=== PATIENT | female | born 1940 | race Caucasian/White ===

== ENCOUNTER 2021-12-22 15:17 | Outpatient (CLI) | payer MEDICARE, SELFPAY ==
[2021-12-22 09:57] LABS: Chloride* 101 mmol/L (96-114); Potassium* 4.7 mmol/L (3.6-5.1); Sodium* 132 mmol/L (135-149)
[2021-12-22 09:59] LABS: Creatinine* 0.8 mg/dL (0.5-1.5); Estimated Glomerular Filt Rate 73 ml/min
[2021-12-22 10:00] LABS: Blood Urea Nitrogen* 16 mg/dL (7-30); Calcium* 8.9 mg/dL (8.4-10.6); Carbon Dioxide* 24 mmol/L (20-32); Glucose* 106 mg/dL (60-115)
== END 2021-12-22 15:18 | disposition home or self-care (01) ==
PROVIDERS: Visit Provider Family Medicine
DX: I10 Essential (primary) hypertension (principal)
CPT/HCPCS: 80048

== ENCOUNTER 2022-01-28 11:35 | Emergency (ER) | payer MEDICARE, SELFPAY ==
[2022-01-28 12:22] VITALS: BP 197/92; PULSE 56; RESP 18; TEMP 36.8; O2SAT 98; BMI 23.2
[2022-01-28 13:18] LABS: SARS Antigen* positive (Negative)
[2022-01-28 13:25] VITALS: BP 187/82; PULSE 58; RESP 20; TEMP 37.4; O2SAT 97
[2022-01-28 13:34] LABS: PCR FLU A Negative PCR FLU A (Negative); PCR FLU B Negative PCR FLU B (Negative); PCR RSV Negative PCR RSV (Negative)
[2022-01-28 13:40] LABS: SARS PCR* POSITIVE SARS-CoV-2 (Negative)
[2022-01-28 14:06] VITALS: BP 187/82; PULSE 58; RESP 20; TEMP 37.4
--- NOTE | 2022-01-28 14:06 | ED.GENADULT ---
HPI - General Adult General Date Seen: 01/28/22 Chief complaint: Sore Throat Stated complaint: Covid+ Time Seen by Provider: 01/28/22 12:37 Source: patient History of Present Illness HPI narrative: Patient is an 81-year-old woman who presents having had a positive COVID test at home. She tells me that she did have COVID 6 weeks ago and was treated with Paxlovid, and says that it was like a miracle drug for her. She felt better the very next day. A couple of days ago, she went her garden club, and then yesterday she had some clear rhinorrhea. Today, she took a COVID test at home and it was again positive. She reports that her is medically frail, and she would like to take Paxlovid again. She says today she actually feels kind of better, but that rhinorrhea yesterday really concerned her. She does not have any fevers, denies cough or shortness of breath. She reports that her general health is good. Related Data Home Medications Medication Instructions Recorded Confirmed alclometasone 0.05 % topical 1 applic topical BID 12/14/21 12/26/21 ointment atorvastatin 20 mg tablet 20 mg PO QHS 12/14/21 12/26/21 calcium carbonate 600 mg calcium 600 mg PO QDAY 12/14/21 12/26/21 (1,500 mg) tablet (Calcium) carvedilol 25 mg tablet 25 mg PO BID 12/14/21 12/26/21 cholecalciferol (vitamin D3) 50 50 mcg PO QDAY 12/14/21 12/26/21 mcg (2,000 unit) capsule esomeprazole magnesium 40 mg 40 mg PO QDAY 12/14/21 12/26/21 capsule,delayed release lisinopril 20 mg tablet 20 mg PO BID 12/14/21 12/26/21 naproxen 250 mg tablet 250 mg PO BID PRN 12/14/21 12/26/21 aspirin 81 mg tablet,delayed 81 mg PO .Every other day 12/26/21 12/26/21 release (Adult Low Dose Aspirin) Previous Rx's Medication Instructions Recorded oxybutynin chloride 5 mg 5 mg PO DAILY #90 tabs 12/26/21 tablet,extended release 24 hr nirmatrelvir 300 mg (150 mg See Rx Instructions PO .COMPLEX 01/28/22 x2)-ritonavir 100 mg tablet,dose #30 ea pack(EUA) (Paxlovid) Allergies Allergy/AdvReac Type Severity Reaction Status Date / Time latex Allergy Mild Rash Verified 12/26/21 15:01 hydrochlorothiazide Allergy Unknown Verified 12/26/21 15:01 Review of Systems Status of ROS: Reports: 10 or more systems reviewed and unremarkable except as noted in History and below PFSH PFS Medical History Dyslipidemia Gastroesophageal reflux disease Hearing loss (01/08/17) History of herpes zoster (2016) Hypertension Increased frequency of urination Polyp of colon (1999) Under observation for suspected coronary artery disease (2006) Surgical History H/O esophagogastroduodenoscopy (03/22/20) History of bilateral cataract extraction (04/2020) History of colonoscopy with polypectomy (02/08/16) History of tubal ligation (1969) Family History Maternal Grandfather Stroke Son FH: early coronary artery disease, Onset Age: 42 Brother FH: early coronary artery disease Brother FH: early coronary artery disease Sister FH: early coronary artery disease Father Lung cancer Mother Colon cancer, Onset Age: 86 Other Skin cancer 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 In general, an alert, well-appearing patient. Head: Normocephalic, atraumatic. Eyes: Pupils are equal reactive. Extraocular movements are full. Conjunctivae are normal. ENT: Mucous membranes are moist. Throat is normal. Neck: Supple without lymphadenopathy. Heart: Regular rate and rhythm. No murmur or rub. Lungs: Clear bilaterally. No increased work of breathing, crackles or wheezes. Abdomen: Soft and nontender. No organomegaly. Extremities: Well perfused. No edema. No calf tenderness. Pulses intact. Neurologic: Patient is alert and oriented to person and place. Speech is fluent. Face is symmetric. Moves all extremities equally. Affect: Normal. Skin: Warm and dry. Well perfused. Const: Vital Signs, click to edit/add: Vital Signs - 24 hr 01/28/22 12:22 01/28/22 13:25 01/28/22 14:06 Temperature 98.3 F 99.3 F 99.3 F Pulse Rate [Pulse Oximeter] 56 L 58 L 58 L Respiratory Rate 18 20 20 Blood Pressure [Ri ght Upper Arm] 197/92 H 187/82 H 187/82 H Pulse Oximetry 98 97 Oxygen Delivery Me thod Room Air Room Air Course Course Hospital Course: I checked influenza and RSV test here which are negative. An antigen COVID test is positive. It seems very fast for her to have a repeat COVID infection, but given that her antigen test is positive and I do not have an alternate explanation for a viral respiratory infection, I am erring on the side of conservative and will restart Paxlovid for her. Will need to hold her statin. Return for worsening symptoms. Vital Signs Vital signs: Initial Vital Signs Temperature 98.3 F 01/28/22 12:22 Temperature Source Temporal Artery Scan 01/28/22 12:22 Pulse Rate 56 L 01/28/22 12:22 Respiratory Rate 18 01/28/22 12:22 Blood Pressure 197/92 H 01/28/22 12:22 Blood Pressure Mean 127 01/28/22 12:22 Blood Pressure Position Semi-Fowlers 01/28/22 12:22 Pulse Oximetry 98 01/28/22 12:22 Oxygen Delivery Method 01/28/22 12:22 Vital Signs Temperature 98.3 F 01/28/22 12:22 Pulse Rate 56 L 01/28/22 12:22 Respiratory Rate 18 01/28/22 12:22 Blood Pressure 197/92 H 01/28/22 12:22 Pulse Oximetry 98 01/28/22 12:22 Oxygen Delivery Method 01/28/22 12:22 Temperature 99.3 F 01/28/22 14:06 Pulse Rate 58 L 01/28/22 14:06 Respiratory Rate 20 01/28/22 14:06 Blood Pressure 187/82 H 01/28/22 14:06 Pulse Oximetry 97 01/28/22 13:25 Oxygen Delivery Method 01/28/22 13:25 Medical Decision Making Lab Data Labs: Lab Results 01/28/22 01/28/22 Range/Units 12:41 12:45 SARS-CoV-2 (PCR) POSITIVE SARS-CoV-2 A (Negative) Influenza Type A (PCR) Negative PCR FLU A (Negative) Influenza Type B (PCR) Negative PCR FLU B (Negative) RSV (PCR) Negative PCR RSV (Negative) SARS-CoV-2 Ag (Rapid) positive (Negative) Discharge Plan Discharge Clinical Impression: COVID-19 Patient Disposition: Home, Self-Care Condition: Stable Instructions: COVID-19 and Chronic Health Conditions (ED) Additional Instructions: Paxlovid as prescribed. Return for worsening. Prescriptions: New Paxlovid (EUA) 300 mg (150 mg x 2)-100 mg tablets,dose pack See Rx Instructions .ROUTE .COMPLEX Qty: 30 0RF Rx Instructions: take TWO 150 mg tablets of nirmatrelvir with ONE 100 mg tablet of ritonavir twice daily for 5 days No Action oxybutynin chloride 5 mg tablet extended release 24hr 5 mg PO DAILY Qty: 90 4RF Rx Instructions: did see Dr Warren atorvastatin 20 mg tablet 20 mg PO QHS calcium carbonate [Calcium 600] 600 mg calcium (1,500 mg) tablet 600 mg PO QDAY carvedilol 25 mg tablet 25 mg PO BID Rx Instructions: must administer with a meal/food esomeprazole magnesium 40 mg capsule,delayed release(DR/EC) 40 mg PO QDAY cholecalciferol (vitamin D3) 50 mcg (2,000 unit) capsule 50 mcg PO QDAY alclometasone 0.05 % ointment 1 applic topical BID naproxen 250 mg tablet 250 mg PO BID PRN lisinopril 20 mg tablet 20 mg PO BID aspirin [Adult Low Dose Aspirin] 81 mg tablet,delayed release (DR/EC) 81 mg PO .Every other day Follow Up/Referrals: Cyndy Ventura MD [Primary Care Provider] - Stand Alone Forms: [employer] Info Instructions
--- NOTE | 2022-01-28 14:55 | ED.NURSE ---
Pt's spouse called and stated that their pharmacy is closed. Would like called to [facility]. Rx called in
== END 2022-01-28 14:06 | disposition home or self-care (01) ==
PROVIDERS: Emergency Provider Emergency Medicine; PCP Family Medicine
DX: U07.1 COVID-19 (principal)
CPT/HCPCS: 87426; 87502; 87634; 87635; 99283; 99284

== ENCOUNTER 2022-03-08 12:51 | Outpatient (CLI) | payer MEDICARE, SELFPAY ==
--- NOTE | 2022-03-08 13:40 | CRLHL7_ITS ---
For Patients: As a result of the Cures Act, medical imaging exams and procedure reports are released immediately into your electronic medical record. You may view this report before your referring provider. If you have questions, please contact your health care provider. BILATERAL SCREENING MAMMOGRAM WITH COMPUTER-AIDED DETECTION AND TOMOSYNTHESIS TECHNIQUE: CC and MLO views were obtained. These mammographic images have been obtained using full-field digital technique. These mammographic images were interpreted with the benefit of computer-aided detection. Breast tomosynthesis was used in this interpretation. COMPARISON FILM: 01/25/21, 09/22/19, 07/31/17. FINDINGS: The breasts are heterogeneously dense, which may obscure small masses. IMPRESSION: There is no radiographic evidence for malignancy. ASSESSMENT: BI-RADS Category 2: Benign RECOMMENDATION: Routine screening mammogram in 1 year. A lay language report of this examination will be provided to the patient. BETSY NELSON M.D. Diagnostic/Nuclear Medicine Radiologist [email or web address] COLEEN:[email or web address] Transcribed: 03/09/2022, 4:[address]/Dictated by: Betsy Nelson MD @ 03/09/2022 9:07:00 AM (Electronically Signed)
== END 2022-03-08 12:52 | disposition home or self-care (01) ==
LOC: MAMMO 12:52
PROVIDERS: PCP Family Medicine; Visit Provider Family Medicine
DX: Z12.31 Encounter for screening mammogram for malignant neoplasm of breast (principal); R92.2 Inconclusive mammogram
CPT/HCPCS: 77063; 77067

== ENCOUNTER 2022-05-03 08:19 | Outpatient (CLI) | payer MEDICARE, SELFPAY | END 2022-05-03 08:20 | disposition home or self-care (01) | PROVIDERS: PCP Family Medicine; Visit Provider Family Medicine | DX: Z00.00 Encounter for general adult medical examination without abnormal findings (principal); E55.9 Vitamin D deficiency, unspecified; E78.5 Hyperlipidemia, unspecified; I10 Essential (primary) hypertension | CPT/HCPCS: 80053; 80061; 82306 ==

== ENCOUNTER 2023-05-07 11:37 | Outpatient (CLI) | payer MEDICARE, SELFPAY | END 2023-05-07 11:38 | disposition home or self-care (01) | PROVIDERS: PCP Family Medicine; Visit Provider Family Medicine | DX: E55.9 Vitamin D deficiency, unspecified (principal); I10 Essential (primary) hypertension; E78.5 Hyperlipidemia, unspecified; M85.80 Other specified disorders of bone density and structure, unspecified site | CPT/HCPCS: 80053; 80061; 82306 ==

== ENCOUNTER 2023-07-17 11:15 | Outpatient (RCR) | payer MEDICARE, SELFPAY ==
--- NOTE | 2023-05-29 17:14 | PT.OPEX ---
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 Ventura Subjective Subjective Patient is a 82 year old female who presents to physical therapy with signs and symptoms consistent with right knee pain secondary to OA. She reports that she was gardening at her [employer] last summer and she heard a pop in her knee. She did have an xray which showed a significant amount of arthritis. She reports that since July the pain has not improved. She states that bad knees run her in her family. No complaints of numbness and tingling. The pain in her right knee is intermittent. She states that she has more pain with bad weather. She reports that she is very busy with activities every day and is very active. 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 Aggravating factors include: gardening, sleeping. Alleviating factors include: 650 Tylenol, glass of wine. Significant past medical history includes high blood pressure and arthritis. Patient would like to have less pain and regain full use of her right knee through physical therapy sessions. 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 Objective Other/Pertinent Objective GAIT/FUNCTIONAL MOBILITY Single leg stance: no increase in pain Squat: no increase in pain KNEE ROM Left: Grossly tested WNL Right: Extension/Flexion: -3-120 HIP ROM Flexion: Grossly tested WNL LLE MMT: Hip flexion: R 4/5 L 4/5 Hip abduction: R 4/5 L 4/5 Hip extension: R 4+/5 L 4+/5 Knee flexion: R 5/5 L 5/5 Knee extension: R 5/5 L 5/5 SPECIAL TEST -Anterior drawer: negative -Posterior Drawer: negative -Valgus Test: negative -Varus Test: negative -Mamie test: negative -Armando Compression: negative -Hip quadrant test: negative -ANAM test: negative -FADIR test: negative -Trochanteric Bursitis Test: negative JOINT MOBILITY/PALPATION Tenderness with palpation of medial and lateral joint lines , tenderness to inferior aspect of quad tendon TX: Access Code: [email or web address] URL: [email or web address] Date: 05/29/2023 Prepared by: Shani Perez Exercises - Supine Quadricep Sets - 1 x daily - 7 x weekly - 3 sets - 10 reps - Active Straight Leg Raise with Quad Set - 1 x daily - 7 x weekly - 3 sets - 10 reps - Supine Heel Slide - 1 x daily - 7 x weekly - 3 sets - 10 reps - Supine Bridge - 1 x daily - 7 x weekly - 3 sets - 10 reps Functional Test Performed & Score 40/80 A score increase of 6 points shows a significant improvement in lower extremity function. Assessment Assessment/Impression Pt is a 82 year old female who presents with concerns of right knee pain. Patient also has notable objective findings including tenderness to palpation and decreased strength which are also likely contributing to the problem. Patient is a good candidate for skilled therapy to target deficits described above. Skilled PT intervention is necessary for use of therapeutic exercise manual therapy, neuromuscular re- education, and therapeutic activity. Functional impairments include difficulty with: gardening, stairs, ADLs sleeping. See appropriate sections of PT eval for complete list of goals and POC . D/C plan and criteria is for pt to achieve the goals as listed below or until max rehab potential is met. Pt was agreeable with plan of care and goals established. Primary Functional Limitations ADLs sleeping gardening stairs Plan of Care Rehabilitation Potential Good Physical Therapy Goals Within 10-12 weeks: 1.Pt will demonstrate independence in performance of home exercise program with the use of video and/or handouts in order to optimize functional mobility and reduce risk for re-injury. 2.Pt will demonstrate consistent HEP compliance to ensure progress in reaching established goals during course of care. 3.Patient will be able to garden for 1 hour without pain . 4.Patient will report pain levels <2/10 with all activities in order to improve functional mobility at home, work and during functional leisure activities. 5.Patient is able to sleep without waking more than one time due to pain in a 6-8 hour time frame. 6.Patient will be able to walk up to 4 blocks without pain. 7.Pt will be able to ascend/ descend 1 flight of stairs in order to perform ADLs pain free. 8.Pt will exhibit 5 pt improvement in Lower extremity functional scale to demonstrate functional improvement and progress towards goals Coordination/Communication With Referral Source Treatment Plan/Direct Interventions Manual Therapy,Neuromuscular Re-ed,Therapeutic Activities, Therapeutic Exercises, Ultrasound Patient Will Be Discharged From Therapy Independently Progressing Evaluation Billing Untimed Code Treatment Minutes 45 Complexity Low Certification Information Physician Comment/Change : Physician NPI Number #
== END 2023-08-13 09:49 | disposition home or self-care (01) ==
PROVIDERS: PCP Family Medicine; Visit Provider Family Medicine
DX: M17.11 Unilateral primary osteoarthritis, right knee (principal); Z51.89 Encounter for other specified aftercare
CPT/HCPCS: 97110; 97161

== ENCOUNTER 2023-08-11 13:04 | Observation (INO) | payer MEDICARE, SELFPAY ==
[2023-08-11] VITALS (23 sets, daily range): BP systolic 93–186; BP diastolic 46–87; PULSE 48–65; RESP 16–18; TEMP 36.4–36.9; O2SAT 96–100; BMI 22.3; BMI 22.4
[2023-08-11 13:16] LABS: Lactate* 1.2 mmol/L (0.5-1.9)
[2023-08-11 13:18] LABS: Basophils Absolute Auto 0.02 K/uL (0.00-0.30); Basophils Percent Auto 0.4 % (0.0-3.0); Eosinophils Absolute Auto 0.07 K/uL (0.00-0.50); Eosinophils Percent Auto 1.3 % (0.0-7.0); Hematocrit 35.7 % (33.0-51.0); Hemoglobin* 11.9 gm/dL (12.0-16.0); Lymphocytes Absolute Auto 1.64 K/uL (0.90-2.90); Mean Corpuscular HGB Conc 33 gm/dL (32-36); Mean Corpuscular Hemoglobin 30 pg (26-34); Mean Corpuscular Volume 90 fL (80-100); Monocytes Percent Auto 8.2 % (0.0-11.0); Neutrophils Absolute Auto 3.29 K/uL (1.7-7.0); Neutrophils Percent Auto 60.1 % (42.0-72.0); Platelet Count* 203 K/uL (140-440); Red Blood Count 3.95 m/uL (4.00-5.20); White Blood Count* 5.47 K/uL (4.50-11.00)
[2023-08-11 13:24] LABS: Slide Review Reflex No
[2023-08-11 13:32] LABS: Troponin, Point-of-Care* 0.01 ng/ml (0.01-0.04)
[2023-08-11 13:37] LABS: Chloride* 106 mmol/L (96-114); Potassium* 4.2 mmol/L (3.6-5.1); Sodium* 136 mmol/L (135-149)
[2023-08-11 13:40] LABS: Anion Gap 9 mEq/L (7-15); Blood Urea Nitrogen* 21 mg/dL (7-30); Calcium* 8.7 mg/dL (8.4-10.6); Carbon Dioxide* 21 mmol/L (20-32); Est. Creatinine Clearance* 35.52; Estimated Glomerular Filt Rate 55 ml/min; Glucose* 101 mg/dL (60-115)
--- NOTE | 2023-08-11 13:41 | ED_ITS ---
HPI - General Adult General Date Seen: 08/11/23 Chief complaint: Dizziness/Vertigo Stated complaint: blood pressure up and down Time Seen by Provider: 08/11/23 13:14 History of Present Illness HPI narrative: This is an 83-year-old female accompanied to the ER today by her for evaluation of a near syncopal event that happened this morning after islam. Patient reports that she has been having a lot of trouble keeping her blood pressure managed for the past several months. It sounds like she has labile blood pressures sometimes with measurements over 200/100 and other times with low blood pressure and presyncopal spells. She also recalls that she has had at least 2 previous episodes of syncope that happened related to dehydration (it sounds like these at fainting spells happened many years ago). This week her primary doctor added and a new blood pressure medications so she is now on3 blood pressure medications. She has been having trouble with dizzy spells and lightheadedness typically in the late morning after 10:00 a.m. and late aftern oon. Blood pressures have been labile this week apparently some measurements over 200 systolic and some measurements much lower. She has not had any recent chest pain. No fever or chills or infection symptoms. Normal appetite. No vomiting or diarrhea. She reports normal activity yesterday, normal sleep last night, and a normal morning this morning. She did have breakfast and then lunch and then actually part of a 2nd lunch. She attended to islam services because her is a crane hooker. She was chatting with an old friend (who is a retired antique [employer] museum maintenance worker) after the 2nd islam service. She apparently tried to stand up and got very lightheaded. She was dizzy and fell to the ground but did not quite black out. Her friend (the antique auto museum maintenance worker) was very alarmed and told her to come here to the ER. She did not have any chest pain. No palpitations. No headache. She did get very nauseous during this episode. No abdominal pain. No vomiting. Not she is here in the ER, she says she feels back to normal. History is somewhat difficult because the patient is really fixated on how difficult it has been to manage her blood pressure over the long-term. The patient believes that her near syncopal event was a side effect of her blood pressure meds and it is difficult to get her to answer questions that might help confirm or exclude any other diagnosis for the episode. Medical record shows that her last primary care visit was about 6 weeks ago on June [address] Her cardona. Med list at that time included carvedilol 25 mg b.i.d., lisinopril 40 mg q.h.s.. Problem list includes hypertension, dyslipidemia, hearing loss, GERD, overactive bladder, osteopenia, vitamin-D deficiency. According to the medical record , they actually added her 3rd blood pressure medication (amlodipine 5 mg daily in April (not 1 week ago as I was initially led to believe). She had stopped the amlodipine her prior to her visit in June. They restarted amlodipine 2.5 mg q.h.s. and had her continue on her carvedilol and hydrochlorothiazide. Related Data Home Medications ?Medication ?Instructions ?Recorded ?Confirmed calcium carbonate (Calcium 600) 600 mg PO QDAY 12/14/21 06/28/23 alclometasone 0.05 % topical 1 applic topical BID PRN 05/07/23 06/28/23 ointment cholecalciferol (vitamin D3) 25 25 mcg PO QDAY 05/08/23 08/11/23 mcg (1,000 unit) tablet Previous Rx's ?Medication ?Instructions ?Recorded atorvastatin 20 mg tablet 20 mg PO QHS #90 tabs 05/07/23 carvedilol 25 mg tablet 25 mg PO BID #180 tabs 05/07/23 esomeprazole magnesium 20 mg 20 mg PO QDAY #90 caps 05/07/23 capsule,delayed release (Nexium) lisinopril 40 mg tablet 40 mg PO QHS #90 tabs 05/07/23 oxybutynin chloride 5 mg 5 mg PO DAILY #90 tabs 05/07/23 tablet,extended release 24 hr amlodipine 2.5 mg tablet 2.5 mg PO QHS #90 tabs 06/28/23 Allergies Allergy/AdvReac Type Severity Reaction Status Date / Time hydrochlorothiazide Allergy Intermediate Verified 06/28/23 13:16 latex Allergy Mild Rash Verified 06/28/23 13:16 [facility] Medical History (Updated 06/28/23 @ 14:05 by Cyndy Ventura MD) COVID-19 ?U07.1 - COVID-19 (ICD-10) Overactive bladder ?N32.81 - Overactive bladder (ICD-10) Under observation for suspected coronary artery disease (2006) ?Z03.89 - Encounter for observation for other suspected diseases and conditions ruled out (ICD-10) Vitamin D deficiency (01/16/18) ?E55.9 - Vitamin D deficiency, unspecified (ICD-10) Polyp of colon (1999) ?K63.5 - Polyp of colon (ICD-10) Hypertension ?I10 - Essential (primary) hypertension (ICD-10) History of herpes zoster (2016) ?Z86.19 - Personal history of other infectious and parasitic diseases (ICD- 10) Hearing loss (01/08/17) ?H91.90 - Unspecified hearing loss, unspecified ear (ICD-10) Gastroesophageal reflux disease ?K21.9 - Gastro-esophageal reflux disease without esophagitis (ICD-10) Dyslipidemia ?E78.5 - Hyperlipidemia, unspecified (ICD-10) Surgical History H/O esophagogastroduodenoscopy (03/22/20) ?Z98.890 - Other specified postprocedural states (ICD-10) History of tubal ligation (1969) ?Z98.51 - Tubal ligation status (ICD-10) History of colonoscopy with polypectomy (02/08/16) ?Z98.890 - Other specified postprocedural states (ICD-10) ?Z86.010 - Personal history of colonic polyps (ICD-10) History of bilateral cataract extraction (04/2020) ?Z98.41 - Cataract extraction status, right eye (ICD-10) ?Z98.42 - Cataract extraction status, left eye (ICD-10) Family History (Updated 02/21/22 @ 07:11 by Cyndy Ventura MD) Maternal Grandfather Stroke Son FH: early coronary artery disease, Onset Age: 42 Brother FH: early coronary artery disease Brother FH: early coronary artery disease Sister FH: early coronary artery disease Father Lung cancer Mother Colon cancer, Onset Age: 86 Other Skin cancer Social History (Updated 05/07/23 @ 14:40 by Madelyn Avendaño ~ CTA) 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: , 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, 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 Exercises regularly, house work winter, gardening summer, always active Non-smoker Social drinker, 1/day wine What is your current living situation?: I presently have a place to live Problems where you live: no known problems In the past 12 months, utilities in danger of being shut off: no In past 12 months, lack of transportation kept you from medical appts, meetings, work, or getting things needed for daily living: no In the past 12 mos, have been you worried that your food would run out before you had money to buy more?: never true In the past 12 mos, the food you bought just didn't last and you didn't have money to buy more?: never true Smoking Status: Never smoker Do you use any of these nicotine containing products: None How often do you have a drink containing alcohol: 4 or more times a week How many standard drinks containing alcohol do you have on a typical day: 1 or 2 How often do you have six or more drinks on one occasion: Never AUDIT-C Alcohol total score: 4 Non-prescribed substance use: denies use How often does anyone, including family, friends and others, physically hurt you : never How often does anyone, including family, friends and others, insult or talk down to you: never How often does anyone, including family, friends and others, threaten you with harm: never How often does anyone, including family, friends and others, scream or curse at you: never Little interest or pleasure in doing things: not at all Feeling down, depressed, or hopeless: not at all service: No Exam Narrative: Exam Narrative: Constitutional: Appears well-developed and well-nourished. Alert. Conversant but a somewhat tangential historian. Non toxic. She is able to go from lying in bed to sitting up without symptoms and has clear posterior lungs and no heart murmurs. HENT: Head: Atraumatic. Nose: Nose normal. Mouth/Throat: Oral mucosa is clear and moist. no trismus. Pharynx normal. Tonsils symmetric. No tonsillar enlargement, erythema, or exudate. Eyes: Conjunctivae normal. EOM normal. Pupils equal, round, and reactive to light. No scleral icterus. Neck: Normal range of motion. Neck supple. No tracheal deviation present. No JVD Cardiovascular: Normal rate, regular rhythm. No gallop. No friction rub. No murmur heard. Symmetric radial and PT artery pulses Pulmonary/Chest: Effort normal. No stridor. No respiratory distress. No wheezes. No rales. No rhonchi . No tenderness. Abdominal: Soft. Bowel sounds normal. No distension. No mass. No tenderness. No rebound. No guarding. Musculoskeletal: RUE: Normal range of motion. No tenderness. No deformity LUE: Normal range of motion. No tenderness. No deformity RLE: Normal range of motion. No edema. No tenderness. No deformity LLE: Normal range of motion. No edema. No tenderness. No deformity Neurological: Alert and oriented to person, place, and time. Normal strength. CN II-VII intact. No sensory deficit. GCS eye subscore is 4. GCS verbal subscore is 5. GCS motor subscore is 6. Normal coordination . Memory seems intact but she often times does not asked direct questions. 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 Skin: Skin is warm and dry. No rash noted. No pallor. Normal capillary refill. Psychiatric: Normal mood. Normal affect. Const: Vital Signs, click to edit/add: Vital Signs - 24 hr 08/11/23 13:08 Temperature 97.7 F Pulse Rate [Left P ulse Oximeter] 48 L Respiratory Rate 18 Blood Pressure [Le ft Upper Arm] 140/71 H Pulse Oximetry 99 Course Course ED Course: Recheck-patient feeling better. Preparing to go to CT. Reevaluation(s) Reevaluation #1: Recheck-patient back from CT. We hooked her back to the monitors. Continues to have sinus bradycardia with a rate around 50. Blood pressure still 130s/70s. Says she feels back to normal. No ongoing nausea. Still has not had any chest pain. Discussed plan of care with and son. Reevaluation #2: Recheck-labs back. Discussed plan of care with patient her . They are both in full agreement with admission for obvious for blood pressure monitoring cardiac monitoring. Vital Signs Vital signs: Initial Vital Signs Temperature 97.7 F 08/11/23 13:08 Temperature Source Temporal Artery Scan 08/11/23 13:08 Pulse Rate 48 L 08/11/23 13:08 Pulse Rhythm Regular 08/11/23 13:08 Pulse Strength 3+ Normal 08/11/23 13:08 Respiratory Rate 18 08/11/23 13:08 Blood Pressure 140/71 H 08/11/23 13:08 Blood Pressure Mean 94 08/11/23 13:08 Blood Pressure Position Sitting 08/11/23 13:08 Pulse Oximetry 99 08/11/23 13:08 Vital Signs Temperature 97.7 F 08/11/23 13:08 Pulse Rate 48 L 08/11/23 13:08 Respiratory Rate 18 08/11/23 13:08 Blood Pressure 140/71 H 08/11/23 13:08 Pulse Oximetry 99 08/11/23 13:08 Temperature 97.7 F 08/11/23 13:08 Pulse Rate 48 L 08/11/23 13:08 Respiratory Rate 18 08/11/23 13:08 Blood Pressure 140/71 H 08/11/23 13:08 Pulse Oximetry 99 08/11/23 13:08 Medical Decision Making MDM Narrative Medical decision making narrative: This patient presents for evaluation of a syncopal event that occurred this morning after islam.. A broad differential was considered. History provided does not reveal any red flags for a malignant cause of syncope. No headache or other neurologic symptoms to suggest subarachnoid , stroke . No reported seizure-like activity or postictal phase. No murmurs . Initial ECG shows sinus bradycardia. Patient and her confirmed that she typically has a low resting heart rate in the 50s and 60s. Suspect this might be caused by her carvedilol. Other than sinus bradycardia, no dysrhythmogenic abnormality such as WPW, prolonged QT, Brugada syndrome, and no ischemia. She did not have any chest pain with this event but did get very nauseous. Consider an atypical presentation of angina. EKG nonischemic and troponin negative. I have ordered a 2nd troponin to screen for ACS. She did not have any chest pain but with the nausea associated with this presyncopal event, that could potentially be a and atypical anginal equivalent. 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 A broad differential diagnosis was considered including SVT, Atrial fibrillation, ventricular arrhythmia, thyroid disease, acute electrolyte abnormality, drugs/medications, medication side effect, anemia, heart disease, PE (no chest pain, shortness of breath, hypoxia, tachycardia, leg swelling, recent travel or immobilization, so overall very low risk), among others. At this point cause of her pre-existing of what is unclear. Could be related to excess blood pressure medications or excess beta blockade. However cannot completely rule out other more sinister causes such as a heart block or tachyarrhythmia that occurred after islam this morning. We will admit her for obsess for further cardiac workup. Discussed with hospitalist, Dr. Johnston. She will follow up on the outstanding results of the urinalysis and the 2nd troponin test. Patient and her are both in full agreement. They would also like some clarity about how best to manage her blood pressure medications to keep her blood pressure down without causing side effects such as dizziness or hypotension. Lab Data Labs: Lab Results 08/11/23 08/11/23 08/11/23 Range/Units 13:09 13:10 13:40 WBC 5.47 (4.50-11.00) K/uL RBC 3.95 L (4.00-5.20) m/uL Hgb 11.9 L (12.0-16.0) gm/dL Hct 35.7 (33.0-51.0) % MCV 90 (80-100) fL MCH 30 (26-34) pg MCHC 33 (32-36) gm/dL RDW Coeff of Horace 13.0 (11.5-15.5) % Plt Count 203 (140-440) K/uL Neut % (Auto) 60.1 (42.0-72.0) % Lymph % (Auto) 30.0 (20-44) % [place] % (Auto) 8.2 (0.0-11.0) % Eos % (Auto) 1.3 (0.0-7.0) % Baso % (Auto) 0.4 (0.0-3.0) % Neut # (Auto) 3.29 (1.7-7.0) K/uL Lymph # (Auto) 1.64 (0.90-2.90) K/uL [place] # (Auto) 0.40 (0.00-0.90) K/UL Eos # (Auto) 0.07 (0.00-0.50) K/uL Baso # (Auto) 0.02 (0.00-0.30) K/uL Abs Immat Gran (auto) 0.00 (0.00-0.30) K/uL Imm/Tot Granulo (auto) 0.0 % Sodium 136 (135-149) mmol/L Potassium 4.2 (3.6-5.1) mmol/L Chloride 106 (96-114) mmol/L Carbon Dioxide 21 (20-32) mmol/L Anion Gap 9 (7-15) mEq/L BUN 21 (7-30) mg/dL Creatinine 1.0 (0.5-1.5) mg/dL Estimated Creat Clear 35.52 Estimated GFR 55 ml/min Glucose 101 (60-115) mg/dL Lactate 1.2 (0.5-1.9) mmol/L Calcium 8.7 (8.4-10.6) mg/dL Urine Color Yellow (Yellow) Urine Appearance Clear (Clear) Urine pH 7.0 (5.0-8.5) Ur Specific [place] 1.015 (1.000-1.030) Urine Protein Trace A (Negative) Urine Glucose (UA) Negative (Negative) Urine Ketones Negative (Negative) Urine Blood Negative (Negative) Urine Nitrite Negative (Negative) Urine Bilirubin Negative (Negative) Urine Urobilinogen 0.2 (0.2-1.0) Ur Leukocyte Esterase Negative (Negative) POC Troponin I 0.01 (0.01-0.04) ng/ml Imaging Data CT scan - head: Attestation: I have reviewed the pertinent imaging results. Radiologist's impression: Impression: 1. Age-related changes of the brain without acute intracranial abnormality. Discharge Plan Discharge Prescriptions: No Action amlodipine 2.5 mg tablet 2.5 mg PO QHS Qty: 90 3RF lisinopril 40 mg tablet 40 mg PO QHS Qty: 90 3RF carvedilol 25 mg tablet 25 mg PO BID Qty: 180 3RF esomeprazole magnesium [Nexium] 20 mg capsule,delayed release(DR/EC) 20 mg PO QDAY Qty: 90 3RF oxybutynin chloride 5 mg tablet extended release 24hr 5 mg PO DAILY Qty: 90 3RF atorvastatin 20 mg tablet 20 mg PO QHS Qty: 90 3RF calcium carbonate [Calcium 600] 600 mg calcium (1,500 mg) tablet 600 mg PO QDAY alclometasone 0.05 % ointment 1 applic topical BID PRN cholecalciferol (vitamin D3) 25 mcg (1,000 unit) tablet 25 mcg PO QDAY Follow Up/Referrals: Cyndy Ventura MD [Primary Care Provider] -
--- NOTE | 2023-08-11 13:41 | CRLHL7_ITS ---
For Patients: As a result of the Century Cures Act, medical imaging exams and procedure reports are released immediately into your electronic medical record. You may view this report before your referring provider. If you have questions, please contact your health care provider. Indication: Feeling faint nausea and confusion Technique: Volumetric multidetector CT images of the head were obtained without the administration of low osmolar intravenous contrast. Comparison: None available Findings: There is no intra-axial or extra-axial fluid collection. There is no mass effect or midline shift. There is age-related cortical atrophy with mild sulcal widening and ex vacuo dilatation of the lateral ventricles. There are chronic small vessel disease changes in the subcortical and periventricular white matter without lost hamlin-white differentiation. The orbits and their contents are grossly within normal limits. The bony calvarium is grossly intact. The paranasal sinuses are clear. The mastoid air cells are well aerated. Impression: 1. Age-related changes of the brain without acute intracranial abnormality. Please note that all CT scans at this facility use dose modulation, iterative reconstruction, and/or weight-based dosing when appropriate to reduce radiation dose to as low as reasonably achievable. Dictated by Benedicto Gregory MD @ 08/11/2023 2:36:52 PM (Electronically Signed)
[2023-08-11 15:31] LABS: Appearance Urine Clear (Clear); Bilirubin Urine Negative (Negative); Blood Urine Negative (Negative); Color Urine Yellow (Yellow); Glucose Urine Negative (Negative); Ketones Urine Negative (Negative); Leukocyte Esterase Urine Negative (Negative); Nitrite Urine Negative (Negative); Protein Urine Trace (Negative); Specific Gravity Urine 1.015 (1.000-1.030); Urobilinogen Urine 0.2 (0.2-1.0)
[2023-08-11 15:50] LABS: RBC Urine 0-2 (0-2); WBC Urine 0-2 (0-5)
--- NOTE | 2023-08-11 16:48 | P.IMHP_ITS ---
Hospitalist- H&P: HPI History of Present Illness Date Seen: 08/11/23 Chief complaint: blood pressure up and down Narrative: ADMISSION HISTORY AND PHYSICAL - HOSPITALIST Chief Complaint: Near-syncope after congregation HPI: 83-year-old with longstanding hypertension, hyperlipidemia and GERD but otherwise quite healthy and active presents with her after an incident departing congregation. This morning she was in her usual state of health. She went to 2 different congregation services. She was visiting with friends after the 2nd congregation service and felt a sense of weakness and a wave of nausea, over her. She felt her legs go weak and she was helped to a chair. This sensation did not pass quickly. It also is reminiscent of other episodes that she has had over the years but this was more severe. Her was quite worried. They brought her to the emergency room for further evaluation. No chest pain, no asymmetrical weakness, no slurring of her words, no headache, positive nausea, positive diaphoresis, positive mild confusion, positive generalized weakness. ER COURSE: Head CT, vitals, labs. CODE STATUS: Full code EMERGENCY CONTACT PLAN: Jan Madsen Rel To Pat Work Phone (Patient) [phone] I've updated the PFSH, medications and allergies in the Expanse tabs. INVESTIGATIONS: LABS/MICRO/ECG/IMAGING Blood pressure has been labile even since arrival. 93/46 to 151/82 Pulse consistently in the 50s Pulse ox 98% on room air. No respiratory distress. With a normal respiratory rate. CBC is unremarkable. There is a mild anemia noted. Today her hemoglobin is 11.9 in previously she has been about 13. Normal troponin, normal TSH. Normal electrolytes. Normal urine Head CT shows age-related changes without acute intracranial abnormality. EKG shows sinus bradycardia. May 2018 Procedure: Stress Echo, Color Doppler and Limited Spectral Doppler. Keyur stress echo. ? Indication for study: HUTCHISON Cardiac Rhythm: Regular.Study quality: Good. ? Final Impressions: 1. Fair exercise duration and workload. 2. See separate report for EKG interpretation. 3. Maximum stress test with 86.4% of age predicted maximum heart rate achieved. 4. During stress exam the patient developed no significant symptoms. 5. Post stress, normal left ventricular size, increased global systolic functi on with an estimated EF of >75%. 6. Negative stress echo for ischemia. 7. The aortic valve is trileaflet, no stenosis and mild regurgitation. ? Echo Findings:This is a negative stress echo test for ischemia. Post stress, normal left ventricular size, increased global systolic function with an estimated EF of >75%. No definite regional wall motion abnormality seen post exercise. REVIEW OF SYSTEMS: 12-point ROS completed with patient and negative unless otherwise stated in HPI or below. PHYSICAL EXAM: CONSTITUTIONAL: Conversive, good historian. A/O. Knows setting and context. VITAL SIGNS: see record. HEENT: Normocephalic, atraumatic. PERRL, EOMI, conjunctivae pink, no scleral icterus. Ears and nose externally normal. Pharynx normal. NECK: No JVD. No carotid bruit, no thyromegaly, no adenopathy. CHEST: Clear to auscultation bilaterally HEART: S1 and S2 normal. BABAK. No harsh murmurs. Edema minimal MUSCULOSKELETAL: No gross joint deformity or swelling. NEURO: Cranial nerves intact. Grossly intact. No asymmetric findings. SKIN: No rashes, petechiae, concerning changes PSYCHIATRIC: Euthymic. ADMIT TO MEDSURG: FLOOR CARE DVT: Lovenox GI: PO intake Time spent: Today I spent 75 minutes seeing the patient, discussing the patient with ER staff, reviewing Expanse and EPIC notes/diagnostics, discussing the care plan with our care time that includes social work, PT/OT, pharmacy, RT, nursing home and documenting my impressions and plan in the medical record. [facility] Medical History (Updated 08/11/23 @ 18:05 by Ana Johnston MD) COVID-19 ?U07.1 - COVID-19 (ICD-10) Overactive bladder ?N32.81 - Overactive bladder (ICD-10) Under observation for suspected coronary artery disease (2006) ?Z03.89 - Encounter for observation for other suspected diseases and conditions ruled out (ICD-10) Vitamin D deficiency (01/16/18) ?E55.9 - Vitamin D deficiency, unspecified (ICD-10) Polyp of colon (1999) ?K63.5 - Polyp of colon (ICD-10) History of herpes zoster (2016) ?Z86.19 - Personal history of other infectious and parasitic diseases (ICD- 10) Hearing loss (01/08/17) ?H91.90 - Unspecified hearing loss, unspecified ear (ICD-10) Gastroesophageal reflux disease ?K21.9 - Gastro-esophageal reflux disease without esophagitis (ICD-10) Dyslipidemia ?E78.5 - Hyperlipidemia, unspecified (ICD-10) Surgical History H/O esophagogastroduodenoscopy (03/22/20) ?Z98.890 - Other specified postprocedural states (ICD-10) History of tubal ligation (1969) ?Z98.51 - Tubal ligation status (ICD-10) History of colonoscopy with polypectomy (02/08/16) ?Z98.890 - Other specified postprocedural states (ICD-10) ?Z86.010 - Personal history of colonic polyps (ICD-10) History of bilateral cataract extraction (04/2020) ?Z98.41 - Cataract extraction status, right eye (ICD-10) ?Z98.42 - Cataract extraction status, left eye (ICD-10) Family History (Updated 02/21/22 @ 07:11 by Cyndy Ventura MD) Maternal Grandfather Stroke Son FH: early coronary artery disease, Onset Age: 42 Brother FH: early coronary artery disease Brother FH: early coronary artery disease Sister FH: early coronary artery disease Father Lung cancer Mother Colon cancer, Onset Age: 86 Other Skin cancer Social History (Updated 05/07/23 @ 14:40 by Madelyn Avendaño ~ CTA) 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: , 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, 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 Exercises regularly, house work winter, gardening summer, always active Non-smoker Social drinker, 1/day wine What is your current living situation?: I presently have a place to live Problems where you live: no known problems In the past 12 months, utilities in danger of being shut off: no In past 12 months, lack of transportation kept you from medical appts, meetings, work, or getting things needed for daily living: no In the past 12 mos, have been you worried that your food would run out before you had money to buy more?: never true In the past 12 mos, the food you bought just didn't last and you didn't have money to buy more?: never true Smoking Status: Never smoker Do you use any of these nicotine containing products: None How often do you have a drink containing alcohol: 4 or more times a week How many standard drinks containing alcohol do you have on a typical day: 1 or 2 How often do you have six or more drinks on one occasion: Never AUDIT-C Alcohol total score: 4 Non-prescribed substance use: denies use How often does anyone, including family, friends and others, physically hurt you : never How often does anyone, including family, friends and others, insult or talk down to you: never How often does anyone, including family, friends and others, threaten you with harm: never How often does anyone, including family, friends and others, scream or curse at you: never Little interest or pleasure in doing things: not at all Feeling down, depressed, or hopeless: not at all service: No Meds Home Medications and Allergies Home Medications ?Medication ?Instructions ?Recorded ?Confirmed ?Type calcium carbonate (Calcium 600) 600 mg PO DAILY 12/14/21 08/11/23 History alclometasone 0.05 % topical 1 applic topical BID PRN 05/07/23 06/28/23 History ointment cholecalciferol (vitamin D3) 25 25 mcg PO DAILY 05/08/23 08/11/23 History mcg (1,000 unit) tablet amlodipine 2.5 mg tablet 2.5 mg PO HS 08/11/23 08/11/23 History atorvastatin 20 mg tablet 20 mg PO HS 08/11/23 08/11/23 History esomeprazole magnesium 20 mg 20 mg PO DAILY 08/11/23 08/11/23 History capsule,delayed release (Nexium) lisinopril 40 mg tablet 40 mg PO HS 08/11/23 08/11/23 History Allergies Allergy/AdvReac Type Severity Reaction Status Date / Time hydrochlorothiazide Allergy Intermediate Verified 06/28/23 13:16 latex Allergy Mild Rash Verified 06/28/23 13:16 Exam Const: Vital Signs, click to edit/add: Vital Signs - 24 hr 08/11/23 13:08 08/11/23 13:15 08/11/23 13:30 Temperature 97.7 F Pulse Rate 51 L 52 L Pulse Rate [Left P ulse Oximeter] 48 L Respiratory Rate 18 Blood Pressure Blood Pressure [Le ft Upper Arm] 140/71 H Pulse Oximetry 99 98 99 08/11/23 13:45 08/11/23 14:04 08/11/23 14:06 Temperature Pulse Rate 48 L 51 L Pulse Rate [Left P ulse Oximeter] Respiratory Rate Blood Pressure 93/46 L Blood Pressure [Le ft Upper Arm] Pulse Oximetry 98 100 08/11/23 14:15 08/11/23 14:30 08/11/23 14:45 Temperature Pulse Rate 52 L 54 L 52 L Pulse Rate [Left P ulse Oximeter] Respiratory Rate Blood Pressure Blood Pressure [Le ft Upper Arm] Pulse Oximetry 96 98 98 08/11/23 15:00 08/11/23 15:15 08/11/23 15:23 Temperature Pulse Rate 52 L 53 L Pulse Rate [Left P ulse Oximeter] Respiratory Rate Blood Pressure 136/62 Blood Pressure [Le ft Upper Arm] Pulse Oximetry 97 97 08/11/23 15:59 08/11/23 16:00 08/11/23 16:02 Temperature Pulse Rate 55 L 59 L 56 L Pulse Rate [Left P ulse Oximeter] Respiratory Rate Blood Pressure 151/82 H Blood Pressure [Le ft Upper Arm] Pulse Oximetry 97 97 97 08/11/23 16:15 Temperature Pulse Rate 54 L Pulse Rate [Left P ulse Oximeter] Respiratory Rate Blood Pressure Blood Pressure [Le ft Upper Arm] Pulse Oximetry 98 Hospitalist - H&P: Result Labs Labs: Short CBC 08/11/23 Range/Units 13:10 WBC 5.47 (4.50-11.00) K/uL Hgb 11.9 L (12.0-16.0) gm/dL Hct 35.7 (33.0-51.0) % Plt Count 203 (140-440) K/uL BMP 08/11/23 13:10 Sodium 136 Potassium 4.2 Chloride 106 Carbon Dioxide 21 BUN 21 Creatinine 1.0 Glucose 101 Calcium 8.7 Urine 08/11/23 Range/Units 13:40 Urine Color Yellow (Yellow) Urine Appearance Clear (Clear) Urine pH 7.0 (5.0-8.5) Ur Specific [place] 1.015 (1.000-1.030) Urine Protein Trace A (Negative) Urine Glucose (UA) Negative (Negative) Assessment and Plan Assessment and plan (1) Near syncope: Problem comment: -ddx: vasovagal, labile htn with rebound, bradycardia (either from bblocker or sick sinus syndrome), side effect of medication, TIA -telemetry -echo -orthostatic bp measurements -medication adjustments (AT ADMISSION I'M LOWERING COREG FROM 25 BID TO 12.5MG BID) Status: Acute (2) Labile hypertension: Problem comment: home device ACCURATE 06/28/2023 home regimen: coreg 25 BID (8am/8pm) lisinopril 40mg (8pm) amlodipine 2.5mg (just before sleep) -SBP ranges 96-204 -echocardiogram -telemetry -consider outpatient cardiology consult (ambulatory bp monitoring, Zio patch) Status: Acute
[2023-08-11 16:56] LABS: Troponin I* < 0.01 ng/mL (0.01-0.04)
[2023-08-11] MEDS: carvediloL 25 MG TABLET 12.5 MG PO (20:51)
[2023-08-11] MEDS: ATORVASTATIN 10 MG TABLET 20 MG PO (20:52)
[2023-08-11] MEDS: ENOXAPARIN 40 MG/0.4 ML INJ SUBCUT (20:54)
[2023-08-11] MEDS: SODIUM CHLORIDE 0.9 % (FLUSH) 10 ML SYRINGE 5 ML IVF (20:54)
[2023-08-11] MEDS: AMLODIPINE 5 MG TABLET 2.5 MG PO (20:54)
[2023-08-12 03:00] VITALS: BP 131/53; PULSE 62; RESP 16; TEMP 36.9; O2SAT 99
--- NOTE | 2023-08-12 04:05 | PC.NURSE ---
Pt rested well this night. Reporting zero pain. Claims no episode of Dizziness. Orthostatics unremarkable. Pt stable on feet and oriented x3.
[2023-08-12 08:00] VITALS: BP 139/60; PULSE 60; PULSE 67; RESP 16; TEMP 37; O2SAT 96
[2023-08-12] MEDS: SODIUM CHLORIDE 0.9 % (FLUSH) 10 ML SYRINGE 5 ML IVF (08:36)
[2023-08-12] MEDS: carvediloL 25 MG TABLET 12.5 MG PO (08:36)
[2023-08-12 11:24] VITALS: BP 128/57; PULSE 56; RESP 16; TEMP 37.2; O2SAT 96
--- NOTE | 2023-08-12 12:11 | P.DS_ITS ---
DS: Providers Provider Date Seen: 08/12/23 Date of admission: 08/11/23 16:23 Primary care physician: Cyndy Ventura MD Admitting Clinician: Ana Johnston MD Attending Physician on discharge: Ana Johnston MD Date of Discharge: 08/12/23 DS: Diagnosis Discharge Diagnosis (1) Labile hypertension: Status: Acute Problem details: home device ACCURATE 06/28/2023 home regimen: coreg 25 BID (8am/8pm) --> CHANGE TO 12.5MG BID ON 08/12/23 DISCHARGE lisinopril 40mg (8pm) amlodipine 2.5mg (just before sleep) -SBP ranges 96-204 -echocardiogram without concern finding -telemetry NSR - no arrhythmia -consider outpatient cardiology consult (ambulatory bp monitoring, Zio patch) (2) Near syncope: Status: Acute Problem details: -ddx: vasovagal, labile htn with rebound, bradycardia (either from bblocker or sick sinus syndrome), side effect of medication, TIA -telemetry -echo -orthostatic bp measurements -medication adjustments (AT ADMISSION I'M LOWERING COREG FROM 25 BID TO 12.5MG BID) DS: Summary Hospital Course Hospital Course: FINAL DIAGNOSIS/FOLLOW UP ISSUES: 1. Labile hypertension. She does seem to have wide swings in her systolic blood pressures. However it is unclear at this point how acute this is and truly how symptomatic she is. I have asked her to keep a journal with a daily blood pressure (varying the time) with any associated symptoms. I would like for her to see Cardiology for consideration of a Zio patch and or ambulatory blood pressure monitoring. I have decreased her carvedilol from 20/5 b.i.d. to 12.5 b.i.d.. BRIEF HOSPITAL COURSE: Patient was admitted overnight. Synopsis of acute inpatient issues are outlined above. Chronic medical conditions with notable findings outlined above. Echo 08/12/23 Final Impressions: 1. Normal left ventricular size, borderline wall thickness, normal global systolic function, calculated EF of 62 %. 2. Right ventricular cavity size is normal, global systolic RV function is normal. 3. The aortic valve is trileaflet and normal, no stenosis and mild regurgitation. 4. The mitral valve is normal, mild mitral regurgitation. DISCHARGE MEDICATIONS: See Reconciled list - SIGNIFICANT CHANGES: A change in the carvedilol dose (25 BID to 12.5 BID) Specific instructions to the patient and follow-up are outlined below. REVIEW OF SYSTEMS No new chest pain or dyspnea Pain controlled No voiding difficulties Tolerating diet challenge PHYSICAL EXAM: CONSTITUTIONAL: Alert, independent. Insightful. VITAL SIGNS: see record. HEENT: Normocephalic, atraumatic. PERRL, EOMI, conjunctivae pink, no scleral icterus. Ears and nose externally normal. Pharynx normal. NECK: No JVD. No carotid bruit, no thyromegaly, no adenopathy. CHEST: Clear to auscultation bilaterally. HEART: S1 and S2 normal. Edema minimal ABDOMEN: Soft, nontender. Normal bowel sounds. MUSCULOSKELETAL: No gross joint deformity or swelling. NEURO: Cranial nerves intact. Grossly intact. No asymmetric findings. SKIN: No rashes, petechiae, concerning changes PSYCHIATRIC: Mood euthymic. DISPOSITION: Home with spouse Time spent on discharge 37 minutes. Status at Discharge Functional status at discharge: independent ambulation Overall status at discharge: patient is not back to baseline Time Spent with Patient Time attestation: Total time spent providing and/or coordinating discharge services: Time spent: Greater than 30 minutes Exam Const: Vital Signs, click to edit/add: Vital Signs - 24 hr 08/11/23 13:08 08/11/23 13:15 08/11/23 13:30 Temperature 97.7 F Pulse Rate 51 L 52 L Pulse Rate [Left P ulse Oximeter] 48 L Pulse Rate [Right Radial] Pulse Rate [orthos tatic lying Left] Pulse Rate [orthos tatic sitting Left Radial] Pulse Rate [orthos tatic standing Lef t Radial] Respiratory Rate 18 Blood Pressure Blood Pressure [Le ft Arm] Blood Pressure [Le ft Upper Arm] 140/71 H Blood Pressure [or thostatic lying] Blood Pressure [or thostatic sitting Right Arm] Blood Pressure [or thostatic standing ] Pulse Oximetry 99 98 99 Oxygen Delivery Wi thod 08/11/23 13:45 08/11/23 14:04 08/11/23 14:06 Temperature Pulse Rate 48 L 51 L Pulse Rate [Left P ulse Oximeter] Pulse Rate [Right Radial] Pulse Rate [orthos tatic lying Left] Pulse Rate [orthos tatic sitting Left Radial] Pulse Rate [orthos tatic standing Lef t Radial] Respiratory Rate Blood Pressure 93/46 L Blood Pressure [Le ft Arm] Blood Pressure [Le ft Upper Arm] Blood Pressure [or thostatic lying] Blood Pressure [or thostatic sitting Right Arm] Blood Pressure [or thostatic standing ] Pulse Oximetry 98 100 Oxygen Delivery Me thod 08/11/23 14:15 08/11/23 14:30 08/11/23 14:45 Temperature Pulse Rate 52 L 54 L 52 L Pulse Rate [Left P ulse Oximeter] Pulse Rate [Right Radial] Pulse Rate [orthos tatic lying Left] Pulse Rate [orthos tatic sitting Left Radial] Pulse Rate [orthos tatic standing Lef t Radial] Respiratory Rate Blood Pressure Blood Pressure [Le ft Arm] Blood Pressure [Le ft Upper Arm] Blood Pressure [or thostatic lying] Blood Pressure [or thostatic sitting Right Arm] Blood Pressure [or thostatic standing ] Pulse Oximetry 96 98 98 Oxygen Delivery Wi thod 08/11/23 15:00 08/11/23 15:15 08/11/23 15:23 Temperature Pulse Rate 52 L 53 L Pulse Rate [Left P ulse Oximeter] Pulse Rate [Right Radial] Pulse Rate [orthos tatic lying Left] Pulse Rate [orthos tatic sitting Left Radial] Pulse Rate [orthos tatic standing Lef t Radial] Respiratory Rate Blood Pressure 136/62 Blood Pressure [Le ft Arm] Blood Pressure [Le ft Upper Arm] Blood Pressure [or thostatic lying] Blood Pressure [or thostatic sitting Right Arm] Blood Pressure [or thostatic standing ] Pulse Oximetry 97 97 Oxygen Delivery Wi thod 08/11/23 15:59 08/11/23 16:00 08/11/23 16:02 Temperature Pulse Rate 55 L 59 L 56 L Pulse Rate [Left P ulse Oximeter] Pulse Rate [Right Radial] Pulse Rate [orthos tatic lying Left] Pulse Rate [orthos tatic sitting Left Radial] Pulse Rate [orthos tatic standing Lef t Radial] Respiratory Rate Blood Pressure 151/82 H Blood Pressure [Le ft Arm] Blood Pressure [Le ft Upper Arm] Blood Pressure [or thostatic lying] Blood Pressure [or thostatic sitting Right Arm] Blood Pressure [or thostatic standing ] Pulse Oximetry 97 97 97 Oxygen Delivery Wi thod 08/11/23 16:15 08/11/23 16:52 08/11/23 16:52 Temperature Pulse Rate 54 L 65 Pulse Rate [Left P ulse Oximeter] Pulse Rate [Right Radial] Pulse Rate [orthos tatic lying Left] Pulse Rate [orthos tatic sitting Left Radial] Pulse Rate [orthos tatic standing Lef t Radial] Respiratory Rate 18 Blood Pressure Blood Pressure [Le ft Arm] Blood Pressure [Le ft Upper Arm] Blood Pressure [or thostatic lying] Blood Pressure [or thostatic sitting Right Arm] Blood Pressure [or thostatic standing ] Pulse Oximetry 98 98 Oxygen Delivery Me thod 08/11/23 18:40 08/11/23 18:40 08/11/23 19:50 Temperature 97.6 F 97.9 F Pulse Rate Pulse Rate [Left P ulse Oximeter] Pulse Rate [Right Radial] 57 L Pulse Rate [orthos tatic lying Left] Pulse Rate [orthos tatic sitting Left Radial] Pulse Rate [orthos tatic standing Lef t Radial] Respiratory Rate 18 18 16 Blood Pressure Blood Pressure [Le ft Arm] 186/87 H 134/56 L Blood Pressure [Le ft Upper Arm] Blood Pressure [or thostatic lying] Blood Pressure [or thostatic sitting Right Arm] Blood Pressure [or thostatic standing ] Pulse Oximetry 98 98 98 Oxygen Delivery Me thod Room Air Room Air 08/11/23 19:52 08/11/23 20:06 08/11/23 22:08 Temperature 98.4 F Pulse Rate 60 Pulse Rate [Left P ulse Oximeter] Pulse Rate [Right Radial] 60 Pulse Rate [orthos tatic lying Left] 57 L Pulse Rate [orthos tatic sitting Left Radial] 58 L Pulse Rate [orthos tatic standing Lef t Radial] 62 Respiratory Rate 16 Blood Pressure Blood Pressure [Le ft Arm] 116/52 L Blood Pressure [Le ft Upper Arm] Blood Pressure [or thostatic lying] 134/56 L Blood Pressure [or thostatic sitting Right Arm] 150/63 H Blood Pressure [or thostatic standing ] 148/74 H Pulse Oximetry 99 Oxygen Delivery Me thod Room Air 08/11/23 22:12 08/12/23 03:00 08/12/23 08:00 Temperature 98.4 F 98.6 F Pulse Rate Pulse Rate [Left P ulse Oximeter] Pulse Rate [Right Radial] 62 60 Pulse Rate [orthos tatic lying Left] Pulse Rate [orthos tatic sitting Left Radial] Pulse Rate [orthos tatic standing Lef t Radial] Respiratory Rate 16 16 16 Blood Pressure Blood Pressure [Le ft Arm] 131/53 L 139/60 Blood Pressure [Le ft Upper Arm] Blood Pressure [or thostatic lying] Blood Pressure [or thostatic sitting Right Arm] Blood Pressure [or thostatic standing ] Pulse Oximetry 99 96 Oxygen Delivery Me thod Room Air Room Air 08/12/23 08:00 08/12/23 11:24 Temperature 99 F Pulse Rate 67 Pulse Rate [Left P ulse Oximeter] Pulse Rate [Right Radial] 56 L Pulse Rate [orthos tatic lying Left] Pulse Rate [orthos tatic sitting Left Radial] Pulse Rate [orthos tatic standing Lef t Radial] Respiratory Rate 16 Blood Pressure Blood Pressure [Le ft Arm] 128/57 L Blood Pressure [Le ft Upper Arm] Blood Pressure [or thostatic lying] Blood Pressure [or thostatic sitting Right Arm] Blood Pressure [or thostatic standing ] Pulse Oximetry 96 Oxygen Delivery Me thod Room Air DS: Data Data Completed and Pending Labs on day of discharge: Labs from last 24 hours 08/11/23 08/11/23 08/11/23 16:52 16:02 13:40 WBC RBC Hgb Hct MCV MCH MCHC RDW Coeff of Horace Plt Count Neut % (Auto) Lymph % (Auto) [place] % (Auto) Eos % (Auto) Baso % (Auto) Neut # (Auto) Lymph # (Auto) [place] # (Auto) Eos # (Auto) Baso # (Auto) Abs Immat Gran (auto) Imm/Tot Granulo (auto) Sodium Potassium Chloride Carbon Dioxide Anion Gap BUN Creatinine Estimated Creat Clear Estimated GFR Glucose Lactate Calcium Troponin I < 0.01 L TSH Urine Color Yellow Urine Appearance Clear Urine pH 7.0 Ur Specific Pierre 1.015 Urine Protein Trace A Urine Glucose (UA) Negative Urine Ketones Negative Urine Blood Negative Urine Nitrite Negative Urine Bilirubin Negative Urine Urobilinogen 0.2 Ur Leukocyte Esterase Negative Urine RBC 0-2 Urine WBC 0-2 Ur Squamous Epith Cells None Urine Bacteria None Lab Acknowledgement Test Added POC Troponin I 08/11/23 08/11/23 13:10 13:09 WBC 5.47 RBC 3.95 L Hgb 11.9 L Hct 35.7 MCV 90 MCH 30 MCHC 33 RDW Coeff of Horace 13.0 Plt Count 203 Neut % (Auto) 60.1 Lymph % (Auto) 30.0 [place] % (Auto) 8.2 Eos % (Auto) 1.3 Baso % (Auto) 0.4 Neut # (Auto) 3.29 Lymph # (Auto) 1.64 [place] # (Auto) 0.40 Eos # (Auto) 0.07 Baso # (Auto) 0.02 Abs Immat Gran (auto) 0.00 Imm/Tot Granulo (auto) 0.0 Sodium 136 Potassium 4.2 Chloride 106 Carbon Dioxide 21 Anion Gap 9 BUN 21 Creatinine 1.0 Estimated Creat Clear 35.52 Estimated GFR 55 Glucose 101 Lactate 1.2 Calcium 8.7 Troponin I TSH 1.400 Urine Color Urine Appearance Urine pH Ur Specific Pierre Urine Protein Urine Glucose (UA) Urine Ketones Urine Blood Urine Nitrite Urine Bilirubin Urine Urobilinogen Ur Leukocyte Esterase Urine RBC Urine WBC Ur Squamous Epith Cells Urine Bacteria Lab Acknowledgement POC Troponin I 0.01 Discharge Plan Discharge Disposition: Home, Self-Care Date of Admission: 08/11/23 16:23 Primary Care Provider: Cyndy Ventura Condition: Improved Anticipated Discharge Date/Time: 08/12/23 12:05 Discharge Medications: New carvedilol 25 mg Tablet 12.5 mg PO BID Qty: 30 0RF Continued oxybutynin chloride 5 mg tablet extended release 24hr 5 mg PO DAILY Qty: 90 3RF atorvastatin 20 mg tablet 20 mg PO HS amlodipine 2.5 mg tablet 2.5 mg PO HS lisinopril 40 mg tablet 40 mg PO HS esomeprazole magnesium [Nexium] 20 mg capsule,delayed release(DR/EC) 20 mg PO DAILY calcium carbonate [Calcium 600] 600 mg calcium (1,500 mg) tablet 600 mg PO DAILY alclometasone 0.05 % ointment 1 applic topical BID PRN cholecalciferol (vitamin D3) 25 mcg (1,000 unit) tablet 25 mcg PO DAILY Discontinued carvedilol 25 mg tablet 25 mg PO BID Qty: 180 3RF Discharge Orders: Discharge Order (Routine); Ordered 08/12/23 Ordered By: Ana Johnston Patient Education: Carvedilol (By mouth), Near Syncope (GEN) Additional Instructions: Only medication change is the carvedilol dosing. Starting taking 12.5 mg ([facility]) twicea day. Take your blood pressure daily, vary the timing and circumstance. consider starting a journal with date/blood pressure/notes on how you are feeling. As we discussed stopping the Nexium and or the oxybutynin is safe. I will send you to cardiology to discuss labile hypertension. Activity Level: No Restrictions Discharge Diet: Regular Follow Up Appointments: [facility] [Provider Group] - 09/05/23 11:00 am (Dr. Chen at [facility]) Cyndy Ventura MD [Primary Care Provider] - 08/20/23 8:30 am ([facility] for Hospital follow-up) Forms: [employer] Info Instructions
--- NOTE | 2023-08-12 14:19 | PC.NURSE ---
Addendum entered by Allison Adams RN 08/12/23 14:21: Discharged @ 1300. Original Note: Discharge: Patient pleasant and cooperative. Up independently in room, tolerating regular diet, denies pain or SOB. Vitals stable. IV removed, discharge instructions given, follow up and medication changes discussed. Discharged from floor @ 1346.
== END 2023-08-12 13:00 | disposition home or self-care (01) ==
LOC: ED 14:17 → MEDSURG 16:23
PROVIDERS: Admitting Provider Family Medicine; Emergency Provider Emergency Medicine; PCP Family Medicine; Visit Provider Family Medicine
DX: R55 Syncope and collapse (principal); R09.89 Other specified symptoms and signs involving the circulatory and respiratory systems; R00.1 Bradycardia, unspecified; D64.9 Anemia, unspecified; R11.0 Nausea; R53.1 Weakness; I10 Essential (primary) hypertension; I08.0 Rheumatic disorders of both mitral and aortic valves; E78.5 Hyperlipidemia, unspecified; H91.90 Unspecified hearing loss, unspecified ear; K21.9 Gastro-esophageal reflux disease without esophagitis; N32.81 Overactive bladder; M85.80 Other specified disorders of bone density and structure, unspecified site; I49.5 Sick sinus syndrome; Z86.16 Personal history of COVID-19; Z86.19 Personal history of other infectious and parasitic diseases; Z98.51 Tubal ligation status; Z98.41 Cataract extraction status, right eye; Z98.42 Cataract extraction status, left eye; Z98.890 Other specified postprocedural states; Z86.010 Personal history of colon polyps
CPT/HCPCS: 36415; 70450; 80048; 81001; 83605; 84443; 84484; 85025; 93005; 93306; 96372; 99284; 99285; G0378; A9270; J1650

== ENCOUNTER 2023-10-29 08:42 | Outpatient (CLI) | payer MEDICARE, SELFPAY ==
--- OUTSIDE RECORDS SUMMARY | 2023-10-31 10:32 | XMS_ITS | Clinical Summary ---
Author Organization [facility] Address [place], [place] [address] Care Team Providers Care Central Services Tech Name Role Phone Pcp, No Primary Care Provider Unavailabl e Allergies Active Allergy Reactions Criticality Noted Date Comments Hydrochlorothiazide Syncope 11/25/2020 Latex Rash Low 11/25/2020 Medications Medication Sig Dispensed Refills Start Date End Date Status aspirin (ECOTRIN) 81 mg enteric coated tablet Daily Active atorvastatin (LIPITOR) 20 mg tablet 11/03/2020 Active carvediloL (COREG) 25 mg tablet 12/22/2020 Active Vitamin D-3 50 mcg (2,000 unit) tablet 03/10/2020 Activ e esomeprazole (NEXIUM) 40 mg capsule 12/22/2020 Active PreviDent 5000 Booster Plus 1.1 % pste USE TO BRUSH TEETH TWICE DAILY 11/10/2020 Active lisinopriL (PRINIVIL; ZESTRIL) 10 mg tablet 12/06/2020 Act yasmine oxybutynin XL (DITROPAN XL) 5 mg CR tabletIndications:Uri nary frequency Take 1 Tablet (5 mg) by mouth once daily. 30 Tablet 11 01/23/2021 Active Encounters Date Type Department Care Team Description 09/05/2023 11:00 AM CDT Office Visit [facility] [address] [place] [address] Cesario Conrad MD CV General Cardiology New 08/12/2023 11:00 AM CDT Ancillary Procedure [facility] [address] [place] [address] from Last 3 Months Immunizations Name Administration Dates Next Due Influenza, Inactivated AIIV4 (Age 65+ Years) Preserv Free 11/03/2019 Social History Tobacco Use Types Packs/Day Years Used Date Smoking Tobacco: Never Smokeless Tobacco: Never Tobacco Cessation:Counseling Given: Yes Alcohol Use Standard Drinks/Week Comments Yes 0 (1 standard drink = 0.6 oz pur e alcohol) Social Connections Answer Date Recorded Frequency of Communication with Friends and Fami ly Not on file 09/05/2023 Sex and Gender Information Value Date Recorded Sex Assigned at Not on file Gender Identity Not on file Sexual Orientation Not on file Obstetrics History Last Filed Vital Signs Vital Sign Reading Time Taken Comments Blood Pressure 183/81 04/10/2021 10:17 AM [employer] Pulse 52 04/10/2021 10:17 AM [employer] Temperature - - Respiratory Rate 18 01/23/2021 9:53 AM [employer] Oxygen Saturation 98% 04/10/2021 10:17 AM [employer] Inhaled Oxygen Concentration - - Weight 64 kg (141 lb 1.6 oz) 04/10/2021 10:17 AM [employer] Height - - Body Mass Index - - Plan of Treatment Health Maintenance Due Date Last Done Comments Tdap 1949 Depression screening for age 12+ 1950 BMI (ht and wt on same day) for age 18+ 1956 Tetanus booster 1958 Zoster (shingles) series for age 50+ (1 of 2) 1988 RSV vaccine for adults or (1 - 1-dose 60+ series) 1998 DEXA/DXA scan for age 65+ 05/31/2003 Medicare Wellness for age 65+ 05/31/2003 Pneumococcal series for age 65+ (1 of 1 - PCV) 05/31/2003 Influenza for age 65+ 10/13/2023 11/03/2019 COVID-19 vaccine series Completed 05/27/19 24, 11/13/2022, 11/09/2020, Additional history exists Procedures Procedure Name Priority Date/Time Associated Diagnosis Comments ECHO TTE COMPLETE WO CONTRAST Routine 08/12/2023 11:30 AM CDT Syncope from Last 3 Months Results * ECHO TTE COMPLETE WO CONTRAST (08/12/2023 11:30 AM CDT) AORTIC VALVE MEAN PG 6 mmHg EJECTION FRACTION 62 % PEAK TR VELOCITY 2.4 m/s LVEDD 4.1 cm Anatomical Region Laterality Modality Ultrasound 08/12/2023 11:0 2 AM CDT Narrative 08/12/2023 12:16 PM CDT ECHOCARDIOGRAM ROSEANNE FLOWERS ? Accession#: ?? [id number] : ?1940 83 years Study Date: ?? 08/12/2023 11:02:21 AM Gender: F ?BP: ? 139/60 mmHg Height: 163.00 cm ?BSA: ?1.63 m? ? ? Weight: 59.00 kg ? Tech: ? MJS ? Referring MD: CHAD VALLE Site: ? [facility] Reading Location: [facility] Patient Location: Inpatient. Procedure: 2D, Color Doppler and Spectral Doppler. Indication for study: Syncope Cardiac Rhythm: Normal sinus.Study quality: Good. Final Impressions: 1. Normal left ventricular size, borderline wall thickness, normal global systolic function, calculated EF of 62 %. 2. Right ventricular cavity size is normal, global systolic RV function is normal. 3. The aortic valve is trileaflet and normal, no stenosis and mild regurgitation. 4. The mitral valve is normal, mild mitral regurgitation. Comparison There are no prior studies on this patient for comparison purposes. Chamber Sizes and Function Normal left ventricular size, borderline wall thickness, normal global systolic function, calculated EF of 62 %. Left atrial size is normal. Right ventricular cavity size is normal, global systolic RV function is normal. The right atrium is normal. Right atrial area is 16 cm? ? ?. The pulmonary artery is of normal size and origin. The sinus of Valsalva is normal sized. The ascending aorta is normal sized. Valves, RV Pressures and Diastolic Function The aortic valve is trileaflet and normal in structure, no stenosis and mild regurgitation. The mitral valve is normal in structure, mild mitral regurgitation. Indeterminate pattern of LV diastolic filling. The tricuspid valve is normal in structure. Tricuspid regurgitation is trace regurgitation. The tricuspid regurgitant velocity is 2.4 m/s, the estimated right ventricular systolic pressure is 23 mmHg plus right atrial pressure. The pulmonic valve is normal. No pulmonary regurgitation. TTE images do not appear adequate for transcather intervention with patient supine. Masses, Effusion, Shunts There is no pericardial effusion. The inferior vena cava is dilated, respiratory size variation greater than 50%. No left to right shunting was detected by limited color flow Doppler interrogation of the interatrial septum. MEASUREMENTS AND CALCULATIONS 2-D Measurements and LV Function: LVID (d) 4.1 cm Planimetered EF 62 % LVID (s) 2.4 cm LV FS% (2D) ? 40 % IVS (d) ??1.2 cm LVOT diameter ?? 2.0 cm LVPW (d) 1.2 cm HR ?58 bpm Ao Sinus 3.1 cm LA Vol index ?35 ml/m2 Asc Ao ?? 3.2 cm RA area ? 16 cm?RV Max 4C (d) ?? 3.5 cm Aortic Valve: Vmax ? 1.7 m/s ??OZZIE (V) ?? 2.17 cm? ? ? VTI ?0.44 m ?? OZZIE (I) ?? 2.18 cm? ? ? LVOT V max 1.1 m/s ??Max PG ?12 mmHg LVOT VTI ?? 0.29 m ?? Mean PG ?? 6 mmHg SV ? 96 ml ?Dim Index 0.67 SV index ?? 59 ml/m? ? ? CO ?5.6 l/min ?CI ?3.4 l/min/m? ? ? Tricuspid Valve and estimated PA pressures: TR Vmax 2.4 m/s TAPSE 3.0 cm TR maxG 23 mmHg . This study was interpreted by an [facility] accredited facility. CC: HIM (med records) [facility], Med/Surg - IP [facility]. ??Final ?? Procedure Note Mikael Holder MD - 08/12/2023 ECHOCARDIOGRAM ROSEANNE FLOWERS : 1940 83 years Study Date: 08/12/2023 11:02:21 AM Gender: F BP: 139/60 mmHg Height: 163.00 cm BSA: 1.63 m? ? ? Weight: 59.00 kg [place]: [facility] Referring MD: CHAD VALLE Site: [facility] Reading Location: [facility] Patient Location: Inpatient. Procedure: 2D, Color Doppler and Spectral Doppler. Indication for study: Syncope Cardiac Rhythm: Normal sinus.Study quality: Good. Final Impressions: 1. Normal left ventricular size, borderline wall thickness, normal globalsystolic function, calculated EF of 62 %. 2. Right ventricular cavity size is normal, global systolic RV functionis normal. 3. The aortic valve is trileaflet and normal, no stenosis and mildregurgitation. 4. The mitral valve is normal, mild mitral regurgitation. Comparison There are no prior studies on this patient for comparison purposes. Chamber Sizes and Function Normal left ventricular size, borderline wall thickness, normal globalsystolic function, calculated EF of 62 %. Left atrial size is normal.Right ventricular cavity size is normal, global systolic RV function isnormal. The right atrium is normal. Right atrial area is 16 cm? ? ?. Thepulmonary artery is of normal size and origin. The sinus of Valsalva isnormal sized. The ascending aorta is normal sized. Valves, RV Pressures and Diastolic Function The aortic valve is trileaflet and normal in structure, no stenosis andmild regurgitation. The mitral valve is normal in structure, mild mitralregurgitation. Indeterminate pattern of LV diastolic filling. Thetricuspid valve is normal in structure. Tricuspid regurgitation is traceregurgitation. The tricuspid regurgitant velocity is 2.4 m/s, theestimated right ventricular systolic pressure is 23 mmHg plus right atrialpressure. The pulmonic valve is normal. No pulmonary regurgitation. TTEimages do not appear adequate for transcather intervention with patientsupine. Masses, Effusion, Shunts There is no pericardial effusion. The inferior vena cava is dilated,respiratory size variation greater than 50%. No left to right shunting wasdetected by limited color flow Doppler interrogation of the interatrialseptum. MEASUREMENTS AND CALCULATIONS 2-D Measurements and LV Function: LVID (d) 4.1 cm Planimetered EF 62 % LVID (s) 2.4 cm LV FS% (2D) 40 % IVS (d) 1.2 cm LVOT diameter 2.0 cm LVPW (d) 1.2 cm HR 58 bpm Ao Sinus 3.1 cm LA Vol index 35 ml/m2 Asc Ao 3.2 cm RA area 16 cm? ? ? RV Max 4C (d) 3.5 cm Aortic Valve: Vmax 1.7 m/s OZZIE (V) 2.17 cm? ? ? VTI 0.44 m OZZIE (I) 2.18 cm? ? ? LVOT V max 1.1 m/s Max PG 12 mmHg LVOT VTI 0.29 m Mean PG 6 mmHg SV 96 ml Dim Index 0.67 SV index 59 ml/m? ? ? CO 5.6 l/min CI 3.4 l/min/m? ? ? Tricuspid Valve and estimated PA pressures: TR Vmax 2.4 m/s TAPSE 3.0 cm TR maxG 23 mmHg . This study was interpreted by an [facility] accredited facility. CC: HIM (med records) [facility], Med/Surg - IP [facility]. Final Chad Valle MD ECHO ORD from Last 3 Months Care Teams Central Services Tech Relationship Specialty Start Date End Date Pcp, No . PCP - General 11/02/19
== END 2023-10-29 08:43 | disposition home or self-care (01) ==
LOC: NFLDREF 10-31 10:30
PROVIDERS: PCP Family Medicine; Referring Provider Family Medicine; Visit Provider Family Medicine
DX: M81.0 Age-related osteoporosis without current pathological fracture (principal); I10 Essential (primary) hypertension; R73.01 Impaired fasting glucose
CPT/HCPCS: 80053; 82306

== ENCOUNTER 2024-02-04 21:19 | Emergency (ER) | payer MEDICARE, SELFPAY ==
[2024-02-04 21:32] VITALS: BP 174/74; PULSE 62; RESP 18; TEMP 36.8; O2SAT 99; BMI 20.6
--- NOTE | 2024-02-04 21:36 | ED_ITS ---
HPI - General Adult General Chief complaint: Hip Injury/Pain Stated complaint: L side/thigh pain Time Seen by Provider: 02/04/24 21:31 History of Present Illness HPI narrative: CC: Left Sciatica Pain pt. with pain for last 2 weeks. did see provider and had xray done. was given oxycodone for pain, but she is running out. denies injury , n/v, diarrhea , fevers 83-year-old woman presenting to the emergency department with concern of left leg pain. Seen 2 weeks ago and diagnosed with left-sided sciatic pain. Lumbar x-ray was done at that time showing facet degeneration in grade 1 degenerative spondylolisthesis Of L4 on L5 Completed prednisone course yesterday; looks to have been somewhat of a taper. Has been taking oxycodone as prescribed 3 times a day to uncertain affect. Saved 3 tablets though and has not taken any today as she is trying to get through the holiday. Has been having trouble with sleep. Pain is flared now going down her buttock and posterior left thigh intensifying around her knee and then somewhat the inner lower leg on the left to when when gets really bad, under her foot as well. Related Data Home Medications ?Medication ?Instructions ?Recorded ?Confirmed atorvastatin 20 mg tablet 20 mg PO HS 08/11/23 02/04/24 Previous Rx's ?Medication ?Instructions ?Recorded carvedilol 12.5 mg tablet (Coreg) 12.5 mg PO BID #90 tabs 08/20/23 amlodipine 2.5 mg tablet 2.5 mg PO HS #90 tabs 01/10/24 ibuprofen 600 mg tablet 600 mg PO TID #30 tabs 01/28/24 oxycodone 5 mg tablet 5 mg PO TID PRN pain (scale score 01/28/24 7-10) #25 tabs oxycodone-acetaminophen 5 mg-325 1 - 2 tab PO TID PRN pain #15 tabs 02/05/24 mg tablet (Percocet) Allergies Allergy/AdvReac Type Severity Reaction Status Date / Time hydrochlorothiazide Allergy Intermediate Verified 02/04/24 21:35 latex Allergy Mild Rash Verified 02/04/24 21:35 Review of Systems Status of ROS: Reports: 6 or more systems reviewed and unremarkable except as noted in History and below [facility] Medical History Hypertension ?I10 - Essential (primary) hypertension (ICD-10) COVID-19 ?U07.1 - COVID-19 (ICD-10) Overactive bladder ?N32.81 - Overactive bladder (ICD-10) Under observation for suspected coronary artery disease (2006) ?Z03.89 - Encounter for observation for other suspected diseases and conditions ruled out (ICD-10) Vitamin D deficiency (01/16/18) ?E55.9 - Vitamin D deficiency, unspecified (ICD-10) Polyp of colon (1999) ?K63.5 - Polyp of colon (ICD-10) History of herpes zoster (2016) ?Z86.19 - Personal history of other infectious and parasitic diseases (ICD- 10) Hearing loss (01/08/17) ?H91.90 - Unspecified hearing loss, unspecified ear (ICD-10) Gastroesophageal reflux disease ?K21.9 - Gastro-esophageal reflux disease without esophagitis (ICD-10) Dyslipidemia ?E78.5 - Hyperlipidemia, unspecified (ICD-10) Surgical History H/O esophagogastroduodenoscopy (03/22/20) ?Z98.890 - Other specified postprocedural states (ICD-10) History of tubal ligation (1969) ?Z98.51 - Tubal ligation status (ICD-10) History of colonoscopy with polypectomy (02/08/16) ?Z98.890 - Other specified postprocedural states (ICD-10) ?Z86.010 - Personal history of colonic polyps (ICD-10) History of bilateral cataract extraction (04/2020) ?Z98.41 - Cataract extraction status, right eye (ICD-10) ?Z98.42 - Cataract extraction status, left eye (ICD-10) Family History Maternal Grandfather Stroke Son FH: early coronary artery disease, Onset Age: 42 Brother FH: early coronary artery disease Brother FH: early coronary artery disease Sister FH: early coronary artery disease Father Lung cancer Mother Colon cancer, Onset Age: 86 Other Skin cancer 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: , 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, 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 Exercises regularly, house work winter, gardening summer, always active Non-smoker Social drinker, 1/day wine What is your current living situation?: I presently have a place to live Problems where you live: no known problems Problems where you live details: n/a In the past 12 months, utilities in danger of being shut off: no In past 12 months, lack of transportation kept you from medical appts, meetings, work, or getting things needed for daily living: no In the past 12 mos, have been you worried that your food would run out before you had money to buy more?: never true In the past 12 mos, the food you bought just didn't last and you didn't have money to buy more?: never true Smoking Status: Never smoker Do you use any of these nicotine containing products: None How often do you have a drink containing alcohol: 4 or more times a week How many standard drinks containing alcohol do you have on a typical day: 1 or 2 How often do you have six or more drinks on one occasion: Never AUDIT-C Alcohol total score: 4 Non-prescribed substance use: denies use How often does anyone, including family, friends and others, physically hurt you : never How often does anyone, including family, friends and others, insult or talk down to you: never How often does anyone, including family, friends and others, threaten you with h arm: never How often does anyone, including family, friends and others, scream or curse at you: never service: No Exam Narrative: Exam Narrative: Flexed somewhat at the hips resting on her right side. Quite tender just left of midline sacrum and extending to the buttock. Some left SI joint tenderness as well. Pressing here actually causes pain in her knee more she says. I think with good strength in her legs just limited due to pain. Is breathing easily. No indication of trauma on her skin. Const: Vital Signs, click to edit/add: Vital Signs - 24 hr 02/04/24 21:32 02/04/24 21:56 02/05/24 00:01 Temperature 98.2 F 98.2 F 98.2 F Pulse Rate [Right Pulse Oximeter] 62 Respiratory Rate 18 Blood Pressure [Ri ght Upper Arm] 174/74 H Pulse Oximetry 99 Oxygen Delivery Me thod Room Air 02/05/24 00:34 02/05/24 00:36 02/05/24 00:38 Temperature 98.2 F 98.2 F Pulse Rate [Right Pulse Oximeter] 68 68 Respiratory Rate 18 18 Blood Pressure [Ri ght Upper Arm] 155/84 H 155/84 H Pulse Oximetry 99 99 Oxygen Delivery Me thod Room Air Documenting provider has reviewed patient's vital signs: yes Course Vital Signs Vital signs: Initial Vital Signs Temperature 98.2 F 02/04/24 21:32 Temperature Source Temporal Artery Scan 02/04/24 21:32 Pulse Rate 62 02/04/24 21:32 Respiratory Rate 18 02/04/24 21:32 Blood Pressure 174/74 H 02/04/24 21:32 Blood Pressure Mean 107 H 02/04/24 21:32 Blood Pressure Position Sitting 02/04/24 21:32 Pulse Oximetry 99 02/04/24 21:32 Oxygen Delivery Method Room Air 02/04/24 21:32 Vital Signs Temperature 98.2 F 02/04/24 21:32 Pulse Rate 62 02/04/24 21:32 Respiratory Rate 18 02/04/24 21:32 Blood Pressure 174/74 H 02/04/24 21:32 Pulse Oximetry 99 02/04/24 21:32 Oxygen Delivery Method Room Air 02/04/24 21:32 Temperature 98.2 F 02/05/24 00:38 Pulse Rate 68 02/05/24 00:38 Respiratory Rate 18 02/05/24 00:38 Blood Pressure 155/84 H 02/05/24 00:38 Pulse Oximetry 99 02/05/24 00:36 Oxygen Delivery Method Room Air 02/05/24 00:36 Medications Administered Medications: Generic Name Dose Route Start Last Admin Trade Name Freq PRN Reason Stop Dose Admin Oxycodone/Acetaminophen 1 - 2 tab 02/05/24 00:57 02/05/24 01:25 Oxycodone/Apap 5-325 Tablet PO 1 tab Q4H PRN Administration Pain Discontinued Medications Generic Name Dose Route Start Last Admin Trade Name Freq PRN Reason Stop Dose Admin Ibuprofen 600 mg 02/04/24 21:49 02/04/24 21:56 Ibuprofen 200 Mg Tablet PO 02/04/24 21:50 600 mg ONCE ONE Administration Oxycodone/Acetaminophen 2 tab 02/04/24 21:49 02/04/24 21:56 Oxycodone/Apap 5-325 Tablet PO 02/04/24 21:50 2 tab ONCE ONE Administration Prednisone 60 mg 02/04/24 21:49 02/04/24 21:56 Prednisone 20 Mg Tablet PO 02/04/24 21:50 60 mg ONCE ONE Administration Medical Decision Making MDM Narrative Medical decision making narrative: I did inquire as to whether or not we would be able to do lumbar MRI here today. This unfortunately will not be possible. This does appear to be a lumbar radiculopathy possibly with some secondary muscle spasming as well. Will try to treat pain. It sounds like she has gotten behind in pain management. Will try to treat with oral management to verify whether not can be comfortable at home. Given ibuprofen and prednisone here in the emergency department along with 2 t abs of Percocet. On reassessment is clearly more comfortable. Actually now able to lie on her back. Does not appear excessive fatigue/sedated. I do not think will be continuing course of prednisone as should have been effective already at this point. Will be able to discharge to outpatient follow-up. See patient discharge plan for further discussion Will be prescribing more oxycodone though in the form of Percocet. This contains 5 mg of oxycodone and 325 mg of acetaminophen per dose. Can take up to 600 mg of ibuprofen or up to 1000 mg of acetaminophen per dose. The ibuprofen can be combined with the Percocet or the acetaminophen. On the days that you are taking the Percocet, please consider taking senna 1-2 tabs daily for your bowels. Generally stay well-hydrated and be sure to supplement fiber. Remember opiates can make you tired/sleepy and prone to falls. Follow-up with your doctor as planned. (unfortunately unable to connect with [facility]. Will need to give you some pills to go and will send some more into your pharmacy) Medical Records Medical records reviewed: Yes I reviewed the patient's medical records Discharge Plan Discharge Clinical Impression: Radicular leg pain Patient Disposition: Home w/ Parent or Adult Condition: Improved Additional Instructions: Will be prescribing more oxycodone though in the form of Percocet. This contains 5 mg of oxycodone and 325 mg of acetaminophen per dose. Can take up to 600 mg of ibuprofen or up to 1000 mg of acetaminophen per dose. The ibuprofen can be combined with the Percocet or the acetaminophen. On the days that you are taking the Percocet, please consider taking senna 1-2 tabs daily for your bowels. Generally stay well-hydrated and be sure to supplement fiber. Remember opiates can make you tired/sleepy and prone to falls. Follow-up with your doctor as planned. (unfortunately unable to connect with [facility]. Will need to give you some pills to go and will send some more into your pharmacy) Prescriptions: New oxycodone-acetaminophen [Percocet] 5-325 mg tablet 1 - 2 tab PO TID PRN (Reason: pain) Qty: 15 0RF No Action carvedilol [Coreg] 12.5 mg tablet 12.5 mg PO BID Qty: 90 3RF ibuprofen 600 mg tablet 600 mg PO TID Qty: 30 0RF Rx Instructions: 1 tablet 3 times a day with food for acute back pain for 5-10 days, start after prednisone finished atorvastatin 20 mg tablet 20 mg PO HS amlodipine 2.5 mg tablet 2.5 mg PO HS Qty: 90 3RF oxycodone 5 mg tablet 5 mg PO TID PRN (Reason: pain (scale score 7-10)) Qty: 25 0RF Follow Up/Referrals: Cyndy Ventura MD [Primary Care Provider] - Stand Alone Forms: [employer] Info Instructions
[2024-02-04 21:56] VITALS: TEMP 36.8
[2024-02-04] MEDS: OxyCODONE/APAP 5-325 TABLET 2 TAB PO (21:56)
[2024-02-04] MEDS: IBUPROFEN 200 MG TABLET 600 MG PO (21:56)
[2024-02-04] MEDS: predniSONE 20 MG TABLET 60 MG PO (21:56)
[2024-02-05 00:01] VITALS: TEMP 36.8
[2024-02-05 00:34] VITALS: O2SAT 99
[2024-02-05 00:36] VITALS: BP 155/84; PULSE 68; RESP 18; TEMP 36.8; O2SAT 99
[2024-02-05 00:38] VITALS: BP 155/84; PULSE 68; RESP 18; TEMP 36.8
[2024-02-05] MEDS: OxyCODONE/APAP 5-325 TABLET PO (01:25)
== END 2024-02-05 00:38 | disposition home or self-care (01) ==
PROVIDERS: Emergency Provider Family Medicine; PCP Family Medicine
DX: M54.16 Radiculopathy, lumbar region (principal)
CPT/HCPCS: 94761; 99283; 99284; A9270; J7512

== ENCOUNTER 2024-02-06 16:07 | Outpatient (CLI) | payer MEDICARE, SELFPAY ==
--- NOTE | 2024-02-06 16:30 | CRLHL7_ITS ---
For Patients: As a result of the Century Cures Act, medical imaging exams and procedure reports are released immediately into your electronic medical record. You may view this report before your referring provider. If you have questions, please contact your health care provider. INDICATION: Low back pain. Left-sided sciatica. TECHNIQUE: Sagittal and axial T1, sagittal and axial T2 and sagittal STIR images. COMPARISON: Lumbar spine radiographs on 01/28/2024. FINDINGS: Chronic compression fracture deformity of the L1 inferior endplate with approximately 40 percent loss of height. No evidence of acute lumbar compression fracture. Grade 1 degenerative spondylolisthesis at L4-5 with multilevel spondylosis. There is advanced facet arthropathy at L4-5. Distal spinal cord and conus medullaris appear normal. The conus terminates normally at the L1-2 interspace. Disc desiccation with minor annular bulging at T11-12 and T12-L1 without stenosis. At L1-2 but the degenerative disc desiccation. Mild annular bulge mild facet enlargement no stenosis of the spinal canal or neural foramen. At L2-3 degenerative disc desiccation no disc herniation mild facet arthropathy. Spinal canal and neural foramen are adequately patent. At L3-4 degenerative disc desiccation no disc herniation. Mild facet arthropathy no stenosis of the spinal canal or neural foramen. At L4-5 grade 1 degenerative spondylolisthesis at severe facet arthropathy that is worse on the left than the right. There is facet spur formation greater left than right and thickening of ligamentum flavum synovial cyst present in the dorsal midline spinal canal measures approximately 12 mm in diameter. Associated thickening of ligamentum flavum and facet spurs along with the and grade 1 spondylolisthesis results in severe central spinal canal stenosis. The there is also lateral recess stenosis with impingement of traversing bilateral L5 nerve roots. Mild to moderate bilateral foraminal narrowing. Facet bone edema greater left than right. There is a additional posteriorly positioned synovial cyst approximately 15 mm diameter that involves the dorsal paraspinal tissues. At L5-S1 degenerative disc desiccation. Moderate right and mild left facet arthropathy. No disc herniation or stenosis of the spinal canal or neural foramen. Incidental perineural cysts within the upper sacral spinal canal. Impression : 1. At L4-5 there is severe central spinal canal stenosis, L5 lateral recess stenosis with impingement of traversing bilateral L5 nerve roots. Associated advanced facet arthropathy (greater left than right), dorsal midline synovial cyst and grade 1 degenerative spondylolisthesis contribute to central spinal canal stenosis. 2. Multilevel spondylosis. 3. Chronic compression fracture at L1. No acute compression fracture. Dictated by Lawrence Tanner MD @ 02/07/2024 12:03:47 PM (Electronically Signed)
== END 2024-02-06 16:08 | disposition home or self-care (01) ==
PROVIDERS: PCP Family Medicine; Visit Provider Family Medicine
DX: M54.42 Lumbago with sciatica, left side (principal); M48.061 Spinal stenosis, lumbar region without neurogenic claudication; M47.896 Other spondylosis, lumbar region; M48.56XS Collapsed vertebra, not elsewhere classified, lumbar region, sequela of fracture
CPT/HCPCS: 72148

== ENCOUNTER 2024-02-11 14:45 | Inpatient (IN) | payer MEDICARE, SELFPAY ==
[2024-02-11] VITALS (22 sets, daily range): BP systolic 127–158; BP diastolic 65–84; PULSE 63–92; RESP 16–20; TEMP 37.1–38.7; O2SAT 94–98; BMI 22.0; BMI 23.7
--- OUTSIDE RECORDS SUMMARY | 2024-02-11 14:47 | XMS_ITS | Clinical Summary ---
Author Organization [facility] Address [place], [place] [address] Care Team Providers Care Applications Architect Name Role Phone Pcp, No Primary Care Provider Unavailabl e Allergies Active Allergy Reactions Criticality Noted Date Comments Hydrochlorothiazide Syncope 11/25/2020 Latex Rash Low 11/25/2020 Medications aspirin (ECOTRIN) 81 mg enteric coated tablet Daily Active atorvastatin (LIPITOR) 20 mg tablet 11/03/2020 Active carvediloL (COREG) 25 mg tablet 12/22/2020 Active Vitamin D-3 50 mcg (2,000 unit) tablet 03/10/2020 Active esomeprazole (NEXIUM) 40 mg capsule 12/22/2020 Active PreviDent 5000 Booster Plus 1.1 % pste USE TO BRUSH TEETH TWICE DAILY 11/10/2020 Active lisinopriL (PRINIVIL; ZESTRIL) 10 mg tablet 12/06/2020 Active oxybutynin XL (DITROPAN XL) 5 mg CR tabletIndication s:Urinary frequency Take 1 Tablet (5 mg) by mouth once daily. 30 Tablet 11 01/23/2021 Active Encounters Date Type Department Care Team Description 02/10/2024 2:30 PM NAIL ARTIST Ancillary Procedure [facility] [place] [address] [place] [address] Arrived 02/10/2024 Orders Only [facility] [address] [place] [address] Layla Nagy PA <No scans attached> from Last 3 Months Immunizations Name Administration [...] and Fami ly Not on file 09/05/2023 Comments No Sex and Gender Information Value Date Recorded Sex Assigned at Not on file Legal Sex Female 7:58 PM CDT Gender Identity Not on file Sexual Orientation Not on file Obstetrics History Last Filed Vital Signs Vital Sign Reading Time Taken Comments Blood Pressure 183/81 04/10/2021 10:17 AM NAIL ARTIST Pulse 52 04/10/2021 10:17 AM NAIL ARTIST Temperature - - Respiratory Rate 18 01/23/2021 9:53 AM NAIL ARTIST Oxygen Saturation 98% 04/10/2021 10:17 AM NAIL ARTIST Inhaled Oxygen Concentration - - Weight 64 kg (141 lb 1.6 oz) 04/10/2021 10:17 AM NAIL ARTIST Height - - Body Mass Index - - Plan of Treatment Health Maintenance Due Date Last Done Comments Tdap 1949 Depression screening for age 12+ 1950 BMI (ht and wt on same day) for age 18+ 1956 Tetanus booster 1958 Pneumococcal series for age 50+ (1 of 1 - PCV) 1988 Zoster (shingles) series for age 50+ (1 of 2) 1988 DEXA/DXA scan for age 65+ 05/31/2003 Medicare Wellness for age 65+ 05/31/2003 RSV vaccine for adults or (1 - 1-dose 75+ series) 2013 Influenza for age 65+ 10/13/2023 11/03/2019 COVID-19 vaccine series Completed 10/30/19 24, 05/27/2023, 11/13/2022, Additional history exists Procedures Procedure Name Priority Date/Time Associated Diagnosis Comments XR SPINE LUMBAR 2 VIEWS Routine 02/10/2024 2:38 PM NAIL ARTIST Spondylolisthesis of lumbar region from Last 3 Months Results * XR SPINE LUMBAR 2 VIEWS (02/10/2024 2:38 PM NAIL ARTIST) Anatomical Region Laterality Modality LUMBAR SPINE Digital Radiogra phy 02/11/2024 12:2 6 PM NAIL ARTIST Narrative 02/11/2024 12:26 PM NAIL ARTIST For Patients: As a result of the Cures Act, medical imaging exams and procedure reports are released immediately into your electronic medical record. You may view this report before your referring provider. If you have questions, please contact your health care provider. INDICATION: Spondylolisthesis of lumbar region. TECHNIQUE: Lateral flexion-extension views of the lumbar spine. FINDINGS: Demineralization. L1 compression fracture, likely chronic. Mild compression superior endplates L2 and possibly L4. Mild disc space narrowing and grade 1 anterolisthesis at L4-5. No instability on flexion or extension. Dictated by Donnie Nguyen MD @ 02/11/2024 12:26:45 PM (Electronically Signed) Procedure Note Donnie Nguyen MD - 02/11/2024 For Patients: As a result of the Cures Act, medical imagingexams and procedure reports are released immediately into your electronicmedical record. You may view this report before your referring provider.If you have questions, please contact your health care provider. INDICATION: Spondylolisthesis of lumbar region. TECHNIQUE: Lateral flexion-extension views of the lumbar spine. FINDINGS: Demineralization. L1 compression fracture, likely chronic. Mildcompression superior endplates L2 and possibly L4. Mild disc spacenarrowing and grade 1 anterolisthesis at L4-5. No instability on flexionor extension. Dictated by Donnie Nguyen MD @ 02/11/2024 12:26:45 PM (Electronically Signed) [facility] Final Res ult from Last 3 Months Insurance MEDICARE PART B HB ONLY MEDICARE PART A HB ONLY [facility] Care Teams Applications Architect Relationship Specialty Start Date End Date Pcp, Trudy . PCP - General 11/02/19
--- OUTSIDE RECORDS SUMMARY | 2024-02-11 14:47 | XMS_ITS | CCD ---
Author Name Prateek Alvarenga Address [address] [place] [address] Phone [phone] Organization [facility] Address [address] [place] [place] [address] Phone [phone] Care Team Providers Care Sole Layer Hand Name Role Phone Joanie Young Consulting Provider UnavailKoffi Sanders Consulting Provider Juliano Dietrich Consulting Provider Unavailable Christi Molina Consulting Provider Unavailable Omar Vergara Consulting Provider Unavailable Makenna Gaspar Consulting Provider Unavailable Roseanne Glaser Primary Care Provider UnavailSandi Miller Consulting Provider Unavailable Insurance Providers Insurance Package Reporting Category Relationship to I nsured ID # MEDICARE B-SD: [facility] Medicare B-SD Self [id number] [facility] Self [id number] [employer]illing Self [id number] MEDICARE A-SD: [facility] Medicare A-SD Self [id number] Conditions or Problems Problem Name SNOMED Code Onset Date Actinic keratosis 367992684 Atrophic vaginitis 76956863 Benign neoplasm of colon 08678937 000 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 529284170 Essential hypertension 78673755 4 Gastroesophageal reflux disease 121832451 Hyperlipidemia 14788278 Medications FDB Name Sig Start Date Stop Date RxNorm Name RxNorm Code No te Calmoseptine 0.44 %-20.6 % topical ointment in packet apply to exterior vaginal tissues as needed for irritation Menthol 0.0044 MG/MG / Zinc Oxide 0.2 MG/MG Topical Ointment [Calmoseptine Ointment] 545514 GaviLyte-N 420 gram oral solution 01/27/2015 POLYETHYLENE GLYCOL 3350 983199 MG / Potassium Chloride 1480 MG / Sodium Bicarbonate 5720 MG / Sodium Chloride 76564 MG Powder for Oral Solution [GaviLyte-N] 769133 Nexium 40 mg capsule,delayed release 1 daily by mouth 02/21/2015 Esomeprazole 40 MG Delayed Release Oral Capsule [Nexium] 658987 Premarin 0.625 mg/gram vaginal cream insert 1 gm vaginally daily x 2 wks, then twice weekly thereafter 12/28/2014 Estrogens, Conjugated (HALFWAY) 0.625 MG/ML Vaginal Cream [Premarin] 861040 aspirin 81 mg daily by mouth atorvastatin 20 mg tablet 1 daiy by mouth 02/28/2015 atorvastatin 20 MG Oral Tablet 191354 lisinopril 20 mg tablet 1 daily by mouth 03/04/2015 Lisinopril 20 MG Oral Tablet 526921 Allergies and Alert Problems Allergy Allergy ID Reaction Onset Date Note RxNorm Name RxNor m Code No Known Drug Allergies Encounters Encounter Type Date Care Provider Order Group 04/15/2015 SANDI DE GUZMAN MD Patient Case - Clinical Question 04/08/2015 ROSEANNE GLASER MD Medicare Physical-60 min 12/27/2014 KARMA GLASER MD Medicare Physical-60 min 12/27/2014 KARMA GLASER MD Medicare Physical-60 min 12/27/2014 KARMA GLASER MD Established Visit-15min 11/08/2014 DEMETRIUS ALVARENGA DO Patient Case 09/27/2014 ROSEANNE GLASER MD Order Group 04/13/2014 ROSEANNE GLASER MD Patient Case - Medical Records - Electronic 03/2014 CHRISTI MOLINA MD Patient Case 03/29/2014 CHRISTI MOLINA MD OFFICE/OUTPATIENT VISIT EST 03/24/2014 SANFORD GLASER MD OFFICE/OUTPATIENT VISIT EST 03/24/2014 SANFORD GLASER MD OFFICE/OUTPATIENT VISIT EST 01/20/2014 SANFORD GLASER MD OFFICE/OUTPATIENT VISIT EST 12/23/2013 SANFORD GLASER MD OFFICE/OUTPATIENT VISIT EST 12/23/2013 SANFORD GLASER MD OFFICE/OUTPATIENT VISIT EST 12/23/2013 SANFORD GLASER MD OFFICE/OUTPATIENT VISIT EST 10/19/2013 AZIZA ALVARENGA, OFFICE/OUTPATIENT VISIT NEW 10/07/2013 SANFORD GLASER MD OFFICE/OUTPATIENT VISIT NEW 10/07/2013 SANFORD GLASER MD Patient Case - Clinical Question 09/21/2013 ROSEANNE GLASER MD OFFICE/OUTPATIENT VISIT NEW 09/22/2012 AZIZA ALVARENGA DO Patient Case - Clinical Question 09/19/2011 JULIANO MANCINI MD Patient Case - Clinical Question 09/06/2011 JULIANO MANCINI MD Order Group 09/05/2011 JULIANO MANCINI MD Patient Case - Medication 09/05/2011 JULIANO JONES MD OFFICE/OUTPATIENT VISIT EST 09/05/2011 JULIANO MANCINI MD Patient Case - Clinical Question 07/23/2011 JOANIE YOUNG MD Patient Case - Medication 04/05/2011 JOANIE YOUNG MD Patient Case - Clinical Question 03/29/2011 JOANIE YOUNG MD COMP SCREEN MAMMOGRAM ADD-ON 03/07/2011 PILAR YOUNG MD Order Group 03/05/2011 JOANIE YOUNG MD Patient Case - Refill 12/28/2010 JOANIE REYNA MD OFFICE/OUTPATIENT VISIT EST 09/25/2010 MARTHA YOUNG MD Order Group 09/14/2010 OFFICE/OUTPATIENT VISIT EST 05/16/2010 MARTHA YOUNG MD X-RAY EXAM OF HIP 05/10/2010 JOANIE COLLAZO MD Order Group 05/09/2010 JOANIE YOUNG MD Patient Case - Clinical Question 05/09/2010 JOANIE YOUNG MD Patient Case - Clinical Question 04/12/2010 JOANIE YOUNG MD Order Group 02/08/2010 JOANIE YOUNG MD DXA BONE DENSITY AXIAL 02/08/2010 JOANIE CARRION MD Order Group 02/08/2010 JOANIE YOUNG MD COMP SCREEN MAMMOGRAM ADD-ON 02/08/2010 PILAR YOUNG MD DXA BONE DENSITY AXIAL 02/08/2010 JOANIE CARRION MD OFFICE/OUTPATIENT VISIT EST 01/26/2010 MARTHA YOUNG MD Patient Case - Medication 01/20/2010 JOANIE YOUNG MD Order Group 01/10/2010 JOANEI YOUNG MD OFFICE/OUTPATIENT VISIT EST 08/17/2009 DEANNA VERGARA MD Patient Case - Other 08/10/2009 JOANIE KNOWLES MD OFFICE/OUTPATIENT VISIT EST 08/05/2009 MURRAY HERNDON DO OFFICE/OUTPATIENT VISIT EST 07/21/2009 MARTHA YOUNG MD Vital Signs Test Observation Name Encounter Date Observation Value Observation Units Observation LOINC BLOODPRESSURE VITALS.BLOODPRE SSURE.DIASTOLIC 12/27/2014 70 mm[Hg] 8462-4 VITALS.BLOODPRESSURE.SYSTOLIC 136 mm[Hg] 8480-6 HEIGHT VITALS.HEIGHT 12/27/2014 162.56 cm 8302- 2 [id number] VITALS.E8HVBUNEOBAI 12/27/2014 97 % 2710-2 PULSE VITALS.PULSE.RATE 12/27/2014 62 /min 8 867-4 TEMPERATURE VITALS.TEMPERATURE 12/27/2014 98.4 [degF] 8310-5 WEIGHT VITALS.WEIGHT 12/27/2014 63.957 kg 3141- 9 BLOODPRESSURE VITALS.BLOODPRESSURE.DIASTOLIC 11/08/2014 76 mm[Hg] 8462-4 VITALS.BLOODPRESSURE.SYSTOLIC 138 mm[Hg] 8480-6 HEIGHT VITALS.HEIGHT 11/08/2014 164.465 cm 8302- 2 WEIGHT VITALS.WEIGHT 11/08/2014 63.503 kg 3141- 9 BLOODPRESSURE VITALS.BLOODPRESSURE.DIASTOLIC 03/24/2014 88 mm[Hg] 8462-4 VITALS.BLOODPRESSURE.SYSTOLIC 160 mm[Hg] 8480-6 HEIGHT VITALS.HEIGHT 03/24/2014 164.465 cm 8302- 2 [id number] VITALS.B2PVKESXCHIW 03/24/2014 96 % 2710-2 PULSE VITALS.PULSE.RATE 03/24/2014 60 /min 8 867-4 TEMPERATURE VITALS.TEMPERATURE 03/24/2014 98 [degF] 8310-5 WEIGHT VITALS.WEIGHT 03/24/2014 63.503 kg 3141- 9 BLOODPRESSURE VITALS.BLOODPRESSURE.DIASTOLIC 01/20/2014 88 mm[Hg] 8462-4 VITALS.BLOODPRESSURE.SYSTOLIC 138 mm[Hg] 8480-6 HEIGHT VITALS.HEIGHT 01/20/2014 164.465 cm 8302- 2 S8FLCZAWEIVV VITALS.E6DTIHWMRLCI 01/20/2014 96 % 2710-2 PULSE VITALS.PULSE.RATE 01/20/2014 66 /min 8 867-4 TEMPERATURE VITALS.TEMPERATURE 01/20/2014 97.7 [degF] 8310-5 WEIGHT VITALS.WEIGHT 01/20/2014 68.946 kg 3141- 9 BLOODPRESSURE VITALS.BLOODPRESSURE.DIASTOLIC 12/23/2013 76 mm[Hg] 8462-4 VITALS.BLOODPRESSURE.SYSTOLIC 132 mm[Hg] 8480-6 HEIGHT VITALS.HEIGHT 12/23/2013 164.465 cm 8302- 2 P0FYZCERTCCG VITALS.Y6FTPSPRRJGN 12/23/2013 98 % 2710-2 PULSE VITALS.PULSE.RATE 12/23/2013 60 /min 8 867-4 TEMPERATURE VITALS.TEMPERATURE 12/23/2013 97.4 [degF] 8310-5 WEIGHT VITALS.WEIGHT 12/23/2013 69.4 kg 3141- 9 BLOODPRESSURE VITALS.BLOODPRESSURE.DIASTOLIC 10/19/2013 69 mm[Hg] 8462-4 VITALS.BLOODPRESSURE.SYSTOLIC 135 mm[Hg] 8480-6 HEIGHT VITALS.HEIGHT 10/19/2013 164.465 cm 8302- 2 PULSE VITALS.PULSE.RATE 10/19/2013 65 /min 8 867-4 BLOODPRESSURE VITALS.BLOODPRESSURE.DIASTOLIC 10/07/2013 82 mm[Hg] 8462-4 VITALS.BLOODPRESSURE.SYSTOLIC 164 mm[Hg] 8480-6 BLOODPRESSURE VITALS.BLOODPRESSURE.DIASTOLIC 10/07/2013 78 mm[Hg] 8462-4 VITALS.BLOODPRESSURE.SYSTOLIC 150 mm[Hg] 8480-6 HEIGHT VITALS.HEIGHT 10/07/2013 164.465 cm 8302- 2 [id number] VITALS.T0BDXDONFHPF 10/07/2013 99 % 2710-2 PULSE VITALS.PULSE.RATE 10/07/2013 70 /min 8 867-4 TEMPERATURE VITALS.TEMPERATURE 10/07/2013 98.4 [degF] 8310-5 WEIGHT VITALS.WEIGHT 10/07/2013 67.132 kg 3141- 9 BLOODPRESSURE VITALS.BLOODPRESSURE.DIASTOLIC 09/22/2012 64 mm[Hg] 8462-4 VITALS.BLOODPRESSURE.SYSTOLIC 118 mm[Hg] 8480-6 HEIGHT VITALS.HEIGHT 09/22/2012 162.56 cm 8302- 2 RESPIRATIONRATE VITALS.RESPIRATIONRATE 09/22/2012 16 /min 9279-1 WEIGHT VITALS.WEIGHT 09/22/2012 64.864 kg 3141- 9 BLOODPRESSURE VITALS.BLOODPRESSURE.DIASTOLIC 09/05/2011 64 mm[Hg] 8462-4 VITALS.BLOODPRESSURE.SYSTOLIC 122 mm[Hg] 8480-6 HEIGHT VITALS.HEIGHT 09/05/2011 163.83 cm 8302- 2 PULSE VITALS.PULSE.RATE 09/05/2011 72 /min 8 867-4 WEIGHT VITALS.WEIGHT 09/05/2011 67.132 kg 3141- 9 BLOODPRESSURE VITALS.BLOODPRESSURE.DIASTOLIC 09/25/2010 70 mm[Hg] 8462-4 VITALS.BLOODPRESSURE.SYSTOLIC 130 mm[Hg] 8480-6 HEIGHT VITALS.HEIGHT 09/25/2010 162.56 cm 8302- 2 PULSE VITALS.PULSE.RATE 09/25/2010 76 /min 8 867-4 WEIGHT VITALS.WEIGHT 09/25/2010 65.771 kg 3141- 9 BLOODPRESSURE VITALS.BLOODPRESSURE.DIASTOLIC 05/16/2010 78 mm[Hg] 8462-4 VITALS.BLOODPRESSURE.SYSTOLIC 132 mm[Hg] 8480-6 PULSE VITALS.PULSE.RATE 05/16/2010 60 /min 8 867-4 WEIGHT VITALS.WEIGHT 05/16/2010 67.585 kg 3141- 9 BLOODPRESSURE VITALS.BLOODPRESSURE.DIASTOLIC 01/26/2010 64 mm[Hg] 8462-4 VITALS.BLOODPRESSURE.SYSTOLIC 122 mm[Hg] 8480-6 PULSE VITALS.PULSE.RATE 01/26/2010 72 /min 8 867-4 WEIGHT VITALS.WEIGHT 01/26/2010 67.585 kg 3141- 9 BLOODPRESSURE VITALS.BLOODPRESSURE.DIASTOLIC 08/17/2009 70 mm[Hg] 8462-4 VITALS.BLOODPRESSURE.SYSTOLIC 128 mm[Hg] 8480-6 WEIGHT VITALS.WEIGHT 08/17/2009 64.864 kg 3141- 9 BLOODPRESSURE VITALS.BLOODPRESSURE.DIASTOLIC 08/05/2009 92 mm[Hg] 8462-4 VITALS.BLOODPRESSURE.SYSTOLIC 130 mm[Hg] 8480-6 PULSE VITALS.PULSE.RATE 08/05/2009 72 /min 8 867-4 TEMPERATURE VITALS.TEMPERATURE 08/05/2009 98.2 [degF] 8310-5 WEIGHT VITALS.WEIGHT 08/05/2009 67.585 kg 3141- 9 BLOODPRESSURE VITALS.BLOODPRESSURE.DIASTOLIC 07/21/2009 80 mm[Hg] 8462-4 VITALS.BLOODPRESSURE.SYSTOLIC 142 mm[Hg] 8480-6 PULSE VITALS.PULSE.RATE 07/21/2009 68 /min 8 867-4 WEIGHT VITALS.WEIGHT 07/21/2009 67.585 kg 3141- 9 Diagnostic Results Result Name Observation Name Observation Value Observation Units Normal Range Abnormal? Observation Time Observation LOINC MAMMOGRSherrie GEMMA CottoERIKA G 04/08/2015 MAMMOGRA GEMMA CottoERIKA G 03/29/2015 LIPID PANEL, SERUM CHOLESTEROL 162 mg/dL < 200 Normal 12/27/2014 HDL CHOLESTEROL 73 mg/dL 40-60 Normal 12/27/2014 LDL CHOLESTEROL CALCULATED 72 mg/dL < 100 Normal 12/27 TRIGLYCERIDES 84 mg/dL < 150 Normal 12/27/2014 CBC HEMATOCRIT 39.2 % 34-45 Normal 12/27/2014 HEMOGLOBIN 12.9 g/dL 12.0-16.0 Normal 12/27/2014 MEAN CORPUSCULAR HEMOGLOBIN 29.2 pg 28-33 Normal 12/12 MEAN CORPUSCULAR HGB CONC 33.0 g/dL 32.0-36.0 Normal 12/12 MEAN CORPUSCULAR VOLUME 88.3 fl 81-97 Normal 12/28/19 15 PLATELET COUNT 235 10 3/uL 150-350 Normal 12/27/2014 RED BLOOD COUNT 4.44 X10 6/uL 3.7-5.3 Normal 12/27/2014 RED CELL DISTRIBUTION WIDTH 12.8 % 11.5-14 Normal 12/12 WHITE BLOOD COUNT 3.7 X10 3/uL 4.5-10.5 Low 12/27/2014 CMP, SERUM OR PLASMA ALANINE AMINOTRANSFERASE 26 IU/L < 78 Normal 12/27/2014 ALBUMIN 4.3 gm/dL 3.1-4.5 Normal 12/27/2014 ALKALINE PHOSPHATASE 75 IU/L 55-142 Normal 12/27/2014 ANION GAP 9 mmol/L 3-11 Normal 12/27/2014 ASPARTATE AMINO TRANSFERASE 25 IU/L 0-37 Normal 12/12 BLOOD UREA NITROGEN 17 mg/dL 7-22 Normal 12/27/2014 CALCIUM 8.9 mg/dL 8.5-10.1 Normal 12/27/2014 CARBON DIOXIDE 25 mmol/L 21-32 Normal 12/27/2014 CHLORIDE 105 mmol/L 98-107 Normal 12/27/2014 CORRECTED CALCIUM 8.7 mg/dL 8.5-10.1 Normal 12/27/2014 CREATININE 1.0 mg/dL 0.6-1.1 Normal 12/27/2014 GLOMERULAR FILTRATION RATE EST 54 ml/min AV Normal 1 02/26/2014 GLUCOSE 102 mg/dL 70-110 Normal 12/27/2014 POTASSIUM 4.3 mmol/L 3.6-5.0 Normal 12/27/2014 SODIUM 139 mmol/L 135-145 Normal 12/27/2014 TOTAL BILIRUBIN 0.60 mg/dL 0.00-1.40 Normal 12/27/2014 TOTAL PROTEIN 7.4 gm/dL 5.7-8.0 Normal 12/27/2014 TSH, SERUM OR PLASMA THYROID STIM HORMONE, USENS 1.713 uIU/mL 0.300-4.000 Normal 12/27/2014 SURGICAL PATHOLOGY REPORT RESULTS 04/13/2014 ELECTROCARDIOGRAM 2014 345 34- 8 ULTRASOUND, ABDOMINAL 03/25/2014 CMP, SERUM OR PLASMA ALANINE AMINOTRANSFERASE 26 IU/L < 78 Normal 03/24/2014 ALBUMIN 4.5 g/dL 3.1-4.5 Normal 03/24/2014 ALKALINE PHOSPHATASE 84 IU/L 55-142 Normal 03/24/2014 ANION GAP 13 mmol/L 3-11 High 03/24/2014 ASPARTATE AMINO TRANSFERASE 20 IU/L 0-37 Normal 03/14 BLOOD UREA NITROGEN 13 mg/dL 7-22 Normal 03/24/2014 CALCIUM 8.8 mg/dL 8.5-10.1 Normal 03/24/2014 CARBON DIOXIDE 23 mmol/L 21-32 Normal 03/24/2014 CHLORIDE 105 mmol/L 100-110 Normal 03/24/2014 CORRECTED CALCIUM 8.4 mg/dL 03/24/2014 CREATININE 0.6 mg/dL 0.6-1.1 Normal 03/24/2014 GLOMERULAR FILTRATION RATE EST 97 ml/min AV Normal 0 03/24/2014 GLUCOSE 91 mg/dL 70-110 Normal 03/24/2014 POTASSIUM 4.2 mmol/L 3.5-5.0 Normal 03/24/2014 SODIUM 141 mmol/L 137-147 Normal 03/24/2014 TOTAL BILIRUBIN 0.50 mg/dL 0.00-1.40 Normal 03/24/2014 TOTAL PROTEIN 7.3 gm/dL 5.7-8.0 Normal 03/24/2014 TROPONIN I, SERUM OR PLASMA TROPONIN I < 0.070 ng/mL 0.000-0.0 70 Normal 03/24/2014 CBC HEMATOCRIT 40.2 % 34-45 Normal 03/24/2014 HEMOGLOBIN 13.1 g/dL 12.0-16.0 Normal 03/24/2014 MEAN CORPUSCULAR HEMOGLOBIN 29.2 pg 28-33 Normal 03/14 MEAN CORPUSCULAR HGB CONC 32.6 g/dL 32.0-36.0 Normal 03/14 MEAN CORPUSCULAR VOLUME 89.6 fl 81-97 Normal 03/24/19 15 PLATELET COUNT 253 10 3/uL 150-350 Normal 03/24/2014 RED BLOOD COUNT 4.49 X10 6/uL 3.7-5.3 Normal 03/24/2014 RED CELL DISTRIBUTION WIDTH 13.1 % 11.5-14 Normal 03/14 WHITE BLOOD COUNT 4.8 X10 3/uL 4.5-10.5 Normal 03/24/2014 MAMMOGRAM, SCREENING 05/2013 BILIRUBIN, DIRECT, SERUM OR PLASMA DIRECT BILIRUBIN 0.10 mg/dL 0.00-0.30 Normal 01/18/2014 LIPID PANEL, SERUM CHOLESTEROL 148 mg/dL 0-199 Normal 1 03/21/2013 HDL CHOLESTEROL 66 mg/dL 40-60 Normal 01/18/2014 LDL CHOLESTEROL CALCULATED 63 mg/dL 0-130 Normal 01/18 RISK RATIO (CHOL/HDL) 2.20 01/18/2014 TRIGLYCERIDES 94 mg/dL 30-200 Normal 01/18/2014 CMP, SERUM OR PLASMA ALANINE AMINOTRANSFERASE 21 IU/L < 78 Normal 01/18/2014 ALBUMIN 3.6 g/dL 3.4-5.0 Normal 01/18/2014 ALKALINE PHOSPHATASE 83 IU/L 55-142 Normal 01/18/2014 ANION GAP 9 mmol/L 3-11 Normal 01/18/2014 ASPARTATE AMINO TRANSFERASE 16 IU/L 0-37 Normal 09/2013 BLOOD UREA NITROGEN 12 mg/dL 7-22 Normal 01/18/2014 CALCIUM 8.7 mg/dL 8.5-10.1 Normal 01/18/2014 CARBON DIOXIDE 25 mmol/L 21-32 Normal 01/18/2014 CHLORIDE 108 mmol/L 97-113 Normal 01/18/2014 CORRECTED CALCIUM 9.0 mg/dL 8.5-10.1 Normal 01/18/2014 CREATININE 0.9 mg/dL 0.6-1.1 Normal 01/18/2014 GLOMERULAR FILTRATION RATE EST 61 ml/min AV Normal 1 03/21/2013 GLUCOSE 102 mg/dL 70-110 Normal 01/18/2014 POTASSIUM 4.1 mmol/L 3.5-5.1 Normal 01/18/2014 SODIUM 142 mmol/L 138-146 Normal 01/18/2014 TOTAL BILIRUBIN 0.45 mg/dL 0.00-1.40 Normal 01/18/2014 TOTAL PROTEIN 7.0 gm/dL 6.3-8.6 Normal 01/18/2014 ELECTROCARDIOGRAM 2013 71320-1 CT, ABDOMEN AND PELVIS 0 10/20/2008 BMP, SERUM OR PLASMA ANION GAP 11 mmol/L 3-11 Normal 1 BLOOD UREA NITROGEN 21 mg/dL 7-22 Normal 12/02/2013 CALCIUM 9.1 mg/dL 8.5-10.1 Normal 12/02/2013 CARBON DIOXIDE 25 mmol/L 21-32 Normal 12/02/2013 CHLORIDE 103 mmol/L 97-113 Normal 12/02/2013 CREATININE 1.0 mg/dL 0.6-1.1 Normal 12/02/2013 GLOMERULAR FILTRATION RATE EST 54 ml/min AV Normal 1 GLUCOSE 100 mg/dL 70-110 Normal 12/02/2013 POTASSIUM 4.3 mmol/L 3.5-5.1 Normal 12/02/2013 SODIUM 139 mmol/L 138-146 Normal 12/02/2013 LIPID PANEL, SERUM CHOLESTEROL 235 mg/dL 0-199 High 1 HDL CHOLESTEROL 67 mg/dL 40-60 Normal 12/02/2013 LDL CHOLESTEROL CALCULATED 142 mg/dL 0-130 High 12/02 RISK RATIO (CHOL/HDL) 3.50 12/02/2013 TRIGLYCERIDES 129 mg/dL 30-200 Normal 12/02/2013 CBC HEMATOCRIT 37.8 % 34.0-45.0 Normal 12/02/2013 HEMOGLOBIN 12.9 g/dL 11.5-15.5 Normal 12/02/2013 MEAN CORPUSCULAR HEMOGLOBIN 30.0 pg 28-33 Normal 11/12 MEAN CORPUSCULAR HGB CONC 34.2 g/dL 32.0-36.0 Normal 11/12 MEAN CORPUSCULAR VOLUME 87.7 fl 81-97 Normal 12/03/19 PLATELET COUNT 272 10 3/uL 140-450 Normal 12/02/2013 RED BLOOD COUNT 4.31 X10 6/uL 3.7-5.3 Normal 12/02/2013 RED CELL DISTRIBUTION WIDTH 12.9 % 11.5-14.0 Normal WHITE BLOOD COUNT 4.5 X10 3/uL 4.5-10.5 Normal 12/02/2013 URINALYSIS, DIPSTICK URINE BILIRUBIN NEGATIVE NEG No rmal 12/02/2013 URINE BLOOD NEGATIVE NEG Normal 12/02/2013 URINE CLARITY Clear CLEAR Normal 12/02/2013 URINE COLOR Yellow YELLOW Normal 12/02/2013 URINE GLUCOSE NEGATIVE mg/dL NEG Normal 12/02/2013 URINE KETONES NEGATIVE mg/dL NEG Normal 12/02/2013 URINE LEUKOCYTE ESTERASE NEGATIVE NEG Normal 2013 URINE NITRITE NEGATIVE NEG Normal 12/02/2013 URINE PH 7.5 5.0-8.0 Normal 12/02/2013 URINE PROTEIN DIPSTICK NEGATIVE mg/dL NEG Normal 12/03/19 14 URINE SPECIFIC GRAVITY 1.015 1.003-1.030 Normal 12/02 URINE UROBILINOGEN 0.2 E.U./dL <2.0 Normal 12/02/2013 BONE DENSITY STUDY 12/09 ULTRASOUND, ABDOMINAL MAMMO, SCREENING, DIGITAL, BILATERAL 11/30/2008 PAP, LB 07/14/2007 X-RAY, CHEST 10/20/2008 CT, ABDOMEN AND PELVIS 0 10/20/2008 STRESS ECHOCARDIOGRAM ECHOCARDIOGRAM 9 COMPREHENSIVE METABOLIC PANEL ALBUMIN 3.94 g/dL 3.40-5.00 Normal 09/26/2011 ALK PHOS 85 U/L 50-136 Normal 09/26/2011 ALT(SGPT) 34 U/L 30-65 Normal 09/26/2011 ANION GAP 8 mmol/L 3-11 Normal 09/26/2011 AST(SGOT) 19 U/L 15-37 Normal 09/26/2011 BUN 28.74 mg/dL 7.00-18.00 High 09/26/2011 BUN/CREAT RATIO 30.6 RATIO 10.0-20.0 High 09/26/2011 CALCIUM 8.72 mg/dL 8.50-10.10 Normal 09/26/2011 CL 107 mmol/L 98-107 Normal 09/26/2011 CO2 25 mmol/L 21-32 Normal 09/26/2011 CREATININE 0.94 mg/dL 0.60-1.00 Normal 09/26/2011 GLUCOSE 100 mg/dL 74-106 Normal 09/26/2011 K 4.38 mmol/L 3.50-5.10 Normal 09/26/2011 NA 140 mmol/L 136-145 Normal 09/26/2011 T.BILIRUBIN 0.48 mg/dL 0.20-1.00 Normal 09/26/2011 T.PROTEIN 2 6.99 g/dL 6.40-8.20 Normal 09/26/2011 MAMMOGRAM, SCREENING 03/09/2011 MAMMO, SCREENING, DIGITAL, BILATERAL Interpretation Review of mammo, screening, digital, bilateral taken on 03/07/2011 at [facility] shows:Mammography:
Performing Director Foundation: Rochelle Mckeon.
Ordering provider: .Mammography:
Type: Digital with Review.
Views: Bilateral Screening. BILATERAL SCREENING MAMMOGRAM WITH CAD<p>Compared to 02/08/10.<p>There are bilateral vascular calcifications. The breast parenchyma is heterogeneously dense. No new dominant mass or architectural distortion is seen. Overall there has been no significant interval change. <p>IMPRESSION:BI-RAD 2, stable benign findings. Annual screening mammography recommended.<p>Kervin Landa M.D. 03/07 COMPREHENSIVE METABOLIC PANEL ALBUMIN 4.18 g/dL 3.40- 5.00 Normal 09/18/2010 ALK PHOS 98 U/L 50-136 Normal 09/18/2010 ALT(SGPT) 32 U/L 30-65 Normal 09/18/2010 AST(SGOT) 20 U/L 15-37 Normal 09/18/2010 BUN 21.21 mg/dL 7.00-18.00 High 09/18/2010 BUN/CREAT RATIO 21.0 RATIO 10.0-20.0 High 09/18/2010 CALCIUM 8.96 mg/dL 8.50-10.10 Normal 09/18/2010 CL 105 mmol/L 98-107 Normal 09/18/2010 CO2 26 mmol/L 21-32 Normal 09/18/2010 CREATININE 1.01 mg/dL 0.60-1.00 High 09/18/2010 GLUCOSE 98 mg/dL 74-106 Normal 09/18/2010 K 4.00 mmol/L 3.50-5.10 Normal 09/18/2010 NA 142 mmol/L 136-145 Normal 09/18/2010 T.BILIRUBIN 0.51 mg/dL 0.20-1.00 Normal 09/18/2010 T.PROTEIN 2 7.43 g/dL 6.40-8.20 Normal 09/18/2010 LIPID PANEL CHOL/HDL RATIO 3.2 RATIO 09/18 CHOLESTEROL 205 mg/dL 0-200 High 09/18/2010 HDL 64 mg/dL 40-60 High 09/18/2010 LDL (CALC) 114.6 mg/dL 0.0-100.0 High 09/18/2010 TRIGLYCERIDES 132 mg/dL 30-150 Normal 09/18/2010 X-RAY, HIP Interpretation Review of x-ray, hip taken on 05/10/2010 at [facility] shows:Provider/Director Foundation:
Ordering provider: Ordering Provider: (DR. ANDERSON).
Performing Director Foundation: Maliha Patterson.X-Ray Hip:
View: Right 2 Views. RIGHT HIP, TWO-VIEWS<p>CLINICAL HISTORY:Pain.<p>No displaced fracture or dislocation is seen. The soft tissues are unremarkable. <p>IMPRESSION:Negative exam. <p>Kervin Landa M.D. 05/10/2010 MAMMOGRAM, SCREENING 0 1 / 0 3 / 2 0 1 1 BONE DENSITY STUDY Interpretation Review of bone density study taken on 02/08/2010 shows:Provider/Director Foundation:
Ordering provider: Ordering Provider: (JUSTIN).
Performing Director Foundation: Performing Director Foundation: GEORGE).DXA Interpretation:
Instrument: DXA exam was performed on the [employer].
AP Spine: L1-L4.
Femur: dual femur. Bone mineral density measurements are obtained at the femur and lumbar spine and compared with prior study dated 2006. There is a normal T-score in both regions with minimal change in comparison to study three years prior. I would recommend she continue with daily calcium, vitamin D, regular exercise and a repeat DEXA scan in two years. 02/08/2010 MAMMOGRAM, SCREENING Interpretation Review of mammogram, screeni ng taken on 02/08/2010 at [facility] shows:Mammography:
Performing Director Foundation: Rochelle Mckeon.Mammography:
Type: CAD with Review.
Views: Bilateral Screening. CC AND OBLIQUE VIEWS OF BOTH BREASTS<p>Current examination is compared with a study dates November.<p>CC and oblique views of both breasts demonstrate dense breast parenchyma. Extensive bilateral vascular calcifications are noted. No suspicious dominant mass is seen and no clustered microcalcifications are identified.<p>CONCLUSION:1) I see no evidence of a malignant process.2) BI-RAD category 2, benign findings.<p>Demetrius Lai M.D. 02/08/2010 COMPREHENSIVE METABOLIC PANEL ALBUMIN 3.73 g/dL 3. 40 -5 .0 0 Normal 0 7 / 0 2 / 2 0 1 0 ALK PHOS 111 U/L 50-136 Normal 08/12/2009 ALT(SGPT) 31 U/L 30-65 Normal 08/12/2009 AST(SGOT) 16 U/L 15-37 Normal 08/12/2009 BUN 19.98 mg/dL 7.00-18.00 High 08/12/2009 BUN/CREAT RATIO 22.4 RATIO 10.0-20.0 High 08/12/2009 CALCIUM 8.67 mg/dL 8.50-10.10 Normal 08/12/2009 CL 106 mmol/L 98-107 Normal 08/12/2009 CO2 27 mmol/L 21-32 Normal 08/12/2009 CREATININE 0.89 mg/dL 0.60-1.00 Normal 08/12/2009 GLUCOSE 100 mg/dL 74-106 Normal 08/12/2009 K 3.92 mmol/L 3.50-5.10 Normal 08/12/2009 NA 142 mmol/L 136-145 Normal 08/12/2009 T.BILIRUBIN 0.38 mg/dL 0.20-1.00 Normal 08/12/2009 T.PROTEIN 2 7.46 g/dL 6.40-8.20 Normal 08/12/2009 LIPID PANEL CHOL/HDL RATIO 3.8 RATIO 08/12 CHOLESTEROL 195 mg/dL 0-200 Normal 08/12/2009 HDL 52 mg/dL 40-60 Normal 08/12/2009 LDL (CALC) 125.4 mg/dL 0.0-100.0 High 08/12/2009 TRIGLYCERIDES 88 mg/dL 30-150 Normal 08/12/2009 Unknown order type from unknown provider 08/08/2009 Pending Orders Order Type Approved Date Perform Date BONE DENSITY, HIP, SPINE & FOREARM, WITH VFA 12/27/2014 BONE DENSITY STUDY 02/13/2010 02/08/2010 Immunizations Genus Name (Administered Vaccines) Administration Date Lot # Hot Die Picker CVX Code Tdap 10/07/2013 [id number] [employer] 115 influenza, injectable, quadrivalent, preservative free 12/23/2013 [id number] [employer] 150 influenza, injectable, quadrivalent, preservative free 12/27/2014 [id number] [employer] 150 pneumococcal polysaccharide PPV23 10/07/2013 [id number] [employer] 33 pneumococcal conjugate PCV 13 12/27/2014 [id number] [employer] 133 Td (adult), adsorbed 08/17/2009 [id number] sanofi pasteur 09 zoster 01/20/2014 [id number] [employer] 121 Procedures Procedure Name Procedure Date CPT Code Performing Provider Tubal Ligation 02/11/1969
--- OUTSIDE RECORDS SUMMARY | 2024-02-11 14:48 | XMS_ITS | CCD ---
Author Name Roseanne Glaser Address [address] [place] [address] Phone [phone] Organization [facility] Address [address] [place] [address] Phone [phone] Care Team Providers Care Digital Tech Name Role Phone Joanie Young Consulting Provider UnavailKoffi Sanders Consulting Provider UnaJuliano Jin Consulting Provider Unavailable Christi Molina Consulting Provider Unavailable Omar Vergara Consulting Provider Unavailable Makenna Gaspar Consulting Provider Unavailable Roseanne Glaser Primary Care Provider UnavailSandi Miller Consulting Provider Unavailable Insurance Providers Insurance Package Reporting Category Relationship to I nsured ID # MEDICARE B-SD: [place] Medicare B-[place] Self 503 [id number] [facility] Self [id number] [employer] Billing Self [id number] MEDICARE A-SD: [facility] Medicare A-SD Self [id number] Conditions or Problems Problem Name SNOMED Code Onset Date Actinic keratosis 854715187 Atrophic vaginitis 40989605 Benign neoplasm of colon 75219929 000 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 718807928 Essential hypertension 78196908 4 Gastroesophageal reflux disease 477828521 Hyperlipidemia 11583795 Syncope 329371129 Medications FDB Name Sig Start Date Stop Date RxNorm Name RxNorm Code No te Calmoseptine 0.44 %-20.6 % topical ointment in packet apply to exterior vaginal tissues as needed for irritation Menthol 0.0044 MG/MG / Zinc Oxide 0.2 MG/MG Topical Ointment [Calmoseptine Ointment] 756525 Nexium 40 mg capsule,delayed release take 1 capsule by mouth daily 09/14/2015 Esomeprazole 40 MG Delayed Release Oral Capsule [Nexium] 378591 Premarin 0.625 mg/gram vaginal cream insert 1 gm vaginally twice weekly 12/28/2014 Estrogens, Conjugated (LONGTERM) 0.625 MG/ML Vaginal Cream [Premarin] 909913 aspirin 81 mg daily by mouth atorvastatin 20 mg tablet take 1 tablet by mouth daily 08/27/2015 atorvastatin 20 MG Oral Tablet 158241 lisinopril 20 mg tablet take 1 tablet by mouth daily 09/02/2015 Lisinopril 20 MG Oral Tablet 931287 Allergies and Alert Problems Allergy Allergy ID Reaction Onset Date Note RxNorm Name RxNorm Code HYDROCHLOROTHIAZIDE 89501 Syncope Hydrochlorot hiazide 5487 Encounters Encounter Type Date Care Provider Established Visit-40min 10/12/2015 BIBIANA GLASER MD Patient Case - Clinical Question 10/10/2015 ROSEANNE GLASER MD Patient Case - Medication 09/21/2015 BELGICA GLASER MD Patient Case - Clinical Question 09/14/2015 ROSEANNE GLASER MD Order Group 09/12/2015 ROSEANNE GLASER MD Patient Case - Clinical Question 09/09/2015 ROSEANNE GLASER MD Patient Case 08/17/2015 ROSEANNE GLASER MD Established Visit-20min 08/17/2015 BIBIANA GLASER MD Established Visit-20min 08/17/2015 BIBIANA GLASER MD Order Group 04/15/2015 SANDI DE GUZMAN MD Patient Case - Clinical Question 04/08/2015 ROSEANNE GLASER MD Medicare Physical-60 min 12/27/2014 KARMA GLASER MD Medicare Physical-60 min 12/27/2014 KARMA GLASER MD Medicare Physical-60 min 12/27/2014 KARMA GLASER MD Established Visit-15min 11/08/2014 DEMETRIUS AVELAR DO Patient Case 09/27/2014 ROSEANNE GLASER MD [...] GLASER MD OFFICE/OUTPATIENT VISIT EST 10/19/2013 AZIZA AVELAR DO OFFICE/OUTPATIENT VISIT NEW 10/07/2013 SANFORD GLASER MD OFFICE/OUTPATIENT VISIT NEW 10/07/2013 SANFORD GLASER MD Patient Case - Clinical Question 09/21/2013 ROSEANNE GLASER MD OFFICE/OUTPATIENT VISIT NEW 09/22/2012 AZIZA AVELAR DO Patient Case - Clinical Question 09/19/2011 [...] YOUNG MD COMP SCREEN MAMMOGRAM ADD-ON 03/07/2011 SCKonrad YOUNG MD Order Group 03/05/2011 JOANIE YOUNG [...] YOUNG MD COMP SCREEN MAMMOGRAM ADD-ON 02/08/2010 SCO RUFINO YOUNG MD DXA BONE DENSITY AXIAL 02/08/2010 JOANIE CARRION MD OFFICE/OUTPATIENT VISIT EST 01/26/2010 MARTHA YOUNG MD Patient Case - Medication 01/20/2010 JOANIE YOUNG MD Order Group 01/10/2010 JOANIE YOUNG MD OFFICE/OUTPATIENT VISIT EST 08/17/2009 DEANNA VERGARA MD Patient Case - Other 08/10/2009 JOANIE KNOWLES MD OFFICE/OUTPATIENT VISIT EST 08/05/2009 MURRAY HERNDON DO OFFICE/OUTPATIENT VISIT EST 07/21/2009 MARTHA YOUNG MD Vital Signs Test Observation Name Encounter Date Observation Value Observation Units Observation LOINC BLOODPRESSURE VITALS.BLOODPRE SSURE.DIASTOLIC 10/12/2015 72 mm[Hg] 8462-4 VITALS.BLOODPRESSURE.SYSTOLIC 130 mm[Hg] 8480-6 HEIGHT VITALS.HEIGHT 10/12/2015 162.56 cm 8302- 2 U2UMPECLVCDC VITALS.J9UQEFAOINZQ 10/12/2015 97 % 2710-2 PULSE VITALS.PULSE.RATE 10/12/2015 60 /min 8 867-4 TEMPERATURE VITALS.TEMPERATURE 10/12/2015 98.6 [degF] 8310-5 WEIGHT VITALS.WEIGHT 10/12/2015 62.142 kg 3141- 9 BLOODPRESSURE VITALS.BLOODPRESSURE.DIASTOLIC 08/17/2015 80 mm[Hg] 8462-4 VITALS.BLOODPRESSURE.SYSTOLIC 152 mm[Hg] 8480-6 BLOODPRESSURE VITALS.BLOODPRESSURE.DIASTOLIC 08/17/2015 82 mm[Hg] 8462-4 VITALS.BLOODPRESSURE.SYSTOLIC 170 mm[Hg] 8480-6 HEIGHT VITALS.HEIGHT 08/17/2015 163.83 cm 8302- 2 B0WIOKJJBGIU VITALS.V4ABHKHIVLRG 08/17/2015 97 % 2710-2 PULSE VITALS.PULSE.RATE 08/17/2015 58 /min 8 867-4 TEMPERATURE VITALS.TEMPERATURE 08/17/2015 98.5 [degF] 8310-5 WEIGHT VITALS.WEIGHT 08/17/2015 63.049 kg 3141- 9 BLOODPRESSURE VITALS.BLOODPRESSURE.DIASTOLIC 12/27/2014 70 mm[Hg] 8462-4 VITALS.BLOODPRESSURE.SYSTOLIC 136 mm[Hg] 8480-6 HEIGHT VITALS.HEIGHT 12/27/2014 162.56 cm 8302- 2 M6MIVYXDBUKJ VITALS.S4PJEEYIRNRK 12/27/2014 97 % 2710-2 PULSE VITALS.PULSE.RATE 12/27/2014 [...] HEIGHT VITALS.HEIGHT 03/24/2014 164.465 cm 8302- 2 E6RPTTCANROQ VITALS.Q4FMBLCIHFUB 03/24/2014 96 % 2710-2 PULSE VITALS.PULSE.RATE 03/24/2014 60 /min 8 867-4 TEMPERATURE VITALS.TEMPERATURE 03/24/2014 98 [degF] 8310-5 WEIGHT VITALS.WEIGHT 03/24/2014 63.503 kg 3141- 9 BLOODPRESSURE VITALS.BLOODPRESSURE.DIASTOLIC 01/20/2014 88 mm[Hg] 8462-4 VITALS.BLOODPRESSURE.SYSTOLIC 138 mm[Hg] 8480-6 HEIGHT VITALS.HEIGHT 01/20/2014 164.465 cm 8302- 2 E2DRVSQWUBST VITALS.O3CGCBBKPWZI 01/20/2014 96 % 2710-2 PULSE VITALS.PULSE.RATE 01/20/2014 66 /min 8 867-4 TEMPERATURE VITALS.TEMPERATURE 01/20/2014 97.7 [degF] 8310-5 WEIGHT VITALS.WEIGHT 01/20/2014 68.946 kg 3141- 9 BLOODPRESSURE VITALS.BLOODPRESSURE.DIASTOLIC 12/23/2013 76 mm[Hg] 8462-4 VITALS.BLOODPRESSURE.SYSTOLIC 132 mm[Hg] 8480-6 HEIGHT VITALS.HEIGHT 12/23/2013 164.465 cm 8302- 2 Y7WYUHDSPQQA VITALS.D7XDIPHWHNLZ 12/23/2013 98 % 2710-2 PULSE VITALS.PULSE.RATE 12/23/2013 [...] HEIGHT VITALS.HEIGHT 10/07/2013 164.465 cm 8302- 2 D9BPTOTHFUZD VITALS.W9XJBAINERPU 10/07/2013 99 % 2710-2 PULSE VITALS.PULSE.RATE 10/07/2013 [...] Normal Range Abnormal? Observation Time Observation LOINC BMP, SERUM OR PLASMA ANION GAP 10.0 mmol/L 3-11 Normal 10/12/2015 BLOOD UREA NITROGEN 18 mg/dL 7-25 Normal 10/12/2015 CALCIUM 9.2 mg/dL 8.6-10.3 Normal 10/12/2015 CARBON DIOXIDE 22 mmol/L 21-32 Normal 10/12/2015 CHLORIDE 102 mmol/L 98-107 Normal 10/12/2015 CREATININE 1.1 mg/dL 0.6-1.1 Normal 10/12/2015 GLOMERULAR FILTRATION RATE EST 48 ml/min AV Normal 0 10/12/2015 GLUCOSE 92 mg/dL 70-105 Normal 10/12/2015 POTASSIUM 4.4 mmol/L 3.5-5.1 Normal 10/12/2015 SODIUM 134 mmol/L 135-145 Low 10/12/2015 BONE DENSITY 09/12/2015 MAMMOGRAM, SCREENING MAMMOGRAM, SCREENING LIPID PANEL, SERUM CHOLESTEROL 162 mg/dL < 200 Normal 1 02/26/2014 HDL CHOLESTEROL 73 mg/dL 40-60 Normal 12/27/2014 [...] FILTRATION RATE EST 54 ml/min AV Normal 02/26/2014 GLUCOSE 102 mg/dL 70-110 Normal 12/27/2014 [...] 7.0 gm/dL 6.3-8.6 Normal 01/18/2014 ELECTROCARDIOGRAM 2013 00358-1 CT, ABDOMEN AND PELVIS 0 10/20/2008 BMP, [...] screening, digital, bilateral taken on 03/07/2011 at [facility] shows:Mammography:
Performing Weatherization Field Technician: Rochelle Mckeon.
Ordering provider: .Mammography:
Type: Digital [...] of x-ray, hip taken on 05/10/2010 at [facility] shows:Provider/Weatherization Field Technician:
Ordering provider: Ordering Provider: (DR. ANDERSON).
Performing Weatherization Field Technician: Maliha Patterson.X-Ray Hip:
View: Right 2 Views. RIGHT HIP, TWO-VIEWS<p>CLINICAL HISTORY:Pain.<p>No displaced fracture or dislocation is seen. The soft tissues are unremarkable. <p>IMPRESSION:Negative exam. <p>Kervin Landa M.D. 05/10/2010 MAMMOGRAM, SCREENING 0 1 / 0 3 / 2 0 1 1 BONE DENSITY STUDY Interpretation Review of bone density study taken on 02/08/2010 shows:Provider/Weatherization Field Technician:
Ordering provider: Ordering Provider: (JUSTIN).
Performing Weatherization Field Technician: Performing Weatherization Field Technician: GEORGE).DXA Interpretation:
Instrument: DXA exam was performed on the [employer].
AP Spine: L1-L4.
Femur: dual femur. Bone [...] mammogram, screeni ng taken on 02/08/2010 at [facility] shows:Mammography:
Performing Weatherization Field Technician: Rochelle Mckeon.Mammography:
Type: CAD with Review.
Views: [...] Orders Order Type Approved Date Perform Date HOLTER MONITOR 10/12/2015 10/12/2015 US, ECHOCARDIOGRAM 10/12/2015 10/12/2015 LIPID PANEL, SERUM 08/17/2015 12/29/2015 TSH, ULTRA-SENSITIVE, SERUM 08/17/201512/12 CBC 08/17/2015 12/29/2015 CMP, SERUM OR PLASMA 08/17/2015 12/29/2015 BMP, SERUM OR PLASMA 08/17/2015 09/14/2015 BONE DENSITY STUDY 02/13/2010 02/08/2010 Immunizations Genus Name (Administered Vaccines) Administration Date Lot # Contact Center Team Lead CVX Code Tdap 10/07/2013 [id number] [employer] 115 influenza, injectable, quadrivalent, preservative free 12/23/2013 [id number] [employer] 150 influenza, injectable, quadrivalent, preservative free 12/27/2014 [id number] [employer] 150 pneumococcal polysaccharide PPV23 10/07/2013 [id number] [employer] 33 pneumococcal conjugate PCV 13 12/27/2014 [id number] Gerardo 133 Td (adult), adsorbed 08/17/2009 [id number] sanofi pasteur 09 zoster 01/20/2014 [id number] [employer] 121 Procedures Procedure Name Procedure Date CPT Code Performing Provider Tubal Ligation 02/11/1969
--- OUTSIDE RECORDS SUMMARY | 2024-02-11 14:48 | XMS_ITS | CCD ---
Author Name Roseanne Glaser Address [address] [place] [address] Phone [phone] Organization [facility] Address [address] [place] [address] Phone [phone] Care Team Providers Care Ski Lift Attendant Name Role Phone Joanie Young Consulting Provider UnavailKoffi Sanders Consulting Provider UnaJuliano Jin Consulting Provider Unavailable Christi Molina Consulting Provider Unavailable Omar Vergara Consulting Provider Unavailable Makenna Gaspar Consulting Provider Unavailable Roseanne Glaser Primary Care Provider UnavailSandi Miller Consulting Provider Unavailable Insurance Providers Insurance Package Reporting Category Relationship to I nsured ID # MEDICARE B-SD: [facility] Medicare B-SD Self [id number] [facility] Self [id number] [employer] Billing Self [id number] MEDICARE A-SD: [facility] Medicare A-SD Self [id number] Conditions or Problems Problem Name SNOMED Code Onset Date Actinic keratosis 849748226 Atrophic vaginitis 04691129 Benign neoplasm of colon 30080186 000 Cor pulmonale 24826239 12/29/2015 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 384772542 Essential hypertension 09184983 4 Gastroesophageal reflux disease 606367978 Hyperlipidemia 72027325 Syncope 980667292 Medications FDB Name Sig Start Date Stop Date RxNorm Name RxNorm Code No te Nexium 40 mg capsule,delayed release 1 daily by mouth Esomeprazole 40 MG Delayed Release Oral Capsule [Nexium] 582978 amlodipine 5 mg tablet 1 daily by mouth Amlodipine 5 MG Oral Tablet 921629 aspirin 81 mg daily by mouth atorvastatin 20 mg tablet 1 daily by mouth atorvastatin 20 MG Oral Tablet 157549 lisinopril 20 mg tablet 1 daily by mouth Lisinopril 20 MG Oral Tablet 294529 Allergies and Alert Problems Allergy Allergy ID Reaction Onset Date Note RxNorm Name RxNorm Code HYDROCHLOROTHIAZIDE 75916 Syncope Hydrochlorot hiazide 5487 Encounters Encounter Type Date Care Provider Medicare Physical-60 min 12/29/2015 KARMA GLASER MD Medicare Physical-60 min 12/29/2015 KARMA GLASER MD Medicare Physical-60 min 12/29/2015 KARMA GLASER MD Medicare Physical-60 min 12/29/2015 KARMA GLASER MD Order Group 12/22/2015 ROSEANNE GLASER MD Patient Case - Clinical Question 12/22/2015 ROSEANNE GLASER MD Established Visit-40min 10/12/2015 BIBIANA GLASER MD Patient [...] ROSEANNE GLASER MD OFFICE/OUTPATIENT VISIT NEW 09/22/2012 AZZIA AVELAR DO Patient Case - Clinical Question [...] YOUNG MD COMP SCREEN MAMMOGRAM ADD-ON 03/07/2011 SCO RUFINO YOUNG MD Order Group 03/05/2011 JOANIE YOUNG [...] Observation Units Observation LOINC BLOODPRESSURE VITALS.BLOODPRE SSURE.DIASTOLIC 12/29/2015 82 mm[Hg] 8462-4 VITALS.BLOODPRESSURE.SYSTOLIC 130 mm[Hg] 8480-6 HEIGHT VITALS.HEIGHT 12/29/2015 162.56 cm 8302- 2 F7SFZYCDACEF VITALS.K8BYKRZMZIZO 12/29/2015 99 % 2710-2 PULSE VITALS.PULSE.RATE 12/29/2015 60 /min 8 867-4 RESPIRATIONRATE VITALS.RESPIRATIONRATE 12/29/2015 18 /min 9279-1 TEMPERATURE VITALS.TEMPERATURE 12/29/2015 98.2 [degF] 8310-5 WEIGHT VITALS.WEIGHT 12/29/2015 61.235 kg 3141- 9 BLOODPRESSURE VITALS.BLOODPRESSURE.DIASTOLIC 10/12/2015 72 mm[Hg] 8462-4 VITALS.BLOODPRESSURE.SYSTOLIC 130 mm[Hg] 8480-6 HEIGHT VITALS.HEIGHT 10/12/2015 162.56 cm 8302- 2 D4DRLRCCLKFF VITALS.A7HBKWVWDNKZ 10/12/2015 97 % 2710-2 PULSE VITALS.PULSE.RATE 10/12/2015 60 /min 8 867-4 TEMPERATURE VITALS.TEMPERATURE 10/12/2015 98.6 [degF] 8310-5 WEIGHT VITALS.WEIGHT 10/12/2015 62.142 kg 3141- 9 BLOODPRESSURE VITALS.BLOODPRESSURE.DIASTOLIC 08/17/2015 80 mm[Hg] 8462-4 VITALS.BLOODPRESSURE.SYSTOLIC 152 mm[Hg] 8480-6 BLOODPRESSURE VITALS.BLOODPRESSURE.DIASTOLIC 08/17/2015 82 mm[Hg] 8462-4 VITALS.BLOODPRESSURE.SYSTOLIC 170 mm[Hg] 8480-6 HEIGHT VITALS.HEIGHT 08/17/2015 163.83 cm 8302- 2 Y2YBREJNQDXS VITALS.J0DHGBJQSVSL 08/17/2015 97 % 2710-2 PULSE VITALS.PULSE.RATE 08/17/2015 58 /min 8 867-4 TEMPERATURE VITALS.TEMPERATURE 08/17/2015 98.5 [degF] 8310-5 WEIGHT VITALS.WEIGHT 08/17/2015 63.049 kg 3141- 9 BLOODPRESSURE VITALS.BLOODPRESSURE.DIASTOLIC 12/27/2014 70 mm[Hg] 8462-4 VITALS.BLOODPRESSURE.SYSTOLIC 136 mm[Hg] 8480-6 HEIGHT VITALS.HEIGHT 12/27/2014 162.56 cm 8302- 2 H5PERLWHXZHE VITALS.A4VSFWGGEYDO 12/27/2014 97 % 2710-2 PULSE VITALS.PULSE.RATE 12/27/2014 [...] HEIGHT VITALS.HEIGHT 03/24/2014 164.465 cm 8302- 2 O9HNWJMHGJDK VITALS.X9DJMBUKFOML 03/24/2014 96 % 2710-2 PULSE VITALS.PULSE.RATE 03/24/2014 60 /min 8 867-4 TEMPERATURE VITALS.TEMPERATURE 03/24/2014 98 [degF] 8310-5 WEIGHT VITALS.WEIGHT 03/24/2014 63.503 kg 3141- 9 BLOODPRESSURE VITALS.BLOODPRESSURE.DIASTOLIC 01/20/2014 88 mm[Hg] 8462-4 VITALS.BLOODPRESSURE.SYSTOLIC 138 mm[Hg] 8480-6 HEIGHT VITALS.HEIGHT 01/20/2014 164.465 cm 8302- 2 B4YZQTQGUOZQ VITALS.B7RDQOCOSFMX 01/20/2014 96 % 2710-2 PULSE VITALS.PULSE.RATE 01/20/2014 66 /min 8 867-4 TEMPERATURE VITALS.TEMPERATURE 01/20/2014 97.7 [degF] 8310-5 WEIGHT VITALS.WEIGHT 01/20/2014 68.946 kg 3141- 9 BLOODPRESSURE VITALS.BLOODPRESSURE.DIASTOLIC 12/23/2013 76 mm[Hg] 8462-4 VITALS.BLOODPRESSURE.SYSTOLIC 132 mm[Hg] 8480-6 HEIGHT VITALS.HEIGHT 12/23/2013 164.465 cm 8302- 2 F7BTTIIKVEPC VITALS.H3KXWSPCCGWB 12/23/2013 98 % 2710-2 PULSE VITALS.PULSE.RATE 12/23/2013 [...] HEIGHT VITALS.HEIGHT 10/07/2013 164.465 cm 8302- 2 U3AUQOJPQDQB VITALS.E9GQETEKEYKA 10/07/2013 99 % 2710-2 PULSE VITALS.PULSE.RATE 10/07/2013 [...] Units Normal Range Abnormal? Observation Time Observation GEORGINA PACHECO M 12/29/2015 COMPLETE PFT 12/29/2015 LIPID PANEL, SERUM CHOLESTEROL 162 MG/DL < 200 Normal 12/29/2015 HDL CHOLESTEROL 77 MG/DL 40-60 Normal 12/29/2015 LDL CHOLESTEROL CALCULATED 70 MG/DL < 100 Normal 12/28 TRIGLYCERIDES 75 MG/DL < 150 Normal 12/29/2015 CBC HEMATOCRIT 38.7 % 34-45 Normal 12/29/2015 HEMOGLOBIN 13.2 G/DL 11.5-15.5 Normal 12/29/2015 MEAN CORPUSCULAR HEMOGLOBIN 30.2 PG 28-33 Normal 12/12 MEAN CORPUSCULAR HGB CONC 34.1 G/DL 32.0-36.0 Normal 12/12 MEAN CORPUSCULAR VOLUME 88.5 FL 81-97 Normal 12/29/19 16 MEAN PLATELET VOLUME 7.9 FL 6.9-10.8 Normal 12/29/2015 PLATELET COUNT 234 10 3/UL 140-350 Normal 12/29/2015 RED BLOOD COUNT 4.37 X10 6/UL 3.7-5.3 Normal 12/29/2015 RED CELL DISTRIBUTION WIDTH 13.5 % 11.5-14.0 Normal WHITE BLOOD COUNT 3.7 X10 3/UL 4.5-10.5 LOW 12/29/2015 TSH, SERUM OR PLASMA THYROID STIM HORMONE, USENS 2.366 UIU/ML 0.340-4.820 Normal 12/29/2015 CMP, SERUM OR PLASMA ALANINE AMINOTRANSFERASE 17 IU/L < 53 Normal 12/28 ALBUMIN 4.4 GM/DL 3.5-5.3 Normal 12/29/2015 ALKALINE PHOSPHATASE 66 IU/L 55-142 Normal 12/29/2015 ANION GAP 8.0 MMOL/L 3-11 Normal 12/29/2015 ASPARTATE AMINO TRANSFERASE 20 IU/L < 40 Normal 12/12 BLOOD UREA NITROGEN 18 MG/DL 7-25 Normal 12/29/2015 CALCIUM 9.7 MG/DL 8.6-10.3 Normal 12/29/2015 CARBON DIOXIDE 26 MMOL/L 21-32 Normal 12/29/2015 CHLORIDE 106 MMOL/L 98-107 Normal 12/29/2015 CORRECTED CALCIUM 9.4 MG/DL 8.5-10.1 Normal 12/29/2015 CREATININE 1.1 MG/DL 0.6-1.1 Normal 12/29/2015 GLOMERULAR FILTRATION RATE EST 48 ML/MIN AV Normal 1 02/27/2015 GLUCOSE 100 MG/DL 70-105 Normal 12/29/2015 POTASSIUM 4.2 MMOL/L 3.5-5.1 Normal 12/29/2015 SODIUM 140 MMOL/L 135-145 Normal 12/29/2015 TOTAL BILIRUBIN 0.73 MG/DL 0.00-1.40 Normal 12/29/2015 TOTAL PROTEIN 6.8 GM/DL 6.0-8.3 Normal 12/29/2015 US, ECHOCARDIOGRAM 10/26 HOLTER MONITOR 6 BMP, SERUM OR PLASMA ANION GAP 10.0 MMOL/L 3-11 Normal 0 10/12/2015 BLOOD UREA NITROGEN 18 MG/DL 7-25 Normal 10/12/2015 CALCIUM 9.2 MG/DL 8.6-10.3 Normal 10/12/2015 CARBON DIOXIDE 22 MMOL/L 21-32 Normal 10/12/2015 CHLORIDE 102 MMOL/L 98-107 Normal 10/12/2015 CREATININE 1.1 MG/DL 0.6-1.1 Normal 10/12/2015 GLOMERULAR FILTRATION RATE EST 48 ML/MIN AV Normal 0 10/12/2015 GLUCOSE 92 MG/DL 70-105 Normal 10/12/2015 POTASSIUM 4.4 MMOL/L 3.5-5.1 Normal 10/12/2015 SODIUM 134 MMOL/L 135-145 LOW 10/12/2015 BONE DENSITY 09/12/2015 MAMMOGRAM, SCREENING MAMMOGRAM, SCREENING CBC HEMATOCRIT 39.2 % 34-45 Normal 12/27/2014 [...] HORMONE, USENS 1.713 uIU/mL 0.300-4.000 Normal 12/27/2014 LIPID PANEL, SERUM CHOLESTEROL 162 mg/dL < 200 Normal 1 02/26/2014 HDL CHOLESTEROL 73 mg/dL 40-60 Normal 12/27/2014 LDL CHOLESTEROL CALCULATED 72 mg/dL < 100 Normal 12/27 TRIGLYCERIDES 84 mg/dL < 150 Normal 12/27/2014 SURGICAL PATHOLOGY REPORT RESULTS 04/13/2014 ELECTROCARDIOGRAM 2014 48153 -8 ULTRASOUND, ABDOMINAL TROPONIN I, SERUM OR PLASMA TROPONIN I < 0.070 ng/mL 0.000-0 .070 Normal 03/24/2014 CMP, SERUM OR PLASMA ALANINE AMINOTRANSFERASE 26 [...] TOTAL PROTEIN 7.3 gm/dL 5.7-8.0 Normal 03/24/2014 CBC HEMATOCRIT 40.2 % 34-45 [...] 3/uL 4.5-10.5 Normal 03/24/2014 MAMMOGRAM, SCREENING 05/2013 CMP, SERUM OR PLASMA ALANINE AMINOTRANSFERASE 21 [...] TOTAL PROTEIN 7.0 gm/dL 6.3-8.6 Normal 01/18/2014 BILIRUBIN, DIRECT, SERUM OR PLASMA DIRECT BILIRUBIN 0.10 mg/dL 0.00-0.30 Normal 01/18/2014 LIPID PANEL, SERUM CHOLESTEROL 148 mg/dL 0-199 Normal 1 03/21/2013 HDL CHOLESTEROL 66 mg/dL 40-60 Normal 01/18/2014 LDL CHOLESTEROL CALCULATED 63 mg/dL 0-130 Normal 01/18 RISK RATIO (CHOL/HDL) 2.20 01/18/2014 TRIGLYCERIDES 94 mg/dL 30-200 Normal 01/18/2014 ELECTROCARDIOGRAM 2013 31472-8 CT, ABDOMEN AND PELVIS 0 10/20/2008 LIPID PANEL, SERUM CHOLESTEROL 235 mg/dL 0-199 [...] CORPUSCULAR VOLUME 87.7 fl 81-97 Normal 12/03/19 14 PLATELET COUNT 272 10 3/uL 140-450 Normal [...] URINE UROBILINOGEN 0.2 E.U./dL <2.0 Normal 12/02/2013 BMP, SERUM OR PLASMA ANION GAP 11 [...] 12/02/2013 SODIUM 139 mmol/L 138-146 Normal 12/02/2013 BONE DENSITY STUDY 12/09 ULTRASOUND, ABDOMINAL MAMMO, SCREENING, DIGITAL, BILATERAL 11/30/2008 PAP, LB 07/14/2007 X-RAY, CHEST 10/20/[address], ABDOMEN AND PELVIS 0 10/20/2008 STRESS ECHOCARDIOGRAM COMPREHENSIVE METABOLIC PANEL ALBUMIN 3.94 g/dL 3.40-5.00 [...] screening, digital, bilateral taken on 03/07/2011 at [facility] shows:Mammography:
Performing Balcony Worker: Rochelle Mckeon.
Ordering provider: .Mammography:
Type: Digital with Review.
Views: Bilateral Screening. BILATERAL SCREENING MAMMOGRAM WITH CAD<p>Compared to 02/08/10.<p>There are bilateral vascular calcifications. The breast parenchyma is heterogeneously dense. No new dominant mass or architectural distortion is seen. Overall there has been no significant interval change. <p>IMPRESSION:BI-RAD 2, stable benign findings. Annual screening mammography recommended.<p>Kervin Landa M.D. 03/07/2011 LIPID PANEL CHOL/HDL RATIO 3.2 RATIO 09/18 CHOLESTEROL 205 mg/dL 0-200 High 09/18/2010 HDL 64 mg/dL 40-60 High 09/18/2010 LDL (CALC) 114.6 mg/dL 0.0-100.0 High 09/18/2010 TRIGLYCERIDES 132 mg/dL 30-150 Normal 09/18/2010 COMPREHENSIVE METABOLIC PANEL ALBUMIN 4.18 g/dL 3.40-5.00 Normal 09/18/2010 ALK PHOS 98 U/L 50-136 [...] T.PROTEIN 2 7.43 g/dL 6.40-8.20 Normal 09/18/2010 X-RAY, HIP Interpretation Review of x-ray, hip taken on 05/10/2010 at [facility] shows:Provider/Balcony Worker:
Ordering provider: Ordering Provider: (DR. ANDERSON).
Performing Balcony Worker: Maliha Patterson.X-Ray Hip:
View: Right 2 Views. RIGHT HIP, TWO-VIEWS<p>CLINICAL HISTORY:Pain.<p>No displaced fracture or dislocation is seen. The soft tissues are unremarkable. <p>IMPRESSION:Negative exam. <p>Kervin Landa M.D. 05/10/2010 MAMMOGRAM, SCREENING 0 1 / 0 3 / 2 0 1 1 MAMMOGRAM, SCREENING Interpretation Review of mammogram, screeni ng taken on 02/08/2010 at [facility] shows:Mammography:
Performing Balcony Worker: Rochelle Mckeon.Mammography:
Type: CAD with Review.
Views: [...] category 2, benign findings.<p>Demetrius Lai M.D. 02/08/2010 BONE DENSITY STUDY Interpretation Review of bone density study taken on 02/08/2010 shows:Provider/Balcony Worker:
Ordering provider: Ordering Provider: (JUSTIN).
Performing Balcony Worker: Performing Balcony Worker: (BENTLEY).DXA Interpretation:
Instrument: DXA exam was performed on the [employer].
AP Spine: L1-L4.
Femur: dual femur. Bone [...] repeat DEXA scan in two years. 02/08/2010 COMPREHENSIVE METABOLIC PANEL ALBUMIN 3.73 g/dL [...] Orders Order Type Approved Date Perform Date MAMMO, SCREENING, BILATERAL 12/29/2015 03/0 02/2015 XR, CHEST, 2 VIEW 12/29/2015 12/29/2015 BMP, SERUM OR PLASMA 08/17/2015 09/14/2015 BONE DENSITY STUDY 02/13/2010 02/08/2010 Immunizations Genus Name (Administered Vaccines) Administration Date Lot # Apprentice Cosmetologist CVX Code Tdap 10/07/2013 [id number] [employer] 115 influenza, injectable, quadrivalent, preservative free 12/23/2013 [id number] [employer] 150 influenza, injectable, quadrivalent, preservative free 12/27/2014 [id number] [employer] 150 influenza, injectable, quadrivalent, preservative free 12/29/2015 [id number] [employer] 150 pneumococcal polysaccharide PPV23 10/07/2013 [id number] [employer] 33 pneumococcal conjugate PCV 13 12/27/2014 [id number] [employer] 133 Td (adult), adsorbed 08/17/2009 [id number] [employer]ofi pasteur 09 zoster 01/20/2014 [id number] [employer] 121 Procedures Procedure Name Procedure Date CPT Code Performing Provider Tubal Ligation 02/11/1969
--- OUTSIDE RECORDS SUMMARY | 2024-02-11 14:48 | XMS_ITS | CCD ---
Author Name Roseanne Glaser Address [address] [place] [address] Phone [phone] Organization [facility] Address [address] [place] [address] Phone [phone] Care Team Providers Care Annealer Name Role Phone Joanie Young Consulting Provider UnavailKoffi Sanders Consulting Provider UnaJuliano Jin Consulting Provider Unavailable Christi Molina Consulting Provider Unavailable Omar Vergara Consulting Provider Unavailable Makenna Gaspar Consulting Provider Unavailable Roseanne Glaser Primary Care Provider UnavailSandi Miller Consulting Provider Unavailable Insurance Providers Insurance Package Reporting Category Relationship to I nsured ID # MEDICARE B-SD: [place] Medicare B-SD Self [id number] [facility] Self [id number] [employer] Billing Self [id number] MEDICARE A-SD: [facility] Medicare A-[place] Self [id number] Conditions or Problems Problem Name SNOMED Code Onset Date Actinic keratosis 988897577 Atrophic vaginitis 65853410 Benign neoplasm of colon 87314407 000 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 193533639 Essential hypertension 15409367 4 Gastroesophageal reflux disease 756921631 Hyperlipidemia 65302186 Medications FDB Name Sig Start Date Stop Date RxNorm Name RxNorm Code Note Calmoseptine 0.44 %-20.6 % topical ointment in packet apply to exterior vaginal tissues as needed for irritation Menthol 0.0044 MG/MG / Zinc Oxide 0.2 MG/MG Topical Ointment [Calmoseptine Ointment] 748119 Premarin 0.625 mg/gram vaginal cream insert 1 gm vaginally twice weekly 12/29/19 15 Estrogens, Conjugated (PRISON) 0.625 MG/ML Vaginal Cream [Premarin] 431610 aspirin 81 mg daily by mouth atorvastatin 20 mg tablet take 1 tablet by mouth daily 05/29/19 16 atorvastatin 20 MG Oral Tablet 849222 esomeprazole magnesium 40 mg capsule,delayed release take 1 tablet by mouth daily 05/22/19 16 Esomeprazole 40 MG Delayed Release Oral Capsule 224936 hydrochlorothiazide 12.5 mg tablet 1 daily by mouth Hydrochlorothiazide 12.5 MG Oral Tablet 075625 lisinopril 20 mg tablet 1 daily by mouth Lisinopril 20 MG Ora l Tablet 460338 Allergies and Alert Problems Allergy Allergy ID Reaction Onset Date Note RxNorm Name RxNor m Code No Known Drug Allergies Encounters Encounter Type Date Care Provider Patient Case 08/17/2015 ROSEANNE GLASER MD Established [...] GLASER MD OFFICE/OUTPATIENT VISIT EST 10/19/2013 AZIZA AVELAR, OFFICE/OUTPATIENT VISIT NEW 10/07/2013 SANFORD GLASER MD [...] Observation Units Observation LOINC BLOODPRESSURE VITALS.BLOODPRE SSURE.DIASTOLIC 08/17/2015 80 mm[Hg] 8462-4 VITALS.BLOODPRESSURE.SYSTOLIC 152 mm[Hg] 8480-6 BLOODPRESSURE VITALS.BLOODPRESSURE.DIASTOLIC 08/17/2015 82 mm[Hg] 8462-4 VITALS.BLOODPRESSURE.SYSTOLIC 170 mm[Hg] 8480-6 HEIGHT VITALS.HEIGHT 08/17/2015 163.83 cm 8302- 2 A0UIUPKCXXXR VITALS.D3UOUREXRSSF 08/17/2015 97 % 2710-2 PULSE VITALS.PULSE.RATE 08/17/2015 58 /min 8 867-4 TEMPERATURE VITALS.TEMPERATURE 08/17/2015 98.5 [degF] 8310-5 WEIGHT VITALS.WEIGHT 08/17/2015 63.049 kg 3141- 9 BLOODPRESSURE VITALS.BLOODPRESSURE.DIASTOLIC 12/27/2014 70 mm[Hg] 8462-4 VITALS.BLOODPRESSURE.SYSTOLIC 136 mm[Hg] 8480-6 HEIGHT VITALS.HEIGHT 12/27/2014 162.56 cm 8302- 2 L5JDOGMYBLHA VITALS.V7DIDRQIOHCE 12/27/2014 97 % 2710-2 PULSE VITALS.PULSE.RATE 12/27/2014 [...] HEIGHT VITALS.HEIGHT 03/24/2014 164.465 cm 8302- 2 N3UMAUKLLDNM VITALS.A8OFPKQFVITZ 03/24/2014 96 % 2710-2 PULSE VITALS.PULSE.RATE 03/24/2014 60 /min 8 867-4 TEMPERATURE VITALS.TEMPERATURE 03/24/2014 98 [degF] 8310-5 WEIGHT VITALS.WEIGHT 03/24/2014 63.503 kg 3141- 9 BLOODPRESSURE VITALS.BLOODPRESSURE.DIASTOLIC 01/20/2014 88 mm[Hg] 8462-4 VITALS.BLOODPRESSURE.SYSTOLIC 138 mm[Hg] 8480-6 HEIGHT VITALS.HEIGHT 01/20/2014 164.465 cm 8302- 2 A3LHMWXGEAGH VITALS.C5QAQHZXDLSE 01/20/2014 96 % 2710-2 PULSE VITALS.PULSE.RATE 01/20/2014 66 /min 8 867-4 TEMPERATURE VITALS.TEMPERATURE 01/20/2014 97.7 [degF] 8310-5 WEIGHT VITALS.WEIGHT 01/20/2014 68.946 kg 3141- 9 BLOODPRESSURE VITALS.BLOODPRESSURE.DIASTOLIC 12/23/2013 76 mm[Hg] 8462-4 VITALS.BLOODPRESSURE.SYSTOLIC 132 mm[Hg] 8480-6 HEIGHT VITALS.HEIGHT 12/23/2013 164.465 cm 8302- 2 F7NHEZYKATRB VITALS.E0TBSAMZJGCD 12/23/2013 98 % 2710-2 PULSE VITALS.PULSE.RATE 12/23/2013 [...] HEIGHT VITALS.HEIGHT 10/07/2013 164.465 cm 8302- 2 W2WFOMYSKFAA VITALS.Q5PKZZQWHGEC 10/07/2013 99 % 2710-2 PULSE VITALS.PULSE.RATE 10/07/2013 [...] Normal Range Abnormal? Observation Time Observation LOINC MAMMOGRA Yadiel KANIKA G 04/08/2015 MAMMOGRA Yadiel SCREENIN G 03/29/2015 LIPID PANEL, SERUM CHOLESTEROL 162 [...] CORPUSCULAR VOLUME 88.3 fl 81-97 Normal 12/28/19 PLATELET COUNT 235 10 3/uL 150-350 Normal [...] 7.0 gm/dL 6.3-8.6 Normal 01/18/2014 ELECTROCARDIOGRAM 2013 06719-7 CT, ABDOMEN AND PELVIS 0 10/20/2008 BMP, [...] screening, digital, bilateral taken on 03/07/2011 at [facility] shows:Mammography:
Performing Mortgage Field Inspector: Rochelle Mckeon.
Ordering provider: .Mammography:
Type: Digital [...] of x-ray, hip taken on 05/10/2010 at [facility] shows:Provider/Mortgage Field Inspector:
Ordering provider: Ordering Provider: (DR. ANDERSON).
Performing Mortgage Field Inspector: Maliha Patterson.X-Ray Hip:
View: Right 2 Views. RIGHT HIP, TWO-VIEWS<p>CLINICAL HISTORY:Pain.<p>No displaced fracture or dislocation is seen. The soft tissues are unremarkable. <p>IMPRESSION:Negative exam. <p>Kervin Landa M.D. 05/10/2010 MAMMOGRAM, SCREENING 0 1 / 0 3 / 2 0 1 1 BONE DENSITY STUDY Interpretation Review of bone density study taken on 02/08/2010 shows:Provider/Mortgage Field Inspector:
Ordering provider: Ordering Provider: (JUSTIN).
Performing Mortgage Field Inspector: Performing Mortgage Field Inspector: GEORGE).DXA Interpretation:
Instrument: DXA exam was performed on the [employer].
AP Spine: L1-L4.
Femur: dual femur. Bone [...] mammogram, screeni ng taken on 02/08/2010 at [facility] shows:Mammography:
Performing Mortgage Field Inspector: Rochelle Mckeon.Mammography:
Type: CAD with Review.
Views: [...] Orders Order Type Approved Date Perform Date CMP, SERUM OR PLASMA 08/17/2015 12/29/2015 TSH, ULTRA-SENSITIVE, SERUM 08/17/201512/12 LIPID PANEL, SERUM 08/17/2015 12/29/2015 CBC 08/17/2015 12/29/2015 BMP, SERUM OR PLASMA 08/17/2015 09/14/2015 BONE DENSITY, HIP, SPINE & FOREARM, WITH VFA 12/27/2014 BONE DENSITY STUDY 02/13/2010 02/08/2010 Immunizations Genus Name (Administered Vaccines) Administration Date Lot # Casino Runner CVX Code Tdap 10/07/2013 [id number] GlaxoSmithKline 115 influenza, injectable, quadrivalent, preservative free 12/23/2013 [id number] GlaxoSmithKline 150 influenza, injectable, quadrivalent, preservative free 12/27/2014 [id number] GlaxoSmith[employer]line 150 pneumococcal polysaccharide PPV23 10/07/2013 [id number] [employer] 33 pneumococcal conjugate PCV 13 12/27/2014 [id number] [facility] 133 Td (adult), adsorbed 08/17/2009 [id number] sanofi pasteur 09 zoster 01/20/2014 [id number] [employer] 121 Procedures Procedure Name Procedure Date CPT Code Performing Provider Tubal Ligation 02/11/1969
--- OUTSIDE RECORDS SUMMARY | 2024-02-11 14:49 | XMS_ITS | CCD ---
Author Name Roseanne Glaser Address [address] [place] [address] Phone [phone] Organization [facility] Address [address] [place] [address] Phone [phone] Care Team Providers Care Olive Packer Name Role Phone Joanie Young Consulting Provider UnavailKoffi Sanders Consulting Provider Juliano Dietrich Consulting Provider Unavailable Christi Molina Consulting Provider Unavailable Omar Vergara Consulting Provider Unavailable Makenna Gaspar Consulting Provider Unavailable Roseanne Glaser Primary Care Provider UnavailSandi Miller Consulting Provider Unavailable Insurance Providers Insurance Package Reporting Category Relationship to I nsured ID # MEDICARE B-SD: [facility] Medicare B-SD Self 503 [id number] [facility] Self [id number] [employer] Billing Self [id number] MEDICARE A-SD: [facility] Medicare A-SD Self [id number] Conditions or Problems Problem Name SNOMED Code Onset Date Actinic keratosis 465368029 Atrophic vaginitis 35233737 Benign neoplasm of colon 85251927 000 Cor pulmonale 56205620 12/29/2015 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 875043882 Essential hypertension 26908937 4 Gastroesophageal reflux disease 041240769 Hyperlipidemia 71326152 Syncope 228195864 Medications FDB Name Sig Start Date Stop Date RxNorm Name RxNorm Code No te Nexium 40 mg capsule,delayed release 1 daily by mouth Esomeprazole 40 MG Delayed Release Oral Capsule [Nexium] 577270 amlodipine 5 mg tablet 1 daily by mouth Amlodipine 5 MG Oral Tablet 997895 aspirin 81 mg daily by mouth atorvastatin 20 mg tablet 1 daily by mouth atorvastatin 20 MG Oral Tablet 217519 lisinopril 20 mg tablet 1 daily by mouth Lisinopril 20 MG Oral Tablet 734814 Allergies and Alert Problems Allergy Allergy ID Reaction Onset Date Note RxNorm Name RxNorm Code HYDROCHLOROTHIAZIDE 90219 Syncope Hydrochlorot hiazide 5487 Encounters Encounter Type Date Care Provider Medicare Physical-60 min 12/29/2015 KARMA GLASER MD Medicare Physical-60 min 12/29/2015 KARMA GLASER MD Medicare Physical-60 min 12/29/2015 KARMA LGASER MD Medicare Physical-60 min 12/29/2015 KARMA GLASER [...] 12/27/2014 KARMA GLASER MD Established Visit-15min 11/08/2014 DMEETRIUS AVELAR DO Patient Case 09/27/2014 ROSEANNE GLASER [...] MD Patient Case - Medication 09/05/2011 JULIANO JOENS MD OFFICE/OUTPATIENT VISIT EST 09/05/2011 JULIANO MANCINI [...] HEIGHT VITALS.HEIGHT 12/29/2015 162.56 cm 8302- 2 B9IXPEWEWBXH VITALS.P8NDFWUVKSAM 12/29/2015 99 % 2710-2 PULSE VITALS.PULSE.RATE 12/29/2015 60 /min 8 867-4 RESPIRATIONRATE VITALS.RESPIRATIONRATE 12/29/2015 18 /min 9279-1 TEMPERATURE VITALS.TEMPERATURE 12/29/2015 98.2 [degF] 8310-5 WEIGHT VITALS.WEIGHT 12/29/2015 61.235 kg 3141- 9 BLOODPRESSURE VITALS.BLOODPRESSURE.DIASTOLIC 10/12/2015 72 mm[Hg] 8462-4 VITALS.BLOODPRESSURE.SYSTOLIC 130 mm[Hg] 8480-6 HEIGHT VITALS.HEIGHT 10/12/2015 162.56 cm 8302- 2 I3UUNQLSXWYI VITALS.X8CETTHLLGVJ 10/12/2015 97 % 2710-2 PULSE VITALS.PULSE.RATE 10/12/2015 60 /min 8 867-4 TEMPERATURE VITALS.TEMPERATURE 10/12/2015 98.6 [degF] 8310-5 WEIGHT VITALS.WEIGHT 10/12/2015 62.142 kg 3141- 9 BLOODPRESSURE VITALS.BLOODPRESSURE.DIASTOLIC 08/17/2015 80 mm[Hg] 8462-4 VITALS.BLOODPRESSURE.SYSTOLIC 152 mm[Hg] 8480-6 BLOODPRESSURE VITALS.BLOODPRESSURE.DIASTOLIC 08/17/2015 82 mm[Hg] 8462-4 VITALS.BLOODPRESSURE.SYSTOLIC 170 mm[Hg] 8480-6 HEIGHT VITALS.HEIGHT 08/17/2015 163.83 cm 8302- 2 P2ITOQANACXP VITALS.X0NFXRYZWOJY 08/17/2015 97 % 2710-2 PULSE VITALS.PULSE.RATE 08/17/2015 58 /min 8 867-4 TEMPERATURE VITALS.TEMPERATURE 08/17/2015 98.5 [degF] 8310-5 WEIGHT VITALS.WEIGHT 08/17/2015 63.049 kg 3141- 9 BLOODPRESSURE VITALS.BLOODPRESSURE.DIASTOLIC 12/27/2014 70 mm[Hg] 8462-4 VITALS.BLOODPRESSURE.SYSTOLIC 136 mm[Hg] 8480-6 HEIGHT VITALS.HEIGHT 12/27/2014 162.56 cm 8302- 2 G5AEZHLRQOPL VITALS.R0UTMTBZSSDY 12/27/2014 97 % 2710-2 PULSE VITALS.PULSE.RATE 12/27/2014 [...] HEIGHT VITALS.HEIGHT 03/24/2014 164.465 cm 8302- 2 Y7ZKZEFDYNUV VITALS.C2RWSZZBABUH 03/24/2014 96 % 2710-2 PULSE VITALS.PULSE.RATE 03/24/2014 60 /min 8 867-4 TEMPERATURE VITALS.TEMPERATURE 03/24/2014 98 [degF] 8310-5 WEIGHT VITALS.WEIGHT 03/24/2014 63.503 kg 3141- 9 BLOODPRESSURE VITALS.BLOODPRESSURE.DIASTOLIC 01/20/2014 88 mm[Hg] 8462-4 VITALS.BLOODPRESSURE.SYSTOLIC 138 mm[Hg] 8480-6 HEIGHT VITALS.HEIGHT 01/20/2014 164.465 cm 8302- 2 T1MCLPIRSFOU VITALS.B5NHHYCLPRDI 01/20/2014 96 % 2710-2 PULSE VITALS.PULSE.RATE 01/20/2014 66 /min 8 867-4 TEMPERATURE VITALS.TEMPERATURE 01/20/2014 97.7 [degF] 8310-5 WEIGHT VITALS.WEIGHT 01/20/2014 68.946 kg 3141- 9 BLOODPRESSURE VITALS.BLOODPRESSURE.DIASTOLIC 12/23/2013 76 mm[Hg] 8462-4 VITALS.BLOODPRESSURE.SYSTOLIC 132 mm[Hg] 8480-6 HEIGHT VITALS.HEIGHT 12/23/2013 164.465 cm 8302- 2 B4OJIAJPIDFI VITALS.Z2OQAEUWQKUV 12/23/2013 98 % 2710-2 PULSE VITALS.PULSE.RATE 12/23/2013 [...] HEIGHT VITALS.HEIGHT 10/07/2013 164.465 cm 8302- 2 Q1OQRTXDTDEC VITALS.I8TTYBOCXWYL 10/07/2013 99 % 2710-2 PULSE VITALS.PULSE.RATE 10/07/2013 [...] Normal Range Abnormal? Observation Time Observation GEORGINA Cotto 12/29/2015 COMPLETE PFT 12/29/2015 CBC HEMATOCRIT 38.7 % 34-45 Normal [...] COUNT 3.7 X10 3/UL 4.5-10.5 LOW 12/29/2015 CMP, SERUM OR PLASMA ALANINE AMINOTRANSFERASE 17 IU/L < 53 Normal 12/29/2015 ALBUMIN 4.4 GM/DL 3.5-5.3 Normal 12/29/2015 ALKALINE [...] TOTAL PROTEIN 6.8 GM/DL 6.0-8.3 Normal 12/29/2015 LIPID PANEL, SERUM CHOLESTEROL 162 MG/DL < 200 Normal 1 02/27/2015 HDL CHOLESTEROL 77 MG/DL 40-60 Normal 12/29/2015 LDL CHOLESTEROL CALCULATED 70 MG/DL < 100 Normal 12/28 TRIGLYCERIDES 75 MG/DL < 150 Normal 12/29/2015 TSH, SERUM OR PLASMA THYROID STIM HORMONE, USENS 2.366 UIU/ML 0.340-4.820 Normal 12/29/2015 US, ECHOCARDIOGRAM 10/26 HOLTER MONITOR [...] 7.0 gm/dL 6.3-8.6 Normal 01/18/2014 ELECTROCARDIOGRAM 2013 00745-8 CT, ABDOMEN AND PELVIS 0 10/20/2008 BMP, [...] screening, digital, bilateral taken on 03/07/2011 at [facility] shows:Mammography:
Performing Parking Control Officer: Rochelle Mckeon.
Ordering provider: .Mammography:
Type: Digital [...] of x-ray, hip taken on 05/10/2010 at [facility] shows:Provider/Parking Control Officer:
Ordering provider: Ordering Provider: (DR. ANDERSON).
Performing Parking Control Officer: Maliha Patterson.X-Ray Hip:
View: Right 2 Views. RIGHT HIP, TWO-VIEWS<p>CLINICAL HISTORY:Pain.<p>No displaced fracture or dislocation is seen. The soft tissues are unremarkable. <p>IMPRESSION:Negative exam. <p>Kervin Landa M.D. 05/10/2010 MAMMOGRAM, SCREENING 0 1 / 0 3 / 2 0 1 1 BONE DENSITY STUDY Interpretation Review of bone density study taken on 02/08/2010 shows:Provider/Parking Control Officer:
Ordering provider: Ordering Provider: RAMSEY).
Performing Parking Control Officer: Performing Parking Control Officer: GEORGE).DXA Interpretation:
Instrument: DXA exam was performed on the [employer].
AP Spine: L1-L4.
Femur: dual femur. Bone [...] mammogram, screeni ng taken on 02/08/2010 at [facility] shows:Mammography:
Performing Parking Control Officer: Rochelle Mckeon.Mammography:
Type: CAD with Review.
Views: [...] Date Perform Date MAMMO, SCREENING, BILATERAL 12/29/2015 12/03/2015 XR, CHEST, 2 VIEW 12/29/2015 12/29/2015 BMP, SERUM OR PLASMA 08/17/2015 09/14/2015 BONE DENSITY STUDY 02/13/2010 02/08/2010 Immunizations Genus Name (Administered Vaccines) Administration Date Lot # Corn Cooker CVX Code Tdap 10/07/2013 [id number] GlaxoSmithKline 115 influenza, injectable, quadrivalent, preservative free 12/23/2013 [id number] [employer] 150 influenza, injectable, quadrivalent, preservative free 12/27/2014 HC7BD [employer] 150 influenza, injectable, quadrivalent, preservative free 12/29/2015 [id number] [employer] 150 pneumococcal polysaccharide PPV23 10/07/2013 [id number] [employer] 33 pneumococcal conjugate PCV 13 12/27/2014 [id number] [facility] 133 Td (adult), adsorbed 08/17/2009 [id number] sanofi pasteur 09 zoster 01/20/2014 [id number] [employer] 121 Procedures Procedure Name Procedure Date CPT Code Performing Provider Tubal Ligation 02/11/1969
--- OUTSIDE RECORDS SUMMARY | 2024-02-11 14:49 | XMS_ITS | CCD ---
Author Name Roseanne Glaser Address [address] [place] [address] Phone [phone] Organization [facility] Address [address] [place] [address] Phone [phone] Care Team Providers Care Optical Technician Name Role Phone Joanie Young Consulting Provider UnavailKoffi Sanders Consulting Provider UnaJuliano Jin Consulting Provider Unavailable Christi Molina Consulting Provider Unavailable Omar Vergara Consulting Provider Unavailable Makenna Gaspar Consulting Provider Unavailable Roseanne Glaser Primary Care Provider UnavailSandi Miller Consulting Provider Unavailable Insurance Providers Insurance Package Reporting Category Relationship to I nsured ID # MEDICARE B-SD: [facility] Medicare B-SD Self [id number] [facility] Self [id number] [employer] Self [id number] MEDICARE A-SD: [facility] Medicare A-SD Self [id number] Conditions or Problems Problem Name SNOMED Code Onset Date Actinic keratosis 693481844 Atrophic vaginitis 85675714 Benign neoplasm of colon 59883465 000 Cor pulmonale 56705756 12/29/2015 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 193753364 Essential hypertension 77164866 4 Gastroesophageal reflux disease 191337871 Hyperlipidemia 92076363 Syncope 212062505 Medications FDB Name Sig Start Date Stop Date RxNorm Name RxNorm Code No te Nexium 40 mg capsule,delayed release 1 daily by mouth Esomeprazole 40 MG Delayed Release Oral Capsule [Nexium] 615774 amlodipine 5 mg tablet 1 twice daily by mouth 01/31/2016 Amlodipine 5 MG Oral Tablet 330276 aspirin 81 mg daily by mouth atorvastatin 20 mg tablet 1 daily by mouth 01/31/2016 atorvastatin 20 MG Oral Tablet 275792 lisinopril 20 mg tablet 1 daily by mouth 02/06/2016 Lisinopril 20 MG Oral Tablet 941843 Allergies and Alert Problems Allergy Allergy ID Reaction Onset Date Note RxNorm Name RxNorm Code HYDROCHLOROTHIAZIDE 02428 Syncope Hydrochlorot hiazide 5487 Encounters Encounter Type Date Care Provider Established Visit-20min 01/31/2016 BIBIANA GLASER MD Patient Case 01/30/2016 ROSEANNE GLASER MD Medicare Physical-60 min 12/29/2015 KARMA [...] - Clinical Question 03/29/2011 JOANIE YOUNG MD SCR MAMMO BI INCL CAD 03/07/2011 JOANIE REYNA MD Order Group 03/05/2011 JOANIE YOUNG MD [...] MD Order Group 02/08/2010 JOANIE YOUNG MD MAMMOGRAM SCREENING 02/08/2010 JOANIE ZURITA MD DXA BONE DENSITY AXIAL 02/08/2010 JOANIE [...] Observation Units Observation LOINC BLOODPRESSURE VITALS.BLOODPRE SSURE.DIASTOLIC 01/31/2016 64 mm[Hg] 8462-4 VITALS.BLOODPRESSURE.SYSTOLIC 116 mm[Hg] 8480-6 BLOODPRESSURE VITALS.BLOODPRESSURE.DIASTOLIC 01/31/2016 86 mm[Hg] 8462-4 VITALS.BLOODPRESSURE.SYSTOLIC 172 mm[Hg] 8480-6 HEIGHT VITALS.HEIGHT 01/31/2016 162.56 cm 8302- 2 Z7LLSGCNNDDG VITALS.R4LUGUPYIJMI 01/31/2016 97 % 2710-2 PULSE VITALS.PULSE.RATE 01/31/2016 62 /min 8 867-4 TEMPERATURE VITALS.TEMPERATURE 01/31/2016 98.2 [degF] 8310-5 WEIGHT VITALS.WEIGHT 01/31/2016 62.142 kg 3141- 9 BLOODPRESSURE VITALS.BLOODPRESSURE.DIASTOLIC 12/29/2015 82 mm[Hg] 8462-4 VITALS.BLOODPRESSURE.SYSTOLIC 130 mm[Hg] 8480-6 HEIGHT VITALS.HEIGHT 12/29/2015 162.56 cm 8302- 2 A9YJYTFWHAGB VITALS.B2OOGPOZOSWS 12/29/2015 99 % 2710-2 PULSE VITALS.PULSE.RATE 12/29/2015 60 /min 8 867-4 RESPIRATIONRATE VITALS.RESPIRATIONRATE 12/29/2015 18 /min 9279-1 TEMPERATURE VITALS.TEMPERATURE 12/29/2015 98.2 [degF] 8310-5 WEIGHT VITALS.WEIGHT 12/29/2015 61.235 kg 3141- 9 BLOODPRESSURE VITALS.BLOODPRESSURE.DIASTOLIC 10/12/2015 72 mm[Hg] 8462-4 VITALS.BLOODPRESSURE.SYSTOLIC 130 mm[Hg] 8480-6 HEIGHT VITALS.HEIGHT 10/12/2015 162.56 cm 8302- 2 H0RGSZWBQDWT VITALS.V5BXTQFEOWPH 10/12/2015 97 % 2710-2 PULSE VITALS.PULSE.RATE 10/12/2015 60 /min 8 867-4 TEMPERATURE VITALS.TEMPERATURE 10/12/2015 98.6 [degF] 8310-5 WEIGHT VITALS.WEIGHT 10/12/2015 62.142 kg 3141- 9 BLOODPRESSURE VITALS.BLOODPRESSURE.DIASTOLIC 08/17/2015 80 mm[Hg] 8462-4 VITALS.BLOODPRESSURE.SYSTOLIC 152 mm[Hg] 8480-6 BLOODPRESSURE VITALS.BLOODPRESSURE.DIASTOLIC 08/17/2015 82 mm[Hg] 8462-4 VITALS.BLOODPRESSURE.SYSTOLIC 170 mm[Hg] 8480-6 HEIGHT VITALS.HEIGHT 08/17/2015 163.83 cm 8302- 2 O2UBTPNYAFWM VITALS.T8KACYXUAOJI 08/17/2015 97 % 2710-2 PULSE VITALS.PULSE.RATE 08/17/2015 58 /min 8 867-4 TEMPERATURE VITALS.TEMPERATURE 08/17/2015 98.5 [degF] 8310-5 WEIGHT VITALS.WEIGHT 08/17/2015 63.049 kg 3141- 9 BLOODPRESSURE VITALS.BLOODPRESSURE.DIASTOLIC 12/27/2014 70 mm[Hg] 8462-4 VITALS.BLOODPRESSURE.SYSTOLIC 136 mm[Hg] 8480-6 HEIGHT VITALS.HEIGHT 12/27/2014 162.56 cm 8302- 2 V5BJUCLZONQL VITALS.R9AHYVRLVEJD 12/27/2014 97 % 2710-2 PULSE VITALS.PULSE.RATE 12/27/2014 [...] HEIGHT VITALS.HEIGHT 03/24/2014 164.465 cm 8302- 2 F3NHZQLHXEVP VITALS.W8JJSELEAMJD 03/24/2014 96 % 2710-2 PULSE VITALS.PULSE.RATE 03/24/2014 60 /min 8 867-4 TEMPERATURE VITALS.TEMPERATURE 03/24/2014 98 [degF] 8310-5 WEIGHT VITALS.WEIGHT 03/24/2014 63.503 kg 3141- 9 BLOODPRESSURE VITALS.BLOODPRESSURE.DIASTOLIC 01/20/2014 88 mm[Hg] 8462-4 VITALS.BLOODPRESSURE.SYSTOLIC 138 mm[Hg] 8480-6 HEIGHT VITALS.HEIGHT 01/20/2014 164.465 cm 8302- 2 G3QQOFZWDRJY VITALS.Q1AZERZBEZDQ 01/20/2014 96 % 2710-2 PULSE VITALS.PULSE.RATE 01/20/2014 66 /min 8 867-4 TEMPERATURE VITALS.TEMPERATURE 01/20/2014 97.7 [degF] 8310-5 WEIGHT VITALS.WEIGHT 01/20/2014 68.946 kg 3141- 9 BLOODPRESSURE VITALS.BLOODPRESSURE.DIASTOLIC 12/23/2013 76 mm[Hg] 8462-4 VITALS.BLOODPRESSURE.SYSTOLIC 132 mm[Hg] 8480-6 HEIGHT VITALS.HEIGHT 12/23/2013 164.465 cm 8302- 2 E3QGCJZBLMYP VITALS.M5DKGGUXWWHN 12/23/2013 98 % 2710-2 PULSE VITALS.PULSE.RATE 12/23/2013 [...] HEIGHT VITALS.HEIGHT 10/07/2013 164.465 cm 8302- 2 L3QCHUXGSHJW VITALS.W6KNBZONIHSG 10/07/2013 99 % 2710-2 PULSE VITALS.PULSE.RATE 10/07/2013 [...] Normal Range Abnormal? Observation Time Observation LOINC XR, CHEST, 2 VIEW 01/31/2016 TORREY Johnson PULSE OXIMETRY 01/18/2016 ELECTROC ANDREWOGRA M 12/29/2015 COMPLETE PFT 12/29/2015 LIPID PANEL, [...] BONE DENSITY 09/12/2015 MAMMOGRAM, SCREENING MAMMOGRAM, SCREENING CMP, SERUM OR PLASMA ALANINE AMINOTRANSFERASE 26 [...] HORMONE, USENS 1.713 uIU/mL 0.300-4.000 Normal 12/27/2014 CBC HEMATOCRIT 39.2 % 34-45 [...] COUNT 3.7 X10 3/uL 4.5-10.5 Low 12/27/2014 LIPID PANEL, SERUM CHOLESTEROL 162 mg/dL < 200 Normal 1 02/26/2014 HDL CHOLESTEROL 73 mg/dL 40-60 Normal 12/27/2014 LDL CHOLESTEROL CALCULATED 72 mg/dL < 100 Normal 12/27 TRIGLYCERIDES 84 mg/dL < 150 Normal 12/27/2014 SURGICAL PATHOLOGY REPORT RESULTS 04/13/2014 ELECTROCARDIOGRAM 2014 25766-0 ULTRASOUND, ABDOMINAL CMP, SERUM OR PLASMA ALANINE AMINOTRANSFERASE 26 [...] COUNT 4.8 X10 3/uL 4.5-10.5 Normal 03/24/2014 TROPONIN I, SERUM OR PLASMA TROPONIN I < 0.070 ng/mL 0.000-0.070 Normal 03/24/2014 MAMMOGRAM, SCREENING 01/14/2014 CMP, SERUM OR PLASMA ALANINE AMINOTRANSFERASE 21 [...] TOTAL PROTEIN 7.0 gm/dL 6.3-8.6 Normal 01/18/2014 LIPID PANEL, SERUM CHOLESTEROL 148 mg/dL 0-199 Normal 1 03/21/2013 HDL CHOLESTEROL 66 mg/dL 40-60 Normal 01/18/2014 LDL CHOLESTEROL CALCULATED 63 mg/dL 0-130 Normal 01/18 RISK RATIO (CHOL/HDL) 2.20 01/18/2014 TRIGLYCERIDES 94 mg/dL 30-200 Normal 01/18/2014 BILIRUBIN, DIRECT, SERUM OR PLASMA DIRECT BILIRUBIN 0.10 mg/dL 0.00-0.30 Normal 014 ELECTROCARDIOGRAM 2013 [address]697- 8 CT, ABDOMEN AND PELVIS 0 10/20/2008 LIPID [...] 12/02/2013 SODIUM 139 mmol/L 138-146 Normal 12/02/2013 PAP, LB 07/14/2007 BONE DENSITY STUDY 12/09 ULTRASOUND, ABDOMINAL X-RAY, CHEST 10/20/[address], ABDOMEN AND PELVIS 0 10/20/2008 STRESS ECHOCARDIOGRAM MAMMO, SCREENING, DIGITAL, BILATERAL 11/30/2008 COMPREHENSIVE METABOLIC PANEL ALBUMIN 3.94 g/dL 3.40-5.00 [...] screening, digital, bilateral taken on 03/07/2011 at [facility] shows:Mammography:
Performing Customer Experience Intern: Rochelle Mckeon.
Ordering provider: .Mammography:
Type: Digital [...] of x-ray, hip taken on 05/10/2010 at [facility] shows:Provider/Customer Experience Intern:
Ordering provider: Ordering Provider: (DR. ANDERSON).
Performing Customer Experience Intern: Maliha Patterson.X-Ray Hip:
View: Right 2 Views. RIGHT HIP, TWO-VIEWS<p>CLINICAL HISTORY:Pain.<p>No displaced fracture or dislocation is seen. The soft tissues are unremarkable. <p>IMPRESSION:Negative exam. <p>Kervin Landa M.D. 05/10/2010 MAMMOGRAM, SCREENING 04/30 BONE DENSITY STUDY Interpretation Review of bone density study taken on 02/08/2010 shows:Provider/Customer Experience Intern:
Ordering provider: Ordering Provider: RAMSEY).
Performing Customer Experience Intern: Performing Customer Experience Intern: GEORGE).DXA Interpretation:
Instrument: DXA exam was performed on the [employer].
AP Spine: L1-L4.
Femur: dual femur. Bone [...] mammogram, screeni ng taken on 02/08/2010 at [facility] shows:Mammography:
Performing Customer Experience Intern: Rochelle Mckeon.Mammography:
Type: CAD with Review.
Views: [...] category 2, benign findings.<p>Demetrius Lai M.D. 02/08/2010 LIPID PANEL CHOL/HDL RATIO 3.8 RATIO 04/02 10 CHOLESTEROL 195 mg/dL 0-200 Normal 08/12/2009 HDL 52 mg/dL 40-60 Normal 08/12/2009 LDL (CALC) 125.4 mg/dL 0.0-100.0 High 08/12/2009 TRIGLYCERIDES 88 mg/dL 30-150 Normal 08/12/2009 COMPREHENSIVE METABOLIC PANEL ALBUMIN 3.73 g/dL 3.40-5.00 Normal 08/12/2009 ALK PHOS 111 U/L 50-136 Normal 08/12/2009 [...] T.PROTEIN 2 7.46 g/dL 6.40-8.20 Normal 08/12/2009 Unknown order type from unknown provider 08/08/2009 Pending Orders Order Type Approved Date Perform Date MAMMO, SCREENING, BILATERAL 12/29/201503/2015 BMP, SERUM OR PLASMA 08/17/2015 09/14/2015 BONE DENSITY STUDY 02/13/2010 02/08/2010 Immunizations Genus Name (Administered Vaccines) Administration Date Lot # Flow Manager CVX Code Tdap 10/07/2013 [id number] GlaxoSmith[employer]line 115 influenza, injectable, quadrivalent, preservative free 12/23/2013 [id number] GlaxoSmith[employer]line 150 influenza, injectable, quadrivalent, preservative free 12/27/2014 [id number] Gl[employer]oSmith[employer] 150 influenza, injectable, quadrivalent, preservative free 12/29/2015 [id number] [employer] 150 pneumococcal polysaccharide PPV23 10/07/2013 [id number] [employer] 33 pneumococcal conjugate PCV 13 12/27/2014 [id number] Gerardo 133 Td (adult), adsorbed 08/17/2009 [id number] sanofi pasteur 09 zoster 01/20/2014 [id number] [employer] 121 Procedures Procedure Name Procedure Date CPT Code Performing Provider Tubal Ligation 02/11/1969
--- OUTSIDE RECORDS SUMMARY | 2024-02-11 14:50 | XMS_ITS | CCD ---
Author Name Roseanne Glaser Address [address] [place] [address] Phone [phone] Organization [facility] Address [address] [place] [address] Phone [phone] Care Team Providers Care Property Insurance Claims Examiner Name Role Phone Joanie Young Consulting Provider UnavailKoffi Sanders Consulting Provider UnaJuliano Jin Consulting Provider Unavailable Christi Molina Consulting Provider Unavailable Omar Vergara Consulting Provider Unavailable Makenna Gaspar Consulting Provider Unavailable Roseanne Glaser Primary Care Provider UnavailSandi Miller Consulting Provider Unavailable Insurance Providers Insurance Package Reporting Category Relationship to I nsured ID # MEDICARE B-SD: [facility] Medicare B-SD Self 503 [id number] [facility] Self [id number] [employer] Billing Self [id number] MEDICARE A-SD: [facility] Medicare A-SD Self [id number] Conditions or Problems Problem Name SNOMED Code Onset Date Actinic keratosis 430109368 Atrophic vaginitis 71857626 Benign neoplasm of colon 52724681 000 Cor pulmonale 13737097 12/29/2015 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 362148553 Essential hypertension 72049090 4 Gastroesophageal reflux disease 467943940 Hyperlipidemia 12076413 Syncope 454043158 Medications FDB Name Sig Start Date Stop Date RxNorm Name RxNorm Code No te Nexium 40 mg capsule,delayed release 1 daily by mouth 05/24/2016 Esomeprazole 40 MG Delayed Release Oral Capsule [Nexium] 677143 alclometasone 0.05 % topical ointment 06/25/2016 alclometasone dipropionate 0.0005 MG/MG Topical Ointment 782967 aspirin 81 mg daily by mouth atorvastatin 20 mg tablet 1 daily by mouth 04/30/2016 atorvastatin 20 MG Oral Tablet 288217 carvedilol 25 mg tablet 1/2 tab twice daily by mouth carvedilol 25 MG Oral Tablet 660064 lisinopril 20 mg tablet 1 daily by mouth 05/06/2016 Lisinopril 20 MG Oral Tablet 324376 mupirocin 2 % topical ointment 06/25/2016 Mupirocin 0.02 MG/MG Topical Ointment 707189 Allergies and Alert Problems Allergy Allergy ID Reaction Onset Date Note RxNorm Name RxNorm Code AMLODIPINE 27920 Rash Amlodipine 75664 HYDROCHLOROTHIAZIDE 32895 Synco pe x 2 Hydrochlorothiazide 5487 Encounters Encounter Type Date Care Provider Established Visit-40min 07/05/2016 BIBIANA GLASER MD Patient Case - Clinical Question 06/28/2016 ROSEANNE GLASER MD Patient Case - Clinical Question 04/19/2016 ROSEANNE GLASER MD Order Group 04/19/2016 ROSEANNE GLASER MD Established Visit-20min 03/05/2016 BIBIANA GLASER MD Patient Case - Medical Records - Electronic 01/12 CHRISTI MOLINA MD Established Visit-20min 01/31/2016 BIBIANA GLASER MD Patient [...] YOUNG MD COMP SCREEN MAMMOGRAM ADD-ON 02/08/2010 SCKonrad YOUNG MD DXA BONE DENSITY AXIAL 02/08/2010 JOANIE CARRION MD OFFICE/OUTPATIENT VISIT EST 01/26/2010 MARTHA YOUNG MD Patient Case - Medication 01/20/2010 JOANIE YOUNG MD Order Group 01/10/2010 JOANIE YOUNG MD OFFICE/OUTPATIENT VISIT EST 08/17/2009 DEANNA VERGARA MD Patient Case - Other 08/10/2009 JONAIE KNOWLES MD OFFICE/OUTPATIENT VISIT EST 08/05/2009 MURRAY HERNDON DO OFFICE/OUTPATIENT VISIT EST 07/21/2009 MARTHA YOUNG MD Vital Signs Test Observation Name Encounter Date Observation Value Observation Units Observation LOINC BLOODPRESSURE VITALS.BLOODPRE SSURE.DIASTOLIC 07/05/2016 80 mm[Hg] 8462-4 VITALS.BLOODPRESSURE.SYSTOLIC 142 mm[Hg] 8480-6 HEIGHT VITALS.HEIGHT 07/05/2016 162.56 cm 8302- 2 F8XMQZOQJMVT VITALS.B0CHMIFMVCLO 07/05/2016 97 % 2710-2 PULSE VITALS.PULSE.RATE 07/05/2016 60 /min 8 867-4 TEMPERATURE VITALS.TEMPERATURE 07/05/2016 97.6 [degF] 8310-5 WEIGHT VITALS.WEIGHT 07/05/2016 66.338 kg 3141- 9 BLOODPRESSURE VITALS.BLOODPRESSURE.DIASTOLIC 03/05/2016 78 mm[Hg] 8462-4 VITALS.BLOODPRESSURE.SYSTOLIC 158 mm[Hg] 8480-6 BLOODPRESSURE VITALS.BLOODPRESSURE.DIASTOLIC 03/05/2016 76 mm[Hg] 8462-4 VITALS.BLOODPRESSURE.SYSTOLIC 148 mm[Hg] 8480-6 HEIGHT VITALS.HEIGHT 03/05/2016 162.56 cm 8302- 2 N4JFTWQYZGOX VITALS.S4RJFGZQSYMW 03/05/2016 98 % 2710-2 PULSE VITALS.PULSE.RATE 03/05/2016 58 /min 8 867-4 TEMPERATURE VITALS.TEMPERATURE 03/05/2016 97.8 [degF] 8310-5 WEIGHT VITALS.WEIGHT 03/05/2016 64.41 kg 3141- 9 BLOODPRESSURE VITALS.BLOODPRESSURE.DIASTOLIC 01/31/2016 64 mm[Hg] 8462-4 VITALS.BLOODPRESSURE.SYSTOLIC 116 mm[Hg] 8480-6 BLOODPRESSURE VITALS.BLOODPRESSURE.DIASTOLIC 01/31/2016 86 mm[Hg] 8462-4 VITALS.BLOODPRESSURE.SYSTOLIC 172 mm[Hg] 8480-6 HEIGHT VITALS.HEIGHT 01/31/2016 162.56 cm 8302- 2 H7OLZHVTONIZ VITALS.V9DDWCMUWPKZ 01/31/2016 97 % 2710-2 PULSE VITALS.PULSE.RATE 01/31/2016 62 /min 8 867-4 TEMPERATURE VITALS.TEMPERATURE 01/31/2016 98.2 [degF] 8310-5 WEIGHT VITALS.WEIGHT 01/31/2016 62.142 kg 3141- 9 BLOODPRESSURE VITALS.BLOODPRESSURE.DIASTOLIC 12/29/2015 82 mm[Hg] 8462-4 VITALS.BLOODPRESSURE.SYSTOLIC 130 mm[Hg] 8480-6 HEIGHT VITALS.HEIGHT 12/29/2015 162.56 cm 8302- 2 J3KKDACKNEGU VITALS.X7MUUVLVGPLT 12/29/2015 99 % 2710-2 PULSE VITALS.PULSE.RATE 12/29/2015 60 /min 8 867-4 RESPIRATIONRATE VITALS.RESPIRATIONRATE 12/29/2015 18 /min 9279-1 TEMPERATURE VITALS.TEMPERATURE 12/29/2015 98.2 [degF] 8310-5 WEIGHT VITALS.WEIGHT 12/29/2015 61.235 kg 3141- 9 BLOODPRESSURE VITALS.BLOODPRESSURE.DIASTOLIC 10/12/2015 72 mm[Hg] 8462-4 VITALS.BLOODPRESSURE.SYSTOLIC 130 mm[Hg] 8480-6 HEIGHT VITALS.HEIGHT 10/12/2015 162.56 cm 8302- 2 L8NCMLLLMKHL VITALS.E7TRBRHJGIZO 10/12/2015 97 % 2710-2 PULSE VITALS.PULSE.RATE 10/12/2015 60 /min 8 867-4 TEMPERATURE VITALS.TEMPERATURE 10/12/2015 98.6 [degF] 8310-5 WEIGHT VITALS.WEIGHT 10/12/2015 62.142 kg 3141- 9 BLOODPRESSURE VITALS.BLOODPRESSURE.DIASTOLIC 08/17/2015 80 mm[Hg] 8462-4 VITALS.BLOODPRESSURE.SYSTOLIC 152 mm[Hg] 8480-6 BLOODPRESSURE VITALS.BLOODPRESSURE.DIASTOLIC 08/17/2015 82 mm[Hg] 8462-4 VITALS.BLOODPRESSURE.SYSTOLIC 170 mm[Hg] 8480-6 HEIGHT VITALS.HEIGHT 08/17/2015 163.83 cm 8302- 2 S5ODBKRMNBGK VITALS.O8CZHRNHRYCV 08/17/2015 97 % 2710-2 PULSE VITALS.PULSE.RATE 08/17/2015 58 /min 8 867-4 TEMPERATURE VITALS.TEMPERATURE 08/17/2015 98.5 [degF] 8310-5 WEIGHT VITALS.WEIGHT 08/17/2015 63.049 kg 3141- 9 BLOODPRESSURE VITALS.BLOODPRESSURE.DIASTOLIC 12/27/2014 70 mm[Hg] 8462-4 VITALS.BLOODPRESSURE.SYSTOLIC 136 mm[Hg] 8480-6 HEIGHT VITALS.HEIGHT 12/27/2014 162.56 cm 8302- 2 X4TBEBBPANUA VITALS.G2MSBZRHZBVN 12/27/2014 97 % 2710-2 PULSE VITALS.PULSE.RATE 12/27/2014 [...] HEIGHT VITALS.HEIGHT 03/24/2014 164.465 cm 8302- 2 Q5OWHHFUXUAT VITALS.K3QECQUHJZNT 03/24/2014 96 % 2710-2 PULSE VITALS.PULSE.RATE 03/24/2014 60 /min 8 867-4 TEMPERATURE VITALS.TEMPERATURE 03/24/2014 98 [degF] 8310-5 WEIGHT VITALS.WEIGHT 03/24/2014 63.503 kg 3141- 9 BLOODPRESSURE VITALS.BLOODPRESSURE.DIASTOLIC 01/20/2014 88 mm[Hg] 8462-4 VITALS.BLOODPRESSURE.SYSTOLIC 138 mm[Hg] 8480-6 HEIGHT VITALS.HEIGHT 01/20/2014 164.465 cm 8302- 2 M6BGQMIWZPGV VITALS.N8TLOSJDRYAU 01/20/2014 96 % 2710-2 PULSE VITALS.PULSE.RATE 01/20/2014 66 /min 8 867-4 TEMPERATURE VITALS.TEMPERATURE 01/20/2014 97.7 [degF] 8310-5 WEIGHT VITALS.WEIGHT 01/20/2014 68.946 kg 3141- 9 BLOODPRESSURE VITALS.BLOODPRESSURE.DIASTOLIC 12/23/2013 76 mm[Hg] 8462-4 VITALS.BLOODPRESSURE.SYSTOLIC 132 mm[Hg] 8480-6 HEIGHT VITALS.HEIGHT 12/23/2013 164.465 cm 8302- 2 V9GBKBAKJBUC VITALS.D8FWSNMXQTRY 12/23/2013 98 % 2710-2 PULSE VITALS.PULSE.RATE 12/23/2013 [...] HEIGHT VITALS.HEIGHT 10/07/2013 164.465 cm 8302- 2 X7HNTRBFXMRP VITALS.Q7EWWFWJYGIW 10/07/2013 99 % 2710-2 PULSE VITALS.PULSE.RATE 10/07/2013 [...] Normal Range Abnormal? Observation Time Observation LOINC MAMMO, SCREENIN G, DIGITAL, BILATERA L 2016 MAMMO, SCREENIN G, BILATERA L 05/31/2016 SURGICAL PATHOLOG Y STUDY RESULTS 02/10/2016 XR, CHEST, 2 VIEW 01/31/2016 NOCTURNA L PULSE OXIMETRY 01/18/2016 ELECTROC ARDIOGRA M 12/29/2015 COMPLETE PFT 12/29/2015 CMP, SERUM OR PLASMA ALANINE AMINOTRANSFE RASE 17 IU/L < 53 Normal 12/29/2015 ALBUMIN [...] TOTAL PROTEIN 6.8 GM/DL 6.0-8.3 Normal 12/29/2015 TSH, SERUM OR PLASMA THYROID STIM HORMONE, USENS 2.366 UIU/ML 0.340-4.820 Normal 12/29/2015 CBC HEMATOCRIT 38.7 % 34-45 [...] COUNT 3.7 X10 3/UL 4.5-10.5 LOW 12/29/2015 LIPID PANEL, SERUM CHOLESTEROL 162 MG/DL < 200 Normal 1 02/27/2015 HDL CHOLESTEROL 77 MG/DL 40-60 Normal 12/29/2015 LDL CHOLESTEROL CALCULATED 70 MG/DL < 100 Normal 12/28 TRIGLYCERIDES 75 MG/DL < 150 Normal 12/29/2015 US, ECHOCARDIOGRAM 10/26 HOLTER MONITOR [...] 3/uL 4.5-10.5 Normal 03/24/2014 MAMMOGRAM, SCREENING 05/2013 LIPID PANEL, SERUM CHOLESTEROL 148 mg/dL 0-199 Normal 1 03/21/2013 HDL CHOLESTEROL 66 mg/dL 40-60 Normal 01/18/2014 LDL CHOLESTEROL CALCULATED 63 mg/dL 0-130 Normal 01/18 RISK RATIO (CHOL/HDL) 2.20 01/18/2014 TRIGLYCERIDES 94 mg/dL 30-200 Normal 01/18/2014 BILIRUBIN, DIRECT, SERUM OR PLASMA DIRECT BILIRUBIN 0.10 mg/dL 0.00-0.30 Normal 014 CMP, SERUM OR PLASMA ALANINE AMINOTRANSFERASE 21 IU/L < 78 Normal 01/18 ALBUMIN 3.6 g/dL 3.4-5.0 Normal 01/18/2014 ALKALINE [...] 7.0 gm/dL 6.3-8.6 Normal 01/18/2014 ELECTROCARDIOGRAM 2013 [address]0616-4 CT, ABDOMEN AND PELVIS 0 10/20/2008 BMP, [...] 12/02/2013 SODIUM 139 mmol/L 138-146 Normal 12/02/2013 CBC HEMATOCRIT 37.8 % 34.0-45.0 [...] URINE UROBILINOGEN 0.2 E.U./dL <2.0 Normal 12/02/2013 LIPID PANEL, SERUM CHOLESTEROL 235 mg/dL 0-199 High 1 HDL CHOLESTEROL 67 mg/dL 40-60 Normal 12/02/2013 LDL CHOLESTEROL CALCULATED 142 mg/dL 0-130 High 12/02 RISK RATIO (CHOL/HDL) 3.50 12/02/2013 TRIGLYCERIDES 129 mg/dL 30-200 Normal 12/02/2013 BONE DENSITY STUDY 12/09 ULTRASOUND, ABDOMINAL PAP, LB 07/14/2007 STRESS ECHOCARDIOGRAM MAMMO, SCREENING, DIGITAL, BILATERAL 11/30/2008 X-RAY, CHEST 10/20/2008 CT, ABDOMEN AND PELVIS 0 10/20/2008 ECHOCARDIOGRAM 9 COMPREHENSIVE METABOLIC PANEL ALBUMIN 3.94 [...] screening, digital, bilateral taken on 03/07/2011 at [facility] shows:Mammography:
Performing Engineering Equipment Operator: Rochelle Mckeon.
Ordering provider: .Mammography:
Type: Digital [...] of x-ray, hip taken on 05/10/2010 at [facility] shows:Provider/Engineering Equipment Operator:
Ordering provider: Ordering Provider: (DR. ANDERSON).
Performing Engineering Equipment Operator: Maliha Patterson.X-Ray Hip:
View: Right 2 Views. RIGHT HIP, TWO-VIEWS<p>CLINICAL HISTORY:Pain.<p>No displaced fracture or dislocation is seen. The soft tissues are unremarkable. <p>IMPRESSION:Negative exam. <p>Kervin Landa M.D. 05/10/2010 MAMMOGRAM, SCREENING 04/30 BONE DENSITY STUDY Interpretation Review of bone density study taken on 02/08/2010 shows:Provider/Engineering Equipment Operator:
Ordering provider: Ordering Provider: RAMSEY).
Performing Engineering Equipment Operator: Performing Engineering Equipment Operator: GEORGE).DXA Interpretation:
Instrument: DXA exam was performed on the [employer].
AP Spine: L1-L4.
Femur: dual femur. Bone [...] mammogram, screeni ng taken on 02/08/2010 at [facility] shows:Mammography:
Performing Engineering Equipment Operator: Rochelle Mckeon.Mammography:
Type: CAD with Review.
Views: [...] 02/08/2010 LIPID PANEL CHOL/HDL RATIO 3.8 RATIO 07/04/02 10 CHOLESTEROL 195 mg/dL 0-200 Normal 08/12/2009 [...] Orders Order Type Approved Date Perform Date BMP, SERUM OR PLASMA 08/17/2015 09/14/2015 BONE DENSITY STUDY 02/13/2010 02/08/2010 Immunizations Genus Name (Administered Vaccines) Administration Date Lot # Assistant To The President CVX Code Tdap 10/07/2013 [id number] [employer] 115 influenza, injectable, quadrivalent, preservative free 12/23/2013 [id number] [employer] 150 influenza, injectable, quadrivalent, preservative free 12/27/2014 [id number] [employer] 150 influenza, injectable, quadrivalent, preservative free 12/29/2015 [id number] [employer] 150 pneumococcal polysaccharide PPV23 10/07/2013 [id number] [employer] 33 pneumococcal conjugate PCV 13 12/27/2014 [id number] [employer] 133 Td (adult), adsorbed 08/17/2009 [id number] sanofi pasteur 09 zoster 01/20/2014 [id number] [employer] 121 Procedures Procedure Name Procedure Date CPT Code Performing Provider Tubal Ligation 02/11/1969
--- OUTSIDE RECORDS SUMMARY | 2024-02-11 14:50 | XMS_ITS | CCD ---
Author Name Roseanne Glaser Address [address] [place] [address] Phone [phone] Organization [facility] Address [address] [place] [address] Phone [phone] Care Team Providers Care Leathersmith Name Role Phone Joanie Young Consulting Provider UnavailKoffi Sanders Consulting Provider UnaJuliano Jin Consulting Provider Unavailable Christi Molina Consulting Provider Unavailable Omar Vergraa Consulting Provider Unavailable Makenna Gaspar Consulting Provider Unavailable Roseanne Glaser Primary Care Provider UnavailSandi Miller Consulting Provider Unavailable Insurance Providers Insurance Package Reporting Category Relationship to I nsured ID # MEDICARE B-SD: [facility] Medicare B-SD Self [id number] [facility] Self [id number] [employer] Billing Self [id number] MEDICARE A-SD: [facility] Medicare A-SD Self [id number] Conditions or Problems Problem Name SNOMED Code Onset Date Actinic keratosis 943859966 Atrophic vaginitis 68097533 Benign neoplasm of colon 73630465 000 Cor pulmonale 81657631 12/29/2015 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 289505646 Essential hypertension 73482979 4 Gastroesophageal reflux disease 777245450 Hyperlipidemia 52599560 Syncope 867575847 Medications FDB Name Sig Start Date Stop Date RxNorm Name RxNorm Code No te Nexium 40 mg capsule,delayed release 1 daily by mouth 02/24/2016 Esomeprazole 40 MG Delayed Release Oral Capsule [Nexium] 959133 amlodipine 5 mg tablet 1 twice daily by mouth 01/31/2016 Amlodipine 5 MG Oral Tablet 943651 aspirin 81 mg daily by mouth atorvastatin 20 mg tablet 1 daily by mouth 01/31/2016 atorvastatin 20 MG Oral Tablet 203649 lisinopril 20 mg tablet 1 daily by mouth 02/06/2016 Lisinopril 20 MG Oral Tablet 829824 Allergies and Alert Problems Allergy Allergy ID Reaction Onset Date Note RxNorm Name RxNorm Code HYDROCHLOROTHIAZIDE 41764 Synco pe x 2 Hydrochlorothiazide 5487 Encounters Encounter Type Date Care Provider Established Visit-20min 03/05/2016 BIBIANA GLASER MD Patient [...] Observation Units Observation LOINC BLOODPRESSURE VITALS.BLOODPRE SSURE.DIASTOLIC 03/05/2016 78 mm[Hg] 8462-4 VITALS.BLOODPRESSURE.SYSTOLIC 158 mm[Hg] 8480-6 BLOODPRESSURE VITALS.BLOODPRESSURE.DIASTOLIC 03/05/2016 76 mm[Hg] 8462-4 VITALS.BLOODPRESSURE.SYSTOLIC 148 mm[Hg] 8480-6 HEIGHT VITALS.HEIGHT 03/05/2016 162.56 cm 8302- 2 T4LHYZDMXEWR VITALS.X7BYUETZIKVT 03/05/2016 98 % 2710-2 PULSE VITALS.PULSE.RATE 03/05/2016 58 /min 8 867-4 TEMPERATURE VITALS.TEMPERATURE 03/05/2016 97.8 [degF] 8310-5 WEIGHT VITALS.WEIGHT 03/05/2016 64.41 kg 3141- 9 BLOODPRESSURE VITALS.BLOODPRESSURE.DIASTOLIC 01/31/2016 64 mm[Hg] 8462-4 VITALS.BLOODPRESSURE.SYSTOLIC 116 mm[Hg] 8480-6 BLOODPRESSURE VITALS.BLOODPRESSURE.DIASTOLIC 01/31/2016 86 mm[Hg] 8462-4 VITALS.BLOODPRESSURE.SYSTOLIC 172 mm[Hg] 8480-6 HEIGHT VITALS.HEIGHT 01/31/2016 162.56 cm 8302- 2 H7OTEDKWQDXR VITALS.Q1ZPKLDTCXIR 01/31/2016 97 % 2710-2 PULSE VITALS.PULSE.RATE 01/31/2016 62 /min 8 867-4 TEMPERATURE VITALS.TEMPERATURE 01/31/2016 98.2 [degF] 8310-5 WEIGHT VITALS.WEIGHT 01/31/2016 62.142 kg 3141- 9 BLOODPRESSURE VITALS.BLOODPRESSURE.DIASTOLIC 12/29/2015 82 mm[Hg] 8462-4 VITALS.BLOODPRESSURE.SYSTOLIC 130 mm[Hg] 8480-6 HEIGHT VITALS.HEIGHT 12/29/2015 162.56 cm 8302- 2 J4NLIXKOZJRA VITALS.R6SWLKASKZPC 12/29/2015 99 % 2710-2 PULSE VITALS.PULSE.RATE 12/29/2015 60 /min 8 867-4 RESPIRATIONRATE VITALS.RESPIRATIONRATE 12/29/2015 18 /min 9279-1 TEMPERATURE VITALS.TEMPERATURE 12/29/2015 98.2 [degF] 8310-5 WEIGHT VITALS.WEIGHT 12/29/2015 61.235 kg 3141- 9 BLOODPRESSURE VITALS.BLOODPRESSURE.DIASTOLIC 10/12/2015 72 mm[Hg] 8462-4 VITALS.BLOODPRESSURE.SYSTOLIC 130 mm[Hg] 8480-6 HEIGHT VITALS.HEIGHT 10/12/2015 162.56 cm 8302- 2 D1VILRXEXONG VITALS.N9XOFPDVGCEB 10/12/2015 97 % 2710-2 PULSE VITALS.PULSE.RATE 10/12/2015 60 /min 8 867-4 TEMPERATURE VITALS.TEMPERATURE 10/12/2015 98.6 [degF] 8310-5 WEIGHT VITALS.WEIGHT 10/12/2015 62.142 kg 3141- 9 BLOODPRESSURE VITALS.BLOODPRESSURE.DIASTOLIC 08/17/2015 80 mm[Hg] 8462-4 VITALS.BLOODPRESSURE.SYSTOLIC 152 mm[Hg] 8480-6 BLOODPRESSURE VITALS.BLOODPRESSURE.DIASTOLIC 08/17/2015 82 mm[Hg] 8462-4 VITALS.BLOODPRESSURE.SYSTOLIC 170 mm[Hg] 8480-6 HEIGHT VITALS.HEIGHT 08/17/2015 163.83 cm 8302- 2 H8SHNYVFIJCK VITALS.S8TKKYMCVMHE 08/17/2015 97 % 2710-2 PULSE VITALS.PULSE.RATE 08/17/2015 58 /min 8 867-4 TEMPERATURE VITALS.TEMPERATURE 08/17/2015 98.5 [degF] 8310-5 WEIGHT VITALS.WEIGHT 08/17/2015 63.049 kg 3141- 9 BLOODPRESSURE VITALS.BLOODPRESSURE.DIASTOLIC 12/27/2014 70 mm[Hg] 8462-4 VITALS.BLOODPRESSURE.SYSTOLIC 136 mm[Hg] 8480-6 HEIGHT VITALS.HEIGHT 12/27/2014 162.56 cm 8302- 2 F8KZCDJSIMSI VITALS.Z9GGYOFFBWNF 12/27/2014 97 % 2710-2 PULSE VITALS.PULSE.RATE 12/27/2014 [...] HEIGHT VITALS.HEIGHT 03/24/2014 164.465 cm 8302- 2 C7BAAYDOKXPP VITALS.C3OTMSZLBJTP 03/24/2014 96 % 2710-2 PULSE VITALS.PULSE.RATE 03/24/2014 60 /min 8 867-4 TEMPERATURE VITALS.TEMPERATURE 03/24/2014 98 [degF] 8310-5 WEIGHT VITALS.WEIGHT 03/24/2014 63.503 kg 3141- 9 BLOODPRESSURE VITALS.BLOODPRESSURE.DIASTOLIC 01/20/2014 88 mm[Hg] 8462-4 VITALS.BLOODPRESSURE.SYSTOLIC 138 mm[Hg] 8480-6 HEIGHT VITALS.HEIGHT 01/20/2014 164.465 cm 8302- 2 N3NOMJUDXQEH VITALS.P9ZXUNWOKAIB 01/20/2014 96 % 2710-2 PULSE VITALS.PULSE.RATE 01/20/2014 66 /min 8 867-4 TEMPERATURE VITALS.TEMPERATURE 01/20/2014 97.7 [degF] 8310-5 WEIGHT VITALS.WEIGHT 01/20/2014 68.946 kg 3141- 9 BLOODPRESSURE VITALS.BLOODPRESSURE.DIASTOLIC 12/23/2013 76 mm[Hg] 8462-4 VITALS.BLOODPRESSURE.SYSTOLIC 132 mm[Hg] 8480-6 HEIGHT VITALS.HEIGHT 12/23/2013 164.465 cm 8302- 2 H2CUITESFRJW VITALS.A8UTLYJZBBCH 12/23/2013 98 % 2710-2 PULSE VITALS.PULSE.RATE 12/23/2013 [...] HEIGHT VITALS.HEIGHT 10/07/2013 164.465 cm 8302- 2 B5DIVVFKWJEM VITALS.O8OFVBSCGOHS 10/07/2013 99 % 2710-2 PULSE VITALS.PULSE.RATE 10/07/2013 [...] Units Normal Range Abnormal? Observation Time Observation [facility] SURGICAL PATHOLOG Y STUDY RESULTS 02/10/2016 XR, CHEST, 2 VIEW 01/31/2016 TORREY Johnson PULSE OXIMETRY 01/18/2016 ELECTROC ARDIOGRA M 12/29/2015 COMPLETE PFT 12/29/2015 CBC HEMATOCRIT 38.7 [...] 7.0 gm/dL 6.3-8.6 Normal 01/18/2014 ELECTROCARDIOGRAM 2013 18143-9 CT, ABDOMEN AND PELVIS 0 10/20/2008 BMP, [...] PROTEIN DIPSTICK NEGATIVE mg/dL NEG Normal 12/03/19 URINE SPECIFIC GRAVITY 1.015 1.003-1.030 Normal 12/02 [...] screening, digital, bilateral taken on 03/07/2011 at [facility] shows:Mammography:
Performing Us Administrative Law Judge: Rochelle Mckeon.
Ordering provider: .Mammography:
Type: Digital [...] of x-ray, hip taken on 05/10/2010 at [facility] shows:Provider/Us Administrative Law Judge:
Ordering provider: Ordering Provider: (DR. ANDERSON).
Performing Us Administrative Law Judge: Maliha Patterson.X-Ray Hip:
View: Right 2 Views. RIGHT HIP, TWO-VIEWS<p>CLINICAL HISTORY:Pain.<p>No displaced fracture or dislocation is seen. The soft tissues are unremarkable. <p>IMPRESSION:Negative exam. <p>Kervin Landa M.D. 05/10/2010 MAMMOGRAM, SCREENING 0 1 / 0 3 / 2 0 1 1 BONE DENSITY STUDY Interpretation Review of bone density study taken on 02/08/2010 shows:Provider/Us Administrative Law Judge:
Ordering provider: Ordering Provider: RAMSEY).
Performing Us Administrative Law Judge: Performing Us Administrative Law Judge: GEORGE).DXA Interpretation:
Instrument: DXA exam was performed on the [employer].
AP Spine: L1-L4.
Femur: dual femur. Bone [...] mammogram, screeni ng taken on 02/08/2010 at [facility] shows:Mammography:
Performing Us Administrative Law Judge: Rochelle Mckeon.Mammography:
Type: CAD with Review.
Views: [...] Date Perform Date MAMMO, SCREENING, BILATERAL 12/29/2015 1203/2015 BMP, SERUM OR PLASMA 08/17/2015 09/14/2015 BONE DENSITY STUDY 02/13/2010 02/08/2010 Immunizations Genus Name (Administered Vaccines) Administration Date Lot # [employer]ging [employer]or CVX Code Tdap 10/07/2013 [id number] GlaxoSmithKline 115 influenza, injectable, quadrivalent, preservative free 12/23/2013 [id number] GlaxoSmithKline 150 influenza, injectable, quadrivalent, preservative free 12/27/2014 [id number] GlaxoSmith[employer]line 150 influenza, injectable, quadrivalent, preservative free 12/29/2015 [id number] GlaxoSmithKline 150 pneumococcal polysaccharide PPV23 10/07/2013 [id number] Mer[employer] 33 pneumococcal conjugate PCV 13 12/27/2014 [id number] Wyrich 133 Td (adult), adsorbed 08/17/2009 [id number] sanofi pasteur 09 zoster 01/20/2014 [id number] [employer] 121 Procedures Procedure Name Procedure Date CPT Code Performing Provider Tubal Ligation 02/11/1969
--- OUTSIDE RECORDS SUMMARY | 2024-02-11 14:50 | XMS_ITS | CCD ---
Author Name Roseanne Glaser Address [address] [place] [address] Phone [phone] Organization [facility] Address [address] [place] [address] Phone [phone] Care Team Providers Care Veterinarian Laboratory Animal Care Name Role Phone Joanie Young Consulting Provider UnavailKoffi Sanders Consulting Provider UnaJuliano Jin Consulting Provider Unavailable Christi Molina Consulting Provider Unavailable Omar Vergara Consulting Provider Unavailable Makenna Gaspar Consulting Provider Unavailable Roseanne Glaser Primary Care Provider UnavailSandi Miller Consulting Provider Unavailable Insurance Providers Insurance Package Reporting Category Relationship to I nsured ID # MEDICARE B-SD: [facility] Medicare B-SD Self 503 [id number] [facility] Self [id number] [employer] Corporate Billing Self [id number] MEDICARE A-SD: [facility] Medicare A-SD Self [id number] Conditions or Problems Problem Name SNOMED Code Onset Date Actinic keratosis 273588140 Atrophic vaginitis 61544074 Benign neoplasm of colon 99077732 000 Cor pulmonale 46536090 12/29/2015 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 236984567 Essential hypertension 14596104 4 Gastroesophageal reflux disease 019427734 Hyperlipidemia 29469647 Syncope 856481821 Medications FDB Name Sig Start Date Stop Date RxNorm Name RxNorm Code No te Nexium 40 mg capsule,delayed release 1 daily by mouth 05/24/2016 Esomeprazole 40 MG Delayed Release Oral Capsule [Nexium] 926630 alclometasone 0.05 % topical ointment 07/20/2016 alclometasone dipropionate 0.0005 MG/MG Topical Ointment 586683 aspirin 81 mg daily by mouth atorvastatin 20 mg tablet 1 daily by mouth 07/29/2016 atorvastatin 20 MG Oral Tablet 469861 carvedilol 25 mg tablet 1/2 tab twice daily by mouth 07/17/2016 carvedilol 25 MG Oral Tablet 515829 lisinopril 20 mg tablet 1 daily by mouth 08/04/2016 Lisinopril 20 MG Oral Tablet 991749 mupirocin 2 % topical ointment 07/19/2016 Mupirocin 0.02 MG/MG Topical Ointment 810382 Allergies and Alert Problems Allergy Allergy ID Reaction Onset Date Note RxNorm Name RxNorm Code AMLODIPINE 64832 Rash Amlodipine 01982 HYDROCHLOROTHIAZIDE 57424 Synco pe x 2 Hydrochlorothiazide 5487 Encounters Encounter Type Date Care Provider Established Visit-20min 08/06/2016 BIBIANA GLASER MD Established Visit-40min 07/05/2016 BIBIANA GLASER MD Established Visit-40min 07/05/2016 BIBIANA GLASER MD Patient [...] Observation Units Observation LOINC BLOODPRESSURE VITALS.BLOODPRE SSURE.DIASTOLIC 08/06/2016 92 mm[Hg] 8462-4 VITALS.BLOODPRESSURE.SYSTOLIC 146 mm[Hg] 8480-6 HEIGHT VITALS.HEIGHT 08/06/2016 162.56 cm 8302- 2 D6MZJFMGHOML VITALS.O5DUVUPRZMSK 08/06/2016 97 % 2710-2 PULSE VITALS.PULSE.RATE 08/06/2016 56 /min 8 867-4 TEMPERATURE VITALS.TEMPERATURE 08/06/2016 98.4 [degF] 8310-5 WEIGHT VITALS.WEIGHT 08/06/2016 65.317 kg 3141- 9 BLOODPRESSURE VITALS.BLOODPRESSURE.DIASTOLIC 07/05/2016 80 mm[Hg] 8462-4 VITALS.BLOODPRESSURE.SYSTOLIC 142 mm[Hg] 8480-6 HEIGHT VITALS.HEIGHT 07/05/2016 162.56 cm 8302- 2 X8QBGTEFKYZX VITALS.V8UQKTEPRPMJ 07/05/2016 97 % 2710-2 PULSE VITALS.PULSE.RATE 07/05/2016 60 /min 8 867-4 TEMPERATURE VITALS.TEMPERATURE 07/05/2016 97.6 [degF] 8310-5 WEIGHT VITALS.WEIGHT 07/05/2016 66.338 kg 3141- 9 BLOODPRESSURE VITALS.BLOODPRESSURE.DIASTOLIC 03/05/2016 78 mm[Hg] 8462-4 VITALS.BLOODPRESSURE.SYSTOLIC 158 mm[Hg] 8480-6 BLOODPRESSURE VITALS.BLOODPRESSURE.DIASTOLIC 03/05/2016 76 mm[Hg] 8462-4 VITALS.BLOODPRESSURE.SYSTOLIC 148 mm[Hg] 8480-6 HEIGHT VITALS.HEIGHT 03/05/2016 162.56 cm 8302- 2 W2IYBGARBRVZ VITALS.N6HAPFCYVNNC 03/05/2016 98 % 2710-2 PULSE VITALS.PULSE.RATE 03/05/2016 58 /min 8 867-4 TEMPERATURE VITALS.TEMPERATURE 03/05/2016 97.8 [degF] 8310-5 WEIGHT VITALS.WEIGHT 03/05/2016 64.41 kg 3141- 9 BLOODPRESSURE VITALS.BLOODPRESSURE.DIASTOLIC 01/31/2016 64 mm[Hg] 8462-4 VITALS.BLOODPRESSURE.SYSTOLIC 116 mm[Hg] 8480-6 BLOODPRESSURE VITALS.BLOODPRESSURE.DIASTOLIC 01/31/2016 86 mm[Hg] 8462-4 VITALS.BLOODPRESSURE.SYSTOLIC 172 mm[Hg] 8480-6 HEIGHT VITALS.HEIGHT 01/31/2016 162.56 cm 8302- 2 L9NFGHDJFLDO VITALS.G4FGBPREXTRU 01/31/2016 97 % 2710-2 PULSE VITALS.PULSE.RATE 01/31/2016 62 /min 8 867-4 TEMPERATURE VITALS.TEMPERATURE 01/31/2016 98.2 [degF] 8310-5 WEIGHT VITALS.WEIGHT 01/31/2016 62.142 kg 3141- 9 BLOODPRESSURE VITALS.BLOODPRESSURE.DIASTOLIC 12/29/2015 82 mm[Hg] 8462-4 VITALS.BLOODPRESSURE.SYSTOLIC 130 mm[Hg] 8480-6 HEIGHT VITALS.HEIGHT 12/29/2015 162.56 cm 8302- 2 W2WBMYKORQDB VITALS.W4YUIVOKTSUE 12/29/2015 99 % 2710-2 PULSE VITALS.PULSE.RATE 12/29/2015 60 /min 8 867-4 RESPIRATIONRATE VITALS.RESPIRATIONRATE 12/29/2015 18 /min 9279-1 TEMPERATURE VITALS.TEMPERATURE 12/29/2015 98.2 [degF] 8310-5 WEIGHT VITALS.WEIGHT 12/29/2015 61.235 kg 3141- 9 BLOODPRESSURE VITALS.BLOODPRESSURE.DIASTOLIC 10/12/2015 72 mm[Hg] 8462-4 VITALS.BLOODPRESSURE.SYSTOLIC 130 mm[Hg] 8480-6 HEIGHT VITALS.HEIGHT 10/12/2015 162.56 cm 8302- 2 Q5ECXXXZZILB VITALS.Y5TCFMIFTWAY 10/12/2015 97 % 2710-2 PULSE VITALS.PULSE.RATE 10/12/2015 60 /min 8 867-4 TEMPERATURE VITALS.TEMPERATURE 10/12/2015 98.6 [degF] 8310-5 WEIGHT VITALS.WEIGHT 10/12/2015 62.142 kg 3141- 9 BLOODPRESSURE VITALS.BLOODPRESSURE.DIASTOLIC 08/17/2015 80 mm[Hg] 8462-4 VITALS.BLOODPRESSURE.SYSTOLIC 152 mm[Hg] 8480-6 BLOODPRESSURE VITALS.BLOODPRESSURE.DIASTOLIC 08/17/2015 82 mm[Hg] 8462-4 VITALS.BLOODPRESSURE.SYSTOLIC 170 mm[Hg] 8480-6 HEIGHT VITALS.HEIGHT 08/17/2015 163.83 cm 8302- 2 B7ULUWQOEELI VITALS.K8VKLQINVJFW 08/17/2015 97 % 2710-2 PULSE VITALS.PULSE.RATE 08/17/2015 58 /min 8 867-4 TEMPERATURE VITALS.TEMPERATURE 08/17/2015 98.5 [degF] 8310-5 WEIGHT VITALS.WEIGHT 08/17/2015 63.049 kg 3141- 9 BLOODPRESSURE VITALS.BLOODPRESSURE.DIASTOLIC 12/27/2014 70 mm[Hg] 8462-4 VITALS.BLOODPRESSURE.SYSTOLIC 136 mm[Hg] 8480-6 HEIGHT VITALS.HEIGHT 12/27/2014 162.56 cm 8302- 2 Z0COVHAFZRUV VITALS.K3WTPBEASUQM 12/27/2014 97 % 2710-2 PULSE VITALS.PULSE.RATE 12/27/2014 [...] HEIGHT VITALS.HEIGHT 03/24/2014 164.465 cm 8302- 2 C7TAAFSTIBUY VITALS.J2AWIIGYMNZU 03/24/2014 96 % 2710-2 PULSE VITALS.PULSE.RATE 03/24/2014 60 /min 8 867-4 TEMPERATURE VITALS.TEMPERATURE 03/24/2014 98 [degF] 8310-5 WEIGHT VITALS.WEIGHT 03/24/2014 63.503 kg 3141- 9 BLOODPRESSURE VITALS.BLOODPRESSURE.DIASTOLIC 01/20/2014 88 mm[Hg] 8462-4 VITALS.BLOODPRESSURE.SYSTOLIC 138 mm[Hg] 8480-6 HEIGHT VITALS.HEIGHT 01/20/2014 164.465 cm 8302- 2 P2GFKGJLBZSH VITALS.Z3XAMFTUBQFG 01/20/2014 96 % 2710-2 PULSE VITALS.PULSE.RATE 01/20/2014 66 /min 8 867-4 TEMPERATURE VITALS.TEMPERATURE 01/20/2014 97.7 [degF] 8310-5 WEIGHT VITALS.WEIGHT 01/20/2014 68.946 kg 3141- 9 BLOODPRESSURE VITALS.BLOODPRESSURE.DIASTOLIC 12/23/2013 76 mm[Hg] 8462-4 VITALS.BLOODPRESSURE.SYSTOLIC 132 mm[Hg] 8480-6 HEIGHT VITALS.HEIGHT 12/23/2013 164.465 cm 8302- 2 G9JXZBZYKIOG VITALS.X5IHOZRPKQDG 12/23/2013 98 % 2710-2 PULSE VITALS.PULSE.RATE 12/23/2013 [...] HEIGHT VITALS.HEIGHT 10/07/2013 164.465 cm 8302- 2 V2XZABSQAJWS VITALS.F0NTQVMJNBIP 10/07/2013 99 % 2710-2 PULSE VITALS.PULSE.RATE 10/07/2013 [...] 02/10/2016 XR, CHEST, 2 VIEW 01/31/2016 NOCTURNA Alex PULSE OXIMETRY 01/18/2016 ELECTROC ARDIOGRA M 12/29/2015 [...] % 34-45 Normal 12/29/2015 HEMOGLOBIN 13.2 G/DL 11.-15.5 Normal 12/29/2015 MEAN CORPUSCULAR HEMOGLOBIN 30.2 PG [...] 7.0 gm/dL 6.3-8.6 Normal 01/18/2014 ELECTROCARDIOGRAM 2013 91383-7 CT, ABDOMEN AND PELVIS 0 10/20/2008 BMP, [...] digital, bilateral taken on 03/07/2011 at [facility] shows:Mammography:
Performing Process Expert: Rochelle Mckeon.
Ordering provider: .Mammography:
Type: Digital [...] of x-ray, hip taken on 05/10/2010 at [facility] shows:Provider/Process Expert:
Ordering provider: Ordering Provider: (DR. ANDERSON).
Performing Process Expert: Maliha Patterson.X-Ray Hip:
View: Right 2 Views. RIGHT HIP, TWO-VIEWS<p>CLINICAL HISTORY:Pain.<p>No displaced fracture or dislocation is seen. The soft tissues are unremarkable. <p>IMPRESSION:Negative exam. <p>Kervin Landa M.D. 05/10/2010 MAMMOGRAM, SCREENING 04/30 BONE DENSITY STUDY Interpretation Review of bone density study taken on 02/08/2010 shows:Provider/Process Expert:
Ordering provider: Ordering Provider: RAMSEY).
Performing Process Expert: Performing Process Expert: GEORGE).DXA Interpretation:
Instrument: DXA exam was performed on the [employer].
AP Spine: L1-L4.
Femur: dual femur. Bone [...] mammogram, screeni ng taken on 02/08/2010 at [facility] shows:Mammography:
Performing Process Expert: Rochelle Mckeon.Mammography:
Type: CAD with Review.
Views: [...] Name (Administered Vaccines) Administration Date Lot # Conical Mixer CVX Code Tdap 10/07/2013 [id number] GlaxoSmithKline 115 influenza, injectable, quadrivalent, preservative free 12/23/2013 [id number] GlaxoSmithKline 150 influenza, injectable, quadrivalent, preservative free 12/27/2014 [id number] GlaxoSmithKline 150 influenza, injectable, quadrivalent, preservative free 12/29/2015 [id number] GlaxoSmithKline 150 pneumococcal polysaccharide PPV23 10/07/2013 [id number] Merck and [employer] 33 pneumococcal conjugate PCV 13 12/27/2014 [id number] Wyrich 133 Td (adult), adsorbed 08/17/2009 [id number] sanofi pasteur 09 zoster 01/20/2014 [id number] [employer] 121 Procedures Procedure Name Procedure Date CPT Code Performing Provider Tubal Ligation 02/11/1969
--- OUTSIDE RECORDS SUMMARY | 2024-02-11 14:51 | XMS_ITS | CCD ---
Author Name Roseanne Glaser Address [address] [place] [address] Phone [phone] Organization [facility] Address [address] [place] [address] Phone [phone] Care Team Providers Care Conference Service Coordinator Name Role Phone Joanie Young Consulting Provider UnavailKoffi Sanders Consulting Provider UnaJuliano Jin Consulting Provider Unavailable Christi Molina Consulting Provider Unavailable Omar Vergara Consulting Provider Unavailable Makenna Gaspar Consulting Provider Unavailable Roseanne Glaser Primary Care Provider UnavailSandi Miller Consulting Provider Unavailable Insurance Providers Insurance Package Reporting Category Relationship to I nsured ID # MEDICARE B-[place]: [facility] Medicare B-[place] Self [id number] [facility] Self [id number] [employer] Self [id number] MEDICARE A-[place]: [facility] Medicare A-[place] Self [id number] Conditions or Problems Problem Name SNOMED Code Onset Date Actinic keratosis 608751186 Atrophic vaginitis 69605673 Benign neoplasm of colon 49841201 000 Cor pulmonale 33405688 12/29/2015 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5 mg tablet 1 twice daily by mouth 08/07/2016 carvedilol 12.5 MG Oral Tablet 19990413 carvedilol 25 mg tablet 1 twice daily by mouth carvedilol 25 MG Oral Tablet 19990414 erythromycin 5 mg/gram (0.5 %) eye ointment PLACE A SMALL AMOUNT ON INNER PORTION OF UPPER LEFT EYELID THREE TIMES DAILY FOR 5 TO 6 DAYS 09/14/2016 Erythromycin 0.005 MG/MG Ophthalmic Ointment 111231 lisinopril 20 mg tablet 1 daily by mouth 08/04/2016 Lisinopril 20 MG Oral Tablet 707329 mupirocin 2 % topical ointment 07/19/2016 Mupirocin 0.02 MG/MG Topical Ointment 103122 Allergies and Alert Problems Allergy Allergy ID Reaction Onset Date Note RxNorm Name RxNorm Code AMLODIPINE 98207 Rash Amlodipine 07652 HYDROCHLOROTHIAZIDE 22986 Synco pe x 2 Hydrochlorothiazide 5487 Encounters Encounter Type Date Care Provider Established Visit-20min 09/26/2016 BIBIANA GLASER MD Established Visit-20min 09/26/2016 BIBIANA GLASER MD Order Group 08/07/2016 ROSEANNE GLASER MD Established Visit-20min 08/06/2016 BIBIANA GLASER MD Established [...] Observation Units Observation LOINC BLOODPRESSURE VITALS.BLOODPRE SSURE.DIASTOLIC 09/26/2016 78 mm[Hg] 8462-4 VITALS.BLOODPRESSURE.SYSTOLIC 154 mm[Hg] 8480-6 BLOODPRESSURE VITALS.BLOODPRESSURE.DIASTOLIC 09/26/2016 82 mm[Hg] 8462-4 VITALS.BLOODPRESSURE.SYSTOLIC 150 mm[Hg] 8480-6 HEIGHT VITALS.HEIGHT 09/26/2016 162.56 cm 8302- 2 T1SLEVQFBWDU VITALS.L0QWPORVXOUJ 09/26/2016 95 % 2710-2 PULSE VITALS.PULSE.RATE 09/26/2016 54 /min 8 867-4 TEMPERATURE VITALS.TEMPERATURE 09/26/2016 97.8 [degF] 8310-5 WEIGHT VITALS.WEIGHT 09/26/2016 66.224 kg 3141- 9 BLOODPRESSURE VITALS.BLOODPRESSURE.DIASTOLIC 08/06/2016 92 mm[Hg] 8462-4 VITALS.BLOODPRESSURE.SYSTOLIC 146 mm[Hg] 8480-6 HEIGHT VITALS.HEIGHT 08/06/2016 162.56 cm 8302- 2 B8JQSVYLYMLZ VITALS.N6KWLOURDFXZ 08/06/2016 97 % 2710-2 PULSE VITALS.PULSE.RATE 08/06/2016 56 /min 8 867-4 TEMPERATURE VITALS.TEMPERATURE 08/06/2016 98.4 [degF] 8310-5 WEIGHT VITALS.WEIGHT 08/06/2016 65.317 kg 3141- 9 BLOODPRESSURE VITALS.BLOODPRESSURE.DIASTOLIC 07/05/2016 80 mm[Hg] 8462-4 VITALS.BLOODPRESSURE.SYSTOLIC 142 mm[Hg] 8480-6 HEIGHT VITALS.HEIGHT 07/05/2016 162.56 cm 8302- 2 O6NDEBBKDAHV VITALS.V4FHDZSRZCKU 07/05/2016 97 % 2710-2 PULSE VITALS.PULSE.RATE 07/05/2016 60 /min 8 867-4 TEMPERATURE VITALS.TEMPERATURE 07/05/2016 97.6 [degF] 8310-5 WEIGHT VITALS.WEIGHT 07/05/2016 66.338 kg 3141- 9 BLOODPRESSURE VITALS.BLOODPRESSURE.DIASTOLIC 03/05/2016 78 mm[Hg] 8462-4 VITALS.BLOODPRESSURE.SYSTOLIC 158 mm[Hg] 8480-6 BLOODPRESSURE VITALS.BLOODPRESSURE.DIASTOLIC 03/05/2016 76 mm[Hg] 8462-4 VITALS.BLOODPRESSURE.SYSTOLIC 148 mm[Hg] 8480-6 HEIGHT VITALS.HEIGHT 03/05/2016 162.56 cm 8302- 2 N6DHHCZIQDVG VITALS.T9RRRUGQKFWV 03/05/2016 98 % 2710-2 PULSE VITALS.PULSE.RATE 03/05/2016 58 /min 8 867-4 TEMPERATURE VITALS.TEMPERATURE 03/05/2016 97.8 [degF] 8310-5 WEIGHT VITALS.WEIGHT 03/05/2016 64.41 kg 3141- 9 BLOODPRESSURE VITALS.BLOODPRESSURE.DIASTOLIC 01/31/2016 64 mm[Hg] 8462-4 VITALS.BLOODPRESSURE.SYSTOLIC 116 mm[Hg] 8480-6 BLOODPRESSURE VITALS.BLOODPRESSURE.DIASTOLIC 01/31/2016 86 mm[Hg] 8462-4 VITALS.BLOODPRESSURE.SYSTOLIC 172 mm[Hg] 8480-6 HEIGHT VITALS.HEIGHT 01/31/2016 162.56 cm 8302- 2 T5QCCISJEJPP VITALS.F0KMTHDCDZCD 01/31/2016 97 % 2710-2 PULSE VITALS.PULSE.RATE 01/31/2016 62 /min 8 867-4 TEMPERATURE VITALS.TEMPERATURE 01/31/2016 98.2 [degF] 8310-5 WEIGHT VITALS.WEIGHT 01/31/2016 62.142 kg 3141- 9 BLOODPRESSURE VITALS.BLOODPRESSURE.DIASTOLIC 12/29/2015 82 mm[Hg] 8462-4 VITALS.BLOODPRESSURE.SYSTOLIC 130 mm[Hg] 8480-6 HEIGHT VITALS.HEIGHT 12/29/2015 162.56 cm 8302- 2 F0LVMOOSWKBQ VITALS.T4JLBZKCBYJA 12/29/2015 99 % 2710-2 PULSE VITALS.PULSE.RATE 12/29/2015 60 /min 8 867-4 RESPIRATIONRATE VITALS.RESPIRATIONRATE 12/29/2015 18 /min 9279-1 TEMPERATURE VITALS.TEMPERATURE 12/29/2015 98.2 [degF] 8310-5 WEIGHT VITALS.WEIGHT 12/29/2015 61.235 kg 3141- 9 BLOODPRESSURE VITALS.BLOODPRESSURE.DIASTOLIC 10/12/2015 72 mm[Hg] 8462-4 VITALS.BLOODPRESSURE.SYSTOLIC 130 mm[Hg] 8480-6 HEIGHT VITALS.HEIGHT 10/12/2015 162.56 cm 8302- 2 I1CMUVKJEVAT VITALS.R3YFCAJJBBDV 10/12/2015 97 % 2710-2 PULSE VITALS.PULSE.RATE 10/12/2015 60 /min 8 867-4 TEMPERATURE VITALS.TEMPERATURE 10/12/2015 98.6 [degF] 8310-5 WEIGHT VITALS.WEIGHT 10/12/2015 62.142 kg 3141- 9 BLOODPRESSURE VITALS.BLOODPRESSURE.DIASTOLIC 08/17/2015 80 mm[Hg] 8462-4 VITALS.BLOODPRESSURE.SYSTOLIC 152 mm[Hg] 8480-6 BLOODPRESSURE VITALS.BLOODPRESSURE.DIASTOLIC 08/17/2015 82 mm[Hg] 8462-4 VITALS.BLOODPRESSURE.SYSTOLIC 170 mm[Hg] 8480-6 HEIGHT VITALS.HEIGHT 08/17/2015 163.83 cm 8302- 2 B1NNNVSLGHAX VITALS.K0DDVIMLLSOJ 08/17/2015 97 % 2710-2 PULSE VITALS.PULSE.RATE 08/17/2015 58 /min 8 867-4 TEMPERATURE VITALS.TEMPERATURE 08/17/2015 98.5 [degF] 8310-5 WEIGHT VITALS.WEIGHT 08/17/2015 63.049 kg 3141- 9 BLOODPRESSURE VITALS.BLOODPRESSURE.DIASTOLIC 12/27/2014 70 mm[Hg] 8462-4 VITALS.BLOODPRESSURE.SYSTOLIC 136 mm[Hg] 8480-6 HEIGHT VITALS.HEIGHT 12/27/2014 162.56 cm 8302- 2 D3KFZUNQHPRW VITALS.T5FOKHSZKRAK 12/27/2014 97 % 2710-2 PULSE VITALS.PULSE.RATE 12/27/2014 [...] HEIGHT VITALS.HEIGHT 03/24/2014 164.465 cm 8302- 2 H5RBHNIIYIPX VITALS.E7OXMIJXVOMH 03/24/2014 96 % 2710-2 PULSE VITALS.PULSE.RATE 03/24/2014 60 /min 8 867-4 TEMPERATURE VITALS.TEMPERATURE 03/24/2014 98 [degF] 8310-5 WEIGHT VITALS.WEIGHT 03/24/2014 63.503 kg 3141- 9 BLOODPRESSURE VITALS.BLOODPRESSURE.DIASTOLIC 01/20/2014 88 mm[Hg] 8462-4 VITALS.BLOODPRESSURE.SYSTOLIC 138 mm[Hg] 8480-6 HEIGHT VITALS.HEIGHT 01/20/2014 164.465 cm 8302- 2 K6MCZCSCSSKS VITALS.X3KXXYPNBUVU 01/20/2014 96 % 2710-2 PULSE VITALS.PULSE.RATE 01/20/2014 66 /min 8 867-4 TEMPERATURE VITALS.TEMPERATURE 01/20/2014 97.7 [degF] 8310-5 WEIGHT VITALS.WEIGHT 01/20/2014 68.946 kg 3141- 9 BLOODPRESSURE VITALS.BLOODPRESSURE.DIASTOLIC 12/23/2013 76 mm[Hg] 8462-4 VITALS.BLOODPRESSURE.SYSTOLIC 132 mm[Hg] 8480-6 HEIGHT VITALS.HEIGHT 12/23/2013 164.465 cm 8302- 2 S0ESHZQILCBR VITALS.K9LRWKJMAYSS 12/23/2013 98 % 2710-2 PULSE VITALS.PULSE.RATE 12/23/2013 [...] HEIGHT VITALS.HEIGHT 10/07/2013 164.465 cm 8302- 2 J8WOKEXUEKRS VITALS.P7NWIGZVWCEN 10/07/2013 99 % 2710-2 PULSE VITALS.PULSE.RATE 10/07/2013 [...] Observation Time Observation LOINC MAMMO, SCREENIN G, BILATERA L 05/31/2016 MAMMO, SCREENIN G, DIGITAL, BILATERA L 2016 SURGICAL PATHOLOG Y STUDY RESULTS 02/10/2016 XR, CHEST, 2 VIEW 01/31/2016 NOCTURNA L PULSE OXIMETRY 01/18/2016 ELECTROC ARDIOGRA M 12/29/2015 COMPLETE PFT 12/29/2015 LIPID PANEL, [...] SURGICAL PATHOLOGY REPORT RESULTS 04/13/2014 ELECTROCARDIOGRAM 2014 51267 -8 ULTRASOUND, ABDOMINAL TROPONIN I, SERUM OR [...] 94 mg/dL 30-200 Normal 01/18/2014 ELECTROCARDIOGRAM 2013 24789-0 CT, ABDOMEN AND PELVIS 0 10/20/2008 LIPID [...] Normal 1 BLOOD UREA NITROGEN 21 mg/dL 7- Normal 12/02/2013 CALCIUM 9.1 mg/dL 8.5-10.1 Normal [...] screening, digital, bilateral taken on 03/07/2011 at [facility] shows:Mammography:
Performing Aircraft Electrical Systems Specialist: Rochelle Mckeon.
Ordering provider: .Mammography:
Type: Digital [...] of x-ray, hip taken on 05/10/2010 at [facility] shows:Provider/Aircraft Electrical Systems Specialist:
Ordering provider: Ordering Provider: (DR. ANDERSON).
Performing Aircraft Electrical Systems Specialist: Maliha Patterson.X-Ray Hip:
View: Right 2 Views. RIGHT HIP, TWO-VIEWS<p>CLINICAL HISTORY:Pain.<p>No displaced fracture or dislocation is seen. The soft tissues are unremarkable. <p>IMPRESSION:Negative exam. <p>Kervin Landa M.D. 05/10/2010 MAMMOGRAM, SCREENING 0 1 / 0 3 / 2 0 1 1 MAMMOGRAM, SCREENING Interpretation Review of mammogram, screeni ng taken on 02/08/2010 at [facility] shows:Mammography:
Performing Aircraft Electrical Systems Specialist: Rochelle Mckeon.Mammography:
Type: CAD with Review.
Views: [...] of bone density study taken on 02/08/2010 shows:Provider/Aircraft Electrical Systems Specialist:
Ordering provider: Ordering Provider: RAMSEY).
Performing Aircraft Electrical Systems Specialist: Performing Aircraft Electrical Systems Specialist: GEORGE).DXA Interpretation:
Instrument: DXA exam was performed on the [employer].
AP Spine: L1-L4.
Femur: dual femur. Bone [...] Name (Administered Vaccines) Administration Date Lot # Waterproofer CVX Code Tdap 10/07/2013 [id number] [employer] 115 influenza, injectable, quadrivalent, preservative free 12/23/2013 [id number] [employer] 150 influenza, injectable, quadrivalent, preservative free 12/27/2014 [id number] [employer] 150 influenza, injectable, quadrivalent, preservative free 12/29/2015 [id number] [employer] 150 pneumococcal polysaccharide PPV23 10/07/2013 [id number] [employer] 33 pneumococcal conjugate PCV 13 12/27/2014 [id number] [employer] 133 Td (adult), adsorbed 08/17/2009 [id number] sanofi pasteur 09 zoster 01/20/2014 [id number] [employer] 121 Procedures Procedure Name Procedure Date CPT Code Performing Provider Tubal Ligation 02/11/1969
--- NOTE | 2024-02-11 16:14 | ED_ITS ---
HPI - Back Pain/Injury General Time Seen by Provider: 16:15 Date Seen: 02/11/24 Chief Complaint: Back Injury/Pain Stated Complaint: uncontrolled pain, left and rt hip on down Time Seen by Provider: 02/11/24 16:14 Source: patient, RN notes reviewed and old records reviewed Mode of arrival: ambulatory Limitations: no limitations History of Present Illness HPI Narrative: 83-year-old female who presents today with back pain. This been ongoing for couple of weeks, has been seen in clinic in the emergency department. Patient presents today with ongoing pain. No new fall or injury. Pain is in the low back and bilateral hips radiating down the left leg. Patient does feel like she has a little bit of difficulty urinating but has not had any bowel or bladder in continence. She has been taking oxycodone, most recent dose was 14 hours ago prior to my evaluation at about 2:00 a.m.. Patient was also on a 5 day prednisone burst 2 weeks ago but nothing since. She has been taking Tylenol and ibuprofen as well. Denies numbness or weakness, occasional paroxysms of pain. Related Data Previous Rx's ?Medication ?Instructions ?Recorded carvedilol 12.5 mg tablet (Coreg) 12.5 mg PO BID #90 tabs 08/20/23 amlodipine 2.5 mg tablet 2.5 mg PO HS #90 tabs 01/10/24 ibuprofen 600 mg tablet 600 mg PO TID #30 tabs 01/28/24 oxycodone-acetaminophen 5 mg-325 1 - 2 tab PO TID PRN pain #15 tabs 02/05/24 mg tablet (Percocet) Allergies Allergy/AdvReac Type Severity Reaction Status Date / Time hydrochlorothiazide Allergy Intermediate Verified 02/06/24 10:40 latex Allergy Mild Rash Verified 02/06/24 10:40 [facility] Medical History (Updated 02/14/24 @ 00:00 by Background Daemon) Synovial cyst of lumbar spine ?M71.38 - Other bursal cyst, other site (ICD-10) Spinal stenosis ?M48.00 - Spinal stenosis, site unspecified (ICD-10) Labile hypertension ?R09.89 - Other specified symptoms and signs involving the circulatory and respiratory systems (ICD-10) Osteopenia (09/12/15) ?M85.80 - Other specified disorders of bone density and structure, unspecified site (ICD-10) Prediabetes (10/30/23) ?R73.03 - Prediabetes (ICD-10) Primary cancer of skin of hand (09/2023) ?C44.601 - Unspecified malignant neoplasm of skin of unspecified upper limb, including shoulder (ICD-10) Hypertension ?I10 - Essential (primary) hypertension (ICD-10) COVID-19 ?U07.1 - COVID-19 (ICD-10) Overactive bladder ?N32.81 - Overactive bladder (ICD-10) Under observation for suspected coronary artery disease (2006) ?Z03.89 - Encounter for observation for other suspected diseases and cond itions ruled out (ICD-10) Vitamin D deficiency (01/16/18) ?E55.9 - Vitamin D deficiency, unspecified (ICD-10) Polyp of colon (1999) ?K63.5 - Polyp of colon (ICD-10) History of herpes zoster (2016) ?Z86.19 - Personal history of other infectious and parasitic diseases (ICD- 10) Hearing loss (01/08/17) ?H91.90 - Unspecified hearing loss, unspecified ear (ICD-10) Gastroesophageal reflux disease ?K21.9 - Gastro-esophageal reflux disease without esophagitis (ICD-10) Dyslipidemia ?E78.5 - Hyperlipidemia, unspecified (ICD-10) Surgical History H/O esophagogastroduodenoscopy (03/22/20) ?Z98.890 - Other specified postprocedural states (ICD-10) History of tubal ligation (1969) ?Z98.51 - Tubal ligation status (ICD-10) History of colonoscopy with polypectomy (02/08/16) ?Z98.890 - Other specified postprocedural states (ICD-10) ?Z86.010 - Personal history of colonic polyps (ICD-10) History of bilateral cataract extraction (04/2020) ?Z98.41 - Cataract extraction status, right eye (ICD-10) ?Z98.42 - Cataract extraction status, left eye (ICD-10) Family History Maternal Grandfather Stroke Son FH: early coronary artery disease, Onset Age: 42 Brother FH: early coronary artery disease Brother FH: early coronary artery disease Sister FH: early coronary artery disease Father Lung cancer Mother Colon cancer, Onset Age: 86 Other Skin cancer 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: , 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, 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 Exercises regularly, house work winter, gardening summer, always active Non-smoker Social drinker, 1/day wine What is your current living situation?: I presently have a place to live Problems where you live: unable to answer Problems where you live details: Pt unable to answer appropriately when asked In the past 12 months, utilities in danger of being shut off: no In past 12 months, lack of transportation kept you from medical appts, meetings, work, or getting things needed for daily living: no In the past 12 mos, have been you worried that your food would run out before you had money to buy more?: never true In the past 12 mos, the food you bought just didn't last and you didn't have money to buy more?: never true Smoking Status: Never smoker Do you use any of these nicotine containing products: None Second hand tobacco smoke exposure: No How often do you have a drink containing alcohol: 4 or more times a week How many standard drinks containing alcohol do you have on a typical day: 1 or 2 How often do you have six or more drinks on one occasion: Never AUDIT-C Alcohol total score: 4 Non-prescribed substance use: denies use Caffeine: No How often does anyone, including family, friends and others, physically hurt you : never How often does anyone, including family, friends and others, insult or talk down to you: never How often does anyone, including family, friends and others, threaten you with harm: never How often does anyone, including family, friends and others, scream or curse at you: never Do you think of yourself as: straight/heterosexual Gender Identity: female service: No Exam Narrative: Exam Narrative: General: Well-developed and well-nourished, no acute distress Head: Atraumatic and normocephalic Eyes: Pupils are equal reactive, extraocular motions intact, conjunctiva clear ENT: External nose and ears are normal, posterior pharynx without erythema or exudate Neck: No midline cervical tenderness, full spontaneous range of motion the neck, trachea midline, no adenopathy Heart: Regular rate and rhythm no murmurs or thrills Lungs: Clear to auscultation bilaterally without wheezes or crackles Abdomen: Soft, low abdominal tenderness,, nondistended with active bowel sounds Musculoskeletal: diffuse midline and bilateral low lumbar tenderness. Sensation of the bilateral lower extremities intact with hyperesthesia in the L5 distribution on the left. Ankle plantar flexion and dorsiflexion intact, remainder Neurologic exam limited due to patient pain. Neurologic: Awake, alert, and oriented x3, no gross focal neurologic deficits, cranial nerves intact as tested Psych: Mood and affect are appropriate Skin: No rashes Const: Vital Signs, click to edit/add: Vital Signs - 24 hr 02/11/24 15:00 02/11/24 16:19 02/11/24 16:30 Temperature 98.7 F Pulse Rate 73 73 Pulse Rate [Pulse Oximeter] 63 Respiratory Rate 20 18 Blood Pressure 140/72 H Blood Pressure [Ri ght Upper Arm] 127/80 Pulse Oximetry 96 97 97 Oxygen Delivery Me thod Room Air 02/11/24 16:45 02/11/24 17:00 02/11/24 17:15 Temperature Pulse Rate 77 74 77 Pulse Rate [Pulse Oximeter] Respiratory Rate 16 Blood Pressure 151/65 H Blood Pressure [Ri ght Upper Arm] Pulse Oximetry 95 97 95 Oxygen Delivery Me thod Room Air 02/11/24 17:30 02/11/24 17:45 02/11/24 18:03 Temperature Pulse Rate 77 77 86 Pulse Rate [Pulse Oximeter] Respiratory Rate 16 Blood Pressure Blood Pressure [Ri ght Upper Arm] Pulse Oximetry 96 96 94 Oxygen Delivery Me thod 02/11/24 18:07 02/11/24 18:15 02/11/24 18:30 Temperature Pulse Rate 84 84 85 Pulse Rate [Pulse Oximeter] Respiratory Rate Blood Pressure 151/65 H Blood Pressure [Ri ght Upper Arm] Pulse Oximetry 96 96 95 Oxygen Delivery Me thod Room Air 02/11/24 18:31 02/11/24 19:02 02/11/24 19:14 Temperature Pulse Rate 84 79 87 Pulse Rate [Pulse Oximeter] Respiratory Rate 16 Blood Pressure 147/68 H 145/71 H Blood Pressure [Ri ght Upper Arm] Pulse Oximetry 95 97 Oxygen Delivery Me thod Room Air 02/11/24 19:15 02/11/24 19:33 02/11/24 19:45 Temperature Pulse Rate 82 87 85 Pulse Rate [Pulse Oximeter] Respiratory Rate Blood Pressure Blood Pressure [Ri ght Upper Arm] Pulse Oximetry 96 96 94 Oxygen Delivery Me thod 02/11/24 20:00 Temperature Pulse Rate 86 Pulse Rate [Pulse Oximeter] Respiratory Rate Blood Pressure Blood Pressure [Ri ght Upper Arm] Pulse Oximetry 94 Oxygen Delivery Me thod Course Course ED Course: Reviewed prior clinic records from January 27 when patient was seen with b ack pain, at that time panic been going on for about 5 days. Patient is given Toradol at that time an x-ray was ordered, also started on prednisone for 5 days. Subsequently patient had an MRI of the lumbar spine 5 days ago, this demonstrated central canal stenosis with bilateral L5 nerve root impingement. Patient presents today with low back pain along with pain down the left leg. This been ongoing problem for couple of weeks. On exam here patient is vitally stable, appears occasionally uncomfortable during history. Strength and sensation of extremities is intact, no saddle anesthesia, question of some urinary retention. On exam patient also has some lower abdominal tenderness. Decadron, Ativan, and Dilaudid IV ordered for pain. Patient presents today requesting admission for pain management. At this point, patient is suboptimally managed at home taking oxycodone 2 to 3 times a day, not currently on any muscle relaxants or anti spasmodic, additionally has not been trialed on nonnarcotic such as gabapentin. Will evaluate for other contributing factors of pain especially given lower abdominal tenderness on exam the and work on pain management in the emergency department. Reevaluation(s) Time of Reevaluation #1: 17:30 Reevaluation #1: Reviewed [facility] EPIC record, patient had xray at [facility] with [facility] (Layla Nagy PA-C). Will call to discuss. Labs independently interpreted by me with sodium 122, white blood cell count 15.5 with hemoglobin 11.4. Patient will need to be admitted for hyponatremia, normal saline ordered to begin replacement and anticipate need for transfer. Time of Reevaluation #2: 18:13 Reevaluation #2: CT independently interpreted by me with unilateral kidney, small amount of free fluid in the pelvis, distended gallbladder and mildly distended bladder without hydronephrosis or hydroureter. Time of Reevaluation #3: 19:50 Reevaluation #3: Reviewed radiology interpretation of CT scan which demonstrates periportal edema, biliary dilatation, dilated gallbladder with some station stranding and fluid, concern for possible acute cholecystitis or biliary obstruction. Hepatic panel not consistent with biliary obstruction, right upper quadrant ultrasound ordered. Patient does have leukocytosis and abdominal tenderness concerning for acute cholecystitis and therefore will initiate antibiotic therapy. Additional Reevaluation(s): 21:53 long conversation with patient and family regarding treatment options and plan. Report from ultrasound is that right upper quadrant ultrasound does not demonstrate acute cholecystitis, radiology interpretation is pending. Patient with acute/subacute back pain with a synovial cyst on the ligamentum flava, discussed with Neurosurgery who agrees with plan for pain management but no acute neurosurgical intervention at this time. Patient also found to be hyponatremic, replaced with normal saline with no improvement, given hypertonic saline and DDAVP. Patient also found to have leukocytosis, no fever, no tachycardia, no hypotension. CT scan of the abdomen pelvis performed for abdominal tenderness demonstrated possible acute cholecystitis, subsequent ultrasound does not confirm this. Care discussed with Dr. Johnston, hospitalist who accepts patient for admission to [facility] for pain management, correction of hyponatremia, and further evaluation of leukocytosis. Vital Signs Vital signs: Initial Vital Signs Temperature 98.7 F 02/11/24 15:00 Temperature Source Temporal Artery Scan 02/11/24 15:00 Pulse Rate 63 02/11/24 15:00 Respiratory Rate 20 02/11/24 15:00 Blood Pressure 127/80 02/11/24 15:00 Blood Pressure Mean 95 02/11/24 15:00 Blood Pressure Position Sitting 02/11/24 15:00 Pulse Oximetry 96 02/11/24 15:00 Oxygen Delivery Method Room Air 02/11/24 15:00 Vital Signs Temperature 98.7 F 02/11/24 15:00 Pulse Rate 63 02/11/24 15:00 Respiratory Rate 20 02/11/24 15:00 Blood Pressure 127/80 02/11/24 15:00 Pulse Oximetry 96 02/11/24 15:00 Oxygen Delivery Method Room Air 02/11/24 15:00 Temperature 99.1 F 02/13/24 14:28 Pulse Rate 75 02/13/24 14:28 Respiratory Rate 20 02/13/24 14:28 Blood Pressure 158/74 H 02/13/24 14:28 Pulse Oximetry 94 02/13/24 14:29 Oxygen Delivery Method Room Air 02/13/24 14:28 Medications Administered Medications: Discontinued Medications Generic Name Dose Route Start Last Admin Trade Name Freq PRN Reason Stop Dose Admin Acetaminophen 1,300 mg 02/11/24 23:30 02/13/24 08:35 Acetaminophen 650 Mg Tablet Er PO 1,300 mg Q8H BORA Administration Amlodipine Besylate 2.5 mg 02/12/24 21:00 02/12/24 20:47 Amlodipine 5 Mg Tablet PO 2.5 mg HS BORA Administration Azithromycin 500 mg 02/12/24 16:15 02/12/24 16:52 Azithromycin 250 Mg Tablet PO 500 mg Q24H BORA Administration Carvedilol 12.5 mg 02/12/24 08:00 02/13/24 08:34 Carvedilol 6.25 Mg Tablet PO 12.5 mg BIDWM BORA Administration Desmopressin Acetate 1 mcg 02/11/24 20:05 02/11/24 21:05 Desmopressin Acetate 4 Mcg/Ml Inj IVP 02/11/24 20:06 1 mcg ONCE ONE Administration Enoxaparin Sodium 40 mg 02/12/24 21:00 02/12/24 20:48 Enoxaparin 40 Mg/0.4 Ml Inj SUBCUT 40 mg HS BORA Administration Fentanyl 1 patch 02/12/24 01:00 02/12/24 01:34 Fentanyl 12 Mcg/Hr Patch TRANSDERMA 1 patch Q72H BORA Administration Fentanyl 1 patch 02/12/24 13:00 02/12/24 13:23 Fentanyl 12 Mcg/Hr Patch TRANSDERMA 1 patch Q72H BORA Administration Gabapentin 100 mg 02/11/24 17:57 02/11/24 18:16 Gabapentin 100 Mg Capsule PO 02/11/24 17:58 100 mg ONCE ONE Administration Gabapentin 100 mg 02/12/24 09:00 02/13/24 14:26 Gabapentin 100 Mg Capsule PO 100 mg TID BORA Administration Hydromorphone HCl 0.2 mg 02/11/24 20:50 02/11/24 22:56 Hydromorphone 0.5 Mg/0.5 Ml Inj IVP 0.2 mg Q2H PRN Administration Hydromorphone HCl 0.2 mg 02/12/24 00:49 02/13/24 06:33 Hydromorphone 0.5 Mg/0.5 Ml Inj IVP 0.2 mg Q1H PRN Administration Hydroxyzine Pamoate 25 mg 02/12/24 09:51 02/12/24 22:06 Hydroxyzine Pamoate 25 Mg Capsule PO 25 mg Q4H PRN Administration pain, anxiety Sodium Chloride 500 mls @ 500 mls/hr 02/11/24 17:34 02/11/24 23:22 0.9 % Sodium Chloride 500 Ml IV 02/11/24 18:33 Not Given .Q1H ONE Sodium Chloride 1,000 mls @ 125 mls/hr 02/11/24 17:34 02/11/24 23:30 0.9 % Sodium Chloride 1000 Ml IV Infused .Q8H BORA Infusion Sodium Chloride 30 mls @ 30 mls/hr 02/11/24 20:06 02/11/24 21:55 3 % Sodium Chloride 500 Ml IV 02/11/24 21:05 Infused .16H40M ONE Infusion Ertapenem 1 gm/ Sodium 100 mls @ 200 mls/hr 02/11/24 23:45 02/12/24 01:45 Chloride IVPB Infused Q24H BORA Infusion Sodium Chloride 100 mls @ 33.333 mls/hr 02/12/24 01:05 02/12/24 04:10 3 % Sodium Chloride 500 Ml IV 02/12/24 04:04 Infused ONCE ONE Infusion Sodium Chloride 500 mls @ 100 mls/hr 02/12/24 13:00 02/12/24 18:37 0.9 % Sodium Chloride 500 Ml IV 02/12/24 17:59 Infused .Q5H ONE Infusion Ceftriaxone Sodium 1 gm/ 100 mls @ 200 mls/hr 02/12/24 16:15 02/12/24 17:23 Sodium Chloride IVPB Infused Q24H BORA Infusion Vancomycin/PEG/NADA/Lysine/Water 1.25 gm in 250 mls @ 200 mls/hr 02/13/24 09:00 02/13/24 11:46 Vancomycin 1.25 Gm/250 Ml IVPB 02/13/24 10:14 200 mls/hr ONCE ONE Administration Protocol Ceftriaxone Sodium 2 gm/ 100 mls @ 200 mls/hr 02/13/24 08:00 02/13/24 10:31 Sodium Chloride IVPB Infused Q24H BORA Infusion Ketorolac Tromethamine 15 mg 02/11/24 16:39 02/11/24 16:53 Ketorolac 15 Mg/Ml Inj IVP 02/11/24 16:40 15 mg ONCE ONE Administration Ketorolac Tromethamine 15 mg 02/11/24 23:23 02/12/24 04:43 Ketorolac 15 Mg/Ml Inj IVP 15 mg Q6H PRN Administration Lidocaine 1 patch 02/11/24 23:30 02/12/24 22:06 Lidocaine 5% Patch TRANSDERMA 1 patch Q24H BORA Administration Protocol Lorazepam 0.3 mg 02/11/24 16:41 02/11/24 16:53 Lorazepam 2 Mg/Ml Inj IVP 02/11/24 16:42 0.3 mg ONCE ONE Administration Melatonin 6 mg 02/11/24 23:19 02/13/24 01:37 Melatonin 3 Mg Tablet PO 6 mg HS PRN Administration Methylprednisolone Sodium Succinate 80 mg 02/12/24 09:06 02/12/24 09:24 Methylprednisolone Sod Succ 62.5 Mg/Ml (125) IVP 02/12/24 09:07 80 mg ONCE ONE Administration Oxycodone HCl 2.5 mg 02/12/24 09:49 02/13/24 15:25 Oxycodone 5 Mg Tablet PO 2.5 mg Q4H PRN Administration Pantoprazole Sodium 40 mg 02/12/24 00:20 02/12/24 01:34 Pantoprazole Sodium 40 Mg Inj IVP 02/12/24 00:21 40 mg ONCE ONE Administration Polyethylene Glycol 17 gm 02/12/24 09:00 02/13/24 08:31 Polyethylene Glycol 3350 17 Gm Pack PO 17 gm DAILY BORA Administration Prednisone 40 mg 02/13/24 08:00 02/13/24 08:33 Prednisone 20 Mg Tablet PO 40 mg DAILYWM BORA Administration Senna/Docusate Sodium 2 tab 02/12/24 09:00 02/13/24 08:33 Sennosides/Docusate Tablet PO 2 tab BID BORA Administration Sodium Chloride 5 ml 02/12/24 09:00 02/13/24 08:29 Sodium Chloride 0.9 % (Flush) 10 Ml Syringe IVF 5 ml BID BORA Administration Sodium Chloride 1 gm 02/12/24 22:35 02/13/24 11:47 Sodium Chloride 1 Gm Tablet PO 1 gm TIDWM BORA Administration MDM - Back Pain/Injury Lab Data Labs: Lab Results 02/11/24 02/11/24 02/11/24 Range/Units 16:00 17:20 19:33 WBC 15.52 H (4.50-11.00) K/uL RBC 3.81 L (4.00-5.20) m/uL Hgb 11.4 L (12.0-16.0) gm/dL Hct 33.6 (33.0-51.0) % MCV 88 (80-100) fL MCH 30 (26-34) pg MCHC 34 (32-36) gm/dL RDW Coeff of Horace 12.8 (11.5-15.5) % Plt Count 400 (140-440) K/uL Neut % (Auto) 84.9 H (42.0-72.0) % Lymph % (Auto) 4.6 L (20-44) % [place] % (Auto) 9.2 (0.0-11.0) % Eos % (Auto) 0.1 (0.0-7.0) % Baso % (Auto) 0.1 (0.0-3.0) % Neut # (Auto) 13.20 H (1.7-7.0) K/uL Lymph # (Auto) 0.70 L (0.90-2.90) K/uL [place] # (Auto) 1.40 H (0.00-0.90) K/UL Eos # (Auto) 0.00 (0.00-0.50) K/uL Baso # (Auto) 0.00 (0.00-0.30) K/uL Abs Immat Gran (auto) 0.20 (0.00-0.30) K/uL Imm/Tot Granulo (auto) 1.1 % Sodium 122 L* 121 L* (135-149) mmol/L Potassium 4.3 (3.6-5.1) mmol/L Chloride 92 L (96-114) mmol/L Carbon Dioxide 23 (20-32) mmol/L Anion Gap 7 (7-15) mEq/L BUN 17 (7-30) mg/dL Creatinine 0.7 (0.5-1.5) mg/dL Estimated Creat Clear 35.52 Estimated GFR 85 ml/min Glucose 124 H (60-115) mg/dL Calcium 8.9 (8.4-10.6) mg/dL Magnesium 2.0 (1.5-2.6) mg/dL Total Bilirubin 0.8 (0.1-1.5) mg/dL Direct Bilirubin 0.4 (0.0-0.5) mg/dL AST 25 (12-35) U/L ALT 16 (4-35) U/L Alkaline Phosphatase 79 (40-150) U/L Total Protein 7.0 (6.0-8.3) g/dL Albumin 3.8 (3.3-5.0) g/dL Urine Color (Yellow) Urine Appearance (Clear) Urine pH (5.0-8.5) Ur Specific [place] (1.000-1.030) Urine Protein (Negative) Urine Glucose (UA) (Negative) Urine Ketones (Negative) Urine Blood (Negative) Urine Nitrite (Negative) Urine Bilirubin (Negative) Urine Urobilinogen (0.2-1.0) Ur Leukocyte Esterase (Negative) Urine RBC (0-2) Urine WBC (0-5) Ur Squamous Epith Cells (None-Few) Urine Bacteria (None) Ur Random Sodium SARS-CoV-2 (PCR) (Negative) Influenza Type A (PCR) (Negative) Influenza Type B (PCR) (Negative) RSV (PCR) (Negative) POC Creatinine 0.8 (0.6-1.3) mg/dl 02/11/24 02/11/24 Range/Units 20:30 22:20 WBC (4.50-11.00) K/uL RBC (4.00-5.20) m/uL Hgb (12.0-16.0) gm/dL Hct (33.0-51.0) % MCV (80-100) fL MCH (26-34) pg MCHC (32-36) gm/dL RDW Coeff of Horace (11.5-15.5) % Plt Count (140-440) K/uL Neut % (Auto) (42.0-72.0) % Lymph % (Auto) (20-44) % [place] % (Auto) (0.0-11.0) % Eos % (Auto) (0.0-7.0) % Baso % (Auto) (0.0-3.0) % Neut # (Auto) (1.7-7.0) K/uL Lymph # (Auto) (0.90-2.90) K/uL [place] # (Auto) (0.00-0.90) K/UL Eos # (Auto) (0.00-0.50) K/uL Baso # (Auto) (0.00-0.30) K/uL Abs Immat Gran (auto) (0.00-0.30) K/uL Imm/Tot Granulo (auto) % Sodium (135-149) mmol/L Potassium (3.6-5.1) mmol/L Chloride (96-114) mmol/L Carbon Dioxide (20-32) mmol/L Anion Gap (7-15) mEq/L BUN (7-30) mg/dL Creatinine (0.5-1.5) mg/dL Estimated Creat Clear Estimated GFR ml/min Glucose (60-115) mg/dL Calcium (8.4-10.6) mg/dL Magnesium (1.5-2.6) mg/dL Total Bilirubin (0.1-1.5) mg/dL Direct Bilirubin (0.0-0.5) mg/dL AST (12-35) U/L ALT (4-35) U/L Alkaline Phosphatase (40-150) U/L Total Protein (6.0-8.3) g/dL Albumin (3.3-5.0) g/dL Urine Color Yellow (Yellow) Urine Appearance Clear (Clear) Urine pH 6.0 (5.0-8.5) Ur Specific [place] 1.015 (1.000-1.030) Urine Protein Negative (Negative) Urine Glucose (UA) Negative (Negative) Urine Ketones 1+ A (Negative) Urine Blood Negative (Negative) Urine Nitrite Negative (Negative) Urine Bilirubin Negative (Negative) Urine Urobilinogen 0.2 (0.2-1.0) Ur Leukocyte Esterase Negative (Negative) Urine RBC 0-2 (0-2) Urine WBC 0-2 (0-5) Ur Squamous Epith Cells None (None-Few) Urine Bacteria None (None) Ur Random Sodium 45 SARS-CoV-2 (PCR) Negative SARS-CoV-2 (Negative) Influenza Type A (PCR) Negative PCR FLU A (Negative) Influenza Type B (PCR) Negative PCR FLU B (Negative) RSV (PCR) Negative PCR RSV (Negative) POC Creatinine (0.6-1.3) mg/dl Critical Care Time Critical Care Time Critical Care Time: Yes (Hyponatremia, hypertonic saline and admission) Attestation: The patient required my highest level preparedness to intervene emergently and I personally spent this critical care time directly and personally managing the patient. This critical care time included: Obtaining a history; Examining the patient; Pulse oximetry; Ordering and reviewing of studies; Arranging urgent treatment with development of a management plan; Evaluation of patients response to treatment; Frequent reassessment discussions with other providers. This critical care time was performed to assess and manage the high probability of imminent life-threatening deterioration that could result in multiorgan failure. It was exclusive of separate billable procedures and treating other patients and teaching time. Total Critical Care Time in Minutes: 110 Discharge Plan Discharge Clinical Impression: Acute hyponatremia, Synovial cyst of lumbar spine, Back pain with left-sided radiculopathy, Leukocytosis Patient Disposition: Admitted As Observation Condition: Unchanged
--- NOTE | 2024-02-11 16:39 | CRLHL7_ITS ---
For Patients: As a result of the Century Cures Act, medical imaging exams and procedure reports are released immediately into your electronic medical record. You may view this report before your referring provider. If you have questions, please contact your health care provider. Indication: Lower abdominal pain, back pain, urinary retention, history of skin cancer Technique: CT through the abdomen and pelvis following 64 mL Isovue 370 IV contrast Comparison: None Findings: Lower chest: Bibasilar scarring and/or atelectasis with a nodular focus in the right lung base measuring up to 2.4 centimeters. Trace effusions. Hepatobiliary: Periportal edema. Mild intrahepatic and extrahepatic biliary dilation. The gallbladder is dilated with slight adjacent stranding and fluid. Spleen: Unremarkable. Pancreas: No acute abnormality appreciated. Adrenal glands: No acute abnormality appreciated. Kidneys: No significant parenchymal abnormality appreciated. No visualized calculi. No hydronephrosis. Bowel: No obstruction. No focal perienteric or pericolonic stranding is appreciated. ANAM visualization of a normal-appearing appendix. Vascular: Calcified atherosclerosis. Lymph nodes: No gross lymphadenopathy. Peritoneum: Small volume free fluid. : No acute abnormality appreciated. Soft tissues: No acute abnormality appreciated. Bones: No acute fracture. No lytic or blastic lesion. Osteopenia. Degenerative changes of the spine and pelvis. Impression: 1. There is periportal edema, mild biliary dilation, and a dilated gallbladder lumen with mild adjacent stranding and fluid. Question cholecystitis or distal biliary obstruction. 2. Nodular opacity in the right lung base measures 2.4 centimeters. This may represent confluent areas of scarring and/or atelectasis, but no prior examination is available for comparison. Follow-up CT in 3 months recommended. Please note that all CT scans at this facility use dose modulation, iterative reconstruction, and/or weight-based dosing when appropriate to reduce radiation dose to as low as reasonably achievable. Dictated by Rl Orta MD @ 02/11/2024 7:39:31 PM (Electronically Signed)
--- OUTSIDE RECORDS SUMMARY | 2024-02-11 16:40 | XMS_ITS | Clinical Summary ---
Author Organization [facility] Address [place], [place] [address] Care Team Providers Care Pastry Sous Chef Name Role Phone Pcp, No Primary Care [...] Department Care Team Description 02/10/2024 2:30 PM ELECTRICIAN SUBSTATION SUPERVISOR Ancillary Procedure [facility] [place] [address] [place] [address] Arrived 02/10/2024 Orders Only [facility] [address] [place] [address] Layla Nagy PA <No scans [...] Comments Blood Pressure 183/81 04/10/2021 10:17 AM ELECTRICIAN SUBSTATION SUPERVISOR Pulse 52 04/10/2021 10:17 AM ELECTRICIAN SUBSTATION SUPERVISOR Temperature - - Respiratory Rate 18 01/23/2021 9:53 AM ELECTRICIAN SUBSTATION SUPERVISOR Oxygen Saturation 98% 04/10/2021 10:17 AM ELECTRICIAN SUBSTATION SUPERVISOR Inhaled Oxygen Concentration - - Weight 64 kg (141 lb 1.6 oz) 04/10/2021 10:17 AM ELECTRICIAN SUBSTATION SUPERVISOR Height - - Body Mass Index - [...] LUMBAR 2 VIEWS Routine 02/10/2024 2:38 PM ELECTRICIAN SUBSTATION SUPERVISOR Spondylolisthesis of lumbar region from Last 3 Months Results * XR SPINE LUMBAR 2 VIEWS (02/10/2024 2:38 PM ELECTRICIAN SUBSTATION SUPERVISOR) Anatomical Region Laterality Modality LUMBAR SPINE Digital Radiogra phy 02/11/2024 12:2 6 PM ELECTRICIAN SUBSTATION SUPERVISOR Narrative 02/11/2024 12:26 PM ELECTRICIAN SUBSTATION SUPERVISOR For Patients: As a result of the [...] HB ONLY MEDICARE PART A HB ONLY [facility] Care Teams Pastry Sous Chef Relationship Specialty Start Date End Date Pcp, Trudy . PCP - General 11/02/19
[2024-02-11] MEDS: KETOROLAC 15 MG/ML inj IVP (16:53)
[2024-02-11] MEDS: LORazepam 2 MG/ML inj 0.3 MG IVP (16:53)
[2024-02-11 17:20] LABS: Creatinine, Point-of-Care* 0.8 mg/dl (0.6-1.3)
[2024-02-11 17:24] LABS: Basophils Percent Auto 0.1 % (0.0-3.0); Eosinophils Percent Auto 0.1 % (0.0-7.0); Hematocrit 33.6 % (33.0-51.0); Hemoglobin* 11.4 gm/dL (12.0-16.0); Immature Granulocytes Pct Auto 1.1 %; Lymphocytes Percent Auto 4.6 % (20-44); Mean Corpuscular HGB Conc 34 gm/dL (32-36); Mean Corpuscular Hemoglobin 30 pg (26-34); Mean Corpuscular Volume 88 fL (80-100); Monocytes Percent Auto 9.2 % (0.0-11.0); Neutrophils Percent Auto 84.9 % (42.0-72.0); Platelet Count* 400 K/uL (140-440); RDW Coefficient of Variation % 12.8 % (11.5-15.5); Red Blood Count 3.81 m/uL (4.00-5.20); White Blood Count* 15.52 K/uL (4.50-11.00)
[2024-02-11 17:28] LABS: Chloride* 92 mmol/L (96-114); Potassium* 4.3 mmol/L (3.6-5.1)
[2024-02-11 17:29] LABS: Albumin* 3.8 g/dL (3.3-5.0)
[2024-02-11 17:30] LABS: Creatinine* 0.7 mg/dL (0.5-1.5); Est. Creatinine Clearance* 35.52; Estimated Glomerular Filt Rate 85 ml/min; Slide Review Reflex No
[2024-02-11 17:31] LABS: Blood Urea Nitrogen* 17 mg/dL (7-30); Calcium* 8.9 mg/dL (8.4-10.6); Carbon Dioxide* 23 mmol/L (20-32); Glucose* 124 mg/dL (60-115)
[2024-02-11 17:32] LABS: Alanine Aminotransferase* 16 U/L (4-35); Alkaline Phosphatase* 79 U/L (40-150); Aspartate Amino Transferase* 25 U/L (12-35); Bilirubin Direct* 0.4 mg/dL (0.0-0.5); Bilirubin Total* 0.8 mg/dL (0.1-1.5)
[2024-02-11 17:34] LABS: Anion Gap 7 mEq/L (7-15); Sodium* 122 mmol/L (135-149)
[2024-02-11] MEDS: 0.9 % SODIUM CHLORIDE 1000 ml 1,000 ML 125 ML IV ×2 (18:07→21:06)
[2024-02-11] MEDS: GABAPENTIN 100 MG CAPSULE PO (18:16)
[2024-02-11 19:50] LABS: Sodium* 121 mmol/L (135-149)
--- NOTE | 2024-02-11 19:51 | CRLHL7_ITS ---
For Patients: As a result of the Century Cures Act, medical imaging exams and procedure reports are released immediately into your electronic medical record. You may view this report before your referring provider. If you have questions, please contact your health care provider. INDICATION: Abdomen pain. TECHNIQUE: Ultrasound abdomen limited. COMPARISON: None. FINDINGS: Gallbladder: No stones or sludge. Normal wall thickness. No pericholecystic fluid. Common bile duct: 8 mm normal for patient`s age. IMPRESSION: Unremarkable ultrasound of the gallbladder and common bile duct. Dictated by Lilli Kerns MD @ 02/11/2024 10:14:40 PM (Electronically Signed)
[2024-02-11] MEDS: HYDROmorphone 0.5 mg/0.5 ml inj 0.2 MG IVP ×2 (20:53→22:56)
[2024-02-11 20:54] LABS: Appearance Urine Clear (Clear); Bilirubin Urine Negative (Negative); Blood Urine Negative (Negative); Color Urine Yellow (Yellow); Glucose Urine Negative (Negative); Ketones Urine 1+ (Negative); Leukocyte Esterase Urine Negative (Negative); Nitrite Urine Negative (Negative); Protein Urine Negative (Negative); Specific Gravity Urine 1.015 (1.000-1.030); Urobilinogen Urine 0.2 (0.2-1.0)
[2024-02-11] MEDS: 3 % SODIUM CHLORIDE 500 ml 30 ML IV (20:55)
[2024-02-11 21:01] LABS: Sodium Urine Random* 45
[2024-02-11] MEDS: DESMOPRESSIN ACETATE 4 MCG/ML inj 1 MCG IVP (21:05)
[2024-02-11 21:17] LABS: RBC Urine 0-2 (0-2); WBC Urine 0-2 (0-5)
[2024-02-11 23:01] LABS: PCR FLU A Negative PCR FLU A (Negative); PCR FLU B Negative PCR FLU B (Negative); PCR RSV Negative PCR RSV (Negative); SARS PCR* Negative SARS-CoV-2 (Negative)
--- NOTE | 2024-02-11 23:16 | P.IMHP_ITS ---
Hospitalist- H&P: HPI History of Present Illness Date Seen: 02/11/24 Chief complaint: uncontrolled pain, left and rt hip on down Narrative: ADMISSION HISTORY AND PHYSICAL - HOSPITALIST Chief Complaint: Back pain HPI: 83-year-old who is in excellent health (HTN, HLP) despite her advanced age presents for the 4th time in the last 2 and half weeks with back pain. She 1st went to her PCP and got steroids, pain medicine. This did not really help. She went to the ER on and was re-evaluated. No MRI was able to be done that day. She went back to her PCP who got a stat MRI. The lumbar MRI did reveal severe central spinal canal stenosis at L4-L5 as well as Lateral L5 recess stenosis and facet arthropathy. Synovial cyst present as well. Her PCP was arranging referrals to Pain Management, ortho spine as well as for injection. These appointments are made and I believe the injection is scheduled for February 19. However tonight her pain was increasing and she was brought to the ER in a pain crisis. No delirium. Interestingly she does describe abdominal discomfort as well. She states that she has told her PCP this and it was attributed to constipation from the opioids. Up until tonight there were no labs drawn. Tonight in the ER we find that she has a white blood cell count of 15.5., this is 84% neutrophils. Her chemistries reveal a severe hyponatremia. She has normal LFTs. Urine shows to be clear. 1+ ketones. No evidence of infection. Negative respiratory triple screen. Her abdominal CT did show some periportal edema, mild biliary dilation and a dilated gallbladder lumen with mild adjacent stranding and fluid. There was some question of cholecystitis. However the abdominal ultrasound was read as completely normal. And again she had normal LFTs. There was a right lung base nodular opacity seen on the abdominal CT. By the time she got to the floor - she is moaning in pain and is febrile to 101.6 ER COURSE: labs, CT and u/s - pain management with Toradol, lorazepam, gabapentin, Dilaudid. she got fluid bolus and then hypertonic with a dose of vasopressin. ED did talk with neurosurgery and they said nothing acute tonight; cyst does not need attention urgently. admitted here for hyponatremia, white count and pain crisis. CODE STATUS: FULL CODE EMERGENCY CONTACT PLAN: Jan Madsen Rel To Pat Cell I've updated the PFSH, medications and allergies in the Expanse tabs. INVESTIGATIONS: LABS/MICRO/ECG/IMAGING CBC - elevated white blood cell count; otherwise lines are normal Chemistries - sodium 123,122 urine normal LFTS normal Resp swab negative 1. There is periportal edema, mild biliary dilation, and a dilated gallbladder lumen with mild adjacent stranding and fluid. Question cholecystitis or distal biliary obstruction. 2. Nodular opacity in the right lung base measures 2.4 centimeters. This may represent confluent areas of scarring and/or atelectasis, but no prior examination is available for comparison. Follow-up CT in 3 months recommended. REVIEW OF SYSTEMS: 12-point ROS completed with patient and negative unless otherwise stated in HPI or below. PHYSICAL EXAM: CONSTITUTIONAL: Alert; moaning and anxious in pain. GENERAL: Well-developed and small framed. 63kg. No respiratory distress. VITAL SIGNS: see record. HEENT: Sclerae are anicteric. No petechiae. dry mucous membranes CARDIAC: rhythm is regular. There is no S3 or rub. No harsh murmurs. Extremities show trace edema with symmetrical pulses. PULM: good air entry with no wheeze. ABDOMEN: no rebound. NEURO: Speech is fluent. A brief neurologic exam is negative. SKIN: No rashes, petechiae, concerning changes PSYCHIATRIC: Euthymic. ADMIT TO MEDSURG: CCU DVT: Lovenox GI: PO intake Time spent: Today I spent 75 minutes seeing the patient, discussing the patient with ER staff, reviewing Expanse and PSYCHIATRIC notes/diagnostics, discussing the care plan with our care time that includes social work, PT/OT, pharmacy, RT, [place] [facility] and documenting my impressions and plan in the medical record. MEDICAL NECESSITY FOR HOSPITALIZATION Anticipated midnights in the hospital: Admitting diagnosis: severe hyponatremia, leukocytosis/fever without etiology, pain crisis Risk of morbidity and mortality: high Acuity is characterized as high and reflected in: Patient has extreme pain, severe hyponatremia, significant leukocytosis and fever to 101.6. I have not yet been able to align these into a single diagnosis. She needs IV desmopressin and hypertonic saline for her hyponatremia. She is on IV antibiotics and has blood cultures and imaging planned for the unidentified infection. And her pain is not well controlled. She has IV pain medicine. She also has advanced age 83 and slender build. This patient will require hospital services as outlined in the assessment and plan in order to stabilize and be safely discharged to a lower level of care. Because of the risk and acuity as described above, this patient cannot be managed at a lower level of care. LENGTH OF STAY: 2 IP ? Anticipated LOS>2 midnights due to acuity of clinical presentation requiring inpatient level of care [facility] Medical History (Updated 02/12/24 @ 01:16 by Ana Johnston MD) Osteopenia (09/12/15) ?M85.80 - Other specified disorders of bone density and structure, unspecified site (ICD-10) Prediabetes (10/30/23) ?R73.03 - Prediabetes (ICD-10) Primary cancer of skin of hand (09/2023) ?C44.601 - Unspecified malignant neoplasm of skin of unspecified upper limb, including shoulder (ICD-10) Hypertension ?I10 - Essential (primary) hypertension (ICD-10) COVID-19 ?U07.1 - COVID-19 (ICD-10) Overactive bladder ?N32.81 - Overactive bladder (ICD-10) Under observation for suspected coronary artery disease (2006) ?Z03.89 - Encounter for observation for other suspected diseases and conditions ruled out (ICD-10) Vitamin D deficiency (01/16/18) ?E55.9 - Vitamin D deficiency, unspecified (ICD-10) Polyp of colon (1999) ?K63.5 - Polyp of colon (ICD-10) History of herpes zoster (2016) ?Z86.19 - Personal history of other infectious and parasitic diseases (ICD- 10) Hearing loss (01/08/17) ?H91.90 - Unspecified hearing loss, unspecified ear (ICD-10) Gastroesophageal reflux disease ?K21.9 - Gastro-esophageal reflux disease without esophagitis (ICD-10) Dyslipidemia ?E78.5 - Hyperlipidemia, unspecified (ICD-10) Surgical History H/O esophagogastroduodenoscopy (03/22/20) ?Z98.890 - Other specified postprocedural states (ICD-10) History of tubal ligation (1970) ?Z98.51 - Tubal ligation status (ICD-10) History of colonoscopy with polypectomy (02/08/16) ?Z98.890 - Other specified postprocedural states (ICD-10) ?Z86.010 - Personal history of colonic polyps (ICD-10) History of bilateral cataract extraction (04/2020) ?Z98.41 - Cataract extraction status, right eye (ICD-10) ?Z98.42 - Cataract extraction status, left eye (ICD-10) Family History Maternal Grandfather Stroke Son FH: early coronary artery disease, Onset Age: 42 Brother FH: early coronary artery disease Brother FH: early coronary artery disease Sister FH: early coronary artery disease Father Lung cancer Mother Colon cancer, Onset Age: 86 Other Skin cancer 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: , 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, 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 Exercises regularly, house work winter, gardening summer, always active Non-smoker Social drinker, 1/day wine What is your current living situation?: I presently have a place to live Problems where you live: no known problems Problems where you live details: n/a In the past 12 months, utilities in danger of being shut off: no In past 12 months, lack of transportation kept you from medical appts, meetings, work, or getting things needed for daily living: no In the past 12 mos, have been you worried that your food would run out before you had money to buy more?: never true In the past 12 mos, the food you bought just didn't last and you didn't have money to buy more?: never true Smoking Status: Never smoker Do you use any of these nicotine containing products: None How often do you have a drink containing alcohol: 4 or more times a week How many standard drinks containing alcohol do you have on a typical day: 1 or 2 How often do you have six or more drinks on one occasion: Never AUDIT-C Alcohol total score: 4 Non-prescribed substance use: denies use How often does anyone, including family, friends and others, physically hurt you : never How often does anyone, including family, friends and others, insult or talk down to you: never How often does anyone, including family, friends and others, threaten you with harm: never How often does anyone, including family, friends and others, scream or curse at you: never service: No Meds Home Medications and Allergies Home Medications ?Medication ?Instructions ?Recorded ?Confirmed ?Type atorvastatin 20 mg tablet 20 mg PO HS 08/11/23 02/06/24 History Allergies Allergy/AdvReac Type Severity Reaction Status Date / Time hydrochlorothiazide Allergy Intermediate Verified 02/06/24 10:40 latex Allergy Mild Rash Verified 02/06/24 10:40 Exam Const: Vital Signs, click to edit/add: Vital Signs - 24 hr 02/11/24 15:00 02/11/24 16:19 02/11/24 16:30 Temperature 98.7 F Pulse Rate 73 73 Pulse Rate [Pulse Oximeter] 63 Respiratory Rate 20 18 Blood Pressure 140/72 H Blood Pressure [Ri ght Upper Arm] 127/80 Pulse Oximetry 96 97 97 Oxygen Delivery Me thod Room Air 02/11/24 16:45 02/11/24 17:00 02/11/24 17:15 Temperature Pulse Rate 77 74 77 Pulse Rate [Pulse Oximeter] Respiratory Rate 16 Blood Pressure 151/65 H Blood Pressure [Ri ght Upper Arm] Pulse Oximetry 95 97 95 Oxygen Delivery Me thod Room Air 02/11/24 17:30 02/11/24 17:45 02/11/24 18:03 Temperature Pulse Rate 77 77 86 Pulse Rate [Pulse Oximeter] Respiratory Rate 16 Blood Pressure Blood Pressure [Ri ght Upper Arm] Pulse Oximetry 96 96 94 Oxygen Delivery Me thod 02/11/24 18:07 02/11/24 18:15 02/11/24 18:30 Temperature Pulse Rate 84 84 85 Pulse Rate [Pulse Oximeter] Respiratory Rate Blood Pressure 151/65 H Blood Pressure [Ri ght Upper Arm] Pulse Oximetry 96 96 95 Oxygen Delivery Me thod Room Air 02/11/24 18:31 02/11/24 19:02 02/11/24 19:14 Temperature Pulse Rate 84 79 87 Pulse Rate [Pulse Oximeter] Respiratory Rate 16 Blood Pressure 147/68 H 145/71 H Blood Pressure [Ri ght Upper Arm] Pulse Oximetry 95 97 Oxygen Delivery Me thod Room Air 02/11/24 19:15 02/11/24 19:33 02/11/24 19:45 Temperature Pulse Rate 82 87 85 Pulse Rate [Pulse Oximeter] Respiratory Rate Blood Pressure Blood Pressure [Ri ght Upper Arm] Pulse Oximetry 96 96 94 [facility] 20:00 Temperature Pulse Rate 86 Pulse Rate [Pulse Oximeter] Respiratory Rate Blood Pressure Blood Pressure [Ri ght Upper Arm] Pulse Oximetry 94 Oxygen Delivery [facility] Hospitalist - H&P: Result Labs Labs: Short CBC 02/11/24 Range/Units 16:00 WBC 15.52 H (4.50-11.00) K/uL Hgb 11.4 L (12.0-16.0) gm/dL Hct 33.6 (33.0-51.0) % Plt Count 400 (140-440) K/uL BMP 02/11/24 02/11/24 16:00 19:33 Sodium 122 L* 121 L* Potassium 4.3 Chloride 92 L Carbon Dioxide 23 BUN 17 Creatinine 0.7 Glucose 124 H Calcium 8.9 Liver Function 02/11/24 Range/Units 16:00 Total Bilirubin 0.8 (0.1-1.5) mg/dL Direct Bilirubin 0.4 (0.0-0.5) mg/dL AST 25 (12-35) U/L ALT 16 (4-35) U/L Alkaline Phosphatase 79 (40-150) U/L Albumin 3.8 (3.3-5.0) g/dL Urine 02/11/24 Range/Units 20:30 Urine Color Yellow (Yellow) Urine Appearance Clear (Clear) Urine pH 6.0 (5.0-8.5) Ur Specific [place] 1.015 (1.000-1.030) Urine Protein Negative (Negative) Urine Glucose (UA) Negative (Negative) Assessment and Plan Assessment and plan (1) Fever: Problem comment: -upon arrival to the floor she presented with a fever of 101.6 -blood culture, chest x-ray ordered - my read - looks viral bronchitis -broad-spectrum antibiotics with ertapenem ordered -discussed the case with general surgery. The periportal edema from her CT and nodular opacity in the right lung base likely need further evaluation. -we discussed MRCP and trending labs, fever curve Status: Acute (2) Acute hyponatremia: Problem comment: -likely SIADH from this acute illness/pain and opioid use -trending labs. Desmopressin IV with hypertonic saline. -consider salt tab and fluid restriction Status: Acute (3) Leukocytosis: Problem comment: -15.5, with fever. As in 1. resp? biliary? diskitis? Status: Acute (4) Spinal stenosis: Problem comment: -her presentation of pain was acute on the 27 of January has not really abated. -consider other referred pain in addition to the spinal stenosis. Consider MRCP. Blood cultures pending. UA is clear. Status: Acute (5) Synovial cyst of lumbar spine: Problem comment: -identified on MRI. According to the ED, neuro surgery was not inclined to act acutely on this finding Status: Acute (6) Labile hypertension: Problem comment: home device ACCURATE 06/28/2023 -monitoring -continue home med Status: Acute (7) Gastroesophageal reflux disease: Problem comment: -IV PPI Status: Chronic (8) Hearing loss: Status: Chronic (9) Dyslipidemia: Status: Chronic
[2024-02-11] MEDS: ACETAMINOPHEN 650 MG TABLET ER 1300 MG PO (23:54)
[2024-02-11] MEDS: LIDOCAINE 5% PATCH 1 PATCH TRANSDERMA (23:54)
[2024-02-12] VITALS (9 sets, daily range): BP systolic 129–157; BP diastolic 54–83; PULSE 63–85; RESP 18–22; TEMP 36.7–37.3; O2SAT 94–98
--- NOTE | 2024-02-12 | CRLHL7_ITS ---
For Patients: As a result of the Cures Act, medical imaging exams and procedure reports are released immediately into your electronic medical record. You may view this report before your referring provider. If you have questions, please contact your health care provider. INDICATION: Cough, back pain. TECHNIQUE: Chest 1 view. COMPARISON: None. FINDINGS: Cardiovascular and mediastinum: Cardiomediastinal silhouette is within normal limits. Lungs and pleural spaces: Bilateral interstitial opacities and peribronchial cuffing. No evidence of pleural effusion. No pneumothorax identified. Bones and soft tissues: Unremarkable. IMPRESSION: Bilateral perihilar interstitial opacities and peribronchial cuffing concerning for viral infection or other airways disease. Dictated by Lilli Kerns MD @ 02/12/2024 1:07:08 AM (Electronically Signed)
[2024-02-12 00:53] LABS: Chloride* 95 mmol/L (96-114)
[2024-02-12 00:56] LABS: Creatinine* 0.6 mg/dL (0.5-1.5); Est. Creatinine Clearance* 35.52; Estimated Glomerular Filt Rate 88 ml/min; Gamma Glutamyl Transpeptidase* 24 U/L (8-55)
[2024-02-12 00:57] LABS: Anion Gap 6 mEq/L (7-15); Blood Urea Nitrogen* 13 mg/dL (7-30); Calcium* 8.4 mg/dL (8.4-10.6); Carbon Dioxide* 21 mmol/L (20-32); Glucose* 124 mg/dL (60-115)
[2024-02-12] MEDS: ERTAPENEM 1 GM in 0.9 % SODIUM CHLORIDE Mini-bag 100 ML IVPB (01:00)
[2024-02-12 01:01] LABS: Sodium* 122 mmol/L (135-149)
[2024-02-12] MEDS: 3 % SODIUM CHLORIDE 500 ml 100 ML 33.33 ML IV (01:09)
[2024-02-12 01:17] LABS: C Reactive Protein* 14.2 mg/dL (0.5-1.0); Procalcitonin* 0.17 ng/mL (<0.50); Troponin I* < 0.01 ng/mL (0.01-0.04)
[2024-02-12] MEDS: HYDROmorphone 0.5 mg/0.5 ml inj 0.2 MG IVP ×4 (01:26→22:06)
[2024-02-12] MEDS: fentaNYL 12 mcg/hr PATCH 1 PATCH TRANSDERMA ×2 (01:34→13:23)
[2024-02-12] MEDS: PANTOPRAZOLE SODIUM 40 MG INJ IVP (01:34)
[2024-02-12 04:07] LABS: HCO3 VBG 21 mmol/L (21-28); Lactate* 0.7 mmol/L (0.5-1.9); PCO2 VBG 33 mmHG (40-50); PO2 VBG 34.7 mmHG (25-47); pH VBG 7.416 (7.32-7.43)
[2024-02-12 04:09] LABS: Hematocrit 30.5 % (33.0-51.0); Hemoglobin* 10.5 gm/dL (12.0-16.0); Immature Granulocytes Pct Auto 0.9 %; Lymphocytes Percent Auto 6.7 % (20-44); Mean Corpuscular HGB Conc 34 gm/dL (32-36); Mean Corpuscular Hemoglobin 30 pg (26-34); Mean Corpuscular Volume 86 fL (80-100); Monocytes Percent Auto 7.9 % (0.0-11.0); Neutrophils Percent Auto 84.5 % (42.0-72.0); Platelet Count* 300 K/uL (140-440); RDW Coefficient of Variation % 12.8 % (11.5-15.5); Red Blood Count 3.53 m/uL (4.00-5.20); White Blood Count* 15.03 K/uL (4.50-11.00)
[2024-02-12 04:17] LABS: Slide Review Reflex No
[2024-02-12 04:23] LABS: Albumin* 3.2 g/dL (3.3-5.0); Chloride* 97 mmol/L (96-114)
[2024-02-12 04:24] LABS: Potassium* 4.1 mmol/L (3.6-5.1)
[2024-02-12 04:26] LABS: Alanine Aminotransferase* 13 U/L (4-35); Alkaline Phosphatase* 66 U/L (40-150); Anion Gap 7 mEq/L (7-15); Aspartate Amino Transferase* 18 U/L (12-35); Bilirubin Total* 0.5 mg/dL (0.1-1.5); Blood Urea Nitrogen* 13 mg/dL (7-30); Carbon Dioxide* 20 mmol/L (20-32); Creatinine* 0.6 mg/dL (0.5-1.5); Est. Creatinine Clearance* 35.52; Estimated Glomerular Filt Rate 88 ml/min; Glucose* 110 mg/dL (60-115); Total Protein* 6.1 g/dL (6.0-8.3)
[2024-02-12 04:27] LABS: Calcium* 8.2 mg/dL (8.4-10.6)
[2024-02-12 04:28] LABS: Sodium* 124 mmol/L (135-149)
[2024-02-12] MEDS: KETOROLAC 15 MG/ML inj IVP (04:43)
--- NOTE | 2024-02-12 06:46 | PC.NURSE ---
End of shift note [id number]: Pt noted to be alert & oriented to self though confused to place, time and situation. She is noted to be impulsive at times and needs reminders to hold arm in place while nurse administering IVP medication despite RN informing pt of what was going to be done before starting IVP. IVs in place to L hand and L AC patent. Hypertonic NS administered per order. Mitchell catheter in place. Fentanyl patch placed to L outer upper arm along with administering PRN dose of Dilaudid to treat pt moaning in pain with c/o pain to lower back and bilateral hips. Lidocaine patch also applied to L hip. Pt yells out in pain whenever staff have to reposition her in bed- reports pain in lower back and bilateral hips. Tele in place with NSR and sinus arrhythmia noted throughout the shift. EKG completed per order with NSR noted. Pt noted to be febrile with fever of 101.6 upon admission to med/surg. Porcelain Finisher updated MD Johnston. Pt has since been afebrile for remainder of shift. Pt on RA throughout the shift. FR in place. Pt is not transferring out of bed at this time. Bed alarm on, call light within reach.?
--- NOTE | 2024-02-12 08:00 | CRLHL7_ITS ---
For Patients: As a result of the 21st Century Cures Act, medical imaging exams and procedure reports are released immediately into your electronic medical record. You may view this report before your referring provider. If you have questions, please contact your health care provider. INDICATION: Pain crisis, fever, white count TECHNIQUE: 1.5 T MRI of the abdomen was performed with T2 weighted imaging; in and out of phase imaging; 3D MRCP imaging was obtained. No intravenous contrast administered COMPARISON: CT abdomen pelvis and abdominal ultrasound 02/11/2024 FINDINGS: Lungs: Bibasilar atelectasis/consolidative opacities, the prior right lower lobe nodule is not well appreciated on this exam. No pleural or pericardial effusion. Liver: Homogeneous liver parenchyma. No hepatic masses. Left hepatic lobe T2 hyperintense cystic lesion measuring 0.9 cm, incompletely characterized without contrast Biliary tree and gallbladder: Fluid-filled gallbladder without stones. No gallbladder wall thickening. Small amount pericholecystic free fluid versus mildly dilated right hepatic duct (8/18). Mild intrahepatic biliary dilation. The common bile duct measures 8 mm. No choledocholithiasis. Spleen: Unremarkable Pancreas: Normal pancreatic parenchyma. No pancreatic masses. No pancreatic duct dilation. T2 hyperintense pancreatic body cystic lesion measuring 1.2 x 1.6 cm (12/02 and 3/8). Adrenal glands: Unremarkable. Kidneys and ureters: No renal masses or hydronephrosis. GI tract: No evidence of obstruction or inflammation. Vasculature: The IVC and aorta are normal in caliber. No abdominal aortic aneurysm. Lymph nodes: No lymphadenopathy. Abdominal wall: Unremarkable Pelvis: Small amount of pelvic free fluid. Tubular fluid-filled structure in the right lower quadrant is not well evaluated on this study. Bones: Degenerative change of the imaged spine. IMPRESSION: 1. Nondilated fluid-filled gallbladder without appreciable abnormality on this noncontrast exam. Similar moderate intrahepatic biliary dilation. The common bile duct measures 8 mm, within normal limits for the patient`s age. No choledocholithiasis or obstructing lesion is appreciated. Possible focal pericholecystic free fluid versus focally dilated intrahepatic ducts. No MRI evidence of acute cholecystitis. Please correlate with biliary labs. 2. Small amount of pelvic free fluid with tubular fluid-filled structure in the right lower quadrant, not well evaluated although likely loops of small bowel. If there is concern for hydrosalpinx, consider further evaluation with pelvic ultrasound. 3. Bibasilar atelectasis/consolidative opacities. The previously seen right lower lobe nodule is not well evaluated on this study. 4. Pancreatic body cystic lesion may represent a side branch IPMN. Given the patient`s age, further follow-up is not recommended by ACR guidelines. Dictated by Layla Adkins MD @ 02/12/2024 1:37:50 PM (Electronically Signed)
[2024-02-12 08:33] LABS: Sodium* 125 mmol/L (135-149)
[2024-02-12] MEDS: ACETAMINOPHEN 650 MG TABLET ER 1300 MG PO ×2 (08:33→14:47)
[2024-02-12] MEDS: carvediloL 6.25 MG TABLET 12.5 MG PO ×2 (08:34→18:29)
[2024-02-12] MEDS: SENNOSIDES/DOCUSATE TABLET 2 TAB PO (08:36)
[2024-02-12] MEDS: GABAPENTIN 100 MG CAPSULE PO ×3 (08:36→20:47)
[2024-02-12] MEDS: SODIUM CHLORIDE 0.9 % (FLUSH) 10 ML SYRINGE 5 ML IVF ×2 (08:37→20:48)
[2024-02-12] MEDS: METHYLPREDNISOLONE SOD SUCC 62.5 MG/ML (125) 80 MG IVP (09:24)
--- NOTE | 2024-02-12 10:15 | P.IMPN_ITS ---
Progress Note: A&P Assessment and plan (1) CAP (community acquired pneumonia): Problem details: -upon arrival to the floor she presented with a fever of 101.6 -leukocytosis with left shift, lactate 0.7, procalcitonin 0.17 -CXR Bilateral perihilar interstitial opacities and peribronchial cuffing concerning for viral infection or other airways disease -will treat for atypical pneumonia in setting of decreased activity secondary to pain -ceftriaxone and azithromycin -incentive spirometry Status: Acute (2) Fever: Problem details: -101.6 on admission -BC/UC pending -broad-spectrum antibiotics with ertapenem ordered on admission -discussed the case with general surgery. The periportal edema from her CT and nodular opacity in the right lung base likely need further evaluation. 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 Desmopressin IV with hypertonic saline on admission -121 on admission ->122 -> 124 -> 125 -NS 500 mL over 5 hours ordered -fluid restriction 1500 mL -consider salt tabs -sodium checks q.4 hours Status: Acute (4) Leukocytosis: Problem details: -15.5, with fever. As in 1. resp? biliary? diskitis? -monitoring, managing in setting of suspected atypical pneumonia Status: Acute (5) Spinal stenosis: Problem details: -acute on chronic without resolve -her presentation of pain was acute on the 27 of January has not really abated. -consider other referred pain in addition to the spinal stenosis. Consider MRCP - no suspected etiology. Blood cultures pending. UA is clear. -scheduled for injection on 02/20/24. Discussed injection with our Ortho team but they are not done at this facility -reports previous sciatica flares successfully treated with therapies -PT/OT consult -scheduled Tylenol, lidocaine patch, oxycodone p.r.n., remove fentanyl patch given concern for worsening pneumonia, falls, course of tapering prednisone, gabapentin Status: Acute (6) Synovial cyst of lumbar spine: Problem details: -identified on MRI. 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 No obvious cholecystitis. No surgical inte rvention recommended Status: Acute Plan Continue IV antibiotics for suspected atypical pneumonia. Difficulty in dischar ge is suspected to be her acute on chronic low back pain with radiculopathy. PT/OT Time Spent With Patient Total time spent: Total time spent caring for the patient today was 75 minutes. This includes time spent for the visit reviewing the chart, time spent during the visit, time spent after the visit and documentation and planning in coordination of care. Subjective Date Seen: 02/12/24 Interval history: Patient is seen with at bedside. Lying still, pain under control in this position. Denies headache or dizziness. Denies chest pain or shortness of breath. Last fever was 101.6? at 11:30 p.m.. Remains vitally stable. Has had right upper quadrant pain but not consistent. No nausea or vomiting. Low back pain and right lower extremity pain still not under good control with movement. Has been on a course of oral steroids approximately 2 weeks ago. Most recently a trial of Percocet. Per her , has an appointment for an injection on 02/20/2024. Awaiting MRCP this morning. Exam Narrative: Exam Narrative: PHYSICAL EXAM General: Pleasant, conversant, NAD HEENT: Normocephalic, atraumatic, sclera white, EOMI, oral mucosa moist Cardiovascular: RRR, S1S2. No pitting edema Pulmonary: CTA bilaterally without rhonchi, rales, expiratory wheezes. No dyspnea Abdominal: Soft, nondistended, mild pain with palpation right upper quadrant, repeat exam has guarding Neurological: Alert, answering questions appropriately, cranial nerves intact, no focal findings Extremities: No gross joint deformity or swelling. AROMI. Neurovascularly intact Skin: Warm, dry. Const: Vital Signs, click to edit/add: Vital Signs - 24 hr 02/11/24 15:00 02/11/24 16:19 02/11/24 16:30 Temperature 98.7 F Pulse Rate 73 73 Pulse Rate [Left P ulse Oximeter] Pulse Rate [Pulse Oximeter] 63 Respiratory Rate 20 18 Blood Pressure 140/72 H Blood Pressure [Ri ght Arm] Blood Pressure [Ri ght Upper Arm] 127/80 Pulse Oximetry 96 97 97 Oxygen Delivery Me thod Room Air 02/11/24 16:45 02/11/24 17:00 02/11/24 17:15 Temperature Pulse Rate 77 74 77 Pulse Rate [Left P ulse Oximeter] Pulse Rate [Pulse Oximeter] Respiratory Rate 16 Blood Pressure 151/65 H Blood Pressure [Ri ght Arm] Blood Pressure [Ri ght Upper Arm] Pulse Oximetry 95 97 95 Oxygen Delivery Me thod Room Air 02/11/24 17:30 02/11/24 17:45 02/11/24 18:03 Temperature Pulse Rate 77 77 86 Pulse Rate [Left P ulse Oximeter] Pulse Rate [Pulse Oximeter] Respiratory Rate 16 Blood Pressure Blood Pressure [Ri ght Arm] Blood Pressure [Ri ght Upper Arm] Pulse Oximetry 96 96 94 Oxygen Delivery Me thod 02/11/24 18:07 02/11/24 18:15 02/11/24 18:30 Temperature Pulse Rate 84 84 85 Pulse Rate [Left P ulse Oximeter] Pulse Rate [Pulse Oximeter] Respiratory Rate Blood Pressure 151/65 H Blood Pressure [Ri ght Arm] Blood Pressure [Ri ght Upper Arm] Pulse Oximetry 96 96 95 Oxygen Delivery Me thod Room Air 02/11/24 18:31 02/11/24 19:02 02/11/24 19:14 Temperature Pulse Rate 84 79 87 Pulse Rate [Left P ulse Oximeter] Pulse Rate [Pulse Oximeter] Respiratory Rate 16 Blood Pressure 147/68 H 145/71 H Blood Pressure [Ri ght Arm] Blood Pressure [Ri ght Upper Arm] Pulse Oximetry 95 97 Oxygen Delivery Me thod Room Air 02/11/24 19:15 02/11/24 19:33 02/11/24 19:45 Temperature Pulse Rate 82 87 85 Pulse Rate [Left P ulse Oximeter] Pulse Rate [Pulse Oximeter] Respiratory Rate Blood Pressure Blood Pressure [Ri ght Arm] Blood Pressure [Ri ght Upper Arm] Pulse Oximetry 96 96 94 Oxygen Delivery Me thod 02/11/24 20:00 02/11/24 23:19 02/11/24 23:19 Temperature 101.6 F H Pulse Rate 86 Pulse Rate [Left P ulse Oximeter] 90 Pulse Rate [Pulse Oximeter] Respiratory Rate 16 16 Blood Pressure Blood Pressure [Ri ght Arm] 158/84 H Blood Pressure [Ri ght Upper Arm] Pulse Oximetry 94 97 97 [facility] 02/11/24 23:19 02/11/24 23:27 02/11/24 23:27 Temperature 101.6 F H Pulse Rate Pulse Rate [Left P ulse Oximeter] 90 Pulse Rate [Pulse Oximeter] Respiratory Rate 16 18 Blood Pressure Blood Pressure [Ri ght Arm] 158/84 H Blood Pressure [Ri ght Upper Arm] Pulse Oximetry 97 97 98 Oxygen Delivery [facility] Room Air Room Air 02/11/24 23:49 02/12/24 01:30 02/12/24 03:00 Temperature 99.2 F Pulse Rate 92 Pulse Rate [Left P ulse Oximeter] 85 85 Pulse Rate [Pulse Oximeter] Respiratory Rate 18 18 Blood Pressure Blood Pressure [Ri ght Arm] 157/81 H Blood Pressure [Ri ght Upper Arm] Pulse Oximetry 98 Oxygen Delivery [facility] Room Air 02/12/24 03:06 02/12/24 03:31 02/12/24 05:30 Temperature 98.9 F 98.0 F Pulse Rate 69 Pulse Rate [Left P ulse Oximeter] 68 74 Pulse Rate [Pulse Oximeter] Respiratory Rate 18 18 Blood Pressure Blood Pressure [Ri ght Arm] 157/81 H 142/65 H Blood Pressure [Ri ght Upper Arm] Pulse Oximetry 97 97 Oxygen Delivery [facility] Room Air Room Air 02/12/24 07:00 02/12/24 07:00 02/12/24 07:00 Temperature 98.5 F Pulse Rate 63 Pulse Rate [Left P ulse Oximeter] 74 74 Pulse Rate [Pulse Oximeter] Respiratory Rate 18 18 Blood Pressure Blood Pressure [Ri ght Arm] 139/67 Blood Pressure [Ri ght Upper Arm] Pulse Oximetry 97 [facility] Labs: Laboratory Results - last 24 hr 02/11/24 02/11/24 02/11/24 16:00 17:20 19:33 WBC 15.52 H RBC 3.81 L Hgb 11.4 L Hct 33.6 MCV 88 MCH 30 MCHC 34 RDW Coeff of Horace 12.8 Plt Count 400 Neut % (Auto) 84.9 H Lymph % (Auto) 4.6 L Levy % (Auto) 9.2 Eos % (Auto) 0.1 Baso % (Auto) 0.1 Neut # (Auto) 13.20 H Lymph # (Auto) 0.70 L Levy # (Auto) 1.40 H Eos # (Auto) 0.00 Baso # (Auto) 0.00 Abs Immat Gran (auto) 0.20 Imm/Tot Granulo (auto) 1.1 VBG pH VBG pCO2 VBG pO2 VBG HCO3 Sodium 122 L* 121 L* Potassium 4.3 Chloride 92 L Carbon Dioxide 23 Anion Gap 7 BUN 17 Creatinine 0.7 Estimated Creat Clear 35.52 Estimated GFR 85 Glucose 124 H Lactate Calcium 8.9 Magnesium 2.0 Total Bilirubin 0.8 Direct Bilirubin 0.4 GGT AST 25 ALT 16 Alkaline Phosphatase 79 Troponin I C-Reactive Protein Total Protein 7.0 Albumin 3.8 Procalcitonin Urine Color Urine Appearance Urine pH Ur Specific [place] Urine Protein Urine Glucose (UA) Urine Ketones Urine Blood Urine Nitrite Urine Bilirubin Urine Urobilinogen Ur Leukocyte Esterase Urine RBC Urine WBC Ur Squamous Epith Cells Urine Bacteria Ur Random Sodium SARS-CoV-2 (PCR) Influenza Type A (PCR) Influenza Type B (PCR) RSV (PCR) Lab Acknowledgement POC Creatinine 0.8 02/11/24 02/11/24 02/11/24 20:30 22:20 23:30 WBC RBC Hgb Hct MCV MCH MCHC RDW Coeff of Horace Plt Count Neut % (Auto) Lymph % (Auto) Levy % (Auto) Eos % (Auto) Baso % (Auto) Neut # (Auto) Lymph # (Auto) Levy # (Auto) Eos # (Auto) Baso # (Auto) Abs Immat Gran (auto) Imm/Tot Granulo (auto) VBG pH VBG pCO2 VBG pO2 VBG HCO3 Sodium 122 L* Potassium 4.0 Chloride 95 L Carbon Dioxide 21 Anion Gap 6 L BUN 13 Creatinine 0.6 Estimated Creat Clear 35.52 Estimated GFR 88 Glucose 124 H Lactate Calcium 8.4 Magnesium Total Bilirubin Direct Bilirubin GGT 24 AST ALT Alkaline Phosphatase Troponin I < 0.01 L C-Reactive Protein 14.2 H Total Protein Albumin Procalcitonin 0.17 Urine Color Yellow Urine Appearance Clear Urine pH 6.0 Ur Specific [place] 1.015 Urine Protein Negative Urine Glucose (UA) Negative Urine Ketones 1+ A Urine Blood Negative Urine Nitrite Negative Urine Bilirubin Negative Urine Urobilinogen 0.2 Ur Leukocyte Esterase Negative Urine RBC 0-2 Urine WBC 0-2 Ur Squamous Epith Cells None Urine Bacteria None Ur Random Sodium 45 SARS-CoV-2 (PCR) Negative SARS-CoV-2 Influenza Type A (PCR) Negative PCR FLU A Influenza Type B (PCR) Negative PCR FLU B RSV (PCR) Negative PCR RSV Lab Acknowledgement POC Creatinine 02/11/24 02/12/24 02/12/24 23:46 00:40 04:00 WBC 15.03 H RBC 3.53 L Hgb 10.5 L Hct 30.5 L MCV 86 MCH 30 MCHC 34 RDW Coeff of Horace 12.8 Plt Count 300 Neut % (Auto) 84.5 H Lymph % (Auto) 6.7 L Levy % (Auto) 7.9 Eos % (Auto) 0.0 Baso % (Auto) 0.0 Neut # (Auto) 12.70 H Lymph # (Auto) 1.00 Levy # (Auto) 1.20 H Eos # (Auto) 0.00 Baso # (Auto) 0.00 Abs Immat Gran (auto) 0.10 Imm/Tot Granulo (auto) 0.9 VBG pH 7.416 VBG pCO2 33 L VBG pO2 34.7 VBG HCO3 21 Sodium 124 L* Potassium 4.1 Chloride 97 Carbon Dioxide 20 Anion Gap 7 BUN 13 Creatinine 0.6 Estimated Creat Clear 35.52 Estimated GFR 88 Glucose 110 Lactate 0.7 Calcium 8.2 L Magnesium Total Bilirubin 0.5 Direct Bilirubin GGT AST 18 ALT 13 Alkaline Phosphatase 66 Troponin I C-Reactive Protein Total Protein 6.1 Albumin 3.2 L Procalcitonin Urine Color Urine Appearance Urine pH Ur Specific [place] Urine Protein Urine Glucose (UA) Urine Ketones Urine Blood Urine Nitrite Urine Bilirubin Urine Urobilinogen Ur Leukocyte Esterase Urine RBC Urine WBC Ur Squamous Epith Cells Urine Bacteria Ur Random Sodium SARS-CoV-2 (PCR) Influenza Type A (PCR) Influenza Type B (PCR) RSV (PCR) Lab Acknowledgement Test Added Test Added POC Creatinine 02/12/24 08:14 WBC RBC Hgb Hct MCV MCH MCHC RDW Coeff of Horace Plt Count Neut % (Auto) Lymph % (Auto) Levy % (Auto) Eos % (Auto) Baso % (Auto) Neut # (Auto) Lymph # (Auto) Levy # (Auto) Eos # (Auto) Baso # (Auto) Abs Immat Gran (auto) Imm/Tot Granulo (auto) VBG pH VBG pCO2 VBG pO2 VBG HCO3 Sodium 125 L Potassium Chloride Carbon Dioxide Anion Gap BUN Creatinine Estimated Creat Clear Estimated GFR Glucose Lactate Calcium Magnesium Total Bilirubin Direct Bilirubin GGT AST ALT Alkaline Phosphatase Troponin I C-Reactive Protein Total Protein Albumin Procalcitonin Urine Color Urine Appearance Urine pH Ur Specific [place] Urine Protein Urine Glucose (UA) Urine Ketones Urine Blood Urine Nitrite Urine Bilirubin Urine Urobilinogen Ur Leukocyte Esterase Urine RBC Urine WBC Ur Squamous Epith Cells Urine Bacteria Ur Random Sodium SARS-CoV-2 (PCR) Influenza Type A (PCR) Influenza Type B (PCR) RSV (PCR) Lab Acknowledgement POC Creatinine
[2024-02-12] MEDS: hydrOXYzine pamoate 25 MG CAPSULE PO ×3 (10:32→22:06)
[2024-02-12] MEDS: OXYCODONE 5 MG TABLET 2.5 MG PO ×3 (10:32→20:47)
--- NOTE | 2024-02-12 12:22 | PM.GSCN ---
History of Present Illness Consult details Date Seen: 02/12/24 Consult date: 02/12/24 Narrative: The patient is an 83-year-old female who presented to the emergency department last night with severe back pain. She and her states that she has had approximately 3 weeks of back pain radiating to her legs. She states that the pain began abruptly several weeks ago and she states it was in her mid back. This radiated down her left to her left leg. She was seen by her primary care provider received steroids and pain medication. The patient and her felt like this did help somewhat. She went to the ER on and was re-evaluated. She then was able to get a stat MRI which showed severe central spinal canal stenosis at L4 and L5. The plan was for referral to pain management and Ortho Spine, however her pain became acutely worse and she presented to the emergency department last evening. In the ER she did also describe abdominal discomfort. She has her states that when the ER doctor examined her she had severe pain in her abdomen. This prompted a CT scan of her abdomen which showed periportal edema and possible cholecystitis. She was noted to have an elevated white blood cell count at 15. She did spike a fever up to 101.6 after she was admitted. Ultrasound of the abdomen however was unremarkable. The patient's and the patient both contributed to the history. The patient and her stated that she had not had any nausea or vomiting. The patient's states that she was eating normally daily. She did not complain of any discomfort after eating. She had not had regular bowel movements during this time, the patient stating she had only had 3 bowel movements in 3 weeks. She was told to double her bowel regimen and so was taking MiraLax and senna. She did have a nice soft bowel movement 3 days ago. Her states that she was complaining of urinary frequency and would have to use the restroom every 20-30 minutes but then would states that only drops of urine would come out. The patient states that the abdominal pain was fairly diffuse and does not describe it being as worse on the right or the left. I believe 2 days ago she developed some pain on the right side on the lower chest. This went away however. The patient states that the abdominal pain that she was having was diffuse. She thought that it was likely secondary to being constipated. She currently denies any abdominal pain. [facility] Medical History (Updated 02/12/24 @ 12:58 by Ivelisse Hopper MD) Osteopenia (09/12/15) ?M85.80 - Other specified disorders of bone density and structure, unspecified site (ICD-10) Prediabetes (10/30/23) ?R73.03 - Prediabetes (ICD-10) Primary cancer of skin of hand (09/2023) ?C44.601 - Unspecified malignant neoplasm of skin of unspecified upper limb, including shoulder (ICD-10) Hypertension ?I10 - Essential (primary) hypertension (ICD-10) COVID-19 ?U07.1 - COVID-19 (ICD-10) Overactive bladder ?N32.81 - Overactive bladder (ICD-10) Under observation for suspected coronary artery disease (2006) ?Z03.89 - Encounter for observation for other suspected diseases and conditions ruled out (ICD-10) Vitamin D deficiency (01/16/18) ?E55.9 - Vitamin D deficiency, unspecified (ICD-10) Polyp of colon (1999) ?K63.5 - Polyp of colon (ICD-10) History of herpes zoster (2016) ?Z86.19 - Personal history of other infectious and parasitic diseases (ICD-10) Hearing loss (01/08/17) ?H91.90 - Unspecified hearing loss, unspecified ear (ICD-10) Gastroesophageal reflux disease ?K21.9 - Gastro-esophageal reflux disease without esophagitis (ICD-10) Dyslipidemia ?E78.5 - Hyperlipidemia, unspecified (ICD-10) Surgical History H/O esophagogastroduodenoscopy (03/22/20) ?Z98.890 - Other specified postprocedural states (ICD-10) History of tubal ligation (1970) ?Z98.51 - Tubal ligation status (ICD-10) History of colonoscopy with polypectomy (02/08/16) ?Z98.890 - Other specified postprocedural states (ICD-10) ?Z86.010 - Personal history of colonic polyps (ICD-10) History of bilateral cataract extraction (04/2020) ?Z98.41 - Cataract extraction status, right eye (ICD-10) ?Z98.42 - Cataract extraction status, left eye (ICD-10) Family History Maternal Grandfather Stroke Son FH: early coronary artery disease, Onset Age: 42 Brother FH: early coronary artery disease Brother FH: early coronary artery disease Sister FH: early coronary artery disease Father Lung cancer Mother Colon cancer, Onset Age: 86 Other Skin cancer 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: , 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, 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 Exercises regularly, house work winter, gardening summer, always active Non-smoker Social drinker, 1/day wine What is your current living situation?: I presently have a place to live Problems where you live: unable to answer Problems where you live details: Pt unable to answer appropriately when asked In the past 12 months, utilities in danger of being shut off: unable to answer In past 12 months, lack of transportation kept you from medical appts, meetings, work, or getting things needed for daily living: unable to answer In the past 12 mos, have been you worried that your food would run out before you had money to buy more?: unable to answer In the past 12 mos, the food you bought just didn't last and you didn't have money to buy more?: unable to answer Smoking Status: Never smoker Do you use any of these nicotine containing products: None Second hand tobacco smoke exposure: No How often do you have a drink containing alcohol: 4 or more times a week How many standard drinks containing alcohol do you have on a typical day: 1 or 2 How often do you have six or more drinks on one occasion: Never AUDIT-C Alcohol total score: 4 Non-prescribed substance use: denies use Caffeine: No How often does anyone, including family, friends and others, physically hurt you: unable to answer How often does anyone, including family, friends and others, insult or talk down to you: unable to answer How often does anyone, including family, friends and others, threaten you with harm: unable to answer How often does anyone, including family, friends and others, scream or curse at you: unable to answer Do you think of yourself as: straight/heterosexual Gender Identity: female service: No Meds Home Medications and Allergies Home Medications ?Medication ?Instructions ?Recorded ?Confirmed ?Type atorvastatin 20 mg tablet 20 mg PO HS 08/11/23 02/06/24 History Allergies Allergy/AdvReac Type Severity Reaction Status Date / Time hydrochlorothiazide Allergy Intermediate Verified 02/06/24 10:40 latex Allergy Mild Rash Verified 02/06/24 10:40 Exam Narrative: Exam Narrative: General appearance: Alert, cooperative, and in no distress Eyes: PERRLA, eye lids clear, and sclera white HENT Head: Normocephalic Ears: External ears normal Pulmonary: Breathing nonlabored on room air Extremities: warm and well perfused Gastrointestinal Abdominal: no scars. Abdomen is soft. It is nontender and nondistended. Negative Longo sign. Musculoskeletal: Extremities: Upper: Both upper extremities have normal joint range of motion and intact strength. Lower: Both lower extremities have normal joint range of motion and intact strength. Skin: Normal skin color, texture, and turgor. Neurologic: No focal deficits Psychiatric: Alert, oriented, cooperative, normal affect. Const: Vital Signs, click to edit/add: Vital Signs - 24 hr 02/11/24 15:00 02/11/24 16:19 02/11/24 16:30 Temperature 98.7 F Pulse Rate 73 73 Pulse Rate [Left P ulse Oximeter] Pulse Rate [Pulse Oximeter] 63 Respiratory Rate 20 18 Blood Pressure 140/72 H Blood Pressure [Ri ght Arm] Blood Pressure [Ri ght Upper Arm] 127/80 Pulse Oximetry 96 97 97 Oxygen Delivery Me thod Room Air 02/11/24 16:45 02/11/24 17:00 02/11/24 17:15 Temperature Pulse Rate 77 74 77 Pulse Rate [Left P ulse Oximeter] Pulse Rate [Pulse Oximeter] Respiratory Rate 16 Blood Pressure 151/65 H Blood Pressure [Ri ght Arm] Blood Pressure [Ri ght Upper Arm] Pulse Oximetry 95 97 95 Oxygen Delivery Me thod Room Air 02/11/24 17:30 02/11/24 17:45 02/11/24 18:03 Temperature Pulse Rate 77 77 86 Pulse Rate [Left P ulse Oximeter] Pulse Rate [Pulse Oximeter] Respiratory Rate 16 Blood Pressure Blood Pressure [Ri ght Arm] Blood Pressure [Ri ght Upper Arm] Pulse Oximetry 96 96 94 Oxygen Delivery Me thod 02/11/24 18:07 02/11/24 18:15 02/11/24 18:30 Temperature Pulse Rate 84 84 85 Pulse Rate [Left P ulse Oximeter] Pulse Rate [Pulse Oximeter] Respiratory Rate Blood Pressure 151/65 H Blood Pressure [Ri ght Arm] Blood Pressure [Ri ght Upper Arm] Pulse Oximetry 96 96 95 Oxygen Delivery Me thod Room Air 02/11/24 18:31 02/11/24 19:02 02/11/24 19:14 Temperature Pulse Rate 84 79 87 Pulse Rate [Left P ulse Oximeter] Pulse Rate [Pulse Oximeter] Respiratory Rate 16 Blood Pressure 147/68 H 145/71 H Blood Pressure [Ri ght Arm] Blood Pressure [Ri ght Upper Arm] Pulse Oximetry 95 97 Oxygen Delivery Me od Room Air 02/11/24 19:15 02/11/24 19:33 02/11/24 19:45 Temperature Pulse Rate 82 87 85 Pulse Rate [Left P ulse Oximeter] Pulse Rate [Pulse Oximeter] Respiratory Rate Blood Pressure Blood Pressure [Ri ght Arm] Blood Pressure [Ri ght Upper Arm] Pulse Oximetry 96 96 94 Oxygen Delivery Me thod 02/11/24 20:00 02/11/24 23:19 02/11/24 23:19 Temperature 101.6 F H Pulse Rate 86 Pulse Rate [Left P ulse Oximeter] 90 Pulse Rate [Pulse Oximeter] Respiratory Rate 16 16 Blood Pressure Blood Pressure [Ri ght Arm] 158/84 H Blood Pressure [Ri ght Upper Arm] Pulse Oximetry 94 97 97 Oxygen Delivery Me od Room Air Room Air 02/11/24 23:19 02/11/24 23:27 02/11/24 23:27 Temperature 101.6 F H Pulse Rate Pulse Rate [Left P ulse Oximeter] 90 Pulse Rate [Pulse Oximeter] Respiratory Rate 16 18 Blood Pressure Blood Pressure [Ri ght Arm] 158/84 H Blood Pressure [Ri ght Upper Arm] Pulse Oximetry 97 97 98 Oxygen Delivery Me od Room Air Room Air 02/11/24 23:49 02/12/24 01:30 02/12/24 03:00 Temperature 99.2 F Pulse Rate 92 Pulse Rate [Left P ulse Oximeter] 85 85 Pulse Rate [Pulse Oximeter] Respiratory Rate 18 18 Blood Pressure Blood Pressure [Ri ght Arm] 157/81 H Blood Pressure [Ri ght Upper Arm] Pulse Oximetry 98 Oxygen Delivery Me thod Room Air 02/12/24 03:06 02/12/24 03:31 02/12/24 05:30 Temperature 98.9 F 98.0 F Pulse Rate 69 Pulse Rate [Left P ulse Oximeter] 68 74 Pulse Rate [Pulse Oximeter] Respiratory Rate 18 18 Blood Pressure Blood Pressure [Ri ght Arm] 157/81 H 142/65 H Blood Pressure [Ri ght Upper Arm] Pulse Oximetry 97 97 [facility] 02/12/24 07:00 02/12/24 07:00 02/12/24 07:00 Temperature 98.5 F Pulse Rate 63 Pulse Rate [Left P ulse Oximeter] 74 74 Pulse Rate [Pulse Oximeter] Respiratory Rate 18 18 Blood Pressure Blood Pressure [Ri ght Arm] 139/67 Blood Pressure [Ri ght Upper Arm] Pulse Oximetry 97 [facility] 02/12/24 11:00 02/12/24 11:00 Temperature 98.7 F Pulse Rate Pulse Rate [Left P ulse Oximeter] 69 69 Pulse Rate [Pulse Oximeter] Respiratory Rate 18 18 Blood Pressure Blood Pressure [Ri ght Arm] 131/54 L Blood Pressure [Ri ght Upper Arm] Pulse Oximetry 96 Oxygen Delivery Mi [facility] Room Air Results Labs Labs: Abnormal lab results 02/11/24 02/11/24 02/11/24 Range/Units 16:00 19:33 20:30 WBC 15.52 H (4.50-11.00) K/uL RBC 3.81 L (4.00-5.20) m/uL Hgb 11.4 L (12.0-16.0) gm/dL Hct (33.0-51.0) % Neut % (Auto) 84.9 H (42.0-72.0) % Lymph % (Auto) 4.6 L (20-44) % Neut # (Auto) 13.20 H (1.7-7.0) K/uL Lymph # (Auto) 0.70 L (0.90-2.90) K/uL Stark # (Auto) 1.40 H (0.00-0.90) K/UL VBG pCO2 (40-50) mmHG Sodium 122 L* 121 L* (135-149) mmol/L Chloride 92 L (96-114) mmol/L Anion Gap (7-15) mEq/L Glucose 124 H (60-115) mg/dL Calcium (8.4-10.6) mg/dL Troponin I (0.01-0.04) ng/mL C-Reactive Protein (0.5-1.0) mg/dL Albumin (3.3-5.0) g/dL Urine Ketones 1+ A (Negative) 02/11/24 02/12/24 02/12/24 Range/Units 23:30 04:00 08:14 WBC 15.03 H (4.50-11.00) K/uL RBC 3.53 L (4.00-5.20) m/uL Hgb 10.5 L (12.0-16.0) gm/dL Hct 30.5 L (33.0-51.0) % Neut % (Auto) 84.5 H (42.0-72.0) % Lymph % (Auto) 6.7 L (20-44) % Neut # (Auto) 12.70 H (1.7-7.0) K/uL Lymph # (Auto) (0.90-2.90) K/uL Stark # (Auto) 1.20 H (0.00-0.90) K/UL VBG pCO2 33 L (40-50) mmHG Sodium 122 L* 124 L* 125 L (135-149) mmol/L Chloride 95 L (96-114) mmol/L Anion Gap 6 L (7-15) mEq/L Glucose 124 H (60-115) mg/dL Calcium 8.2 L (8.4-10.6) mg/dL Troponin I < 0.01 L (0.01-0.04) ng/mL C-Reactive Protein 14.2 H (0.5-1.0) mg/dL Albumin 3.2 L (3.3-5.0) g/dL Urine Ketones (Negative) Diabetes panel 02/11/24 02/11/24 02/11/24 Range/Units 16:00 19:33 23:30 Sodium 122 L* 121 L* 122 L* (135-149) mmol/L Potassium 4.3 4.0 (3.6-5.1) mmol/L Chloride 92 L 95 L (96-114) mmol/L Carbon Dioxide 23 21 (20-32) mmol/L BUN 17 13 (7-30) mg/dL Creatinine 0.7 0.6 (0.5-1.5) mg/dL Glucose 124 H 124 H (60-115) mg/dL Calcium 8.9 8.4 (8.4-10.6) mg/dL AST 25 (12-35) U/L ALT 16 (4-35) U/L Alkaline Phosphatase 79 (40-150) U/L Total Protein 7.0 (6.0-8.3) g/dL Albumin 3.8 (3.3-5.0) g/dL 02/12/24 02/12/24 Range/Units 04:00 08:14 Sodium 124 L* 125 L (135-149) mmol/L Potassium 4.1 (3.6-5.1) mmol/L Chloride 97 (96-114) mmol/L Carbon Dioxide 20 (20-32) mmol/L BUN 13 (7-30) mg/dL Creatinine 0.6 (0.5-1.5) mg/dL Glucose 110 (60-115) mg/dL Calcium 8.2 L (8.4-10.6) mg/dL AST 18 (12-35) U/L ALT 13 (4-35) U/L Alkaline Phosphatase 66 (40-150) U/L Total Protein 6.1 (6.0-8.3) g/dL Albumin 3.2 L (3.3-5.0) g/dL Calcium panel 02/11/24 02/11/24 02/12/24 Range/Units 16:00 23:30 04:00 Calcium 8.9 8.4 8.2 L (8.4-10.6) mg/dL Albumin 3.8 3.2 L (3.3-5.0) g/dL Pituitary panel 02/11/24 02/11/24 02/11/24 Range/Units 16:00 19:33 23:30 Sodium 122 L* 121 L* 122 L* (135-149) mmol/L Potassium 4.3 4.0 (3.6-5.1) mmol/L Chloride 92 L 95 L (96-114) mmol/L Carbon Dioxide 23 21 (20-32) mmol/L BUN 17 13 (7-30) mg/dL Creatinine 0.7 0.6 (0.5-1.5) mg/dL Glucose 124 H 124 H (60-115) mg/dL Calcium 8.9 8.4 (8.4-10.6) mg/dL 02/12/24 02/12/24 Range/Units 04:00 08:14 Sodium 124 L* 125 L (135-149) mmol/L Potassium 4.1 (3.6-5.1) mmol/L Chloride 97 (96-114) mmol/L Carbon Dioxide 20 (20-32) mmol/L BUN 13 (7-30) mg/dL Creatinine 0.6 (0.5-1.5) mg/dL Glucose 110 (60-115) mg/dL Calcium 8.2 L (8.4-10.6) mg/dL Adrenal panel 02/11/24 02/11/24 02/11/24 Range/Units 16:00 19:33 23:30 Sodium 122 L* 121 L* 122 L* (135-149) mmol/L Potassium 4.3 4.0 (3.6-5.1) mmol/L Chloride 92 L 95 L (96-114) mmol/L Carbon Dioxide 23 21 (20-32) mmol/L BUN 17 13 (7-30) mg/dL Creatinine 0.7 0.6 (0.5-1.5) mg/dL Glucose 124 H 124 H (60-115) mg/dL Calcium 8.9 8.4 (8.4-10.6) mg/dL Total Bilirubin 0.8 (0.1-1.5) mg/dL AST 25 (12-35) U/L ALT 16 (4-35) U/L Alkaline Phosphatase 79 (40-150) U/L Total Protein 7.0 (6.0-8.3) g/dL Albumin 3.8 (3.3-5.0) g/dL 02/12/24 02/12/24 Range/Units 04:00 08:14 Sodium 124 L* 125 L (135-149) mmol/L Potassium 4.1 (3.6-5.1) mmol/L Chloride 97 (96-114) mmol/L Carbon Dioxide 20 (20-32) mmol/L BUN 13 (7-30) mg/dL Creatinine 0.6 (0.5-1.5) mg/dL Glucose 110 (60-115) mg/dL Calcium 8.2 L (8.4-10.6) mg/dL Total Bilirubin 0.5 (0.1-1.5) mg/dL AST 18 (12-35) U/L ALT 13 (4-35) U/L Alkaline Phosphatase 66 (40-150) U/L Total Protein 6.1 (6.0-8.3) g/dL Albumin 3.2 L (3.3-5.0) g/dL All other labs normal. Imaging Abdomen CT scan report/results: report reviewed and image reviewed Abdominal ultrasound report/results: report reviewed and image reviewed Additional studies: CT abdomen/pelvis 02/11/24 Impression: 1. There is periportal edema, mild biliary dilation, and a dilated gallbladder lumen with mild adjacent stranding and fluid. Question cholecystitis or distal biliary obstruction. 2. Nodular opacity in the right lung base measures 2.4 centimeters. This may represent confluent areas of scarring and/or atelectasis, but no prior examination is available for comparison. Follow-up CT in 3 months recommended. Dictated by Rl Orta MD @ 02/11/2024 7:39:31 PM US abdomen 02/11/24: FINDINGS: Gallbladder: No stones or sludge. Normal wall thickness. No pericholecystic fluid. Common bile duct: 8 mm normal for patient`s age. IMPRESSION: Unremarkable ultrasound of the gallbladder and common bile duct. Dictated by Lilli Kerns MD @ 02/11/2024 10:14:40 PM MRCP 02/12/24 IMPRESSION: 1. Nondilated fluid-filled gallbladder without appreciable abnormality on this noncontrast exam. Similar moderate intrahepatic biliary dilation. The common bile duct measures 8 mm, within normal limits for the patient`s age. No choledocholithiasis or obstructing lesion is appreciated. Possible focal pericholecystic free fluid versus focally dilated intrahepatic ducts. No MRI evidence of acute cholecystitis. Please correlate with biliary labs. 2. Small amount of pelvic free fluid with tubular fluid-filled structure in the right lower quadrant, not well evaluated although likely loops of small bowel. If there is concern for hydrosalpinx, consider further evaluation with pelvic ultrasound. 3. Bibasilar atelectasis/consolidative opacities. The previously seen right lower lobe nodule is not well evaluated on this study. 4. Pancreatic body cystic lesion may represent a side branch IPMN. Given the patient`s age, further follow-up is not recommended by ACR guidelines. Dictated by Layla Adkins MD @ 02/12/2024 1:37:50 PM Progress Note:A&P Assessment and plan (1) Fever: Status: Acute (2) Leukocytosis: Status: Acute (3) Spinal stenosis: Status: Acute (4) Abdominal pain: Status: Acute Plan The patient is an 83-year-old female with what appears to be spinal stenosis, this and with fever and CT findings concerning for possible cholecystitis. -no evidence of gallstones on ultrasound and ultrasound was unremarkable. No elevated liver tests, however given the findings fever, and biliary dilatation, MRCP was obtained today. This did not show any biliary obstruction and no cholecystitis or gallstones were noted. -the patient's exam is benign today. She is not have any abdominal discomfort and had been eating and drinking. -unclear cause for fever yesterday and elevated white blood cell count though white blood cell count elevation today could be partially related to steroids -HIDA scan could be useful, however we do not have this available here at this time. -I think that given her clinical picture it is reasonable to allow her to have a diet and continue to look for other sources of fever. -patient and her were updated.
[2024-02-12 12:45] LABS: Sodium* 124 mmol/L (135-149)
[2024-02-12] MEDS: 0.9 % SODIUM CHLORIDE 500 ML 500 ML 100 ML IV (13:23)
--- NOTE | 2024-02-12 14:00 | REH.OT ---
OT/PT consult orders received. Pt. evaluation is on hold until more medically appropriate for participation in evaluation.
[2024-02-12 16:47] LABS: Sodium* 125 mmol/L (135-149)
[2024-02-12] MEDS: AZITHROMYCIN 250 MG TABLET 500 MG PO (16:52)
[2024-02-12] MEDS: cefTRIAXone 1 GM in 0.9 % SODIUM CHLORIDE Mini-bag 100 ML IVPB (16:53)
[2024-02-12 20:34] LABS: Sodium* 125 mmol/L (135-149)
[2024-02-12] MEDS: AMLODIPINE 5 MG TABLET 2.5 MG PO (20:47)
[2024-02-12] MEDS: ENOXAPARIN 40 MG/0.4 ML INJ SUBCUT (20:48)
[2024-02-12] MEDS: LIDOCAINE 5% PATCH 1 PATCH TRANSDERMA (22:06)
[2024-02-12] MEDS: SODIUM CHLORIDE 1 GM TABLET PO (23:46)
[2024-02-13] VITALS (8 sets, daily range): BP systolic 143–159; BP diastolic 69–88; PULSE 67–90; RESP 14–22; TEMP 37.3–39.3; O2SAT 93–97
[2024-02-13] MEDS: ACETAMINOPHEN 650 MG TABLET ER 1300 MG PO ×2 (00:10→08:35)
[2024-02-13] MEDS: OXYCODONE 5 MG TABLET 2.5 MG PO ×3 (01:37→15:25)
[2024-02-13] MEDS: MELATONIN 3 MG TABLET 6 MG PO (01:37)
[2024-02-13] MEDS: HYDROmorphone 0.5 mg/0.5 ml inj 0.2 MG IVP ×2 (03:43→06:33)
--- NOTE | 2024-02-13 06:40 | PC.NURSE ---
End of shift summary: Pt has been alert but only oriented to self. She had 9/10 pain all night reporting the pain in her back, knees, stomach, thighs- very generalized but screaming out with every movement and reposition. PRN oxycodone 2.5mg, Dilaudid 0.2mg, Vistaril 25mg and Melatonin 6mg were all utilized overnight on top of scheduled Tylenol, see eMAR. Patient was awake every hour hollering out in pain and actually set her bed alarm off, sitting on the edge of the bed and needing to stand up. She was very mobile in bed, turning from side to side. She kept removing her catheter leg strap so a stat lock was put in place. Mitchell draining clear, straw colored urine. Total output: 450 mL. PIV x2 SL in LUE. Other than being febrile, she was VSS. Pt?s temp increased throughout the night 98.9 > 100.8 > 102.8 > 101.5. She had an Aqua K pad on which was removed & temperature was controlled in her room. Lidocaine patch applied to right knee per pt request. 1500 mL fluid restriction easily followed. Pt had an explosive, large incontinent loose BM at the beginning of the night.
[2024-02-13 07:06] LABS: HCO3 VBG 22 mmol/L (21-28); PCO2 VBG 30 mmHG (40-50); PO2 VBG 90.4 mmHG (25-47); pH VBG 7.474 (7.32-7.43)
[2024-02-13 07:13] LABS: Basophils Percent Auto 0.1 % (0.0-3.0); Hematocrit 29.9 % (33.0-51.0); Hemoglobin* 10.4 gm/dL (12.0-16.0); Immature Granulocytes Pct Auto 0.2 %; Lymphocytes Percent Auto 4.7 % (20-44); Mean Corpuscular HGB Conc 35 gm/dL (32-36); Mean Corpuscular Hemoglobin 30 pg (26-34); Mean Corpuscular Volume 85 fL (80-100); Platelet Count* 340 K/uL (140-440); RDW Coefficient of Variation % 12.9 % (11.5-15.5); White Blood Count* 15.63 K/uL (4.50-11.00)
[2024-02-13 07:32] LABS: Slide Review Reflex No
[2024-02-13 07:38] LABS: Albumin* 2.9 g/dL (3.3-5.0); Chloride* 100 mmol/L (96-114); Sodium* 126 mmol/L (135-149)
[2024-02-13 07:39] LABS: Potassium* 4.5 mmol/L (3.6-5.1)
[2024-02-13 07:41] LABS: Anion Gap 6 mEq/L (7-15); Aspartate Amino Transferase* 19 U/L (12-35); Bilirubin Direct* 0.2 mg/dL (0.0-0.5); Bilirubin Total* 0.3 mg/dL (0.1-1.5); Carbon Dioxide* 20 mmol/L (20-32); Creatinine* 0.7 mg/dL (0.5-1.5); Est. Creatinine Clearance* 35.52; Estimated Glomerular Filt Rate 85 ml/min; Total Protein* 5.7 g/dL (6.0-8.3)
[2024-02-13 07:42] LABS: Alanine Aminotransferase* 13 U/L (4-35); Alkaline Phosphatase* 61 U/L (40-150); Blood Urea Nitrogen* 25 mg/dL (7-30); Calcium* 8.2 mg/dL (8.4-10.6); Glucose* 143 mg/dL (60-115); Lipase* 34 U/L (23-300)
--- NOTE | 2024-02-13 07:50 | CRLHL7_ITS ---
For Patients: As a result of the Century Cures Act, medical imaging exams and procedure reports are released immediately into your electronic medical record. You may view this report before your referring provider. If you have questions, please contact your health care provider. This report is included with the MRI lumbar spine. Dictated by Marcelina Bae MD @ 02/13/2024 11:43:35 AM (Electronically Signed)
--- NOTE | 2024-02-13 07:50 | CRLHL7_ITS ---
For Patients: As a result of the 21st Century Cures Act, medical imaging exams and procedure reports are released immediately into your electronic medical record. You may view this report before your referring provider. If you have questions, please contact your health care provider. Indication: Positive blood culture, concern for discitis Technique: Multiplanar, multisequence MRI of the thoracic spine, obtained without and with contrast. Multiplanar, multisequence, MRI of the lumbar spine, obtained without and with contrast. A total of 10 mL of Dotarem IV contrast was administered. Comparison: MRI abdomen 02/12/2024, CT abdomen pelvis 02/11/2024, MRI lumbar spine 02/06/2024 Findings: Thoracic spine: Mildly exaggerated thoracic kyphosis. No significant spondylolisthesis. Thoracic vertebral body heights are grossly maintained. Scattered degenerative Schmorl`s nodes. No acute osseous abnormality. No suspicious bone marrow lesion or pathologic postcontrast enhancement. Scattered spondylosis, with mild degenerative disc changes and facet arthropathy. Localizer images demonstrate at least low-grade neuroforaminal and spinal canal narrowing in the mid-lower cervical region. No significant thoracic neural foraminal or spinal canal stenosis. No concerning findings in the paraspinal soft tissues. Lumbar spine: The lumbar lordosis is preserved. Moderate chronic L1 inferior endplate compression deformity with trace retrolisthesis L1 on L2. Trace anterolisthesis L4 on L5. Confluent bony edema throughout the left posterior elements at L4-L5, spanning the articular pillars to the spinous processes, centered about the degenerated facet joint. Irregular bony erosions. Lobulated/septated peripherally enhancing periarticular fluid collections from L4-L5 measuring approximately 1.4 x 1.6 x 3.8 cm AP/TR/CC, compatible with paraspinal abscess. Left dorsal epidural peripherally enhancing fluid collection measuring 1.7 x 1.7 x 4.7 cm AP/TR/CC, extending from the inferior L4 to mid S1 level, compatible with epidural abscess. Resultant severe stenosis of the spinal canal from the L4-5 disc space to the inferior L5 level, with clumped enhancing cauda equina nerve roots, compatible with arachnoiditis. Background spondylosis elsewhere, unchanged relative to 02/06/2024. Impression: Lumbar spine: 1. 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 2. Associated left periarticular/posterior paraspinal abscess and left dorsal epidural abscess as measured. 3. Resultant severe spinal canal stenosis from the L4-5 disc space down to the inferior L5 spinal canal. 4. 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 Thoracic spine: 1. No evidence of acute osseous abnormality or infectious process involving the thoracic spine. 2. Scattered spondylosis, with at least low-grade neural foraminal and spinal canal narrowing in the mid-lower cervical region. 3. No cord compression or cord signal abnormality. Dictated by Marcelina Bae MD @ 02/13/2024 11:42:52 AM (Electronically Signed)
[2024-02-13 07:57] LABS: C Reactive Protein* 14.1 mg/dL (0.5-1.0); Procalcitonin* 0.21 ng/mL (<0.50)
[2024-02-13] MEDS: SODIUM CHLORIDE 0.9 % (FLUSH) 10 ML SYRINGE 5 ML IVF (08:29)
[2024-02-13] MEDS: cefTRIAXone 2 GM in 0.9 % SODIUM CHLORIDE Mini-bag 100 ML IVPB (08:29)
[2024-02-13] MEDS: polyethylene glycoL 3350 17 GM PACK PO (08:31)
[2024-02-13] MEDS: SODIUM CHLORIDE 1 GM TABLET PO ×2 (08:33→11:47)
[2024-02-13] MEDS: predniSONE 20 MG TABLET 40 MG PO (08:33)
[2024-02-13] MEDS: SENNOSIDES/DOCUSATE TABLET 2 TAB PO (08:33)
[2024-02-13] MEDS: carvediloL 6.25 MG TABLET 12.5 MG PO (08:34)
[2024-02-13] MEDS: GABAPENTIN 100 MG CAPSULE PO ×2 (08:34→14:26)
--- NOTE | 2024-02-13 09:13 | NUTR.NU ---
RDN with nutrition screen related to positive skin risk. Patient admitted with hyponatremia, leukocytosis, and fever found to have community acquired pneumonia. Current weight 142 lb 6.4oz; height 5ft 4.5in; BMI 24.1kg/m2. Weight history shows gradual weight gain recently. BMI normal. Current diet is Regular with 1500mL fluid restriction. No meal intake recorded yet, patient was NPO yesterday. No nutrition concerns at this time with stable weight. RDN will continue to monitor intakes and status and follow-up if indicated.
[2024-02-13] MEDS: VANCOMYCIN 1.25 GM/250 ML 1.25 GM/250 ML PIGGYBACK IVPB (11:46)
--- NOTE | 2024-02-13 12:53 | P.DS_ITS ---
Transfer Discharge Sum: Prov Provider Date Seen: 02/13/24 Date of admission: 02/11/24 23:19 Primary care physician: Cyndy Ventura MD Admitting clinician: Ana Johnston Attending physician on admission: Ana Johnston Consults: OT, PT, SW Attending physician on discharge: Lizabeth Marion Discharging clinician: Lizabeth Marion Anticipated date of transfer: 02/13/24 Receiving physician/facility: [facility] DS: Diagnosis Discharge Diagnosis (1) Discitis of lumbar region: Status: Acute Problem details: - MRI 02/13/24 with results below - reviewed with Dr. Meneses and Ortho Spine at [facility], agree with transfer to higher level of care Impression: Lumbar spine: 1. 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 2. Associated left periarticular/posterior paraspinal abscess and left dorsal epidural abscess as measured. 3. Resultant severe spinal canal stenosis from the L4-5 disc space down to the inferior L5 spinal canal. 4. 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 Thoracic spine: 1. No evidence of acute osseous abnormality or infectious process involving the thoracic spine. 2. Scattered spondylosis, with at least low-grade neural foraminal and spinal canal narrowing in the mid-lower cervical region. 3. No cord compression or cord signal abnormality. 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/pain and opioid use - trending labs; received Desmopressin IV with hypertonic saline on admission - 121 on admission ->122 -> 124 -> 125 -> 126 on 02/13/24 (date of discharge) - currently on 1500mL fluid restriction (5) Labile hypertension: Status: Acute Problem details: - on Amlodipine and Carvedilol as outpatient (6) Gastroesophageal reflux disease: Status: Chronic Problem details: - on IV PPI (7) Abdominal pain: Status: Acute Problem details: - not consistently reproducible, continue to monitor for new or worsening symptoms - MRCP reassuring, General Surgery consulted and following Transfer Discharge Sum: Med Medications Active and Home Medications: Home Medications carvedilol 12.5 mg tablet (Coreg) 12.5 mg PO BID #90 tabs 08/20/23 [Rx Confirmed 02/13/24] amlodipine 2.5 mg tablet 2.5 mg PO HS #90 tabs 01/10/24 [Rx Confirmed 02/13/24] ibuprofen 600 mg tablet 600 mg PO TID #30 tabs 01/28/24 [Rx Confirmed 02/13/24] oxycodone-acetaminophen 5 mg-325 mg tablet (Percocet) 1 - 2 tab PO TID PRN pain #15 tabs 02/05/24 [Rx Confirmed 02/13/24] Active Medications Acetaminophen (Acetaminophen 650 Mg Tablet Er) 1,300 mg PO Q8H [facility] Last Admin: 02/13/24 08:35 Dose: 1,300 mg Amlodipine Besylate (Amlodipine 5 Mg Tablet) 2.5 mg PO HS [facility] Last Admin: 02/12/24 20:47 Dose: 2.5 mg Carvedilol (Carvedilol 6.25 Mg Tablet) 12.5 mg PO BIDWM [facility] Last Admin: 02/13/24 08:34 Dose: 12.5 mg Enoxaparin Sodium (Enoxaparin 40 Mg/0.4 Ml Inj) 40 mg SUBCUT HS [facility] Last Admin: 02/12/24 20:48 Dose: 40 mg Gabapentin (Gabapentin 100 Mg Capsule) 100 mg PO TID [facility] Last Admin: 02/13/24 08:34 Dose: 100 mg Hydromorphone HCl (Hydromorphone 0.5 Mg/0.5 Ml Inj) 0.2 mg IVP Q1H PRN Last Admin: 02/13/24 06:33 Dose: 0.2 mg Hydroxyzine Pamoate (Hydroxyzine Pamoate 25 Mg Capsule) 25 mg PO Q4H PRN PRN Reason: pain, anxiety Last Admin: 02/12/24 22:06 Dose: 25 mg Ceftriaxone Sodium 2 gm/ (Sodium Chloride) 100 mls @ 200 mls/hr IVPB Q24H [facility] Last Infusion: 02/13/24 10:31 Dose: Infused Vancomycin/PEG/NADA/Lysine/Water (Vancomycin 1.25 Gm/250 Ml) 1.25 gm in 250 mls @ 200 mls/hr IVPB Q24H [facility]; Protocol IV Miscellaneous Supplies (Pharmacist Consult) 1 each MC Q24H [facility]; Protocol Lidocaine (Lidocaine 5% Patch) 1 patch TRANSDERMA Q24H [facility]; Protocol Last Admin: 02/12/24 22:06 Dose: 1 patch Melatonin (Melatonin 3 Mg Tablet) 6 mg PO HS PRN Last Admin: 02/13/24 01:37 Dose: 6 mg Ondansetron HCl (Ondansetron Odt 4 Mg Tab) 4 mg PO Q6H PRN Oxycodone HCl (Oxycodone 5 Mg Tablet) 2.5 mg PO Q4H PRN Last Admin: 02/13/24 06:22 Dose: 2.5 mg Polyethylene Glycol (Polyethylene Glycol 3350 17 Gm Pack) 17 gm PO DAILY [facility] Last Admin: 02/13/24 08:31 Dose: 17 gm Prednisone (Prednisone 20 Mg Tablet) 40 mg PO DAILYWM [facility] Last Admin: 02/13/24 08:33 Dose: 40 mg Senna/Docusate Sodium (Sennosides/Docusate Tablet) 2 tab PO BID [facility] Last Admin: 02/13/24 08:33 Dose: 2 tab Sodium Chloride (Sodium Chloride 0.9 % (Flush) 10 Ml Syringe) 5 ml IVF .FLUSH PRN Sodium Chloride (Sodium Chloride 0.9 % (Flush) 10 Ml Syringe) 5 ml IVF BID [facility] Last Admin: 02/13/24 08:29 Dose: 5 ml Sodium Chloride (Sodium Chloride 1 Gm Tablet) 1 gm PO TIDWM [facility] Last Admin: 02/13/24 11:47 Dose: 1 gm Transfer Discharge Sum: Hosp Hospital Course Hospital course: Roseanne Madsen is a 83 year old female who presented to our hospital with fever and intractable back pain, admitted on 02/11/2024. Prior to admission had had an MRI of her L-spine without contrast that did not demonstrate any acute findings but known spinal stenosis (was scheduled as an outpatient to have surgical intervention with [facility]). Pain treated with IV Dilaudid, prn oral Oxycodone, Lidocaine patch, scheduled APAP. Relief minimal with these interventions, limiting the ability to peform cares and exam. On hospital day 2, continued to have fevers and blood culture positive for GPC; repeat MRI of L-spine and T-spine obtained which demonstrated findings below. Given bacteremia, intractable pain, and the below findings, transfer to tertiary care facility initiated. She was accepted by Dr. Meneses at [facility] on 02/13/24. Impression: Lumbar spine: 1. 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 2. Associated left periarticular/posterior paraspinal abscess and left dorsal epidural abscess as measured. 3. Resultant severe spinal canal stenosis from the L4-5 disc space down to the inferior L5 spinal canal. 4. 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 Thoracic spine: 1. No evidence of acute osseous abnormality or infectious process involving the thoracic spine. 2. Scattered spondylosis, with at least low-grade neural foraminal and spinal canal narrowing in the mid-lower cervical region. 3. No cord compression or cord signal abnormality. Time Spent with Patient Time attestation: Total time spent providing and/or coordinating transfer services: Total time spent: Greater than 30 minutes Exam Narrative: Exam Narrative: Patient is laying in bed, comfortable if not moving. Cardiovascular exam exhibits regular rate and rhythm without murmurs rubs or gallops. Respiratory exam reveals no tachypnea, lungs clear bilaterally without wheezing. Abdomen is soft and nontender, negative Longo sign. Patient declines log-rolling for back exam given discomfort with previous att empts. Significant pain with any movement of lower extremities. Const: Vital Signs, click to edit/add: Vital Signs - 24 hr 02/12/24 15:00 02/12/24 15:00 02/12/24 20:45 Temperature 98.2 F 98.9 F Pulse Rate [Left P ulse Oximeter] 63 63 70 Respiratory Rate 18 18 22 Blood Pressure [Ri ght Arm] 129/60 145/83 H Pulse Oximetry 94 96 Oxygen Delivery Me thod Room Air Room Air 02/13/24 00:00 02/13/24 00:00 02/13/24 00:00 Temperature 100.8 F H Pulse Rate [Left P ulse Oximeter] 90 90 Respiratory Rate 22 22 Blood Pressure [Ri ght Arm] 152/88 H Pulse Oximetry 97 97 Oxygen Delivery Me thod Room Air 02/13/24 03:45 02/13/24 06:40 02/13/24 08:20 Temperature 102.8 F H 101.5 F H Pulse Rate [Left P ulse Oximeter] 82 Respiratory Rate 20 Blood Pressure [Ri ght Arm] 159/72 H Pulse Oximetry 97 93 Oxygen Delivery Me thod Room Air 02/13/24 08:26 02/13/24 11:57 Temperature 99.3 F 99.5 F Pulse Rate [Left P ulse Oximeter] 67 73 Respiratory Rate 14 20 Blood Pressure [Ri ght Arm] 143/69 H 153/71 H Pulse Oximetry 93 93 Oxygen Delivery Me thod Room Air Room Air Discharge Plan Discharge Disposition: [facility] Date of Admission: 02/11/24 23:19 Attending Provider on Discharge: Lizabeth Marion Primary Care Provider: Cyndy Ventura Condition: Unchanged Discharge Orders: Transfer of Care to Other Hospital (ORDER); Ordered 02/13/24 Ordered By: Lizabeth Marion Oxygen: No Urinary Catheter: Yes Services not available here: ID, Ortho Spine, IR
--- NOTE | 2024-02-13 12:58 | REH.OT ---
Pt. transferring to another hospital. OT evaluation cancelled.
--- NOTE | 2024-02-13 12:58 | REH.PT ---
PT order received. MD has ordered a transfer to higher level of care. PT and OT services being held due to medical status.
--- NOTE | 2024-02-13 18:15 | PC.NURSE ---
Pt alert to self. Pt on bedrest during shift. Pt had MRI this morning. Pt's at bedside. Pt had complaints of pain around 1500; see EM[facility] for intervention. Pt accepted to [facility]; EMS arrived for transport at 1515.
--- NOTE | 2024-02-13 18:19 | PC.NURSE ---
Pt's gutierrez catheter and IV's left in place for transfer to higher level of care. medical collections representative gave nurse to nurse report with [facility].
--- NOTE | 2024-02-15 20:10 | PC.NURSE ---
Lab called in Gram Pos Cocci Blood culture. Passed onto House sup. Calling [facility] team.
== END 2024-02-13 15:20 | disposition short-term general hospital (02) | DRG 539 ==
LOC: ED 22:23 → MEDSURG 23:01
PROVIDERS: Physician Assistant; Admitting Provider Family Medicine; Emergency Provider Family Medicine; PCP Family Medicine; Visit Provider Family Medicine
DX: M46.36 Infection of intervertebral disc (pyogenic), lumbar region (principal); G03.9 Meningitis, unspecified; G06.1 Intraspinal abscess and granuloma; R78.81 Bacteremia; E22.2 Syndrome of inappropriate secretion of antidiuretic hormone; M00.88 Arthritis due to other bacteria, vertebrae; M46.26 Osteomyelitis of vertebra, lumbar region; M47.816 Spondylosis without myelopathy or radiculopathy, lumbar region; M48.061 Spinal stenosis, lumbar region without neurogenic claudication; B96.89 Other specified bacterial agents as the cause of diseases classified elsewhere; B95.0 Streptococcus, group A, as the cause of diseases classified elsewhere; M71.38 Other bursal cyst, other site; I10 Essential (primary) hypertension; R73.03 Prediabetes; K21.9 Gastro-esophageal reflux disease without esophagitis; M85.80 Other specified disorders of bone density and structure, unspecified site; H91.90 Unspecified hearing loss, unspecified ear; R10.9 Unspecified abdominal pain; E78.5 Hyperlipidemia, unspecified
CPT/HCPCS: 36415; 71045; 72157; 72158; 74177; 74181; 76705; 80048; 80053; 80076; 81001; 82565; 82803; 82977; 83605; 83690; 83735; 84145; 84295; 84300; 84484; 85025; 86140; 87040; 87077; 87086; 87186; 87486; 87581; 87631; 87633; 93005; 93306; 99285; 99291; 99292; A9270; A9575; J0696; J1171; J1335; J1650; J1885; J2060; J2470; J2597; J2919; J3372; J7030; J7131; J7512; Q9967

== ENCOUNTER 2024-02-13 15:30 | Outpatient (CLI) | payer MEDICARE, SELFPAY | END 2024-02-13 15:31 | disposition home or self-care (01) | LOC: AMB 02-22 01:27 | PROVIDERS: PCP Family Medicine; Visit Provider Emergency Medicine Emergency Medical Services | DX: M46.46 Discitis, unspecified, lumbar region (principal); R78.81 Bacteremia; R50.9 Fever, unspecified; E87.1 Hypo-osmolality and hyponatremia | CPT/HCPCS: A0425; A0433 ==

== ENCOUNTER 2024-04-09 08:53 | Outpatient (CLI) | payer MEDICARE, SELFPAY | END 2024-04-09 08:54 | disposition home or self-care (01) | PROVIDERS: PCP Family Medicine; Visit Provider Family Medicine | DX: R19.5 Other fecal abnormalities (principal); R53.1 Weakness; R63.4 Abnormal weight loss | CPT/HCPCS: 80053 ==

== ENCOUNTER 2024-04-10 07:50 | Outpatient (CLI) | payer MEDICARE, SELFPAY | END 2024-04-10 07:51 | disposition home or self-care (01) | LOC: NFLDREF 04-11 14:16 | PROVIDERS: PCP Family Medicine; Referring Provider Family Medicine; Visit Provider Family Medicine | DX: R19.7 Diarrhea, unspecified (principal) | CPT/HCPCS: 87493 ==

== ENCOUNTER 2024-04-27 08:05 | Outpatient (CLI) | payer MEDICARE, SELFPAY | END 2024-04-27 08:06 | disposition home or self-care (01) | LOC: NFLDREF 04-28 03:37 | PROVIDERS: PCP Family Medicine; Referring Provider Family Medicine; Visit Provider Family Medicine | DX: R73.03 Prediabetes (principal); I10 Essential (primary) hypertension; E78.5 Hyperlipidemia, unspecified; M85.89 Other specified disorders of bone density and structure, multiple sites; R09.89 Other specified symptoms and signs involving the circulatory and respiratory systems; M81.0 Age-related osteoporosis without current pathological fracture | CPT/HCPCS: 80053; 80061; 82306 ==

== ENCOUNTER 2024-04-27 08:19 | Outpatient (CLI) | payer MEDICARE, SELFPAY ==
[2024-04-27 14:10] LABS: C Reactive Protein* < 0.5 mg/dL (0.5-1.0)
== END 2024-04-27 08:20 | disposition home or self-care (01) ==
LOC: NPINS 08:20
PROVIDERS: PCP Family Medicine; Visit Provider Physician Assistant
DX: M46.46 Discitis, unspecified, lumbar region (principal); M85.80 Other specified disorders of bone density and structure, unspecified site; E78.5 Hyperlipidemia, unspecified
CPT/HCPCS: 80053; 80061; 82306; 86140

== ENCOUNTER 2024-06-10 07:45 | Outpatient (CLI) | payer MEDICARE, SELFPAY | END 2024-06-10 07:46 | disposition home or self-care (01) | PROVIDERS: PCP Family Medicine; Visit Provider Family Medicine | DX: D64.9 Anemia, unspecified (principal); R53.83 Other fatigue; R53.1 Weakness; M54.9 Dorsalgia, unspecified; Z13.21 Encounter for screening for nutritional disorder | CPT/HCPCS: 80053; 82607; 82728; 84443; 86140 ==

== ENCOUNTER 2024-06-24 13:00 | Outpatient (RCR) | payer MEDICARE, SELFPAY ==
--- NOTE | 2024-04-01 15:19 | PT.OPEX ---
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 Ventura Subjective Preferred Name Roseanne Meier Patient is a 83 year old female who presents to physical therapy with her , Arnie, with signs and symptoms consistent with overall weakness. She recently had a very complicated hospital stay and ended up in a TCU. She was first diagnosed with meningitis after having severe low back pain. She is unsure whether this was caused from a previous tooth infection. She states that she had an abscess and infection and had lumbar surgery on 02/17/24 at [place]. She was on IV antibiotics and stayed at a rehab facility. She then developed acute congestive heart failure and went back into the hospital. She did have an appointment at the [facility] on Saturday and had blood work completed. She states that her results currently show that the infection has not gotten worse, but has also not started improving yet. She has a follow up with Dr. Conrad in June. She also had a cholecystectomy on 03/22/24. She then went back to the rehab unit in [place] for a few days. She states that she has been on antibiotics since Feb 12 and will be on another for 6 more weeks. She is on a no salt and no fat diet for another three months . She has been eating eggs for breakfast. She states that her appetite has been down. She is sore all over, but mostly across her low back . She takes one large Tylenol in the morning to help. According to the patient, the dehairer said her heart is 83 years old and but strong. She has been home since last Saturday morning. She has to call infectious disease out of [place] every week to go over her weekly bloodwork. She had several delirium episodes while in the hospital and doesn't remember most of her time. She states that it started on Vannesa Melody she went to the ER and was in the hospital for 3 days. She reports that they did another MRI and discovered the infection in her spine. She reports that she was in surgery the next morning. She was in the hospital for 5-6 days with severe pain, but doesn't remember most of this. She went from there to [place] for 4 days, and then went to ER due to pain again. She stayed overnight there and went back for 5 days at [place]. She reports that at that time, the infection was not growing, but wasn't improving. She was still having significant delirium at this time. She had to keep the room in [place] so that she could get her antibiotics under medical supervision. She states that they were restricting fluids due to the congestive heart fluid but now they have let her drink water without restrictions. She states that she has a three level house and since returning home, she has been doing the stairs and moving around her home without an assistive device. She is having some light headedness at times, but if she sits and eats it tends to improve. She states that she does have some discomfort in her low back. She does have a back brace but it is very uncomfortable, and it irritates her gallbladder incisions. Her current restrictions include no bending, lifting and twisting. She has to let them know if her weight goes up more than three pounds. Significant past medical history includes high blood pressure, acute congestive heart failure, arthritis, respiratory problems (pulmonary edema), latex allergy and cholecystectomy. Patient would like to reduce back pain , get stronger and return to normal daily activities through physical therapy sessions. 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 69 years 8.1 (7.1 ? 9.0) / 70 ? 79 years 9.2 (8.2 ? 10.2) / 80 ? 99 years 11.3 (10.0 ? 12.7) LLE MMT: Hip flexion: R 4-/5 L 4-/5 Hip abduction: R 4-/5 L 4-/5 Hip extension: R 4-/5 L 4-/5 Knee flexion: R 4/5 L 4/5 Knee extension: R 4/5 L 4/5 Functional Test Performed & Score Henao Balance Test 33/56 Assessment Assessment/Impression Pt is a 83 year old female who presents with concerns of overall weakness and decreased endurance secondary to a prolonged complicated recent hospital stay. Patient also has notable objective findings including limited ROM, tenderness to palpation, and decreased strength which are also likely contributing to the problem. Patient is a good candidate for skilled therapy to target deficits described above. Skilled PT intervention is necessary for use of therapeutic exercise manual therapy, neuromuscular re- education, gait training, and therapeutic activity. Functional impairments include difficulty with: standing, walking, exercising, and ADLs. See appropriate sections of PT eval for complete list of goals and POC. D/C plan and criteria is for pt to achieve the goals as listed below or until max rehab potential is met. Pt was agreeable with plan of care and goals established. Primary Functional Limitations standing walking exercising ADLs Plan of Care Rehabilitation Potential Good Physical Therapy Goals Within 10-12 weeks: 1.Pt will demonstrate independence in performance of home exercise program with the use of video and/or handouts in order to optimize functional mobility and reduce risk for re-injury. 2.Pt will demonstrate consistent HEP compliance to ensure progress in reaching established goals during course of care. 3.Patient will report pain levels <2/10 with all activities in order to improve functional mobility at home, work and during functional leisure activities. 4.Patient will demonstrate/ report ability to SLS/Tandem for 10 seconds, to allow for safety, improved ambulation on uneven terrain.? 5.Patient will be able to walk up to 6 blocks without pain or loss of balance. 6.Patient will be able to bend and lift household items from the floor to perform ADLs without loss of balance. 7.Pt will be able to ascend/ descend 1 flight of stairs in order to perform ADLs. 8.Pt will exhibit 5 pt improvement in Henao Balance Score to demonstrate functional improvement and progress towards goals. Coordination/Communication With Referral Source Treatment Plan/Direct Interventions Gait Training,Joint Mobilization,Manual Therapy, Neuromuscular Re-ed, Therapeutic Activities, Therapeutic Exercises Patient Will Be Discharged From Therapy Independently Progressing Evaluation Billing Untimed Code Treatment Minutes 55 Complexity Moderate Certification Information Provider Signature Required Yes Provider Signature Shows Agreement With POC & Medical Necessity Physician NPI Number Write NPI# Here Physician Comment/Change : Physician Signature & Date Requested Please Sign/Date Here
== END 2024-07-21 12:36 | disposition home or self-care (01) ==
PROVIDERS: PCP Family Medicine; Visit Provider Family Medicine
DX: Z48.89 Encounter for other specified surgical aftercare (principal); Z90.49 Acquired absence of other specified parts of digestive tract; R53.1 Weakness; Z51.89 Encounter for other specified aftercare
CPT/HCPCS: 97110; 97140; 97162

== ENCOUNTER 2024-07-23 13:50 | Outpatient (CLI) | payer MEDICARE, SELFPAY ==
--- NOTE | 2024-07-23 14:00 | CRLHL7_ITS ---
For Patients: As a result of the Century Cures Act, medical imaging exams and procedure reports are released immediately into your electronic medical record. You may view this report before your referring provider. If you have questions, please contact your health care provider. DXA BONE MINERAL DENSITY STUDY Current height (in): 63.8 Weight (lb): 124. Menopause age: 43. Ethnicity: White. 1. Have you had a previous hip or vertebral fracture? No. 2. Have you had any fractures during your adult life which did not result from significant trauma (e.g., auto accident)? No. 3. Did either of your parents have a hip fracture? No. 4. Do you smoke? No. 5. Have you ever taken Glucocorticoids? Yes. 6. Do you have rheumatoid arthritis? No. 7. Do you have secondary osteoporosis? No. 8. Do you drink 3 or more alcoholic drinks per day? No. 9. Are you being treated for osteoporosis? No. 10. Have you ever taken any of the following medications: Actonel, Evista, Fosamax, Miacalcin, Reclast, Boniva, Forteo, HRT (i.e. estrogen/hormone therapy), Protelos, Prolia, Vitamin D, Calcium, other ??? please specify. ANSWER: Yes, Vitamin D, and Calcium. 11. Do you have any of the following medical conditions: Anorexia or bulimia, asthma or emphysema, end stage renal disease, hyperparathyroidism, any seizure disorders, cancer, inflammatory bowel diseases, hysterectomy, other ??? please specify. ANSWER: Yes, Cancer. 12. What was your maximum height (inches)? 65. 13. Do you perform weight bearing exercise regularly? No. 14. Do you regularly consume dairy products? Yes. 15. Do you drink caffeinated beverages? No. 16. At what age did your period start? 10. 17. Are you premenopausal? No. 18. How many full term pregnancies have you had? 4. 19. Have you ever missed your period for more than 6 months in a row (not including or menopause)? No. TECHNIQUE: Bone mineral density study was performed using the [employer]. FINDINGS: The results of the study expressed as bone mineral density (BMD) are as follows: Lumbar spine L1 to L4: BMD: 0.854 g/cm2. T-score: -1.8. Z-score: 1.1. Neck Left: BMD: 0.576 g/cm2. T-score: -2.5. Z-score: 0.1. Right: BMD: 0.550 g/cm2. T-score: -2.7. Z-score: -0.2. Total Left: BMD: 0.700 g/cm2. T-score: -2.0. Z-score: 0.4. Right: BMD: 0.732 g/cm2. T-score: -1.7. Z-score: 0.6. IMPRESSION: Osteoporosis. COMPARISON: Compared with scan of 03/23/2021, the bone mineral density has decreased by 7.8 percent at the spine and decreased by 3.0 percent at the hip. Alexis Gonzalez M.D. Diagnostic Radiologist [email or web address] DW/Dictated by: Alexis Gonzalez MD @ 07/24/2024 10:46:00 AM (Electronically Signed)
--- NOTE | 2024-07-23 14:40 | CRLHL7_ITS ---
For Patients: As a result of the Century Cures Act, medical imaging exams and procedure reports are released immediately into your electronic medical record. You may view this report before your referring provider. If you have questions, please contact your health care provider. INDICATION: BILATERAL SCREENING MAMMOGRAM, ASYMPTOMATIC 84 Y/O FEMALE COMPARISON: 03/08/2022, 01/25/2021, 09/22/2019 TECHNIQUE: Digital mammogram in CC and MLO projections including computer-aided detection (CAD) and tomosynthesis. BREAST COMPOSITION: The breasts are extremely dense, which lowers the sensitivity of mammography. FINDINGS: No suspicious findings. ASSESSMENT: BI-RADS 2 Benign RECOMMENDATION: Annual screening mammogram. A lay language report of this examination will be provided to the patient. Dictated by: Alexis Gonzalez MD @ 07/24/2024 09:28:36 (Electronically Signed)
== END 2024-07-23 13:51 | disposition home or self-care (01) ==
LOC: RAD 13:51
PROVIDERS: PCP Family Medicine; Visit Provider Family Medicine
DX: Z12.31 Encounter for screening mammogram for malignant neoplasm of breast (principal); R92.343 Mammographic extreme density, bilateral breasts; M85.89 Other specified disorders of bone density and structure, multiple sites; M81.0 Age-related osteoporosis without current pathological fracture
CPT/HCPCS: 77063; 77067; 77080

== ENCOUNTER 2024-10-22 04:06 | Emergency (ER) | payer MEDICARE, SELFPAY ==
--- OUTSIDE RECORDS SUMMARY | 2024-10-22 04:09 | XMS_ITS | Clinical Summary ---
Author Organization [facility] Address [address] [place] [id number] Care Team Providers Care Director Medical Science Name Role Phone Cyndy Ventura MD Primary Care Provider + Allergies Active Allergy Reactions Criticality Noted Date Comments Amlodipine Rash Low 02/27/2024 Per [facility] and [facility] records. Blood-Group Specific Substance Other - Describe In Comment Field 02/14/2024 Patient has an anti-D antibody. Blood products may be delayed. Draw patient 24 hours prior to transfusion. For [facility] testing, draw one red top and two purple top tubes for all Type and Screen orders. Hydrochlorothiazide Syncope High 11/25/2020 Latex Hives,Rash Low 11/25/2020 Medications acetaminophen (TYLENOL) 325 mg tablet Take 2 Tablets by mouth every 4 hours if needed for Pain. 03/23/2024 Active atorvastatin (LIPITOR) 20 mg tablet Take 1 Tablet by mouth at bedtime. 03/23/2024 Active eplerenone 25 mg tabletIndicatio ns:Chronic heart failure with preserved ejection fraction (HC) Take 1 Tablet (25 mg) by mouth once daily. 90 Tablet 3 05/29/2024 Active alendronate 70 mg tablet Take 70 mg by mouth once a week in the morning. 07/28/2024 Active furosemide 20 mg tabletIndicatio ns:Chronic heart failure with preserved ejection fraction (HC) Take 1 tablet daily as needed for weight gain of 3 lb in a day or 5 lb in a week. If Lasix needed more than 2x per week, resume daily dosing. 30 Tablet 1 07/31/2024 Active Active Problems Problem Noted Date Diagnosed Date Chronic diastolic congestive heart failure 03/21 Epigastric pain 03/21/2024 Hyponatremia 03/13/2024 Syncope 03/12/2024 Discitis of lumbar region 03/12/2024 Acute heart failure 03/11/2024 Dyslipidemia 02/13/2024 Bacteremia 02/13/2024 Discitis of lumbar region 02/13/2024 Gastroesophageal reflux disease 01/02/2017 Overview (02/13/2024): EGD 03/28: mild gastritis, path neg. Cor pulmonale 12/29/2015 Overview (02/13/2024): Echo '16: RVSP 50mm, nl EF, grade 2 diastolic dysfxn. PFTs nl. Nocturnal O2 study '16: nl Essential hypertension 02/11/2003 Hyperlipidemia Encounters Date Type Department Care Team Description 07/29/2024 11:00 AM CDT Office Visit [facility] [address] [facility] [address] [place] [address] Yaneth Brown PA Follow Up (2 month follow up- lab week prior at [facility] - pt will sign GINNY to [place] Ventura,[facility] H[facility] fax [phone]//pt states feels good with no sx ) 07/29/2024 Telephone [facility] [address] [place] [address] [address] [place] [id number] Yaneth Brown PA Medication Management 07/29/2024 Travel 07/23/2024 10:00 AM CDT Orders Only [facility] [address] [place] [address] Lab, [facility] 07/23/2024 Travel from Last 3 Months Immunizations Immunization Administration Dates Next Due COVID-19 vaccine (GreenerU-Bio NTech 30mcg/0.3mL) 12YO+ BIVALENT PF, MDV 06/12/2022,10/27/2021 COVID-19 vaccine (GreenerU-Bio NTech 30mcg/0.3mL) 12YO+ LORETO-SUCROSE PF, MDV 05/17/2021 Influenza, High-dose Inactivated 024,10/30/2023,11/02/2021,02/08,01/14/2018,01/08/2017,12/29/2015 ,12/27/2014,12/23/2013 Influenza, High-dose Quadriv alent Inactivated 10/24/2022,11/09/2020 Influenza, Inactivated AIIV4 (Age 65+ Years) Preserv Free 11/03/2019 Pneumococcal Conj 20-valent (Prevnar 20) 05/07/2023 Pneumococcal Poly,23-Valent (Pneumovax) 10/07/2013 Pneumococcal conj 13-Valent (Prevnar 13) 12/27/2014 RSV, Recombinant ADJ Reconst ituted (Arexvy 120MCG/0.5mL) 10/24/2022 Tdap 01/14/2018,10/07/2013 Zoster (Shingrix-RZV, recombinant) 03/17/2018, Zoster (Zostavax-ZVL, live) 01/20/2014 Family History Medical History Relation Name Comments ALS Brother 1 Lawrence Coronary artery disease Brother 2 Yung Coronary artery disease Brother 3 Facundo Lung cancer Father Skin cancer Father Cancer-colon Mother No Known Problems Sister Arthritis Son 1 Coronary artery disease Son 2 Relation Name Status Comments Brother 1 Lawrence Brother 2 Yung Brother 3 Facundo Father Mother Sister Son 1 Son 2 Social History Tobacco Use Types Packs/Day Years Used Date Smoking Tobacco: Never Smokeless Tobacco: Never Tobacco Cessation:Counseling Given: Yes Alcohol Use Standard Drinks/Week Comments Not Currently 0 (1 standard drink = 0.6 oz pur e alcohol) Social Connections Answer Date Recorded Do you often feel lonely or isolated from those around you? 0 03/21/2024 Financial Resource Strain Answer Date R ecorded Difficulty of Paying Living Expenses 3 02/13/2024 Difficulty of Paying Living Expenses Not on file 02/13/2024 Food Insecurity Answer Date Recorded Do you worry your food will run out before you are able to buy more? 1 03/21/2024 Transportation Needs Answer Date Record ed Does lack of transportation keep you from medica l appointments? 1 03/21/2024 Does lack of transportation keep you from work, meetings or getting things that you need? 1 03/21/2024 Housing Stability Answer Date Recorded What is your housing situation today? 1 03/21/2024 Interpersonal Safety Answer Date Record ed Are you being hit, kicked, p ushed or yelled at (see row info)? No 03/20/2024 Interpersonal Safety Abuse 12 - 18 Not on file 03/20/2024 Interpersonal Safety Ambulatory Vulnerability No t on file 03/20/2024 Utilities Answer Date Recorded Do you have trouble paying f or utilities (for example, heat, electricity, water, phone)? 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 Oxygen Saturation 96% 07/29/2024 10:52 AM CDT Inhaled Oxygen Concentration - - Weight 57.6 kg (127 lb) 07/29/2024 10:52 AM CDT Height 162.6 cm (5' 4) 07/29/2024 10:52 AM CDT Body Mass Index 21.8 07/29/2024 10:52 AM CDT Plan of Treatment Health Maintenance Due Date Last Done Comments Depression screening for age 12+ 1950 DEXA/DXA scan for age 65+ 05/31/2003 Medicare Wellness for age 65+ 05/31/2003 Influenza Vaccine (#1) 2024 , 10/30/2023, 11/02/2021, Additional history exists BMI (ht and wt on same day) for age 18+ 07/29/2025 07/29/2024, 05/29/2024, 03/30/2024 Tetanus booster 01/15/2028 01/14/2018, 10/07/2013 Zoster (shingles) series for age 50+ Completed 03/17/2018, 12/17/2017, 01/20/2014 RSV vaccine for adults or Completed 10/24/2022 Pneumococcal series for age 50+ Completed 05/07/2023, 12/27/2014, 10/07/2013 COVID-19 vaccine series Completed 06/05/19, 10/30/2023, 05/27/2023, Additional history exists Hepatitis B series for 19+ Aged Out N o longer eligible based on patient's age to complete this topic Medical Devices Implanted Type Area Food Aide Device Identifier Shelf Expiration Date Model / Serial / Lot Dura Neuro 1xin Duragen Plusnon-Sut - [id number] Implanted:Qty: 1 on 02/14/2024 by Facundo Curtis MD at [facility] [place] [facility] 11/10/2026 [id number] / / [id number] Procedures Procedure Name Priority Date/Time Associated Diagnosis Comments BASIC METABOLIC PANEL Routine 07/23/2024 9:55 AM CDT Chronic heart failure with preserved ejection fraction (HC) from Last 3 Months Results * (ABNORMAL) BASIC METABOLIC PANEL (07/23/2024 9:55 AM CDT) GLUCOSE 80 65 - 99 mg/dL [facility] Comment: Fasting reference interval UREA NITROGEN (BUN) 25 7 - 25 mg/dL [facility] CREATININE 1.19(H) 0.60 - 0.95 mg/dL [facility] EGFR 45(L) > OR = 60 mL/min/1.7 3m2 [facility] BUN/CREATININE RATIO 21 6 - 22 (calc) [facility] SODIUM 138 135 - 146 mmol/L [facility] POTASSIUM 4.4 3.5 - 5.3 mmol/L [facility] CHLORIDE 105 98 - 110 mmol/L [facility] CARBON DIOXIDE 27 20 - 32 mmol/L [facility] ELECTROLYTE BALANCE 6(L) 7 - 17 mmol/L (calc) [facility] CALCIUM 9.3 8.6 - 10.4 mg/dL [facility] Blood BLOOD SPECIMEN / Unknown 07/23/2024 9:55 AM CDT 07/23/2024 9:56 AM CDT Cesario Conrad MD, PhD CHEMISTRY Fin al Result [facility] [address] [place] [address], [facility] [address] [place] [address] from Last 3 Months Insurance MEDICARE PART A HB ONLY [facility] Advance Directives Documents on File Type Date Recorded Patient Guest Request Runner Expl anation POLST 03/19/2024 2:07 PM POLST dated 03/11/2024 * Partial Code (Latest Code Status on File) Date Activated Date Inactivated Comments 03/21/2024 1:39 PM 03/23/2024 2:40 PM Question Answer Comments Cardio Resuscitation: No Chest CompressionsNo De fibrillation/Cardioversion Ventilation: No Intubation Drug Protocol: No Restrictions * Partial Code Date Activated Date Inactivated Comments 03/11/2024 4:31 PM 03/15/2024 4:10 PM Question Answer Comments Cardio Resuscitation: No Chest CompressionsNo De fibrillation/Cardioversion Ventilation: No Intubation Drug Protocol: No Restrictions * Partial Code Date Activated Date Inactivated Comments 02/15/2024 5:58 PM 02/19/2024 6:51 PM Question Answer Comments Cardio Resuscitation: No Chest CompressionsNo De fibrillation/Cardioversion Ventilation: No Intubation Drug Protocol: No Restrictions * Partial Code Date Activated Date Inactivated Comments 02/13/2024 5:57 PM 02/15/2024 5:58 PM Question Answer Comments Cardio Resuscitation: No Chest Compressions Ventilation: No Intubation Drug Protocol: No Restrictions * Full Code Date Activated Date Inactivated Comments 02/13/2024 5:10 PM 02/13/2024 5:57 PM Question Answer Comments Code Status Discussion: Unable to Assess Preferences, Provider to review later Care Teams Director Medical Science Relationship Specialty Start Date End Date Cyndy Ventura MD [address] [place] [address] PCP - General Family Practice 01/12/24
--- OUTSIDE RECORDS SUMMARY | 2024-10-22 04:10 | XMS_ITS | Continuity of Care Document ---
Author Organization [facility] Address [address] [place] [address] Insurance Providers Payer Plan Claims Address Claims Phone Policy Number Group Number Relation Employer Guarantor Name Guarantor Guarantor Address Guarantor Phone [facility] MR [address] [address], [place] [id number] Self Roseanne Madsen [address] [place] [id number] [facility] [id number] All Addresse s tel:[phone] Self Roseanne Cale [address] [place] [id number] [facility] MR/MS HO [address] [address], [place] [id number] Self oRseanne Madsen [address] [place] [id number] Problems Condition ICD9 code ICD10 code SNOMED code Start Date End Date S tatus Hyperlipidemia, unspecified E78.5 02/19/2024 Active Bacteremia R78.81 02/19/2024 Active Discitis, unspecified, lumbar region M46.46 02/19/2024 Active Gastro-esophageal reflux disease without esophagitis K21.9 02/19/2024 Active Cor pulmonale (chronic) I27.81 02/19/2024 Active Essential (primary) hypertension I10 02/19/2024 Active Constipation, unspecified K59.00 02/19/2024 Active Retention of urine, unspecified R33.9 02/19/2024 Active Heart failure, unspecified I50.9 03/09/2024 Active Chest pain, unspecified R07.9 03/15/2024 Active Osteomyelitis of vertebra, lumbar region M46.26 03/15/2024 A ctive Disorientation, unspecified R41.0 03/15/2024 Active Results Test Value / Unit Interpretation Reference Ran ge Tuberculosis reaction wheal[ 07085-4] Tuberculosis reaction wheal [25425-2] 0 mm NEG Tuberculosis reaction wheal[ 57778-8] Tuberculosis reaction wheal [97554-4] See note TB test COVID-19 Test Viral Antigen null flavor [null] See note NEG COVID-19 Test Viral Antigen Tuberculosis reaction wheal[ 66424-2] Tuberculosis reaction wheal [45005-4] 0 mm NEG Allergies, adverse reactions, alerts No known allergies and adverse reactions Medications Medication Instructions Route Dosage Frequency Start Date Stop Date Indications Status Normal Saline Flush (sodium chloride 0.9 % (flush)) - syringe (Normal Saline Flush (sodium chloride 0.9 % (flush))) 10 ml, injection, As Needed, If your IV kit contains a CUROS cap that is replaced with each flush. This cap is not the same as the needless access device cap that is changed weekly with the dressing change. 1.0 1.0 d 03/15 Active furosemide 20 mg tablet (furosemide) 20 mg, oral, Twice A Day oral 1.0 12.0 h 03/09 Active potassium chloride 20 mEq tablet,ER particles/cry stals (potassium chloride) 20 mEq, oral, Twice A Day oral 1.0 12.0 h 03/15 Active metolazone 5 mg tablet (metolazone) 5 mg, oral, STAT - Immediately oral 1.0 03/09 Heart failure, unspecified Active furosemide 20 mg tablet (furosemide) 20 mg, oral, Twice A Day oral 1.0 12.0 h 03/10 Active metolazone 5 mg tablet (metolazone) 5 mg, oral, Once A Day oral 1.0 1.0 d 03/09 Heart failure, unspecified Active metolazone 5 mg tablet (metolazone) 5 mg, oral, Once A Day oral 1.0 1.0 d 03/10 Heart failure, unspecified Active carvedilol 12.5 mg tablet (carvedilol) 12.5 mg, oral, Twice A Day, Hold for SBP <100 oral 1.0 12.0 h 03/15 Essential (primary) hypertension Active nitroglycerin 0.4 mg tablet, sublingual (nitroglyceri n) 0.4mg, sublingual, As Needed, May repeat every five mins x2 for chest pain. Call provider if unrelieved after 3 consecutive doses. sublingu al 1.0 1.0 d 03/15 Active Lasix (furosemide) 40 mg tablet (Lasix (furosemide)) 40 mg, oral, Twice A Day oral 1.0 12.0 h 03/15 Active Normal Saline Flush (sodium chloride 0.9 % (flush)) - syringe (Normal Saline Flush (sodium chloride 0.9 % (flush))) 10 ml, injection, Every Shift, Flush IV catheter before and after each infusion and as needed. 1.0 8.0 h 03/26 Active Normal Saline Flush (sodium chloride 0.9 % (flush)) - syringe (Normal Saline Flush (sodium chloride 0.9 % (flush))) 10 ml, injection, As Needed, If your IV kit contains a CUROS cap that is replaced with each flush. This cap is not the same as the needless access device cap that is changed weekly with the dressing change. 1.0 1.0 d 03/26 Active spironolacton e 25 mg tablet (spironolacto ne) 12.5 mg, oral, Once A Day oral 1.0 1.0 d 03/21 Heart failure, unspecified Active atorvastatin 20 mg tablet (atorvastatin ) 20 mg, oral, At Bedtime oral 1.0 03/21 Hyperlipidemia , unspecified Active ceftriaxone 2 gram recon soln (ceftriaxone) 2 gram, injection, Every 12 Hours 1.0 12.0 h 03/27 Bacteremia Active furosemide 20 mg tablet (furosemide) 20 mg, oral, Once A Day oral 1.0 1.0 d 03/21 Heart failure, unspecified Active lidocaine 4 % adhesive patch,medicat ed (lidocaine) 1 patch, topical, Twice A Day, Apply 1 patch on dry, clean hairless skin once daily PRN for pain. On for 12 hours off for 12 hours. Apply to low back. Ok to cut in half if needed. Apply a few inches from open ski: rash, wound/incision or dressing. Do not apply heating pad over medication patches topical 1.0 12.0 h 03/21 Discitis, unspecified, lumbar region Active nitroglycerin 0.4 mg tablet, sublingual (nitroglyceri n) 0.4mg, sublingual, As Needed, Place 1 tablet (0.4mg) under the tongue every 5 mins PRN for chest pain. Up to 3 tablets in 15 mins. sublingu al 1.0 1.0 d 03/21 Chest pain, unspecified Active Senokot-S (sennosides-d ocusate sodium) 8.6-50 mg tablet (Senokot-S (sennosides-d ocusate sodium)) 1 tablet, oral, Twice A Day - PRN, N.O. Non-Pharmacolog ical Interventions 1=Additional fluids 2=Prune Juice 3=Increase exercise oral 1.0 12.0 h 03/21 Constipation, unspecified Active ceftriaxone 2 gram recon soln (ceftriaxone) 2 gram, injection, Every 12 Hours 1.0 12.0 h 03/15 Bacteremia Active lidocaine 4 % adhesive patch,medicat ed (lidocaine) 1 patch, topical, Twice A Day - PRN, Apply 1 patch on dry, clean hairless skin once daily if needed for pain. On for 12 hours off for 12 hours. Apply to low back. Ok to cut in half if needed. Apply a few inches from open ski: rash, wound/incision or dressing. Do not apply heating pad over medication patches topical 1.0 12.0 h 03/15 Discitis, unspecified, lumbar region Active acetaminophen 325 mg tablet (acetaminophe n) 650 mg, oral, Every 4 Hours - PRN, Max acetaminophen dose 4,000mg in 24hrs. N.O. Non-: Pharmacological Interventions 1=Warm blanket 2=Re-position 3=Ice pack 4=Warm pack oral 1.0 4.0 h 03/21 Pain, unspecified Active melatonin 3 mg tablet (melatonin) 3 mg, oral, At Bedtime, Dx: Insomnia oral 1.0 03/21 Active ceftriaxone 2 gram recon soln (ceftriaxone) 2 gram, injection, Every 12 Hours 1.0 12.0 h 03/21 Bacteremia Active acetaminophen 325 mg tablet (acetaminophe n) 650 mg, oral, Every 4 Hours - PRN, Max acetaminophen dose 4,000mg in 24hrs. N.O. Non-: Pharmacological Interventions 1=Warm blanket 2=Re-position 3=Ice pack 4=Warm pack oral 1.0 4.0 h 03/28 Pain, unspecified Active atorvastatin 20 mg tablet (atorvastatin ) 20 mg, oral, At Bedtime oral 1.0 03/28 Hyperlipidemia , unspecified Active ceftriaxone 2 gram recon soln (ceftriaxone) 2 gram, injection, Every 12 Hours 1.0 12.0 h 03/26 Bacteremia Active furosemide 20 mg tablet (furosemide) 20 mg, oral, Once A Day oral 1.0 1.0 d 03/28 Heart failure, unspecified Active lidocaine 4 % adhesive patch,medicat ed (lidocaine) 1 patch, topical, Twice A Day, Apply 1 patch on dry, clean hairless skin once daily PRN for pain. On for 12 hours off for 12 hours. Apply to low back. Ok to cut in half if needed. Apply a few inches from open ski: rash, wound/incision or dressing. Do not apply heating pad over medication patches topical 1.0 12.0 h 03/28 Discitis, unspecified, lumbar region Active melatonin 3 mg tablet (melatonin) 3 mg, oral, At Bedtime, Dx: Insomnia oral 1.0 03/25 Active nitroglycerin 0.4 mg tablet, sublingual (nitroglyceri n) 0.4mg, sublingual, As Needed, Place 1 tablet (0.4mg) under the tongue every 5 mins PRN for chest pain. Up to 3 tablets in 15 mins. sublingu al 1.0 1.0 d 5 03/28 Chest pain, unspecified Active Senokot-S (sennosides-d ocusate sodium) 8.6-50 mg tablet (Senokot-S (sennosides-d ocusate sodium)) 1 tablet, oral, Twice A Day - PRN, N.O. Non-Pharmacolog ical Interventions 1=Additional fluids 2=Prune Juice 3=Increase exercise oral 1.0 12.0 h 03/28 Constipation, unspecified Active spironolacton e 25 mg tablet (spironolacto ne) 12.5 mg, oral, Once A Day oral 1.0 1.0 d 03/28 Heart failure, unspecified Active melatonin 3 mg tablet (melatonin) 6 mg, oral, At Bedtime, Dx: Insomnia oral 1.0 03/28 Active ceftriaxone 2 gram recon soln (ceftriaxone) 2 gram, injection, Every 12 Hours 1.0 12.0 h 03/27 Bacteremia Active Normal Saline Flush (sodium chloride 0.9 % (flush)) - syringe (Normal Saline Flush (sodium chloride 0.9 % (flush))) 10 ml, injection, Every Shift, Flush IV catheter before and after each infusion and as needed. 1.0 8.0 h 03/27 Active Normal Saline Flush (sodium chloride 0.9 % (flush)) - syringe (Normal Saline Flush (sodium chloride 0.9 % (flush))) 10 ml, injection, As Needed, If your IV kit contains a CUROS cap that is replaced with each flush. This cap is not the same as the needless access device cap that is changed weekly with the dressing change. 1.0 1.0 d 03/27 Active amoxicillin 500 mg tablet (amoxicillin) 1,000 mg, oral, Three Times A Day oral 1.0 8.0 h 05/09 Osteomyelitis of vertebra, lumbar region Active amoxicillin 500 mg tablet (amoxicillin) 1,000 mg, oral, Three Times A Day oral 1.0 8.0 h 03/28 Osteomyelitis of vertebra, lumbar region Active Aplisol (tuberculin ppd) 5 tub. unit /0.1 mL solution (Aplisol (tuberculin ppd)) 0.1 ml, intradermal, Once A Day Every 14 Days, Document Lot #, Expiration, and [employer] Professional in the Preventive Health Module. intrader mal 1.0 1.0 d 03/28 Active ceftriaxone 2 gram recon soln (ceftriaxone) 2 gram, injection, Every 12 Hours 1.0 12.0 h 03/28 Bacteremia Active furosemide 20 mg tablet (furosemide) 20 mg, oral, Twice A Day oral 1.0 12.0 h 03/28 Active Lasix (furosemide) 20 mg tablet (Lasix (furosemide)) 20mg, oral, Once A Day oral 1.0 1.0 d 03/28 Active metolazone 5 mg tablet (metolazone) 5 mg, oral, STAT - Immediately oral 1.0 03/28 Heart failure, unspecified Active metolazone 5 mg tablet (metolazone) 5 mg, oral, Once A Day oral 1.0 1.0 d 03/28 Heart failure, unspecified Active Normal Saline Flush (sodium chloride 0.9 % (flush)) - syringe (Normal Saline Flush (sodium chloride 0.9 % (flush))) 10 ml, injection, Every Shift, Flush IV catheter before and after each infusion and as needed. 1.0 8.0 h 03/28 Active Normal Saline Flush (sodium chloride 0.9 % (flush)) - syringe (Normal Saline Flush (sodium chloride 0.9 % (flush))) 10 ml, injection, As Needed, If your IV kit contains a CUROS cap that is replaced with each flush. This cap is not the same as the needless access device cap that is changed weekly with the dressing change. 1.0 1.0 d 03/28 Active tamsulosin 0.4 mg capsule (tamsulosin) 0.4 mg, oral, Once A Day oral 1.0 1.0 d 03/28 Retention of urine, unspecified Active Vital Signs Date Vital Result Comment 03/07/2024 10:34 AM Body Weight 138 [lb_av] Body Mass Index 22.96 kg/m2 03/07/2024 10:35 AM Temperature 98.9 [degF] Oxygen Saturation 90 % Respiratory Rate 16 /min Heart Rate 80 /min Blood Pressure Systolic 124 mm[Hg] Blood Pressure Diastolic 75 mm[Hg] 03/08/2024 07:20 AM Temperature 98.5 [degF] Oxygen Saturation 95 % Respiratory Rate 15 /min Heart Rate 65 /min Blood Pressure Systolic 149 mm[Hg] Blood Pressure Diastolic 80 mm[Hg] 03/08/2024 09:36 AM Body Weight 141 [lb_av] Body Mass Index 23.46 kg/m2 03/09/2024 08:34 AM Temperature 98.1 [degF] Oxygen Saturation 91 % Respiratory Rate 16 /min Heart Rate 81 /min Blood Pressure Systolic 96 mm[Hg] Blood Pressure Diastolic 61 mm[Hg] Body Weight 139 [lb_av] Body Mass Index 23.13 kg/m2 03/10/2024 08:10 AM Temperature 98.5 [degF] Oxygen Saturation 90 % Respiratory Rate 16 /min Heart Rate 69 /min Blood Pressure Systolic 82 mm[Hg] Blood Pressure Diastolic 44 mm[Hg] 03/10/2024 09:32 AM Body Weight 138.8 [lb_av] Body Mass Index 23.1 kg/m2 03/10/2024 07:33 PM Blood Pressure Systolic 104 mm[Hg] Blood Pressure Diastolic 58 mm[Hg] 03/11/2024 12:00 AM Temperature 98.5 [degF] Oxygen Saturation 94 % Respiratory Rate 19 /min Heart Rate 79 /min Blood Pressure Systolic 109 mm[Hg] Blood Pressure Diastolic 63 mm[Hg] 03/11/2024 07:29 AM Blood Pressure Systolic 93 mm[Hg] Blood Pressure Diastolic 69 mm[Hg] 03/11/2024 07:50 AM Temperature 98 [degF] Oxygen Saturation 95 % Respiratory Rate 16 /min Heart Rate 76 /min 03/11/2024 10:28 AM Temperature 98.2 [degF] Oxygen Saturation 95 % Respiratory Rate 16 /min Heart Rate 85 /min Blood Pressure Systolic 97 mm[Hg] Blood Pressure Diastolic 63 mm[Hg] 03/11/2024 09:52 AM Body Weight 137.4 [lb_av] Body Mass Index 22.86 kg/m2 03/15/2024 03:13 PM Temperature 98.7 [degF] Oxygen Saturation 93 % Respiratory Rate 18 /min Heart Rate 79 /min Blood Pressure Systolic 98 mm[Hg] Blood Pressure Diastolic 51 mm[Hg] 03/15/2024 06:43 PM Temperature 98.5 [degF] Oxygen Saturation 96 % Respiratory Rate 19 /min Heart Rate 82 /min Blood Pressure Systolic 116 mm[Hg] Blood Pressure Diastolic 64 mm[Hg] 03/15/2024 09:23 PM Temperature 98.7 [degF] Oxygen Saturation 93 % Respiratory Rate 17 /min Heart Rate 86 /min Blood Pressure Systolic 126 mm[Hg] Blood Pressure Diastolic 66 mm[Hg] 03/16/2024 02:19 AM Temperature 98.9 [degF] Oxygen Saturation 93 % Respiratory Rate 18 /min Heart Rate 98 /min Blood Pressure Systolic 147 mm[Hg] Blood Pressure Diastolic 72 mm[Hg] 03/16/2024 05:39 AM Temperature 98.9 [degF] 03/16/2024 05:40 AM Respiratory Rate 17 /min 03/16/2024 07:49 AM Temperature 97.7 [degF] Oxygen Saturation 93 % Respiratory Rate 16 /min Heart Rate 87 /min Blood Pressure Systolic 117 mm[Hg] Blood Pressure Diastolic 66 mm[Hg] 03/16/2024 07:43 AM Oxygen Saturation 93 % 03/16/2024 09:46 AM Body Weight 122 [lb_av] Body Mass Index 20.3 kg/m2 03/16/2024 01:21 PM Temperature 97.2 [degF] Oxygen Saturation 92 % Respiratory Rate 20 /min Heart Rate 78 /min Blood Pressure Systolic 130 mm[Hg] Blood Pressure Diastolic 68 mm[Hg] 03/16/2024 05:55 PM Temperature 98.9 [degF] Oxygen Saturation 95 % Respiratory Rate 16 /min Heart Rate 91 /min Blood Pressure Systolic 116 mm[Hg] Blood Pressure Diastolic 63 mm[Hg] 03/16/2024 09:57 PM Temperature 98.9 [degF] Oxygen Saturation 93 % Respiratory Rate 17 /min Heart Rate 91 /min Blood Pressure Systolic 132 mm[Hg] Blood Pressure Diastolic 78 mm[Hg] 03/17/2024 09:24 AM Temperature 98.7 [degF] Oxygen Saturation 95 % Respiratory Rate 16 /min Heart Rate 92 /min Blood Pressure Systolic 139 mm[Hg] Blood Pressure Diastolic 74 mm[Hg] 03/17/2024 10:00 AM Body Weight 121.6 [lb_av] Body Mass Index 20.23 kg/m2 03/18/2024 08:29 AM Oxygen Saturation 94 % 03/18/2024 08:30 AM Temperature 97.7 [degF] Oxygen Saturation 94 % Respiratory Rate 18 /min Heart Rate 83 /min Blood Pressure Systolic 126 mm[Hg] Blood Pressure Diastolic 71 mm[Hg] Body Weight 122.4 [lb_av] Body Mass Index 20.37 kg/m2 03/19/2024 08:21 AM Temperature 98 [degF] Oxygen Saturation 94 % Respiratory Rate 18 /min Heart Rate 87 /min Blood Pressure Systolic 126 mm[Hg] Blood Pressure Diastolic 73 mm[Hg] 03/19/2024 10:14 AM Body Weight 122 [lb_av] Body Mass Index 20.3 kg/m2 03/19/2024 10:16 AM Oxygen Saturation 94 % 03/20/2024 10:13 AM Temperature 97.1 [degF] Oxygen Saturation 95 % Respiratory Rate 18 /min Heart Rate 89 /min Blood Pressure Systolic 123 mm[Hg] Blood Pressure Diastolic 64 mm[Hg] 03/20/2024 12:20 PM Body Weight 124 [lb_av] Body Mass Index 20.63 kg/m2 03/23/2024 02:28 PM Oxygen Saturation 95 % 03/23/2024 02:29 PM Temperature 97.3 [degF] Respiratory Rate 17 /min Heart Rate 71 /min Blood Pressure Systolic 170 mm[Hg] Blood Pressure Diastolic 81 mm[Hg] 03/23/2024 06:17 PM Temperature 98 [degF] Oxygen Saturation 96 % Respiratory Rate 18 /min Heart Rate 80 /min Blood Pressure Systolic 146 mm[Hg] Blood Pressure Diastolic 69 mm[Hg] 03/23/2024 09:30 PM Temperature 98.1 [degF] Oxygen Saturation 95 % Respiratory Rate 17 /min Heart Rate 82 /min Blood Pressure Systolic 134 mm[Hg] Blood Pressure Diastolic 76 mm[Hg] 03/24/2024 02:12 AM Temperature 97.8 [degF] Oxygen Saturation 96 % Respiratory Rate 18 /min Heart Rate 76 /min Blood Pressure Systolic 128 mm[Hg] Blood Pressure Diastolic 83 mm[Hg] 03/24/2024 05:44 AM Temperature 98.1 [degF] Oxygen Saturation 97 % Respiratory Rate 17 /min Heart Rate 69 /min Blood Pressure Systolic 121 mm[Hg] Blood Pressure Diastolic 83 mm[Hg] 03/24/2024 10:03 AM Temperature 98.5 [degF] Oxygen Saturation 94 % Respiratory Rate 19 /min Heart Rate 99 /min Blood Pressure Systolic 142 mm[Hg] Blood Pressure Diastolic 53 mm[Hg] 03/24/2024 09:48 AM Body Weight 124.6 [lb_av] Body Mass Index 20.73 kg/m2 03/24/2024 01:10 PM Temperature 98.3 [degF] Oxygen Saturation 93 % Respiratory Rate 18 /min Heart Rate 92 /min Blood Pressure Systolic 138 mm[Hg] Blood Pressure Diastolic 60 mm[Hg] 03/24/2024 01:40 PM Temperature 98.5 [degF] Oxygen Saturation 94 % Respiratory Rate 17 /min Heart Rate 90 /min Blood Pressure Systolic 142 mm[Hg] Blood Pressure Diastolic 62 mm[Hg] 03/24/2024 01:27 PM Body Height 65 [in_us] 03/25/2024 10:28 AM Temperature 98 [degF] Oxygen Saturation 95 % Respiratory Rate 16 /min Heart Rate 83 /min Blood Pressure Systolic 118 mm[Hg] Blood Pressure Diastolic 70 mm[Hg] 03/25/2024 10:08 AM Body Weight 124 [lb_av] Body Mass Index 20.63 kg/m2 03/25/2024 01:17 PM Temperature 97 [degF] Oxygen Saturation 94 % Respiratory Rate 16 /min Heart Rate 78 /min Blood Pressure Systolic 153 mm[Hg] Blood Pressure Diastolic 61 mm[Hg] 03/26/2024 09:27 AM Temperature 97.8 [degF] Oxygen Saturation 96 % Respiratory Rate 18 /min Heart Rate 90 /min Blood Pressure Systolic 158 mm[Hg] Blood Pressure Diastolic 83 mm[Hg] 03/26/2024 09:26 AM Body Weight 123.4 [lb_av] Body Mass Index 20.53 kg/m2 03/26/2024 09:25 AM Oxygen Saturation 96 % 03/27/2024 10:09 AM Oxygen Saturation 93 % 03/27/2024 09:07 AM Temperature 98.5 [degF] Oxygen Saturation 93 % Respiratory Rate 18 /min Heart Rate 70 /min Blood Pressure Systolic 147 mm[Hg] Blood Pressure Diastolic 69 mm[Hg] 03/27/2024 09:06 AM Body Weight 123.4 [lb_av] Body Mass Index 20.53 kg/m2 03/28/2024 10:44 AM Temperature 98.2 [degF] Oxygen Saturation 93 % Respiratory Rate 18 /min Heart Rate 88 /min Blood Pressure Systolic 131 mm[Hg] Blood Pressure Diastolic 69 mm[Hg] 03/28/2024 10:43 AM Oxygen Saturation 93 % 03/28/2024 10:40 AM Body Weight 125 [lb_av] Body Mass Index 20.8 kg/m2 Social History No smoking Hx information available Encounters Type CPT Code Date Location Provider Indication s encounter report 02/19/2024 10:51 AM Renita Alcantar MD encounter report 02/19/2024 06:0 0 PM - 03/28/2024 10:30 AM Lorie Alcantar MD Advance Directives Directive Description Verification Date Supporting Document(s) Intubation
[2024-10-22 04:14] VITALS: BP 199/89; PULSE 60; RESP 18; TEMP 36.6; O2SAT 98; BMI 21.1
--- NOTE | 2024-10-22 04:51 | CRLHL7_ITS ---
For Patients: As a result of the Century Cures Act, medical imaging exams and procedure reports are released immediately into your electronic medical record. You may view this report before your referring provider. If you have questions, please contact your health care provider. INDICATION: Lower abdominal pain TECHNIQUE: CT abdomen and pelvis acquired with 61 cc Isovue 370 IV contrast. COMPARISON: CT abdomen pelvis 02/11/2024, MR head 02/22/2024. FINDINGS: Lower chest: Bibasilar atelectasis/scarring. Coronary artery calcification. Liver: Stable segment 2 hypodense lesion, which is too small to characterize (2/28), likely cyst. Gallbladder and bile ducts: Cholecystectomy. Mild intra and extrahepatic biliary ductal prominence, likely related to reservoir effect. Pancreas: Pancreatic body cystic lesion measuring 0.8 centimeters is similar in size compared to prior (242). Spleen: Unremarkable. Adrenal glands: Unremarkable. Kidneys: Mild pelviectasis of the right kidney, similar to prior. Subcentimeter hypodense lesions in the right kidney, likely cysts. GI tract: Mild edema of the gastric antrum and pylorus. No obstruction or significant bowel dilation. Stool throughout the colon. Minimal areas of fecalization in small bowel loops in the pelvis (2/101), which can be seen with slow transit. Appendix is not visualized, but there no secondary signs of inflammation in the right lower quadrant. Vasculature: Abdominal aorta is normal in caliber. Moderate aortoiliac atherosclerosis. Mesenteric arteries are patent. Lymph nodes: No lymphadenopathy. Peritoneum/Abdominal Wall: Unremarkable. Pelvis: Calcified fibroids in the uterus. Bones: Diffuse osseous demineralization. Similar mild compression deformity of L1. IMPRESSION: No definite acute findings to explain symptoms. Stool throughout the colon. There is also some fecalization of small bowel loop contents in the pelvis, which can be seen with slow transit/constipation. No evidence of bowel dilation. Please note that all CT scans at this facility use dose modulation, iterative reconstruction, and/or weight-based dosing when appropriate to reduce radiation dose to as low as reasonably achievable. Dictated by Kathryn Smith MD @ 10/22/2024 6:13:30 AM (Electronically Signed)
--- NOTE | 2024-10-22 04:55 | ED.GENADULT ---
HPI - General Adult General Chief complaint: Abdominal Pain Stated complaint: stomach pain Time Seen by Provider: 10/22/24 04:31 Source: patient Mode of arrival: ambulatory Limitations: no limitations History of Present Illness HPI narrative: 84-year-old female presents to the emergency department with for 4-1/2 hours of abdominal pain, mainly in the lower abdomen. No nausea, no diarrhea. Crampy in nature, does not radiate. Appetite has been normal. Symptoms started around 11:00 p.m.. She had said good night to her and went to lie down in bed. She does sleep a little bit more upright due to reflux and found it was difficult to do so because flexing her abdomen caused pain. She was unable to fall asleep due to the discomfort and eventually woke her who brings her into the ED about an hour later. She did not take any medication prior to coming to the ED to try and help with her symptoms. Last bowel movement was yesterday afternoon, large but normal. No watery stools, no blood. Appetite has been fine the last few days. No fever. No trauma or injury. Was exposed to COVID a few days ago, not currently symptomatic and reports that she is vaccinated. She is not experiencing any other systemic symptoms like shortness of breath, chest pain or rash. No prior history of similar symptoms. As far as abdominal history, she has had a tubal ligation in the past, she had a cholecystectomy less than a year ago. She also had with sounds like a spinal abscess of the lower side lumbar spine area and required surgical drainage of that. Denies long-term sequelae. No prior bowel obstructions, hernias or other GI issues in the past. Pertinent past medical history notable for prior cholecystectomy, lumbar spine surgery as described above. History of mild heart failure with preserved ejection fraction. Prior hypertension. Current home meds are alendronate, atorvastatin and L para known. Allergies to hydrochlorothiazide amlodipine and latex. Nonsmoker. No history DVT or PE. ROS is notable for the GI symptoms as above only, otherwise denies times 12 systems. Related Data Home Medications ?Medication ?Instructions ?Recorded ?Confirmed acetaminophen 650 mg 650 mg PO Q12H 03/31/24 06/10/24 tablet,extended release (Tylenol Arthritis Pain) eplerenone 25 mg tablet 25 mg PO DAILY 06/10/24 06/10/24 Previous Rx's ?Medication ?Instructions ?Recorded atorvastatin 20 mg tablet 20 mg PO QHS #90 tabs 04/29/24 alendronate 70 mg tablet (Fosamax) 70 mg PO QWEEK #14 tabs 07/28/24 polyethylene glycol 3350 17 17 g PO DAILY PRN #119 grams 10/22/24 gram/dose oral powder (Miralax) Allergies Allergy/AdvReac Type Severity Reaction Status Date / Time hydrochlorothiazide Allergy Intermediate Verified 10/22/24 04:20 amlodipine Allergy Mild Rash Verified 10/22/24 04:20 latex Allergy Mild Rash Verified 10/22/24 04:20 [facility] Medical History Eczema ?L30.9 - Dermatitis, unspecified (ICD-10) History of SCC (squamous cell carcinoma) of skin ?Z85.828 - Personal history of other malignant neoplasm of skin (ICD-10) Dark stools (03/2024) ?R19.5 - Other fecal abnormalities (ICD-10) Fatigue (05/2024) ?R53.83 - Other fatigue (ICD-10) Hair loss (05/2024) ?L65.9 - Nonscarring hair loss, unspecified (ICD-10) Osteoporosis (07/28/24) ?M81.0 - Age-related osteoporosis without current pathological fracture (ICD-10) (HFpEF) heart failure with preserved ejection fraction (02/2024) ?I50.30 - Unspecified diastolic (congestive) heart failure (ICD-10) Pulmonary vascular congestion ?R09.89 - Other specified symptoms and signs involving the circulatory and respiratory systems (ICD-10) Cor pulmonale (chronic) ?I27.81 - Cor pulmonale (chronic) (ICD-10) CHF (congestive heart failure) ?I50.9 - Heart failure, unspecified (ICD-10) Cardiomegaly ?I51.7 - Cardiomegaly (ICD-10) Prediabetes (10/30/23) ?R73.03 - Prediabetes (ICD-10) Labile hypertension ?R09.89 - Other specified symptoms and signs involving the circulatory and respiratory systems (ICD-10) Overactive bladder ?N32.81 - Overactive bladder (ICD-10) Hearing loss (01/08/17) ?H91.90 - Unspecified hearing loss, unspecified ear (ICD-10) Gastroesophageal reflux disease ?K21.9 - Gastro-esophageal reflux disease without esophagitis (ICD-10) Dyslipidemia ?E78.5 - Hyperlipidemia, unspecified (ICD-10) Normal echocardiography (02/2024) 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) ?M46.46 - Discitis, unspecified, lumbar region (ICD-10) Primary cancer of skin of hand (09/2023) ?C44.601 - Unspecified malignant neoplasm of skin of unspecified upper limb, including shoulder (ICD-10) Vitamin D deficiency (01/16/18) ?E55.9 - Vitamin D deficiency, unspecified (ICD-10) Polyp of colon (1999) ?K63.5 - Polyp of colon (ICD-10) History of herpes zoster (2016) ?Z86.19 - Personal history of other infectious and parasitic diseases (ICD-10) Surgical History History of laparoscopic cholecystectomy (03/22/24) ?Z90.49 - Acquired absence of other specified parts of digestive tract (ICD-10) History of lumbar surgery ?Z98.890 - Other specified postprocedural states (ICD-10) History of phacoemulsification of cataract of both eyes with intraocular lens implantation (2020) ?Z98.41 - Cataract extraction status, right eye (ICD-10) ?Z98.42 - Cataract extraction status, left eye (ICD-10) ?Z96.1 - Presence of intraocular lens (ICD-10) H/O esophagogastroduodenoscopy (03/22/20) ?Z98.890 - Other specified postprocedural states (ICD-10) History of tubal ligation (1969) ?Z98.51 - Tubal ligation status (ICD-10) History of colonoscopy with polypectomy (02/08/16) ?Z98.890 - Other specified postprocedural states (ICD-10) ?Z86.010 - Personal history of colonic polyps (ICD-10) Family History Maternal Grandfather Stroke Son FH: early coronary artery disease, Onset Age: 42 Brother FH: early coronary artery disease ALS (amyotrophic lateral sclerosis) Brother FH: early coronary artery disease Sister FH: early coronary artery disease Father Lung cancer Skin cancer Mother Colon cancer, Onset Age: 86 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: , 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, 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 Exercises regularly, house work winter, gardening summer, always active Non-smoker Social drinker, 1/day wine What is your current living situation?: I presently have a place to live Problems where you live: no known problems Problems where you live details: Pt unable to answer appropriately when asked In the past 12 months, utilities in danger of being shut off: no In past 12 months, lack of transportation kept you from medical appts, meetings, work, or getting things needed for daily living: no In the past 12 mos, have been you worried that your food would run out before you had money to buy more?: never true In the past 12 mos, the food you bought just didn't last and you didn't have money to buy more?: never true Smoking Status: Never smoker Do you use any of these nicotine containing products: None Second hand tobacco smoke exposure: No How often do you have a drink containing alcohol: never How often do you have six or more drinks on one occasion: Never AUDIT-C Alcohol total score: 0 Non-prescribed substance use: denies use Caffeine: No How often does anyone, including family, friends and others, physically hurt you: never How often does anyone, including family, friends and others, insult or talk down to you: never How often does anyone, including family, friends and others, threaten you with harm: never How often does anyone, including family, friends and others, scream or curse at you: never Do you think of yourself as: straight/heterosexual Gender Identity: female service: No Exam Const: Vital Signs, click to edit/add: Vital Signs - 24 hr 10/22/24 04:14 Temperature 97.9 F Pulse Rate [Pulse Oximeter] 60 Respiratory Rate 18 Blood Pressure [Ri ght Upper Arm] 199/89 H Pulse Oximetry 98 Oxygen Delivery Me thod Room Air Documenting provider has reviewed patient's vital signs: yes Common normals: no apparent distress and alert General appearance: cooperative and well kempt Other: Polite and cooperative. Very mild memory impairment. HENMT: Common normals: normocephalic, moist oral mucous membranes and oropharynx normal Head and scalp: normocephalic Face and sinus: normal facial exam Mouth: oral and palatal mucosa normal Eye: Common normals: conjunctivae normal General eye: normal appearance of both eyes Conjunctiva: conjunctiva(e) normal Neck & C-Spine: Common normals: full ROM and no lymphadenopathy General: normal visual inspection Resp: Common normals: normal respiratory effort and no use of accessory muscles Effort & inspection: able to speak in complete sentences Cardio: Common normals: regular rate, regular rhythm, S1 normal heart sound, S2 normal heart sound and no murmurs Rate: regular rate Rhythm: regular rhythm Heart sounds: S1 normal and S2 normal GI: Common normals: Normal to inspection, nondistended, normoactive bowel sounds present, soft to palpation, no hepatosplenomegaly and no masses Palpation: soft and no hepatosplenomegaly Other: Slight fullness in the right lower abdomen, tender to this area. It is a diffuse area, not focal. It does not seem to be any rebound tenderness but there is mild guarding. Extremity: Common normals: normal capillary refill and no pedal edema Neuro: Common normals: moves all extremities Sensorium/orientation: alert Speech: speech normal Psych: Appearance: well kempt Attitude: engaged Activity/motor behavior: appropriate eye contact Mood and affect: euthymic mood Insight: insight good Judgement: judgment good Skin: Common normals: no rashes or lesions noted General skin exam: no rashes or lesions noted Course Course ED Course: 84-year-old female with right/mid lower abdominal pain. Differential diagnosis including appendicitis, ureterolithiasis, ovarian pathology, colitis, internal hernia, bowel obstruction, atypical presentations of pancreatitis, enteritis, musculoskeletal etiology or cramping from overuse of laxatives. Will place peripheral IV, obtain point of care creatinine, proceeding towards CT of the abdomen and pelvis with contrast. Typical intra-abdominal labs including lactate, lipase, metabolic panel, CBC and CRP. Patient declines pain medication for now, can reconsider. No IV fluids just yet. Urinalysis pending. Await findings. Reevaluation(s) Time of Reevaluation #1: 06:30 Reevaluation #1: Patient counseled on findings. Labs are all reassuring. CT showing constipation and gas. I do think this is the etiology of her symptoms. She gets confused as we explained timing of her bowel movements, her bowel management plan with her senna. has to redirect her but he is helpful. Will treat with MiraLax here in the ED x1. I have asked that they repeat the MiraLax in 8 hours of have prescribed this for them. They will continue on senna nightly rather than every other day for the next week. May continue with the MiraLax up to every 8 hours x5 doses if needed but I do think to will be sufficient. Continue to push fluids. Continue all other medications as prescribed. Alarm symptoms were reviewed that would warrant ED evaluation. Written instructions provided. All questions answered Vital Signs Vital signs: Initial Vital Signs Temperature 97.9 F 10/22/24 04:14 Temperature Source Temporal Artery Scan 10/22/24 04:14 Pulse Rate 60 10/22/24 04:14 Pulse Rhythm Regular 10/22/24 04:14 Respiratory Rate 18 10/22/24 04:14 Blood Pressure 199/89 H 10/22/24 04:14 Blood Pressure Mean 125 H 10/22/24 04:14 Pulse Oximetry 98 10/22/24 04:14 Oxygen Delivery Method Room Air 10/22/24 04:14 Vital Signs Temperature 97.9 F 10/22/24 04:14 Pulse Rate 60 10/22/24 04:14 Respiratory Rate 18 10/22/24 04:14 Blood Pressure 199/89 H 10/22/24 04:14 Pulse Oximetry 98 10/22/24 04:14 Oxygen Delivery Method Room Air 10/22/24 04:14 Temperature 97.9 F 10/22/24 04:14 Pulse Rate 60 10/22/24 04:14 Respiratory Rate 18 10/22/24 04:14 Blood Pressure 199/89 H 10/22/24 04:14 Pulse Oximetry 98 10/22/24 04:14 Oxygen Delivery Method Room Air 10/22/24 04:14 Medical Decision Making Lab Data Lab results reviewed: Yes I reviewed the patient's lab results Lab results narrative: Labs all reassuring. No significant leukocytosis, normal hemoglobin. Normal electrolytes. No signs of dehydration. Creatinine stable. No elevation of liver enzymes are C reactive protein. Urinalysis not suspicious for infection or blood. Labs: Lab Results 10/22/24 10/22/24 10/22/24 Range/Units 04:50 04:51 05:00 WBC 3.93 L (4.50-11.00) K/uL RBC 4.03 (4.00-5.20) m/uL Hgb 12.1 (12.0-16.0) gm/dL Hct 35.8 (33.0-51.0) % MCV 89 (80-100) fL MCH 30 (26-34) pg MCHC 34 (32-36) gm/dL RDW Coeff of Horace 13.0 (11.5-15.5) % Plt Count 192 (140-440) K/uL Neut % (Auto) 51.1 (42.0-72.0) % Lymph % (Auto) 36.6 (20-44) % Amador % (Auto) 10.7 (0.0-11.0) % Eos % (Auto) 1.3 (0.0-7.0) % Baso % (Auto) 0.3 (0.0-3.0) % Neut # (Auto) 2.00 (1.7-7.0) K/uL Lymph # (Auto) 1.40 (0.90-2.90) K/uL Amador # (Auto) 0.40 (0.00-0.90) K/UL Eos # (Auto) 0.10 (0.00-0.50) K/uL Baso # (Auto) 0.00 (0.00-0.30) K/uL Abs Immat Gran (auto) 0.00 (0.00-0.30) K/uL Imm/Tot Granulo (auto) 0.0 % Sodium 132 L (135-149) mmol/L Potassium 4.3 (3.6-5.1) mmol/L Chloride 101 (96-114) mmol/L Carbon Dioxide 24 (20-32) mmol/L Anion Gap 7 (7-15) mEq/L BUN 31 H (7-30) mg/dL Creatinine 1.0 (0.5-1.5) mg/dL Estimated Creat Clear 34.87 Estimated GFR 55 ml/min Glucose 108 (60-115) mg/dL Lactate 0.7 (0.5-1.9) mmol/L Calcium 8.9 (8.4-10.6) mg/dL Total Bilirubin 0.4 (0.1-1.5) mg/dL AST 25 (12-35) U/L ALT 17 (4-35) U/L Alkaline Phosphatase 70 (40-150) U/L C-Reactive Protein < 0.5 L (0.5-1.0) mg/dL Total Protein 6.8 (6.0-8.3) g/dL Albumin 4.2 (3.3-5.0) g/dL Lipase 94 (23-300) U/L Urine Color Yellow (Yellow) Urine Appearance Clear (Clear) Urine pH 6.5 (5.0-8.5) Ur Specific Glennie 1.015 (1.000-1.030) Urine Protein Negative (Negative) Urine Glucose (UA) Negative (Negative) Urine Ketones Negative (Negative) Urine Blood Negative (Negative) Urine Nitrite Negative (Negative) Urine Bilirubin Negative (Negative) Urine Urobilinogen 0.2 (0.2-1.0) Ur Leukocyte Esterase Negative (Negative) Urine RBC 0-2 (0-2) Urine WBC 0-2 (0-5) Ur Squamous Epith Cells Few (None-Few) Urine Bacteria Few A (None) POC Creatinine 1.2 (0.6-1.3) mg/dl Imaging Data CT scan - abdomen: Attestation: I have reviewed the pertinent imaging results. My impression: Fair amount of gas and constipation but otherwise normal CT. Radiologist's impression: IMPRESSION: No definite acute findings to explain symptoms. Stool throughout the colon. There is also some fecalization of small bowel loop contents in the pelvis, which can be seen with slow transit/constipation. No evidence of bowel dilation. Please note that all CT scans at this facility use dose modulation, iterative reconstruction, and/or weight-based dosing when appropriate to reduce radiation dose to as low as reasonably achievable. Dictated by Kathryn Smith MD @ 10/22/2024 6:13:30 AM Discharge Plan Discharge Clinical Impression: Constipation Patient Disposition: Home w/ Parent or Adult Condition: Stable Instructions: Constipation (ED) Additional Instructions: As we discussed, all of your blood work looks great. No signs of major infection, inflammation, problems with electrolytes, dehydration kidney dysfunction, liver problems, etc.. This CT scan shows a significant amount of gas and constipation. I do think that this explains your symptoms. I would like for you to switch your son a from every other day to every night. Do this for at least the next 7 days but plan to do it ongoing. You will be given a dose of MiraLax here in the emergency department. Please take another dose in about 8 hours. Remember to read the instructions carefully as mixing it in a proper amount of liquid is actually a scientific part of how the medication works. Mixing it in too much or too little liquid makes it ineffective. If you start having persistent vomiting, bloody stools, severe worsening of pain or high fevers, you should return to the emergency department. Continued cramping is common until the bowels move well. If you do not have good movement of your bowels with these 2 doses of MiraLax, you may continue dosing it every 8 hours until things move smoothly. I have sent a prescription to your pharmacy but it is available [id number]. Activity Level: Activity as Tolerated Discharge Diet: Regular Prescriptions: New polyethylene glycol 3350 [Miralax] 17 gram/dose powder 17 g PO DAILY PRNQty: 119 1RF No Action atorvastatin 20 mg tablet 20 mg PO QHS Qty: 90 3RF acetaminophen [Tylenol Arthritis Pain] 650 mg tablet extended release 650 mg PO Q12H eplerenone 25 mg tablet 25 mg PO DAILY alendronate [Fosamax] 70 mg tablet 70 mg PO QWEEK Qty: 14 3RF Follow Up/Referrals: Cyndy Ventura MD [Primary Care Provider, Family Practice] Stand Alone Forms: [email or web address] Info Instructions
[2024-10-22 05:00] LABS: Appearance Urine Clear (Clear)
[2024-10-22 05:13] LABS: Creatinine, Point-of-Care* 1.2 mg/dl (0.6-1.3)
[2024-10-22 05:18] LABS: Hematocrit* 35.8 % (33.0-51.0); Hemoglobin* 12.1 gm/dL (12.0-16.0); Immature Granulocytes Abs Auto 0.00 K/uL (0.00-0.30); Immature Granulocytes Pct Auto 0.0 %; Mean Corpuscular HGB Conc 34 gm/dL (32-36); Mean Corpuscular Hemoglobin 30 pg (26-34); Mean Corpuscular Volume 89 fL (80-100); RDW Coefficient of Variation % 13.0 % (11.5-15.5); Red Blood Count* 4.03 m/uL (4.00-5.20); White Blood Count* 3.93 K/uL (4.50-11.00)
[2024-10-22 05:19] LABS: Lactate Sepsis w/Reflex* 0.7 mmol/L (0.5-1.9)
[2024-10-22 05:21] LABS: Lymphocytes Absolute Auto 1.40 K/uL (0.90-2.90); Slide Review Reflex No
[2024-10-22 05:36] LABS: Chloride* 101 mmol/L (96-114)
[2024-10-22 05:37] LABS: Albumin* 4.2 g/dL (3.3-5.0); Potassium* 4.3 mmol/L (3.6-5.1); Sodium* 132 mmol/L (135-149)
[2024-10-22 05:39] LABS: Blood Urea Nitrogen* 31 mg/dL (7-30); Creatinine* 1.0 mg/dL (0.5-1.5); Est. Creatinine Clearance* 34.87; Estimated Glomerular Filt Rate 55 ml/min
[2024-10-22 05:40] LABS: Alanine Aminotransferase* 17 U/L (4-35); Alkaline Phosphatase* 70 U/L (40-150); Anion Gap 7 mEq/L (7-15); Aspartate Amino Transferase* 25 U/L (12-35); Bilirubin Total* 0.4 mg/dL (0.1-1.5); Calcium* 8.9 mg/dL (8.4-10.6); Carbon Dioxide* 24 mmol/L (20-32); Glucose* 108 mg/dL (60-115); Total Protein* 6.8 g/dL (6.0-8.3)
== END 2024-10-22 06:38 | disposition home or self-care (01) ==
PROVIDERS: Emergency Provider Family Medicine; PCP Family Medicine
DX: K59.00 Constipation, unspecified (principal)
CPT/HCPCS: 36415; 74177; 80053; 81001; 82565; 83605; 83690; 85025; 86140; 87086; 99284; Q9967

== ENCOUNTER 2024-12-10 08:49 | Outpatient (CLI) | payer MEDICARE, SELFPAY ==
--- NOTE | 2024-12-10 11:09 | P.ANES_ITS ---
Anesthesia Charges Start Date/Time Anesthesia Start Date: 12/10/24 Anesthesia Start Time: 09:46 Stop Date/Time Anesthesia Stop Date: 12/10/24 Anesthesia Stop Time: 11:03 Summary Extremes of Age - Over 70 or under 1: CONTRACT GRAPHIC DESIGNER Coding CPT Codes CPT Codes: ANES LWR INTST NDSC NOS - 49350 ([id number]) P3 - PATIENT W/SEVERE SYS DISEASE, QK - FOUNTAIN BRUSH ASSEMBLER 2-4 CNCRNT ANES PROC, QX - CONTRACT GRAPHIC DESIGNER SVC W/ MD MED DIRECTION Additional Codes: Summary - Extremes of Age - Over 70 or under 1: CONTRACT GRAPHIC DESIGNER ([id number])
--- NOTE | 2024-12-10 11:09 | W.ANESCHARGE ---
Anesthesia Charges Start Date/Time Anesthesia Start Date: 12/10/24 Anesthesia Start Time: 09:46 Stop Date/Time Anesthesia Stop Date: 12/10/24 Anesthesia Stop Time: 11:03 Summary Extremes of Age - Over 70 or under 1: BREADING MACHINE TENDER Coding CPT Codes CPT Codes: ANES LWR INTST NDSC NOS - 50972 ([id number]) P3 - PATIENT W/SEVERE SYS DISEASE, QK - SMELLER 2-4 CNCRNT ANES PROC, QX - BREADING MACHINE TENDER SVC W/ MD MED DIRECTION Additional Codes: Summary - Extremes of Age - Over 70 or under 1: BREADING MACHINE TENDER ([id number])
--- NOTE | 2024-12-10 11:35 | P.ANES_ITS ---
Anesthesia Charges Start Date/Time Anesthesia Start Date: 12/10/24 Anesthesia Start Time: 09:46 Stop Date/Time Anesthesia Stop Date: 12/10/24 Anesthesia Stop Time: 11:03 Summary Extremes of Age - Over 70 or under 1: MDA Coding CPT Codes CPT Codes: ANES LWR INTST NDSC NOS - 70296 ([id number]) QK - SUPERVISOR DRY CELL ASSEMBLY 2-4 CNCRNT ANES PROC, QX - CIRCULATING NURSE SVC W/ MD MED DIRECTION, P3 - PATIENT W/SEVERE SYS DISEASE Additional Codes: Summary - Extremes of Age - Over 70 or under 1: MDA ([id number])
== END 2024-12-10 08:50 | disposition home or self-care (01) ==
LOC: OP CLINIC 08:50
PROVIDERS: PCP Family Medicine; Visit Provider Surgery
DX: Z12.11 Encounter for screening for malignant neoplasm of colon (principal); Z86.0100 Personal history of colon polyps, unspecified; D12.2 Benign neoplasm of ascending colon; D12.0 Benign neoplasm of cecum; D12.4 Benign neoplasm of descending colon; D12.5 Benign neoplasm of sigmoid colon; D12.3 Benign neoplasm of transverse colon
CPT/HCPCS: 00811; 45385; 88305; 99100; J2704